=== PATIENT | female | born 1945 | race Caucasian/White ===

== ENCOUNTER 2017-09-15 11:18 | Day surgery (SDC) | payer MEDICARE, SELFPAY ==
[2017-08-31 16:19] VITALS: BMI 27.3
[2017-09-15] VITALS (7 sets, daily range): BP systolic 96–123; BP diastolic 62–70; PULSE 60–68; RESP 16–18; TEMP 36.1–36.6; O2SAT 96–100; BMI 27.8
[2017-09-15] MEDS: Bupivacaine Mpf 0.5% 30 ML VIAL (12:34)
[2017-09-15] MEDS: Cefazolin 2 GM in 0.9% Normal Saline 100 ML IV (13:16)
--- NOTE | 2017-09-15 13:59 | RAD_ITS ---
STUDY: X-RAY CHEST REASON FOR EXAM: Female, 71 years old. Post port placement, right side. TECHNIQUE: AP upright portable view. COMPARISON: 03/19/2017. FINDINGS: Right IJ approach Paja-P-Evmfaqqt tip is in the SVC. No pneumothorax. Mild pulmonary hyperinflation. Horizontal linear subsegmental atelectasis in the left midlung. No suspicious pulmonary nodules or infiltrates. There is no demonstrated pleural abnormality. Normal size heart. Normal mediastinum and jose d. Normal visualized pulmonary arteries. Normal visualized aortic arch and descending thoracic aorta. Normal visualized thoracic spine. Normal visualized ribs, clavicles, and shoulders. There is no demonstrated abnormality of the visualized soft tissue structures of the upper abdomen. RAD/CXR for Line Placement IMPRESSION: 1. Negative for pneumothorax following right IJ approach Hkes-D-Uikngoxo placement. 2. Horizontal linear subsegmental atelectasis overlying the left posterior eighth rib. 3. No other additional findings when compared to 03/19/2017. Electronically Signed: Ramiro House MD at 14:46 EST , Service support ,
--- NOTE | 2017-09-15 13:59 | OP.PCM_ITS ---
Report of Operation Date of Procedure: 09/15/17 Pre-Operative Diagnosis: z45.2, left breast cancer Post-Operative Diagnosis: same Surgery/Procedure Performed:: 1. Right IJ port placement. 2. Use fluoroscopy. 3. Use of ultrasound Type of Anesthesia:: MAC Anesthesiologist: Twin Marquez Special Medications: Ancef 2 g IV ?1 Estimated Blood Loss (mL): <10 cc Fluids Replaced: 700 cc Description of Procedure: After informed consent was given, the patient was brought to the operating room and placed in the supine position. Appropriate time out protocol was followed. He was then given IV conscious sedation for anesthesia. The patient 's right upper chest and neck were then prepped with a surgical skin preparation and sterile surgical drapes were placed. After proper landmarks were ascertained, the skin at the upper right chest area was then infiltrated with 1:1 mixture of 1% lidocaine with epinephrine and 0.5% maricaine. A needle trocar was then inserted into the right internal jugular vein with ultrasound guidance-multiple vessels were viewed with u/s and the right IJ was chosen-- and there was good aspiration of venous blood. A wire was then threaded into the needle trocar and this was visualized under fluoroscopy to ensure that the wire was in the superior vena cava. Once this was done, then the needle trocar was removed. A small skin shahana was made with an 11 blade knife at the wire entrance site. The dilator with the introducer sheath attached was then placed over the wire into the right internal jugular vein via the Seldinger technique and this was visualized under fluoroscopy. The dilator and sheath were in proper position as visualized by fluoroscopy. A subcutaneous pocket was then created caudad to the catheter insertion site. A transverse skin incision was made after the skin and subcutaneous tissues were infiltrated with local anesthetic. Blunt dissection was then used to create a space large enough for placement of the subcutaneous port. The catheter was then tunneled into the subcutaneous pocket. The wire and dilator were then removed. The catheter was then threaded into the introducer sheath and was positioned with its tip at the junction of the superior vena cava and the right atrium as visualized under fluoroscopy. The excess catheter was transected. The catheter was then attached to the subcutaneous port using manufacturers guidelines. The catheter was flushed with a heparin saline mixture prior to placement. Hemostasis was carefully controlled with electrocautery. The port was sutured to the subcutaneous fascia using 3-0 PDS suture at two sites. The port was then placed in the subcutaneous pocket and the sutures were ligated. The incision were reapproximated with interrupted subdermal 3-0 vicryl sutures. The skin was reapproximated with 3-0 nylon suture in a interrupted fashion. Steristrips were used for reinforcement of the skin closure at IJ insertion site and a sterile opsite dressings were applied. The patient tolerated the procedure well. Implants Used: [employer] PowerPort isp M.R.I. 6Fr Lot [id number] Grafts/Implants Used: [employer] PowerPort isp M.R.I. 6Fr Lot [id number] - Complications none
--- NOTE | 2017-09-15 14:03 | PCM.DC.POR ---
Discharge Diet: No Restrictions Discharge Activity: May not drive while taking narcotic pain medications. May shower in (days): 1 - keep port site dry for 5 days Lifting Restrictions: no lifting >15 lb with right arm x 1 week Call your doctor if your incision/area has: Continuous Slow Oozing, Sudden Increased Bleeding, Increased Pain/ Swelling, Increased Redness, Foul Smelling Discharge, Swelling at the incision site Call your doctor if you observe: Fever of 101 or Higher Remove Dressing in (days):: 2 Allergies/Adverse Reactions: Allergies demerol Allergy (Mild, Uncoded 09/11/17 08:25) Unknown Medications to take at Discharge colestipol 1 gram tablet 1 g PO DAILY 07/21/17 propranolol 10 mg tablet 10 mg PO BID 07/21/17 tramadol 50 mg tablet 50 mg PO PRN PRN 07/21/17 Ergocalciferol [Vitamin D] 50,000 unit PO WE 07/29/17 Albuterol IH (ProAir) [Proair Hfa (SP)Vent Pts] 2 puff INHALATION Q4H PRN PRN 08/06/17 Multivitamin [Multiple Vitamins] 1 ea PO DAILY 08/06/17 Oxycodone HCl/Acetaminophen [Percocet 5/325] 1 - 2 tab PO Q6H PRN PRN #30 tab 08/18/17 Lidocaine/Prilocaine [Lidocaine-Prilocaine Cream] 30 gm TP DAILY PRN PRN #1 cream..g. 09/02/17 Ondansetron HCl [Zofran] 4 mg PO Q8H PRN PRN #30 tab 09/02/17 Prochlorperazine Maleate 10 mg PO Q6H PRN PRN #30 tab 09/02/17 Oxycodone HCl/Acetaminophen [Percocet 5/325] 1 tablet PO Q6H PRN PRN #10 tablet 09/15/17 The following prescriptions were given: Oxycodone HCl/Acetaminophen [Percocet 5/325] 1 tablet PO Q6H PRN PRN #10 tablet PRN Reason: Pain Primary Care Physician: Samir Salcido [Primary Care Provider] - Please Follow Up With: Karuna Camarena MD - after 5PM/weekends call [phone] with any concerns When: call office for appt in 10 days for remove sutures Proposed Discharge Date: 09/15/17
--- NOTE | 2017-09-15 14:08 | DCINST_ITS ---
Discharge Diet: No Restrictions Discharge Activity: May not drive while taking narcotic pain medications. May shower in (days): 1 - keep port site dry for 5 days Lifting Restrictions: no lifting >15 lb with right arm x 1 week Call your doctor if your incision/area has: Continuous Slow Oozing, Sudden Increased Bleeding, Increased Pain/ Swelling, Increased Redness, Foul Smelling Discharge, Swelling at the incision site Call your doctor if you observe: Fever of 101 or Higher Remove Dressing in (days):: 2 Allergies/Adverse Reactions: Allergies demerol Allergy (Mild, Uncoded 09/11/17 08:25) Unknown Medications to take at Discharge colestipol 1 gram tablet 1 g PO DAILY 07/21/17 propranolol 10 mg tablet 10 mg PO BID 07/21/17 tramadol 50 mg tablet 50 mg PO PRN PRN 07/21/17 Ergocalciferol [Vitamin D] 50,000 unit PO WE 07/29/17 Albuterol IH (ProAir) [Proair Hfa (SP)Vent Pts] 2 puff INHALATION Q4H PRN PRN Multivitamin [Multiple Vitamins] 1 ea PO DAILY 08/06/17 Oxycodone HCl/Acetaminophen [Percocet 5/325] 1 - 2 tab PO Q6H PRN PRN #30 tab Lidocaine/Prilocaine [Lidocaine-Prilocaine Cream] 30 gm TP DAILY PRN PRN #1 cream..g. 09/02/17 Ondansetron HCl [Zofran] 4 mg PO Q8H PRN PRN #30 tab 09/02/17 Prochlorperazine Maleate 10 mg PO Q6H PRN PRN #30 tab 09/02/17 Oxycodone HCl/Acetaminophen [Percocet 5/325] 1 tablet PO Q6H PRN PRN #10 tablet 09/15/17 The following prescriptions were given: Oxycodone HCl/Acetaminophen [Percocet 5/325] 1 tablet PO Q6H PRN PRN #10 tablet PRN Reason: Pain Primary Care Physician: Samir Salcido [Primary Care Provider] - Please Follow Up With: Karuna Camarena MD - after 5PM/weekends call with any concerns When: call office for appt in 10 days for remove sutures Proposed Discharge Date: 09/15/17
== END 2017-09-15 15:04 | disposition home or self-care (01) ==
LOC: SDC 11:19 → AC 11:20
PROVIDERS: Family Provider Internal Medicine; PCP Internal Medicine; Visit Provider Surgery
PROC: (CPT 36561; principal; 2017-09-15 12:45)
DX: Z45.2 Encounter for adjustment and management of vascular access device (principal); C50.912 Malignant neoplasm of unspecified site of left female breast; J45.909 Unspecified asthma, uncomplicated; K58.9 Irritable bowel syndrome, unspecified; Z79.899 Other long term (current) drug therapy; Z78.0 Asymptomatic menopausal state; Z90.12 Acquired absence of left breast and nipple; Z98.51 Tubal ligation status
CPT/HCPCS: 36561; 76937; 71045; 77001; J7120; C1788

== ENCOUNTER 2017-09-25 14:54 | Observation (INO) | payer MEDICARE, SELFPAY ==
[2017-08-31 16:19] VITALS: BMI 27.3
[2017-09-23 13:32] VITALS: BP 119/65; BMI 28.9
[2017-09-25 14:54] VITALS: BP 146/67; PULSE 83; RESP 16; TEMP 35.9; O2SAT 100; BMI 27.4
--- NOTE | 2017-09-25 15:19 | RAD_ITS ---
STUDY: X-RAY CHEST REASON FOR EXAM: Female, 71 years old. Dyspnea and vomiting. TECHNIQUE: Single AP portable view of the chest. COMPARISON: Prior chest radiograph from March 19, 2017. FINDINGS: Port-A-Cath ends in the distal superior vena cava. Lung candelaria are well expanded without new consolidation, focal atelectasis or a substantial pleural effusion. Stable mild chronic changes. There is no demonstrated pleural abnormality. Normal size heart. Normal mediastinum and jose d. Normal visualized pulmonary arteries. There is atherosclerotic calcification of the aortic arch with tortuosity. There are diffuse degenerative changes of the visualized thoracic spine. Normal visualized ribs, clavicles, and shoulders. Group of surgical lori in the left axillary soft tissues. RAD/Chest 1 View (Portable) IMPRESSION: No acute cardiopulmonary findings or changes. Negative for new consolidation, focal atelectasis or a substantial pleural effusion. Port-A-Cath ends in the distal superior vena cava. Electronically Signed: Heidi Wakefield MD at 16:30 EST , Service support ,
--- NOTE | 2017-09-25 15:19 | EKG12_ITS ---
Test Reason : VOMITING Blood Pressure : / mmHG Vent. Rate : 079 BPM Atrial Rate : 079 BPM P-R Int : 130 ms QRS Dur : 074 ms QT Int : 378 ms P-R-T Axes : 042 050 018 degrees QTc Int : 433 ms Normal sinus rhythm Nonspecific ST segment abnormality Confirmed by CAREN PIERSON, WINSOME ([id number]), editor producer VAISHNAVI HARMON ([id number]) on 09/28/2017 1:08:41 PM Referred By: Andrew Ureña Confirmed By:WINSOME FABIAN MD
--- NOTE | 2017-09-25 15:21 | ED.VISSUMM ---
- ER Visit Summary Date of Service: 09/25/17 Chief Complaint: Nausea and vomiting History of Present Illness: The patient is a 71 F presenting with nausea and vomiting. Patient started chemo this week for breast cancer. She had chemo on Thursday and then Neulasta on Thursday. She states she began vomiting yesterday. She complains of muscle aches which she states she was told to expect with this type of chemo. She was diagnosed with breast cancer in July, had a lumpectomy and has now started chemotherapy. She denies fever. Denies chest pain, shortness of breath or other complaints. Physical Examination: Vitals are stable. Patient is afebrile. Alert no acute distress. HEENT exam is unremarkable. Neck is supple. Lungs are clear and equal bilaterally. Heart is regular rate and rhythm. Abdomen is soft nontender nondistended. Back: Paraspinal lumbar muscle tenderness, no midline tenderness Extremities are unremarkable. Skin is warm and dry. No focal neurologic deficit. Remainder of exam is unremarkable. Emergency Department Course and Treatment: She is given IV fluids, morphine, Zofran. Chest x-ray shows no acute process. EKG is sinus rate is 79. CBC shows a white count of 31.6, 80% segs, 10% bands. Chemistries normal except for BUN 19. Troponin is negative. Urine and blood cultures are sent. Discussed with Samina filiberto for Dr Varghese. She feels the jump in her white count from 7 to 31 is too much to be just from the Neulasta shot. Recommend observation. Discussed with the hospitalist, urinalysis is pending. Disposition: Observation Impression: Leukocytosis, history of breast cancer on chemotherapy This note was generated with Other Machine dictation software. It may contain incorrect words, spelling, and punctuation that were not noted in review of the chart prior to signing ED Disposition - Plan for ED Patient: Chief Complaint: Nausea/Vomiting Referrals: Samir Salcido [Primary Care Provider] -
[2017-09-25] MEDS: 0.9% Normal Saline 1,000 ML 1000 ML IV (15:50)
[2017-09-25] MEDS: Ondansetron 4 MG/2 ML Vial IV (15:50)
[2017-09-25 16:10] LABS: Differential Indicated MANUAL DIFF; Hematocrit 45.9 % (37-47); Hemoglobin 15.2 g/dl (12.0-15.0); Mean Corp Hgb Conc 33.1 g/gl (32-36); Mean Corpuscular Volume 93.5 fL (81-99); Mean Platelet Vol. 10.6 fl (6.2-12.0); POSITIVE COUNT YES; POSITIVE DIFFERENTIAL YES; POSITIVE MORPHOLOGY YES; Platelet Count 214 K/mm3 (150-450); RBC Distribution Width CV 14.2 % (11.6-14.6); RBC Distribution Width SD 47.3 fl (35.1-43.9); Red Blood Count 4.91 M/mm3 (4.2-5.4); White Blood Count 31.6 K/mm3 (4.4-11.0)
--- NOTE | 2017-09-25 16:12 | ED.RN ---
wbc 31.[address] humphrey aware
[2017-09-25 16:19] LABS: Anion Gap 8 (5-15); BUN 19 mg/dL (7-18); BUN/Creat Ratio 21.9 RATIO (10-20); Chloride 102 mmol/L (98-107); Creatinine, Serum 0.87 mg/dL (0.55-1.02); EST Glomerular Filtration Rate 68 mL/min (>60); Est Glom Filt Rate - Afr Amer 82 mL/min (>60); Estimated Creatinine Clearance 50.47 ml/min; Glucose 103 mg/dL (74-106); Potassium 3.7 mmol/L (3.5-5.1); Sodium Level 138 mmol/L (136-145)
[2017-09-25 16:48] LABS: Lymphocyte 9 % (19-41); Monocyte 1 % (0-10); Neutrophil-Band 10 % (0-5); Neutrophil-Segmented 80 % (47-70); Total Cells Counted 100 (MANUAL DIFF)
[2017-09-25 16:49] LABS: Platelet Estimate ADEQUATE (ADEQ); Red Cell Morphology NORM C+C NORMAL (NORM C&C)
[2017-09-25 17:02] VITALS: BP 133/68; PULSE 79; RESP 18; O2SAT 99
[2017-09-25 17:26] LABS: Mucous, Urine 0 SEEN /hpf (<or=2+); Red Blood Cells-Urine 0 SEEN /hpf (0-5)
[2017-09-25 17:36] LABS: Color, Urine Yellow (Yellow); Glucose, Dipstick Normal (Normal); Ketone-Dipstick 15 mg/dl (Negative); Leukocyte Esterase-Dipstick 500 /ul (Negative); Nitrite-Dipstick Negative (Negative); Occult Blood-Urine 10 /ul (Negative); Protein-Dipstick Negative (Negative); Specific Gravity, Urine 1.015 (1.002-1.030); Urine Bilirubin Dipstick Negative (Negative); Urine Clarity Sl. Cloudy (Clear); Urine Urobilinogen Normal (Normal)
[2017-09-25 17:47] VITALS: BMI 27.5
[2017-09-25 17:47] LABS: Lactic Acid 1.3 mmol/L (0.4-2.0)
[2017-09-25] MEDS: Acetaminophen 500 MG Tablet 1000 MG PO (17:49)
[2017-09-25 17:51] LABS: Squamous Epithelial Cells - UA 0-5 SEEN /hpf (5-10)
[2017-09-25 17:52] LABS: White Blood Cells 10-25 SEEN /hpf (0-5)
[2017-09-25 17:53] LABS: Bacteria RARE /hpf (None Seen); Transitional Epithelial - Ur 0-5 SEEN /hpf (0-5)
--- NOTE | 2017-09-25 17:54 | NURSING ---
MED SURG OBS DEHYDRATION, N/V, LEUKOCYTOSIS SHAYLA
--- NOTE | 2017-09-25 18:07 | PCM.HP.STD ---
Problem List (1) Gastroenteritis Status: Acute (2) UTI (urinary tract infection) Status: Acute (3) Cancer of left female breast Status: Chronic Qualifiers: (4) Mitral valve prolapse Status: Chronic (5) Hiatal hernia Status: Chronic (6) Regional lymph node metastasis present Status: Chronic (7) S/P partial mastectomy Status: Chronic Qualifiers: Comment: 08/18/17 History of Present Illness Date of Admission: 09/25/17 Chief Complaint: N/V/D The patient is a 71 year old F who is a patient of Dr. Starr who is undergoing chemotherapy for left breast cancer stage IIA with mets to the axilla s/p partial mastectomy whos last chemo was Thursday followed by neulasta thursday he began to feel ill last night. She became nauseous and vomited 3 times and also had some diarrhea with decreased PO tolerance. She felt increasingly worse and her and her decided to come to the ER. They were supposed to go to the cancer center for IV fluid administration however this was closed. She has not been running a fever however does feel some shaking chills. She also reports bone pain. She denies abdominal pain. She denies sick contacts. [] Past Medical History Past Medical History (Chronic Problems): Chronic Problems (Last Reviewed 09/22/17 @ 09:34 by Davina Gerber) Mitral valve prolapse (Chronic) Hiatal hernia (Chronic) Cancer of left female breast (Chronic) Regional lymph node metastasis present (Chronic) S/P partial mastectomy (Chronic) 08/18/17 Allergies demerol Allergy (Severe, Uncoded 09/22/17 09:09) Anaphylaxis Home Medications: Ambulatory Orders Medication Instructions Recorded colestipol 1 gram tablet 1 g PO DAILY 07/21/17 propranolol 10 mg tablet 10 mg PO BID PRN 07/21/17 tramadol 50 mg tablet 50 mg PO PRN PRN 07/21/17 Ergocalciferol [Vitamin D] 50,000 unit PO WE 07/29/17 Albuterol IH (ProAir) [Proair Hfa 2 puff INHALATION Q4H PRN PRN 08/06/17 (SP)Vent Pts] Multivitamin [Multiple Vitamins] 1 ea PO DAILY 08/06/17 Lidocaine/Prilocaine 30 gm TP DAILY PRN PRN #1 cream..g. 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 Denies: Fever, Weight Change HEENT: Denies: Head Aches, Sinus Congestion, Sinus Drainage Cardiovascular: Denies: Chest Pain, Palpitations Respiratory: Denies: Cough, Shortness of breath at rest, Shortness of breath upon exertion, Sputum production Gastrointestinal: Reports: Diarrhea, Nausea, Vomiting. Denies: Abdominal Pain Genitourinary: Denies: Dysuria, Urgency Musculoskeletal: Denies: Joint Pain, Joint Tenderness Skin: Denies: Rash, Wounds Neurological: Denies: Numbness, Tingling, Focal weakness Psychiatric: Denies: Anxiety, Depression, Homicidal Ideations, Suicidal Ideations Hematologic/ Lymphatic: Denies: Easy Bruising, Easy Bleeding VTE Information - Inpt Only VTE Present on Admission: No VTE Mechan Device Prophylaxis: SCD's VTE Pharm Prophylaxis ordered?: Yes Patient Problems: Active and Suspected Problems (Last Reviewed 09/22/17 @ 09:34 by Davina Gerber) Gastroenteritis (Acute) UTI (urinary tract infection) (Acute) - Physical Exam General: Alert, Oriented x3, Cooperative HEENT: Atraumatic, PERRLA, EOMI, Normocephalic Neck: Supple, No JVD, Negative Carotid Bruits Lungs: Clear to auscultation, Normal air movement Cardiovascular: Regular rate, No murmurs Abdomen: Bowel Sounds Present, Soft, Non Tender Extremities: No edema, Capillary Refill Less than 3 Seconds Skin: No rashes, No breakdown Musculoskeletal: No Tenderness to Palpation of Joints or Extremities Neurological: Cranial nerves II-XII grossly intact Psych/Mental Status: Normal Affect, Appropriate, Alert and oriented to time, place, person, mood and affect Vital Signs Temp Pulse Resp BP Pulse Ox 96.7 F L 79 18 133/68 H 99 09/25/17 14:54 09/25/17 17:02 09/25/17 17:02 09/25/17 17:02 09/25/17 17:02 Oxygen Delivery Method Room Air Weight: 72.575 kg Body Mass Index (BMI) 27.4 Laboratory Tests Past 24 Hrs 09/25/17 09/25/17 09/25/17 15:50 15:50 17:00 WBC 31.6 H* RBC 4.91 Hgb 15.2 H Hct 45.9 MCV 93.5 MCH 31.0 MCHC 33.1 RDW 14.2 RDW Differential 47.3 H Plt Count 214 MPV 10.6 Neut % (Auto) Not Reportable Absolute Neuts (auto) Not Reportable Total Counted 100 Neutrophils % (Manual) 80 H Band Neutrophils % 10 H Lymphocytes % (Manual) 9 L Monocytes % (Manual) 1 Diff Path Review May foll Platelet Estimate ADEQUATE RBC Morphology NORM C+C Sodium 138 Potassium 3.7 Chloride 102 Carbon Dioxide 28.0 Anion Gap 8 BUN 19 H Creatinine 0.87 Estim Creat Clear Calc 50.47 Est GFR (MDRD) Af Amer 82 Est GFR (MDRD) Non-Af 68 BUN/Creatinine Ratio 21.9 H Glucose 103 Lactic Acid 1.3 Calcium 9.0 Troponin I < 0.02 Urine Color Urine Clarity Urine pH Ur Specific [place] Urine Protein Urine Glucose (UA) Urine Ketones Urine Occult Blood Urine Nitrite Urine Bilirubin Urine Urobilinogen Ur Leukocyte Esterase Urine RBC Urine WBC Ur Squamous Epith Cells Ur Transition Epith Cell Urine Bacteria Urine Mucus 09/25/17 17:22 WBC RBC Hgb Hct MCV MCH MCHC RDW RDW Differential Plt Count MPV Neut % (Auto) Absolute Neuts (auto) Total Counted Neutrophils % (Manual) Band Neutrophils % Lymphocytes % (Manual) Monocytes % (Manual) Diff Path Review Platelet Estimate RBC Morphology Sodium Potassium Chloride Carbon Dioxide Anion Gap BUN Creatinine Estim Creat Clear Calc Est GFR (MDRD) Af Amer Est GFR (MDRD) Non-Af BUN/Creatinine Ratio Glucose Lactic Acid Calcium Troponin I Urine Color Yellow Urine Clarity Sl. Cloudy Urine pH 6.0 Ur Specific [place] 1.015 Urine Protein Negative Urine Glucose (UA) Normal Urine Ketones 15 H Urine Occult Blood 10 H Urine Nitrite Negative Urine Bilirubin Negative Urine Urobilinogen Normal Ur Leukocyte Esterase 500 H Urine RBC 0 SEEN Urine WBC 10-25 SEEN Ur Squamous Epith Cells 0-5 SEEN Ur Transition Epith Cell 0-5 SEEN Urine Bacteria RARE Urine Mucus 0 SEEN Assessment/Plan Active and Suspected Problems (Last Reviewed 09/22/17 @ 09:34 by Davina Gerber) Gastroenteritis (Acute) UTI (urinary tract infection) (Acute) 1. Acute gastroenteritis - chemo induced vs infectious. Leukocytosis 31.6 however she received neulasta Thursday. She has no fever but does have some chills. She appears dehydrated with increased BUN and ketones on her urinalysis. She will be given IV fluids and supportive care. LA is negative. CXR is negative. 2. Possible cystitis - + UA, will begin levaquin as she is immunocompromised. 3. Left breast cancer stage IIa mets to axilla - last chemo per Dr. Starr thursday. She is also s/p left partial mastectomy. 4. HTN - pt is on propranolol at home. BP mildly elevated. 5. Hx of MVP, hx of Hiatal hernia. DVT ppx: heparin This patient was seen by Cullen Mack PA-C under the supervision of Doctor Knutson.
[2017-09-25 18:32] VITALS: BMI 28.5
[2017-09-25 18:49] VITALS: BP 127/59; PULSE 86; RESP 18; TEMP 36.8; O2SAT 98
[2017-09-25] MEDS: 0.9% Normal Saline 1,000 ML 150 ML IV (18:56)
[2017-09-25] MEDS: levoFLOXacin 500 MG Tablet PO (19:23)
[2017-09-25] MEDS: Temazepam 15 MG Capsule PO (22:10)
[2017-09-26 00:30] VITALS: BP 101/50; PULSE 83; RESP 16; TEMP 36.4; O2SAT 95
[2017-09-26] MEDS: 0.9% Normal Saline 1,000 ML 150 ML IV ×2 (01:44→08:49)
[2017-09-26] MEDS: oxyCODONE 5 MG Tablet PO (03:20)
[2017-09-26 05:30] VITALS: BP 124/71; PULSE 80; RESP 16; TEMP 36.2; O2SAT 96
[2017-09-26] MEDS: levoFLOXacin 500 MG Tablet PO (05:34)
[2017-09-26 06:45] LABS: Hematocrit 40.3 % (37-47); Mean Corp Hgb Conc 32.3 g/gl (32-36); Mean Corpuscular Hgb 30.7 pg (27.0-32.0); Mean Corpuscular Volume 95.3 fL (81-99); Platelet Count 158 K/mm3 (150-450); RBC Distribution Width CV 14.2 % (11.6-14.6); RBC Distribution Width SD 49.3 fl (35.1-43.9); Red Blood Count 4.23 M/mm3 (4.2-5.4)
[2017-09-26 07:01] LABS: Anion Gap 8 (5-15); BUN 12 mg/dL (7-18); BUN/Creat Ratio 16.9 RATIO (10-20); Calcium,Total 8.2 mg/dL (8.5-10.1); Chloride 106 mmol/L (98-107); Creatinine, Serum 0.71 mg/dL (0.55-1.02); EST Glomerular Filtration Rate 86 mL/min (>60); Est Glom Filt Rate - Afr Amer 104 mL/min (>60); Estimated Creatinine Clearance 43.91 ml/min; Glucose 95 mg/dL (74-106); Potassium 3.7 mmol/L (3.5-5.1); Sodium Level 138 mmol/L (136-145)
[2017-09-26 07:14] LABS: Lymphocyte 10 % (19-41); Monocyte 1 % (0-10); Neutrophil-Band 4 % (0-5); Neutrophil-Segmented 85 % (47-70); Total Cells Counted 100 (MANUAL DIFF)
[2017-09-26 07:15] LABS: POSITIVE COUNT YES; POSITIVE DIFFERENTIAL NO; POSITIVE MORPHOLOGY YES
[2017-09-26 07:16] LABS: Absolute Neutrophil Count 18.7 X10^3/uL (2.0-7.7); Differential Indicated MANUAL DIFF
[2017-09-26] MEDS: Ondansetron 4 MG/2 ML Vial IV (07:32)
[2017-09-26 07:41] VITALS: BP 141/69; PULSE 84; RESP 18; TEMP 36.7; O2SAT 94
--- NOTE | 2017-09-26 11:14 | PCM.DC ---
- Discharge Diagnoses Current Active Problems: Current Active and Chronic Problems (Last Reviewed 09/22/17 @ 09:34 by Davina Gerber) Gastroenteritis (Acute) Mitral valve prolapse (Chronic) Hiatal hernia (Chronic) UTI (urinary tract infection) (Acute) You will use the following diet at home:: No restrictions Your food should be the consistency of: Regular Your liquids should be the consistency of: Regular/Thin Discharge Activity: Return to Normal Activity Allergies/Adverse Reactions: Allergies demerol Allergy (Severe, Uncoded 09/22/17 09:09) Anaphylaxis Medications to take at Discharge colestipol 1 gram tablet 1 g PO DAILY 07/21/17 propranolol 10 mg tablet 10 mg PO BID PRN 07/21/17 tramadol 50 mg tablet 50 mg PO PRN PRN 07/21/17 Ergocalciferol [Vitamin D] 50,000 unit PO WE 07/29/17 Albuterol IH (ProAir) [Proair Hfa] 2 puff INHALATION Q4H PRN PRN 08/06/17 Multivitamin [Multiple Vitamins] 1 ea PO DAILY 08/06/17 Lidocaine/Prilocaine [Lidocaine-Prilocaine Cream] 30 gm TP DAILY PRN PRN #1 cream..g. 09/02/17 Ondansetron HCl [Zofran] 4 mg PO Q8H PRN PRN #30 tab 09/02/17 Prochlorperazine Maleate 10 mg PO Q6H PRN PRN #30 tab 09/02/17 Temazepam 15 mg PO QHS PRN 09/25/17 Levofloxacin [Levaquin] 500 mg PO DAILY@0600 #5 tab 09/26/17 Oxycodone [Oxyir] 5 mg PO Q4H PRN PRN #20 tablet 09/26/17 The following prescriptions were given: Levofloxacin [Levaquin] 500 mg PO DAILY@0600 #5 tab Oxycodone [Oxyir] 5 mg PO Q4H PRN PRN #20 tablet PRN Reason: Mod-Severe Pain (-05/26) Primary Care Physician: Samir Salcido [Primary Care Provider] - Please follow up with your Primary Care Physician in: 2 weeks Please Follow Up With: Jesse Starr MD When: 1 week Proposed Discharge Date: 09/26/17
--- NOTE | 2017-09-26 11:15 | PCM.DC.SUM ---
Discharge Date and Diagnosis - Problem List Patient Problems: Active and Suspected Problems (Last Reviewed 09/22/17 @ 09:34 by Davina Gerber) Gastroenteritis (Acute) UTI (urinary tract infection) (Acute) Date of Admission: 09/25/17 Date of Discharge: 09/26/17 - Primary Discharge Diagnosis Active and Suspected Problems (Last Reviewed 09/22/17 @ 09:34 by Davina Gerber) Gastroenteritis (Acute) - chemo induced UTI (urinary tract infection) (Acute) left breast cancer with mets to axillary node HTN Hx MVP, Hiatal hernia - Secondary Discharge Diagnosis Chronic Problems (Last Reviewed 09/22/17 @ 09:34 by Davina Gerber) Mitral valve prolapse (Chronic) Hiatal hernia (Chronic) Cancer of left female breast (Chronic) Regional lymph node metastasis present (Chronic) S/P partial mastectomy (Chronic) 08/18/17 Hospital Course and Treatment Imaging Results: RAD/Chest 1 View (Portable) IMPRESSION: No acute cardiopulmonary findings or changes. Negative for new consolidation, focal atelectasis or a substantial pleural effusion. Port-A-Cath ends in the distal superior vena cava. Operations: None Procedures: None Summary of Care Provided: Physical exam on day of discharge: General: Resting comfortably NAD Psych: A/Ox3 normal affect HEENT: PEARRLA AT NC Neck: Supple NT CV: RRR no m/t/r/g/h Resp: CTA Abd: [id number] Soft NT no guarding or rigidity Ext: DP2+= no edema Skin: W/D normal turgor Lymph/Heme: No active bleeding or adenopathy Neuro: CN2-12 intact Hospital course: The patient is a 71 year old F with a hx of left breast cancer with mets to the left axilla who presented to the ER with nausea vomiting and diarrhea. She underwent chemo 3 days prior and neulasta 2 days prior. She had a significantly elevated white count at 36k and a UA suggesting a UTI. She was mildly dehydrated with a slightly elevated BUN and ketones on UA. No fever, negative chest xray. She was admitted and placed on supportive care, IV fluids, and levaquin to cover for UTI. She was feeling better by the next day so she was placed on 5 more days of levaquin and discharged home in stable condition with PRN medications and to follow up with her urologist in 1 week. This patient was seen by Cullen Mack PA-C under the supervision of Doctor Eamon. [] Discharge Diet: No Restrictions Discharge Activity: Return to Normal Activity Home Medications: Medications to take at Discharge colestipol 1 gram tablet 1 g PO DAILY 07/21/17 propranolol 10 mg tablet 10 mg PO BID PRN 07/21/17 tramadol 50 mg tablet 50 mg PO PRN PRN 07/21/17 Ergocalciferol [Vitamin D] 50,000 unit PO WE 07/29/17 Albuterol IH (ProAir) [Proair Hfa] 2 puff INHALATION Q4H PRN PRN 08/06/17 Multivitamin [Multiple Vitamins] 1 ea PO DAILY 08/06/17 Lidocaine/Prilocaine [Lidocaine-Prilocaine Cream] 30 gm TP DAILY PRN PRN #1 cream..g. 09/02/17 Ondansetron HCl [Zofran] 4 mg PO Q8H PRN PRN #30 tab 09/02/17 Prochlorperazine Maleate 10 mg PO Q6H PRN PRN #30 tab 09/02/17 Temazepam 15 mg PO QHS PRN 09/25/17 Levofloxacin [Levaquin] 500 mg PO DAILY@0600 #5 tab 09/26/17 Oxycodone [Oxyir] 5 mg PO Q4H PRN PRN #20 tablet 09/26/17 Following Prescrptions Were Given to Patient: Levofloxacin [Levaquin] 500 mg PO DAILY@0600 #5 tab Oxycodone [Oxyir] 5 mg PO Q4H PRN PRN #20 tablet PRN Reason: Mod-Severe Pain (-05/26) Primary Care Physician: Samir Salcido [Primary Care Provider] - Please follow up with your Primary Care Physician in: 2 weeks Please Follow Up With: Jesse Starr MD When: 1 week Disposition: Home Minutes spent on discharge:: 35 Patient Condition:: Stable Meaningful Use Info Meaningful Use Diagnoses (Choose all that apply): None applicable
[2017-09-29 09:54] LABS: Pathologist Review Reviewed
[2017-09-29 09:56] LABS: Pathologist Review Reviewed
== END 2017-09-26 12:20 | disposition home or self-care (01) ==
LOC: ED 16:23 → MS2 18:26
PROVIDERS: Admitting Provider Internal Medicine; Emergency Provider Emergency Medicine; Family Provider Internal Medicine; PCP Internal Medicine; Visit Provider Internal Medicine
DX: K52.1 Toxic gastroenteritis and colitis (principal); N39.0 Urinary tract infection, site not specified; I10 Essential (primary) hypertension; C50.912 Malignant neoplasm of unspecified site of left female breast; C77.3 Secondary and unspecified malignant neoplasm of axilla and upper limb lymph nodes; K44.9 Diaphragmatic hernia without obstruction or gangrene; E86.0 Dehydration; Z79.899 Other long term (current) drug therapy; I44.0 Atrioventricular block, first degree; T45.1X5A Adverse effect of antineoplastic and immunosuppressive drugs, initial encounter
CPT/HCPCS: 36415; 71045; 80048; 81001; 83605; 84484; 85025; 87040; 87086; 87088; 93005; 96361; 96372; 96374; 96375; 96376; 97802; 99218; 99283; J7030; G0378; J2405

== ENCOUNTER 2017-09-28 10:59 | Inpatient (IN) | payer MEDICARE, SELFPAY ==
[2017-08-31 16:19] VITALS: BMI 27.3
[2017-09-28] VITALS (10 sets, daily range): BP systolic 126–146; BP diastolic 60–77; PULSE 77–96; RESP 16–18; TEMP 36.6–37.4; O2SAT 96–100; BMI 27.4; BMI 27.7; BMI 27.5
--- NOTE | 2017-09-28 11:15 | NURSING ---
NO LW OR POA
--- NOTE | 2017-09-28 11:16 | ED.VISSUMM ---
- ER Visit Summary Date of Service: 09/28/17 Chief Complaint: Bright red blood per rectum History of Present Illness: The patient is a 71 F who has bright red blood per rectum. She states this started yesterday. It is associated with abdominal cramping. She thinks she is going to have a bowel movement when she does with all blood. She had nausea and vomiting yesterday but that is better today. Her last colonoscopy was 7 years ago. She currently has breast cancer with metastases to the left axilla. She is currently on chemotherapy and Neulasta. She does feel lightheaded and dizzy, weak as well. She does not take any blood thinning medications. No history of GI bleeds in the past Physical Examination: Vital signs reviewed. HEENT exam unremarkable. Heart is regular rate and rhythm without murmurs. Lungs are clear to auscultation. Abdomen is soft with diffuse tenderness to palpation. Extremities reveal no edema. Skin exam normal. Neurologic exam normal. Test Results: Hemoglobin 13.2, INR 1.1. Emergency Department Course and Treatment: Patient did have a large bowel movement with mostly blood here. Due to her GI bleeding as well as her medical history I feel she should be admitted. I spoke with the admitting hospitalist as well as Dr. Finn who will see the patient in consultation Treatment Plan: [] Disposition: Admit Impression: GI bleed This note was generated with [employer] dictation software. It may contain incorrect words, spelling, and punctuation that were not noted in review of the chart prior to signing ED Disposition - Plan for ED Patient: Chief Complaint: GI Bleed Referrals: Samir Salcido [Primary Care Provider] -
[2017-09-28 12:05] LABS: Hematocrit 40.7 % (37-47); Hemoglobin 13.2 g/dl (12.0-15.0); Mean Corp Hgb Conc 32.4 g/gl (32-36); Mean Corpuscular Hgb 30.1 pg (27.0-32.0); Mean Corpuscular Volume 92.7 fL (81-99); Mean Platelet Vol. 10.5 fl (6.2-12.0); Platelet Count 149 K/mm3 (150-450); RBC Distribution Width CV 13.7 % (11.6-14.6); RBC Distribution Width SD 46.8 fl (35.1-43.9); Red Blood Count 4.39 M/mm3 (4.2-5.4); White Blood Count 2.3 K/mm3 (4.4-11.0)
[2017-09-28 12:12] LABS: International Normalized Ratio 1.1; Prothrombin Time (Protime)PT. 13.3 SECONDS (11.7-14.9)
[2017-09-28 12:13] LABS: BUN 16 mg/dL (7-18); Creatinine, Serum 0.72 mg/dL (0.55-1.02); Differential Indicated MANUAL DIFF; Glucose 100 mg/dL (74-106); POSITIVE COUNT NO; POSITIVE DIFFERENTIAL YES; POSITIVE MORPHOLOGY YES
[2017-09-28 12:14] LABS: Anion Gap 10 (5-15); BUN/Creat Ratio 22.1 RATIO (10-20); Calcium,Total 8.9 mg/dL (8.5-10.1); Chloride 106 mmol/L (98-107); EST Glomerular Filtration Rate 84 mL/min (>60); Est Glom Filt Rate - Afr Amer 102 mL/min (>60); Estimated Creatinine Clearance 43.91 ml/min; Potassium 3.5 mmol/L (3.5-5.1); Sodium Level 140 mmol/L (136-145)
[2017-09-28 13:14] LABS: Eosinophil 3 % (0-5); Lymphocyte 44 % (19-41); Monocyte 1 % (0-10); Neutrophil-Band 1 % (0-5); Neutrophil-Segmented 51 % (47-70); Total Cells Counted 100 (MANUAL DIFF)
[2017-09-28 13:19] LABS: Lymphocyte # 1.02 X10^3/ul (4.0); Neutrophil # 1.22 X10^3/uL (2.7-7.7)
--- NOTE | 2017-09-28 13:56 | NM_ITS ---
STUDY: NUCLEAR MEDICINE GI BLEED SCAN. REASON FOR EXAM: Female, 71 years old. Rectal bleeding. TECHNIQUE: 25 mCi of technetium tagged red blood cells injected. Multiple images of the abdomen were obtained. COMPARISON: None. FINDINGS: There is no evidence of a active bleeding. NM/GI Bleed Scan IMPRESSION: No evidence of active GI bleeding. Electronically Signed: Esteban Alexis MD at 16:08 EST Tel [phone], Service support ,
--- NOTE | 2017-09-28 14:12 | NURSING ---
128 GI BLEED SHAYLA
--- NOTE | 2017-09-28 14:42 | HP.PCM_ITS ---
Problem List (1) Rectal bleed Status: Acute (2) Mitral valve prolapse Status: Chronic (3) Hiatal hernia Status: Chronic (4) Cancer of left female breast Status: Chronic Qualifiers: (5) Regional lymph node metastasis present Status: Chronic (6) S/P partial mastectomy Status: Chronic Qualifiers: Comment: 08/18/17 (7) Asthma Status: Chronic History of Present Illness Date of Admission: 09/28/17 Chief Complaint: BRBPR The patient is a 71 year old F with a history of left breast cancer status post partial mastectomy, who underwent chemotherapy about 1 week with Neulasta given 1 day after, with regional lymph node metastasis, who was recently discharged from the hospital after being treated for chemo-induced gastroenteritis and suspected UTI, who presents to the emergency room with bright red blood per rectum. This began yesterday, she has had multiple episodes of loose bowels with bright red blood and dark clots. She continues to have this in the emergency room. She denies dizziness or lightheadedness. She has a normal hemoglobin at this time. She also has had bilateral lower quadrant abdominal discomfort and chills at home. She denies any history of diverticulosis, her last colonoscopy was normal reportedly. She has no history of hemorrhoids either. No fevers noted. No nausea or vomiting. [] Past Medical History Past Medical History (Chronic Problems): Chronic Problems (Last Reviewed 09/28/17 @ 10:31 by Ladonna Castro) Mitral valve prolapse (Chronic) Hiatal hernia (Chronic) Cancer of left female breast (Chronic) Regional lymph node metastasis present (Chronic) S/P partial mastectomy (Chronic) 08/18/17 Asthma (Chronic) Allergies demerol Allergy (Severe, Uncoded 09/28/17 11:03) Anaphylaxis Home Medications: Ambulatory Orders Medication Instructions Recorded colestipol 1 gram tablet 1 g PO DAILY 07/21/17 propranolol 10 mg tablet 10 mg PO BID PRN 07/21/17 tramadol 50 mg tablet 50 mg PO PRN PRN 07/21/17 Ergocalciferol [Vitamin D] 50,000 unit PO WE 07/29/17 Albuterol IH (ProAir) [Proair Hfa] 2 puff INHALATION Q4H PRN PRN 08/06/17 Multivitamin [Multiple Vitamins] 1 ea PO DAILY 08/06/17 Lidocaine/Prilocaine 30 gm TP DAILY PRN PRN #1 cream..g. 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 Lives: Spouse/ Significant Other Smoking Status: Never smoker Tobacco Use: Non-smoker Alcohol: None Drugs: None - *Family History Maternal History Items: Heart Disease Paternal History Items: Cancer - leukemia, Heart Disease, Stroke Review of Systems Constitutional: Denies: Chills, Fever, Weight Change HEENT: Denies: Head Aches, Sinus Congestion, Sinus Drainage Cardiovascular: Denies: Chest Pain, Heaviness, Light Headedness, Palpitations, Syncope Respiratory: Denies: Cough, Shortness of Breath, Shortness of breath at rest, Sputum production Gastrointestinal: Reports: Abdominal Pain, Diarrhea, Hematochezia. Denies: Nausea, Vomiting Genitourinary: Denies: Dysuria Musculoskeletal: Denies: Joint Pain, Joint Tenderness Skin: Denies: Rash, Wounds Neurological: Denies: Numbness, Tingling, Focal weakness Psychiatric: Denies: Anxiety, Depression, Homicidal Ideations, Suicidal Ideations Hematologic/ Lymphatic: Denies: Easy Bruising, Easy Bleeding VTE Information - Inpt Only VTE Present on Admission: No VTE Mechan Device Prophylaxis: SCD's VTE Pharm Prophylaxis ordered?: No Reason prophylaxis not ordered:: Medical Contraindication Patient Problems: Active and Suspected Problems (Last Reviewed 09/28/17 @ 10:31 by Ladonna Castro) Rectal bleed (Acute) - Physical Exam General: Alert, Oriented x3, Cooperative HEENT: Atraumatic, PERRLA, EOMI, Normocephalic Neck: Supple, No JVD, Negative Carotid Bruits Lungs: Clear to auscultation, Normal air movement Cardiovascular: Regular rate, No murmurs Abdomen: Bowel Sounds Present, Soft, Hypoactive Bowel Sounds, Tender - BL lower quadrants Extremities: No edema, Capillary Refill Less than 3 Seconds Skin: No rashes, No breakdown Musculoskeletal: No Tenderness to Palpation of Joints or Extremities Neurological: Cranial nerves II-XII grossly intact Psych/Mental Status: Normal Affect, Appropriate, Alert and oriented to time, place, person, mood and affect Vital Signs Temp Pulse Resp BP Pulse Ox 98 F 77 18 131/77 H 100 09/28/17 11:01 09/28/17 14:02 09/28/17 14:02 09/28/17 14:02 09/28/17 14:02 Oxygen Delivery Method Room Air Weight: 72.575 kg Body Mass Index (BMI) 27.4 Laboratory Tests Past 24 Hrs 09/28/17 09/28/17 09/28/17 11:45 11:45 11:45 WBC 2.3 L RBC 4.39 Hgb 13.2 Hct 40.7 MCV 92.7 MCH 30.1 MCHC 32.4 RDW 13.7 RDW Differential 46.8 H Plt Count 149 L MPV 10.5 Neut % (Auto) Not Reportable Absolute Neuts (auto) Not Reportable Total Counted 100 Neutrophils % (Manual) 51 Band Neutrophils % 1 Lymphocytes % (Manual) 44 H Monocytes % (Manual) 1 Eosinophils % (Manual) 3 PT 13.3 INR 1.1 Sodium 140 Potassium 3.5 Chloride 106 Carbon Dioxide 24.0 Anion Gap 10 BUN 16 Creatinine 0.72 Estim Creat Clear Calc 43.91 Est GFR (MDRD) Af Amer 102 Est GFR (MDRD) Non-Af 84 BUN/Creatinine Ratio 22.1 H Glucose 100 Calcium 8.9 Assessment/Plan Active and Suspected Problems (Last Reviewed 09/28/17 @ 10:31 by Ladonna Castro) Rectal bleed (Acute) 1. Multiple episodes of BRBPR, with no anemia and stable vitals - pt continues to have bright red stools in the ER with abdominal pain in BL lower candelaria. Etiology unclear. She was recently discharged from the hospital after being treated for chemo induced gastroenteritis and a UTI with levaquin. She will be admitted to PCU and general surgery will be consulted. Type and screen. Serial H /H. Pt will go for a bleed scan this afternoon. IV fluids, and PRN medications. She will be placed on protonix. No nausea/vomiting at this time. Vitals are stable. 2. 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 Pt of Dr. Varghese. Chemo and neulasta about 1 week ago. Now Leukopenic after having very elevated leukocytes at last admission. No fever. 3. Mild thrombocytopenia - did receive heparin last admission. Continue to trend. Probably 2/2 chemo. 4. Recent acute cystitis - she has 3 more days of levaquin to complete for total of 7 day therapy. Urine culture with mixed GPCs 5. HTN - stable 6. Hx MVP 7. Hx Hiatal hernia DVT ppx: SCDs This patient was seen by Cullen Mack PA-C under the supervision of Doctor Knutson.
[2017-09-28] MEDS: Pantoprazole Sodium 40 MG Tablet PO (17:09)
[2017-09-28] MEDS: Acetaminophen 325 MG Tablet 650 MG PO ×2 (17:09→22:57)
[2017-09-28] MEDS: 0.9% NaCl VAD Flush 10 ML IV ×2 (17:10→20:22)
[2017-09-28] MEDS: 0.9% Normal Saline 1,000 ML 125 ML IV (17:10)
--- NOTE | 2017-09-28 17:37 | CT_ITS ---
STUDY: CT ABDOMEN AND PELVIS WITH CONTRAST REASON FOR EXAM: Female, 71 years old. Bloody diarrhea. RADIATION DOSAGE (If Supplied By Facility): CTDIvol = ( 12.54 ) mGy, DLP = ( 790.46 ) mGycm TECHNIQUE: Transaxial images were obtained from the dome of the diaphragm to the symphysis pubis with oral contrast. 100ML ml of Isovue 300 contrast was administered. Sagittal and coronal images were reconstructed. Individualized dose optimization techniques were used for this CT. COMPARISON: None. FINDINGS: There is a 4.5 cm fluid collection or mass in the left breast. Correlate clinically and correlate with mammogram. The visualized lung bases are unremarkable. The visualized portions of the heart are within normal limits. Normal liver. There are surgical clips in the gallbladder fossa consistent with a prior cholecystectomy. Normal spleen. Normal pancreas. Normal bilateral adrenal glands. Normal right kidney. Normal left kidney. Normal visualized stomach. Normal small intestine. There is marked thickening of the descending colon and rectosigmoid consistent with severe nonspecific colitis. There is diverticulosis without definite diverticulitis. The appendix is visualized and appears normal. Normal abdominal aorta. Normal inferior vena cava. Normal retroperitoneum. Normal urinary bladder. Normal visualized uterus. Normal abdominal wall. There are diffuse degenerative changes of the visualized lumbar spine. CT/Abdomen/Pelvis WITH Contrast IMPRESSION: Findings consistent with severe descending and rectosigmoid colitis. 4.5 cm fluid collection or mass of the left breast. Electronically Signed: Dimitris Rose MD at 21:39 EST , Service support ,
[2017-09-28 17:57] LABS: Hematocrit 40.7 % (37-47); Hemoglobin 13.1 g/dl (12.0-15.0)
[2017-09-28 18:07] LABS: International Normalized Ratio 1.1; Prothrombin Time (Protime)PT. 13.4 SECONDS (11.7-14.9)
[2017-09-28 20:44] LABS: Hematocrit 38.1 % (37-47); Hemoglobin 12.4 g/dl (12.0-15.0)
[2017-09-28] MEDS: Temazepam 15 MG Capsule PO (22:58)
[2017-09-28] MEDS: Piperacil/Tazobactam 3.375 GM/50 ML ML IV (23:00)
--- NOTE | 2017-09-28 23:22 | PCM.HOSP.N ---
Hospitalist Note Patient underwent a CAT scan of the abdomen and pelvis early this evening, it showed extensive colitis from the descending colon throughout the sigmoid area and rectum. I discussed the case with gastroenterology (Dr. Concepcion) he felt it was most likely caused by ischemic colitis. He recommended the patient undergo a colonoscopy tomorrow, I discussed this with Dr. Starr the patient's oncologist, he recommended that the colonoscopy not be performed at the patient's absolute neutrophil count was below 1000. Labs will be obtained early in the a.m. of 09/29/15 to recheck her white blood cell count, if the absolute neutrophil count is below thousand, she will not be able have a colonoscopy on that date. GI will be informed if the colonoscopy is not to be performed. I tried to reach Dr. Concepcion by phone but was unable to reach him
--- NOTE | 2017-09-28 23:26 | CCHN_ITS ---
Hospitalist Note Patient underwent a CAT scan of the abdomen and pelvis early this evening, it showed extensive colitis from the descending colon throughout the sigmoid area and rectum. I discussed the case with gastroenterology (Dr. Concepcion) he felt it was most likely caused by ischemic colitis. He recommended the patient undergo a colonoscopy tomorrow, I discussed this with Dr. Starr the patient's oncologist, he recommended that the colonoscopy not be performed at the patient' s absolute neutrophil count was below 1000. Labs will be obtained early in the a.m. of 09/29/15 to recheck her white blood cell count, if the absolute neutrophil count is below thousand, she will not be able have a colonoscopy on that date. GI will be informed if the colonoscopy is not to be performed. I tried to reach Dr. Concepcion by phone but was unable to reach him
[2017-09-29] VITALS (10 sets, daily range): BP systolic 112–123; BP diastolic 60–70; PULSE 73–87; RESP 14–18; TEMP 36.4–37; O2SAT 95–97
[2017-09-29] MEDS: 0.9% Normal Saline 1,000 ML 125 ML IV ×3 (01:15→16:41)
[2017-09-29] MEDS: Acetaminophen 325 MG Tablet 650 MG PO ×2 (04:42→10:41)
[2017-09-29] MEDS: 0.9% NaCl VAD Flush 10 ML IV ×2 (05:01→05:02)
[2017-09-29 05:13] LABS: Hematocrit 36.3 % (37-47); Hemoglobin 11.9 g/dl (12.0-15.0); Mean Corp Hgb Conc 32.8 g/gl (32-36); Mean Corpuscular Hgb 30.7 pg (27.0-32.0); Mean Corpuscular Volume 93.6 fL (81-99); Mean Platelet Vol. 10.4 fl (6.2-12.0); Platelet Count 146 K/mm3 (150-450); RBC Distribution Width CV 13.4 % (11.6-14.6); RBC Distribution Width SD 44.9 fl (35.1-43.9); Red Blood Count 3.88 M/mm3 (4.2-5.4); White Blood Count 1.8 K/mm3 (4.4-11.0)
[2017-09-29 05:59] LABS: Absolute Neutrophil Count 0.4 X10^3/uL (2.0-7.7); Basophil% 0.5 % (0-1); Differential Indicated SCAN CRITERIA MET; Lymphocyte # 1.35 X10^3/ul (4.0); Lymphocyte % 67.5 % (19-41); Neutrophil # 0.38 X10^3/uL (2.7-7.7); POSITIVE COUNT YES; POSITIVE DIFFERENTIAL YES; POSITIVE MORPHOLOGY YES
[2017-09-29 06:00] LABS: Absolute Lymphocyte Count 1.35 X10^3/ul (0.83-4.51); Basophil# 0.01 X10^3/uL; Monocyte# 0.08 X10^3/uL
[2017-09-29] MEDS: Piperacil/Tazobactam 3.375 GM/50 ML ML IV ×3 (06:20→21:21)
[2017-09-29 10:08] LABS: Pathologist Review Reviewed
--- NOTE | 2017-09-29 10:24 | CASEMGMT ---
Face to Face with patient for initial transition planning/care coordination assessment. CONCHA PAYTON introduced self and role at [facility], pt voices understanding and consents to assessment at this time. Pt is sitting up in bed in no distress at this time. Pt A/O x4 at this time and answers all questions appropriately at this time. Care providers, pharmacy, and demographics verified. See attached link. Pt voices no further concerns/needs at this time. Advised pt to ask for CM if any further questions/concerns/needs arise, voices understanding. [place]
[2017-09-29] MEDS: Pantoprazole Sodium 40 MG Tablet PO (10:37)
--- NOTE | 2017-09-29 12:33 | ONC.CON.INP2 ---
- Problem List (1) Colitis Status: Acute (2) Chemotherapy induced neutropenia Status: Acute (3) Rectal bleed Status: Acute (4) Cancer of left female breast Status: Chronic Qualifiers: (5) Regional lymph node metastasis present Status: Chronic (6) S/P partial mastectomy Status: Chronic Qualifiers: Comment: 08/18/17 Consult Referring Physician: Hospitalist service Consult Results: Breast Cancer. Chemotherapy induced neutropenia. Colitis Subjective Date of Service:: 09/29/17 Chief Complaint: Rectal Bleeding History of Present Illness: 71 YOF admitted 09/28 with acute CO bleed abdominal pain and colitis. 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 She used to go for annual mammograms but missed the past 4 years while being preoccupied taking care of her ill father. She does not have any first-degree relatives with breast cancer but has 3 cousins with breast cancer. On August 18, 2017 she underwent a partial left mastectomy with sentinel lymph node biopsy. 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 Tumor is ER positive (95% CO positive (95%) HER-2 not amplified (0 IHC) She made a non-complicated recovery from her surgery. Started adjuvant Adriamycin-Cytoxan 09/22/2017 followed by Neulasta (long acting growth Factor on 09/23) Was seen in ER 09/25 with neulasta bony pains, N/V not neutropenic and suspected UTI treated with PO antibiotics. Past Medical History: Chronic Problems (Last Updated 09/29/17 @ 08:41 by Jesse Starr MD) Mitral valve prolapse (Chronic) Hiatal hernia (Chronic) Cancer of left female breast (Chronic) Regional lymph node metastasis present (Chronic) S/P partial mastectomy (Chronic) 08/18/17 Asthma (Chronic) Past Medical/Surgical History: Past Medical History - Most Recent Inpatient Visit Past Medical History Start: 09/28/17 14:45 Text: Status: Complete Freq: ONCE Protocol: Document 09/28/17 14:57 SLG (Rec: 09/28/17 14:59 SLG [id number]) BMI Required to complete PMH What is Patient's BMI 27.5 Past Medical History Unable History Recalled No Query Text:Pt Unable/Family Not Present Neurologic Medical History Hx Stroke/TIA No Hx Dementia/Alzheimer's No Hx Parkinson's Disease No Hx Seizures No Hx Multiple Sclerosis No Hx Migraines 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 No Hx Heart Failure No Hx Pacemaker/AICD No Hx Irregular Heartbeat and/or Afib No Hx Anticoagulant Therapy No Query Text:(Coumadin, Aspirin, Plavix, Xarelto, etc.) Hx Pain in Legs when Walking/Leg Cramps No Comments mitral valve prolapse Respiratory Medical History Hx COPD No: asthma Hx Emphysema No Hx Smoking No Smoking Status Never smoker Hx Tobacco Use in last 12 months No Hx of Pipe Smoking No Hx Sleep Apnea No CPAP No Do you snore loudly (louder than talking No or can be heard through closed doors)? Do you often feel tired/ fatigued/ Yes sleepy during daytime? Has anyone observed you stop breathing No during sleep? STOP Results Positive GI Medical History Hx Ulcer No Hx Hepatitis No Hx Cirrhosis No Hx GI Bleed No Hx Unplanned Weight Loss No Genitourinary Medical History Indwelling Catheter in Place on Arrival/ No Admission Hx Renal Disease No Hx Dialysis No Musculoskeletal History Hx Arthritis Yes: OA Hx Rheumatoid Arthritis No Endocrine Medical History Hx Diabetes No Hx Thyroid Disease No Hematologic Medical History Hx of Blood Transfusion No Hx of Transfusion in last 3 Months No Ever experience any problems with No transfusion(s)? Hx of Preganancy in last 3 Months No Nurse Filling Out Transfusion & SGESSEL Questions: Date: 09/28/17 Time: 14:58 Psycho/Social Medical History Hx Depression Yes Hx Anxiety No Hx Behavior Disorder No Hx Alcohol Use No Hx Substance Use No Other Medical History Hx Blood Disorders No Hx Anemia No Hx Cancer Yes: BREAST cancer-s/p left lumpectomy Hx Drug Resistant Organism No Wound/Pressure Injury Present on Arrival No: to be assessed per primary /Admission rn Query Text:If yes, chart assessment in Shift/Clinical Findings Central Line/PICC/VAD Present on Arrival Yes /Admission Antibiotics within last 7 days? Yes Name of Antibiotic (Include dose/# days levaquin taken if known) Last day ATB taken 09/28/17 Comments Right upper chest Risk for Readmission Number of Risk Factors 3 At Risk for Readmission Patient is At Risk For Readmission Patient is eligible for Call Back Y Past Medical History (Last Updated 09/29/17 @ 08:41 by Jesse Starr MD) Colitis (Acute) Mitral valve prolapse (Chronic) Cancer of left female breast (Chronic) Regional lymph node metastasis present (Chronic) Normal colonoscopy (Acute) Back pain (Acute) Murmur, cardiac (Acute) Asthma (Chronic) Past Surgical History (Last Updated 09/29/17 @ 08:41 by Jesse Starr MD) S/P partial mastectomy (Chronic) Hx laparoscopic cholecystectomy (Acute) S/P lateral meniscectomy of right knee (Acute) S/P rotator cuff repair (Acute) Maternal Family History: Family History (Last Reviewed 09/28/17 @ 10:31 by Ladonna Castro) Father Heart problem Mother Heart problem Grandmother Ovarian cancer Family History: Heart Disease Paternal Family History: Family History (Last Reviewed 09/28/17 @ 10:31 by Ladonna Castro) Father Heart problem Mother Heart problem Grandmother Ovarian cancer Family History: Cancer - leukemia, Heart Disease, Stroke - Social History Lives: Spouse/ Significant Other Smoking Status: Never smoker Tobacco Use: Non-smoker Alcohol: None Drugs: None Allergies/Adverse Reactions: Allergy/AdvReac Type Severity Reaction Status Date / Time meperidine [From Demerol] Allergy Anaphylaxis Verified 09/28/17 14:46 Home Medications Medication Instructions Recorded colestipol 1 gram tablet 1 g PO DAILY 07/21/17 propranolol 10 mg tablet 10 mg PO BID PRN 07/21/17 tramadol 50 mg tablet 50 mg PO PRN PRN 07/21/17 Ergocalciferol [Vitamin D] 50,000 unit PO WE 07/29/17 Albuterol IH (ProAir) [Proair Hfa] 2 puff INHALATION Q4H PRN PRN 08/06/17 Multivitamin [Multiple Vitamins] 1 ea PO DAILY 08/06/17 Lidocaine/Prilocaine 30 gm TP DAILY PRN PRN #1 cream..g. 09/02/17 [Lidocaine-Prilocaine Cream] Ondansetron HCl [Zofran] 4 mg PO Q8H PRN PRN #30 tab 09/02/17 Prochlorperazine Maleate 10 mg PO Q6H PRN PRN #30 tab 09/02/17 Oxycodone [Oxyir] 5 mg PO Q4H PRN PRN #20 tab 09/26/17 Levofloxacin [Levaquin] 500 mg PO DAILY@0600 09/28/17 Temazepam [Restoril] 15 mg PO QHS PRN PRN 09/28/17 Review of Systems Constitutional:: Reports: Weakness, Fatigue. Denies: Fever, Sweats, Weight loss, Appetite change, Chills Cardiovascular:: Denies: Chest pain, Palpitations, Dyspnea on exertion, Orthopnea, PND, Shortness of breath Respiratory: Denies: Cough, Hemoptysis, Shortness of Breath, Wheezing Gastrointestinal:: Reports: Abdominal pain - cramping, Hematochezia, Reflux. Denies: Nausea, Vomiting, Diarrhea, Constipation Genitourinary: Denies: Dysuria, Hematuria, 15, Flank pain Musculoskeletal:: Reports: - - Bone pains resolved, lasted ~3 days post neulasta. Denies: Back pain, Myalgia, Arthralgia Skin: Denies: Rash, Skin Changes, Wounds Neurological:: Denies: Headache, Dizziness, Visual changes, Tinnitus, Hearing loss Psychiatric: Denies: Anxiety, Depression, Homicidal Ideations, Suicidal Ideations Vital Signs Height 5 ft 4 in Weight: 73.3 kg Weight in Pounds 161.6 lbs Pulse Ox 95 Temperature 98.6 F Pulse Rate 79 Respiratory Rate 14 Blood Pressure 112/63 Blood Pressure Position Sitting - Physical Exam General: Alert, Oriented x3, No apparent distress HEENT: Atraumatic, PERRLA, EOMI, Normocephalic Oropharynx:: Dry mucosa Neck:: Supple, Trachea midline, - - Porte OK. Negative for: JVD, bilateral Cardiac:: Regular rate, Regular rhythm, Normal S1, Normal S2. Negative for: Murmur Lungs: Clear to auscultation, Excusion symmetrical. Negative for: Rhonchi, Wheezes Abdomen:: Bowel sounds x 4, Soft, Non-distended, - - Tender along left colon. Negative for: Hepatosplenomegaly Extremities:: Negative for: Cyanosis, Edema Neurological: Neuro grossly intact Skin:: Negative for: Lesions, Rash, Petechiae, Ecchymosis Psychiatric:: Anxious Lymphatics:: Negative for: Cervical lymphadenopathy Laboratory Data: Microbiology 09/29/17 01:15 C. difficile DNA Amplification - Final Stool Laboratory Tests 09/29/17 09/28/17 09/28/17 Range/Units 05:00 20:25 17:15 WBC 1.8 L (4.4-11.0) K/mm3 RBC 3.88 L (4.2-5.4) M/mm3 Hgb 11.9 L 12.4 13.1 (12.0-15.0) g/dl Hct 36.3 L 38.1 40.7 (37-47) % MCV 93.6 (81-99) fL MCH 30.7 (27.0-32.0) pg MCHC 32.8 (32-36) g/gl RDW 13.4 (11.6-14.6) % RDW Differential 44.9 H (35.1-43.9) fl Plt Count 146 L (150-450) K/mm3 MPV 10.4 (6.2-12.0) fl Immature Gran % (Auto) 4.000 H (0.0-0.9) % Neut % (Auto) 19.0 L (47-70) % Lymph % (Auto) 67.5 H (19-41) % [place] % (Auto) 4.0 (0-10) % Eos % (Auto) 5.0 (0-5) % Baso % (Auto) 0.5 (0-1) % Absolute Neuts (auto) 0.4 L (2.0-7.7) X10^3/uL Absolute Lymphs (auto) 1.35 (0.83-4.51) X10^3/ul Total Counted CARDIOLOGY CLINICAL CONSULTANT Diff Path Review December foll PT (11.7-14.9) SECONDS INR 09/28/17 Range/Units 17:15 WBC (4.4-11.0) K/mm3 RBC (4.2-5.4) M/mm3 Hgb (12.0-15.0) g/dl Hct (37-47) % MCV (81-99) fL MCH (27.0-32.0) pg MCHC (32-36) g/gl RDW (11.6-14.6) % RDW Differential (35.1-43.9) fl Plt Count (150-450) K/mm3 MPV (6.2-12.0) fl Immature Gran % (Auto) (0.0-0.9) % Neut % (Auto) (47-70) % Lymph % (Auto) (19-41) % [place] % (Auto) (0-10) % Eos % (Auto) (0-5) % Baso % (Auto) (0-1) % Absolute Neuts (auto) (2.0-7.7) X10^3/uL Absolute Lymphs (auto) (0.83-4.51) X10^3/ul Total Counted Diff Path Review PT 13.4 (11.7-14.9) SECONDS INR 1.1 C. Diff negative Diagnostic Data: Diagnostic Data GI Bleed Scan Nuclear Medicine 09/28/17 13:56 IMPRESSION: No evidence of active GI bleeding. Electronically Signed: Esteban Alexis MD at 16:08 EST Tel [phone], Service support , Abdomen/Pelvis CT 09/28/17 17:37 IMPRESSION: Findings consistent with severe descending and rectosigmoid colitis. 4.5 cm fluid collection or mass of the left breast. Electronically Signed: Dimitris Rose MD at 21:39 EST , Service support , Assessment and Plan 71 YOF S/P partial left mastectomy with sentinel lymph node biopsy 08/18/2017 for stage IIA invasive mucinous carcinoma. Tumor is ER positive (95% CO positive (95%) HER-2 not amplified (0 IHC) She made a non-complicated recovery from her surgery. Started adjuvant Adriamycin-Cytoxan 09/22/2017 followed by Neulasta (long acting growth Factor on 09/23) Was seen in ER 09/25 with neulasta bony pains, N/V not neutropenic and suspected UTI treated with PO antibiotics. She was subsequently admitted 09/28/17 with acute CO bleed abdominal pain and acute left sided colitis. She's C. diff negative and acute colitis is very unlikely 2ry to Adriamycin-Cytoxan. GI (verbally) suspect ischemic colitis. She's neutropenic despite Neulasta on 09/23/2017 but expect B.M. recovery soon. From Oncology view advise: 1- Antibiotic cover till recover from colitis. She's a high risk for sepsis. 2- Await B.M. recovery. Neulasta lasts up to 10 days from administration. 3- Hold off invasive procedures,unless necessary till neutrophil recovery >1000 at least 2-3 days. Will F/U Seen with . impression and recommendations discussed. Medications: Prescriptions This Visit Medication Instructions Recorded Levofloxacin [Levaquin] 500 mg PO DAILY@0600 09/28/17 Temazepam [Restoril] 15 mg PO QHS PRN PRN 09/28/17 Primary Care Provider: Samir Salcido Referring Provider:
--- NOTE | 2017-09-29 12:44 | CON.PCM_ITS ---
- Problem List (1) Colitis Status: Acute (2) Chemotherapy induced neutropenia Status: Acute (3) Rectal bleed Status: Acute (4) Cancer of left female breast Status: Chronic Qualifiers: (5) Regional lymph node metastasis present Status: Chronic (6) S/P partial mastectomy Status: Chronic Qualifiers: Comment: 08/18/17 Consult Referring Physician: Hospitalist service Consult Results: Breast Cancer. Chemotherapy induced neutropenia. Colitis Subjective Date of Service:: 09/29/17 Chief Complaint: Rectal Bleeding History of Present Illness: 71 YOF admitted 09/28 with acute ID bleed abdominal pain and colitis. 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 She used to go for annual mammograms but missed the past 4 years while being preoccupied taking care of her ill father. She does not have any first-degree relatives with breast cancer but has 3 cousins with breast cancer. On August 18, 2017 she underwent a partial left mastectomy with sentinel lymph node biopsy. 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 Tumor is ER positive (95% ID positive (95%) HER-2 not amplified (0 IHC) She made a non-complicated recovery from her surgery. Started adjuvant Adriamycin-Cytoxan 09/22/2017 followed by Neulasta (long acting growth Factor on 09/23) Was seen in ER 09/25 with neulasta bony pains, N/V not neutropenic and suspected UTI treated with PO antibiotics. Past Medical History: Chronic Problems (Last Updated 09/29/17 @ 08:41 by Jesse Starr MD) Mitral valve prolapse (Chronic) Hiatal hernia (Chronic) Cancer of left female breast (Chronic) Regional lymph node metastasis present (Chronic) S/P partial mastectomy (Chronic) 08/18/17 Asthma (Chronic) Past Medical/Surgical History: Past Medical History - Most Recent Inpatient Visit Past Medical History Start: 09/28/17 14: 45 Text: Status: Complete Freq: ONCE Protocol: Document 09/28/17 14:57 SLG (Rec: 09/28/17 14:59 SLG [id number]) BMI Required to complete PMH What is Patient's BMI 27.5 Past Medical History Unable History Recalled No Query Text:Pt Unable/Family Not Present Neurologic Medical History Hx Stroke/TIA No Hx Dementia/Alzheimer's No Hx Parkinson's Disease No Hx Seizures No Hx Multiple Sclerosis No Hx Migraines 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 No Hx Heart Failure No Hx Pacemaker/AICD No Hx Irregular Heartbeat and/or Afib No Hx Anticoagulant Therapy No Query Text:(Coumadin, Aspirin, Plavix, Xarelto, etc.) Hx Pain in Legs when Walking/Leg Cramps No Comments mitral valve prolapse Respiratory Medical History Hx COPD No: asthma Hx Emphysema No Hx Smoking No Smoking Status Never smoker Hx Tobacco Use in last 12 months No Hx of Pipe Smoking No Hx Sleep Apnea No CPAP No Do you snore loudly (louder than talking No or can be heard through closed doors)? Do you often feel tired/ fatigued/ Yes sleepy during daytime? Has anyone observed you stop breathing No during sleep? STOP Results Positive GI Medical History Hx Ulcer No Hx Hepatitis No Hx Cirrhosis No Hx GI Bleed No Hx Unplanned Weight Loss No Genitourinary Medical History Indwelling Catheter in Place on Arrival/ No Admission Hx Renal Disease No Hx Dialysis No Musculoskeletal History Hx Arthritis Yes: OA Hx Rheumatoid Arthritis No Endocrine Medical History Hx Diabetes No Hx Thyroid Disease No Hematologic Medical History Hx of Blood Transfusion No Hx of Transfusion in last 3 Months No Ever experience any problems with No transfusion(s)? Hx of Preganancy in last 3 Months No Nurse Filling Out Transfusion & SGESSEL Questions: Date: 09/28/17 Time: 14:58 Psycho/Social Medical History Hx Depression Yes Hx Anxiety No Hx Behavior Disorder No Hx Alcohol Use No Hx Substance Use No Other Medical History Hx Blood Disorders No Hx Anemia No Hx Cancer Yes: BREAST cancer-s/p left lumpectomy Hx Drug Resistant Organism No Wound/Pressure Injury Present on Arrival No: to be assessed per primary /Admission rn Query Text:If yes, chart assessment in Shift/Clinical Findings Central Line/PICC/VAD Present on Arrival Yes /Admission Antibiotics within last 7 days? Yes Name of Antibiotic (Include dose/# days levaquin taken if known) Last day ATB taken 09/28/17 Comments Right upper chest Risk for Readmission Number of Risk Factors 3 At Risk for Readmission Patient is At Risk For Readmission Patient is eligible for Call Back Y Past Medical History (Last Updated 09/29/17 @ 08:41 by Jesse Starr MD) Colitis (Acute) Mitral valve prolapse (Chronic) Cancer of left female breast (Chronic) Regional lymph node metastasis present (Chronic) Normal colonoscopy (Acute) Back pain (Acute) Murmur, cardiac (Acute) Asthma (Chronic) Past Surgical History (Last Updated 09/29/17 @ 08:41 by Jesse Starr MD) S/P partial mastectomy (Chronic) Hx laparoscopic cholecystectomy (Acute) S/P lateral meniscectomy of right knee (Acute) S/P rotator cuff repair (Acute) Maternal Family History: Family History (Last Reviewed 09/28/17 @ 10:31 by Ladonna Castro) Father Heart problem Mother Heart problem Grandmother Ovarian cancer Family History: Heart Disease Paternal Family History: Family History (Last Reviewed 09/28/17 @ 10:31 by Ladonna Castro) Father Heart problem Mother Heart problem Grandmother Ovarian cancer Family History: Cancer - leukemia, Heart Disease, Stroke - Social History Lives: Spouse/ Significant Other Smoking Status: Never smoker Tobacco Use: Non-smoker Alcohol: None Drugs: None Allergies/Adverse Reactions: Allergy/AdvReac Type Severity Reaction Status Date / Time meperidine [From Demerol] Allergy Anaphylaxis Verified 09/28/17 14:46 Home Medications Medication Instructions Recorded colestipol 1 gram tablet 1 g PO DAILY 07/21/17 propranolol 10 mg tablet 10 mg PO BID PRN 07/21/17 tramadol 50 mg tablet 50 mg PO PRN PRN 07/21/17 Ergocalciferol [Vitamin D] 50,000 unit PO WE 07/29/17 Albuterol IH (ProAir) [Proair Hfa] 2 puff INHALATION Q4H PRN PRN 08/06/17 Multivitamin [Multiple Vitamins] 1 ea PO DAILY 08/06/17 Lidocaine/Prilocaine 30 gm TP DAILY PRN PRN #1 cream..g. 09/02/17 [Lidocaine-Prilocaine Cream] Ondansetron HCl [Zofran] 4 mg PO Q8H PRN PRN #30 tab 09/02/17 Prochlorperazine Maleate 10 mg PO Q6H PRN PRN #30 tab 09/02/17 Oxycodone [Oxyir] 5 mg PO Q4H PRN PRN #20 tab 09/26/17 Levofloxacin [Levaquin] 500 mg PO DAILY@0600 09/28/17 Temazepam [Restoril] 15 mg PO QHS PRN PRN 09/28/17 Review of Systems Constitutional:: Reports: Weakness, Fatigue. Denies: Fever, Sweats, Weight loss , Appetite change, Chills Cardiovascular:: Denies: Chest pain, Palpitations, Dyspnea on exertion, Orthopnea, PND, Shortness of breath Respiratory: Denies: Cough, Hemoptysis, Shortness of Breath, Wheezing Gastrointestinal:: Reports: Abdominal pain - cramping, Hematochezia, Reflux. Denies: Nausea, Vomiting, Diarrhea, Constipation Genitourinary: Denies: Dysuria, Hematuria, 15, Flank pain Musculoskeletal:: Reports: - - Bone pains resolved, lasted ~3 days post neulasta. Denies: Back pain, Myalgia, Arthralgia Skin: Denies: Rash, Skin Changes, Wounds Neurological:: Denies: Headache, Dizziness, Visual changes, Tinnitus, Hearing loss Psychiatric: Denies: Anxiety, Depression, Homicidal Ideations, Suicidal Ideations Vital Signs Height 5 ft 4 in Weight: 73.3 kg Weight in Pounds 161.6 lbs Pulse Ox 95 Temperature 98.6 F Pulse Rate 79 Respiratory Rate 14 Blood Pressure 112/63 Blood Pressure Position Sitting - Physical Exam General: Alert, Oriented x3, No apparent distress HEENT: Atraumatic, PERRLA, EOMI, Normocephalic Oropharynx:: Dry mucosa Neck:: Supple, Trachea midline, - - [place]. Negative for: JVD, bilateral Cardiac:: Regular rate, Regular rhythm, Normal S1, Normal S2. Negative for: Murmur Lungs: Clear to auscultation, Excusion symmetrical. Negative for: Rhonchi, Wheezes Abdomen:: Bowel sounds x 4, Soft, Non-distended, - - Tender along left colon. Negative for: Hepatosplenomegaly Extremities:: Negative for: Cyanosis, Edema Neurological: Neuro grossly intact Skin:: Negative for: Lesions, Rash, Petechiae, Ecchymosis Psychiatric:: Anxious Lymphatics:: Negative for: Cervical lymphadenopathy Laboratory Data: Microbiology 09/29/17 01:15 C. difficile DNA Amplification - Final Stool Laboratory Tests 3 09/29/17 09/28/17 09/28/17 Range/Units 05:00 20:25 17:15 WBC 1.8 L (4.4-11.0) K/mm3 RBC 3.88 L (4.2-5.4) M/mm3 Hgb 11.9 L 12.4 13.1 (12.0-15.0) g/dl Hct 36.3 L 38.1 40.7 (37-47) % MCV 93.6 (81-99) fL MCH 30.7 (27.0-32.0) pg MCHC 32.8 (32-36) g/gl RDW 13.4 (11.6-14.6) % RDW Differential 44.9 H (35.1-43.9) fl Plt Count 146 L (150-450) K/mm3 MPV 10.4 (6.2-12.0) fl Immature Gran % (Auto) 4.000 H (0.0-0.9) % Neut % (Auto) 19.0 L (47-70) % Lymph % (Auto) 67.5 H (19-41) % [place] % (Auto) 4.0 (0-10) % Eos % (Auto) 5.0 (0-5) % Baso % (Auto) 0.5 (0-1) % Absolute Neuts (auto) 0.4 L (2.0-7.7) X10^3/uL Absolute Lymphs (auto) 1.35 (0.83-4.51) X10^3/ul Total Counted HOOP CUTTER Diff Path Review December foll PT (11.7-14.9) SECONDS INR 3 09/28/17 Range/Units 17:15 WBC (4.4-11.0) K/mm3 RBC (4.2-5.4) M/mm3 Hgb (12.0-15.0) g/dl Hct (37-47) % MCV (81-99) fL MCH (27.0-32.0) pg MCHC (32-36) g/gl RDW (11.6-14.6) % RDW Differential (35.1-43.9) fl Plt Count (150-450) K/mm3 MPV (6.2-12.0) fl Immature Gran % (Auto) (0.0-0.9) % Neut % (Auto) (47-70) % Lymph % (Auto) (19-41) % [place] % (Auto) (0-10) % Eos % (Auto) (0-5) % Baso % (Auto) (0-1) % Absolute Neuts (auto) (2.0-7.7) X10^3/uL Absolute Lymphs (auto) (0.83-4.51) X10^3/ul Total Counted Diff Path Review PT 13.4 (11.7-14.9) SECONDS INR 1.1 C. Diff negative Diagnostic Data: Diagnostic Data GI Bleed Scan Nuclear Medicine 09/28/17 13:56 IMPRESSION: No evidence of active GI bleeding. Electronically Signed: Esteban Alexis MD at 16:08 EST Tel [phone], Service support , Abdomen/Pelvis CT 09/28/17 17:37 IMPRESSION: Findings consistent with severe descending and rectosigmoid colitis. 4.5 cm fluid collection or mass of the left breast. Electronically Signed: Dimitris Rose MD at 21:39 EST , Service support , Assessment and Plan 71 YOF S/P partial left mastectomy with sentinel lymph node biopsy 08/18/2017 for stage IIA invasive mucinous carcinoma. Tumor is ER positive (95% ID positive ( 95%) HER-2 not amplified (0 IHC) She made a non-complicated recovery from her surgery. Started adjuvant Adriamycin-Cytoxan 09/22/2017 followed by Neulasta (long acting growth Factor on ) Was seen in ER 09/25 with neulasta bony pains, N/V not neutropenic and suspected UTI treated with PO antibiotics. She was subsequently admitted 09/28/17 with acute ID bleed abdominal pain and acute left sided colitis. She's C. diff negative and acute colitis is very unlikely 2ry to Adriamycin- Cytoxan. GI (verbally) suspect ischemic colitis. She's neutropenic despite Neulasta on 09/23/2017 but expect B.M. recovery soon. From Oncology view advise: 1- Antibiotic cover till recover from colitis. She's a high risk for sepsis. 2- Await B.M. recovery. Neulasta lasts up to 10 days from administration. 3- Hold off invasive procedures,unless necessary till neutrophil recovery >1000 at least 2-3 days. Will F/U Seen with . impression and recommendations discussed. Medications: Prescriptions This Visit Medication Instructions Recorded Levofloxacin [Levaquin] 500 mg PO DAILY@0600 09/28/17 Temazepam [Restoril] 15 mg PO QHS PRN PRN 09/28/17 Primary Care Provider: Samir Salcido Referring Provider:
--- NOTE | 2017-09-29 12:50 | PCM.PROGNOTE ---
<Cullen Mack - Last Filed: 09/29/17 12:50> Patient Problems: Active and Suspected Problems (Last Updated 09/29/17 @ 08:41 by Jesse Starr MD) Colitis (Acute) Chemotherapy induced neutropenia (Acute) Rectal bleed (Acute) Subjective: LLQ abdominal discomfort continues. As of this AM she had not had another bowel movement since about 6 pm last night, which was bloody. She denies chills, SOB, cough, nausea or vomiting. - Physical Exam General: Alert, Oriented x3, Cooperative HEENT: Atraumatic, PERRLA, EOMI, Normocephalic Neck: Supple, No JVD, Negative Carotid Bruits Lungs: Clear to auscultation, Normal air movement Cardiovascular: Regular rate, No murmurs Abdomen: Bowel Sounds Present, Soft, Tender - She has tenderness to palpation in all 4 quadrants, most notably over the left lower quadrant. I do not appreciate any guarding today. Extremities: No edema, Capillary Refill Less than 3 Seconds Skin: No rashes, No breakdown Musculoskeletal: No Tenderness to Palpation of Joints or Extremities Neurological: Cranial nerves II-XII grossly intact Psych/Mental Status: Normal Affect, Appropriate, Alert and oriented to time, place, person, mood and affect Vital Signs Temp Pulse Resp BP Pulse Ox 98.6 F 79 14 112/63 95 09/29/17 10:28 09/29/17 11:02 09/29/17 10:28 09/29/17 10:28 09/29/17 10:28 Oxygen Delivery Method Room Air Weight: 73.3 kg Body Mass Index (BMI) 27.7 Intake and Output for Last 24 Hours 09/27/17 09/28/17 09/29/17 23:59 23:59 23:59 Intake Total 1017 / 1017 2272 / 2272 Output Total 600 / 600 400 / 400 Balance 417 / 417 1872 / 1872 Microbiology Past 72 Hours 09/29/17 01:15 C. difficile DNA Amplification - Final Stool Laboratory Tests Past 24 Hrs 09/28/17 09/28/17 09/28/17 17:15 17:15 20:25 WBC RBC Hgb 13.1 12.4 Hct 40.7 38.1 MCV MCH MCHC RDW RDW Differential Plt Count MPV Immature Gran % (Auto) Neut % (Auto) Lymph % (Auto) [place] % (Auto) Eos % (Auto) Baso % (Auto) Absolute Neuts (auto) Absolute Lymphs (auto) Total Counted Diff Path Review PT 13.4 INR 1.1 Blood Type Antibody Screen 09/29/17 09/29/17 05:00 09:55 WBC 1.8 L RBC 3.88 L Hgb 11.9 L Hct 36.3 L MCV 93.6 MCH 30.7 MCHC 32.8 RDW 13.4 RDW Differential 44.9 H Plt Count 146 L MPV 10.4 Immature Gran % (Auto) 4.000 H Neut % (Auto) 19.0 L Lymph % (Auto) 67.5 H [place] % (Auto) 4.0 Eos % (Auto) 5.0 Baso % (Auto) 0.5 Absolute Neuts (auto) 0.4 L Absolute Lymphs (auto) 1.35 Total Counted TEXTILE BROKER Diff Path Review May foll PT INR Blood Type Pending Antibody Screen Pending Assessment/Plan Active and Suspected Problems (Last Updated 09/29/17 @ 08:41 by Jesse Starr MD) Colitis (Acute) Chemotherapy induced neutropenia (Acute) Rectal bleed (Acute) 1. Colitis-possibly ischemic colitis. Dr. Concepcion has been consulted. Continue Zosyn. CT of the abdomen with oral and IV contrast demonstrates severe descending and rectosigmoid colitis, 4.5 cm fluid collection or mass of the left breast multiple episodes of BRBPR, with mild anemia and stable vitals -less bloody BM last night at 6 PM. Hemoglobin has gone from 13.2-11.9 so far. T/S done. -Per oncology wait on colonoscopy until absolute neutrophil count is >1000 -C diff was negative -Continue IV fluids. 2. 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 Pt of Dr. Varghese - consulted. Chemo on the with adriamycin and cytoxan, Neulasta on the . D/W Oncology, her blood counts should begin to recover on their own - continue to trend. Monitor for fever, if fever get blood cultures. 3. Pancytopenia - s/p chemo and neulasta. As above will trend as they should recover on their own. 4. Recent acute cystitis - was on levaquin. DCd now that she is on Zosyn for colitis. Her chemo may have caused cystitis per oncology. 5. HTN - stable 6. Hx MVP 7. Hx Hiatal hernia 8. Hx asthma - no respiratory complaints. DVT ppx: SCDs This patient was seen by Cullen Mack PA-C under the supervision of Doctor Lona. <Oren Zamorano - Last Filed: 09/29/17 14:36> - Physical Exam General: Alert, Cooperative HEENT: Atraumatic, Normocephalic Neck: Supple, No JVD, Negative Carotid Bruits, Negative Hepatojugular Reflux Lungs: Clear to auscultation, Normal air movement, No rhonchi, No wheeze Cardiovascular: Regular rate, Regular Rhythm, Normal S1, Normal S2, No murmurs Abdomen: Bowel Sounds Present, Soft, Non Tender, Non-Distended, Tender Extremities: No edema, No Calf Tenderness Skin: No rashes, No breakdown Musculoskeletal: No Tenderness to Palpation of Joints or Extremities Psych/Mental Status: Normal Affect, Appropriate Vital Signs Temp Pulse Resp BP Pulse Ox 37.0 C 79 14 112/63 95 09/29/17 10:28 09/29/17 11:02 09/29/17 10:28 09/29/17 10:28 09/29/17 10:28 Oxygen Delivery Method Room Air Weight: 73.3 kg Body Mass Index (BMI) 27.7 Intake and Output for Last 24 Hours 09/27/17 09/28/17 09/29/17 23:59 23:59 23:59 Intake Total 1017 / 1017 2272 / 2272 Output Total 600 / 600 400 / 400 Balance 417 / 417 1872 / 1872 Microbiology Past 72 Hours 09/29/17 01:15 C. difficile DNA Amplification - Final Stool Laboratory Tests Past 24 Hrs 09/28/17 09/28/17 09/28/17 17:15 17:15 20:25 WBC RBC Hgb 13.1 12.4 Hct 40.7 38.1 MCV MCH MCHC RDW RDW Differential Plt Count MPV Immature Gran % (Auto) Neut % (Auto) Lymph % (Auto) [place] % (Auto) Eos % (Auto) Baso % (Auto) Absolute Neuts (auto) Absolute Lymphs (auto) Total Counted Diff Path Review PT 13.4 INR 1.1 Blood Type Antibody Screen 09/29/17 09/29/17 05:00 09:55 WBC 1.8 L RBC 3.88 L Hgb 11.9 L Hct 36.3 L MCV 93.6 MCH 30.7 MCHC 32.8 RDW 13.4 RDW Differential 44.9 H Plt Count 146 L MPV 10.4 Immature Gran % (Auto) 4.000 H Neut % (Auto) 19.0 L Lymph % (Auto) 67.5 H [place] % (Auto) 4.0 Eos % (Auto) 5.0 Baso % (Auto) 0.5 Absolute Neuts (auto) 0.4 L Absolute Lymphs (auto) 1.35 Total Counted TEXTILE BROKER Diff Path Review May foll PT INR Blood Type A POSITIVE Antibody Screen NEGATIVE Assessment/Plan 1. Acute colitis Ischemic versus infectious Discussed with Dr. Starr, not directly chemo induced, though this could indirectly be related with the neutropenia and lead to potential infection Continue with [facility] Gastroenterology currently on consult. Any kind of endoscopy would need to be held until the patient's absolute neutrophil count is greater than 1000. 2. Neutropenia Down today. D/W Dr. Starr, patient did receive Granulex last week he anticipates the patient's white count going up the next 24-48 hours, though it may not be enough for the ANC to be greater than 1000. Code Visit Inpatient E&M: 73706 Subs Hosp L2
--- NOTE | 2017-09-29 12:59 | PN_ITS ---
<Cullen Mack - Last Filed: 09/29/17 12:50> Patient Problems: Active and Suspected Problems (Last Updated 09/29/17 @ 08:41 by Jesse Starr MD) Colitis (Acute) Chemotherapy induced neutropenia (Acute) Rectal bleed (Acute) Subjective: LLQ abdominal discomfort continues. As of this AM she had not had another bowel movement since about 6 pm last night, which was bloody. She denies chills, SOB, cough, nausea or vomiting. - Physical Exam General: Alert, Oriented x3, Cooperative HEENT: Atraumatic, PERRLA, EOMI, Normocephalic Neck: Supple, No JVD, Negative Carotid Bruits Lungs: Clear to auscultation, Normal air movement Cardiovascular: Regular rate, No murmurs Abdomen: Bowel Sounds Present, Soft, Tender - She has tenderness to palpation in all 4 quadrants, most notably over the left lower quadrant. I do not appreciate any guarding today. Extremities: No edema, Capillary Refill Less than 3 Seconds Skin: No rashes, No breakdown Musculoskeletal: No Tenderness to Palpation of Joints or Extremities Neurological: Cranial nerves II-XII grossly intact Psych/Mental Status: Normal Affect, Appropriate, Alert and oriented to time, place, person, mood and affect Vital Signs Temp Pulse Resp BP Pulse Ox 98.6 F 79 14 112/63 95 09/29/17 10:28 09/29/17 11:02 09/29/17 10:28 09/29/17 10:28 09/29/17 10:28 Oxygen Delivery Method Room Air Weight: 73.3 kg Body Mass Index (BMI) 27.7 Intake and Output for Last 24 Hours 09/27/17 09/28/17 09/29/17 23:59 23:59 23:59 Intake Total 1017 / 1017 2272 / 2272 Output Total 600 / 600 400 / 400 Balance 417 / 417 1872 / 1872 Microbiology Past 72 Hours 09/29/17 01:15 C. difficile DNA Amplification - Final Stool Laboratory Tests Past 24 Hrs 09/28/17 09/28/17 09/28/17 17:15 17:15 20:25 WBC RBC Hgb 13.1 12.4 Hct 40.7 38.1 MCV MCH MCHC RDW RDW Differential Plt Count MPV Immature Gran % (Auto) Neut % (Auto) Lymph % (Auto) [place] % (Auto) Eos % (Auto) Baso % (Auto) Absolute Neuts (auto) Absolute Lymphs (auto) Total Counted Diff Path Review PT 13.4 INR 1.1 Blood Type Antibody Screen 09/29/17 09/29/17 05:00 09:55 WBC 1.8 L RBC 3.88 L Hgb 11.9 L Hct 36.3 L MCV 93.6 MCH 30.7 MCHC 32.8 RDW 13.4 RDW Differential 44.9 H Plt Count 146 L MPV 10.4 Immature Gran % (Auto) 4.000 H Neut % (Auto) 19.0 L Lymph % (Auto) 67.5 H [place] % (Auto) 4.0 Eos % (Auto) 5.0 Baso % (Auto) 0.5 Absolute Neuts (auto) 0.4 L Absolute Lymphs (auto) 1.35 Total Counted PYTHON ARCHITECT Diff Path Review May foll PT INR Blood Type Pending Antibody Screen Pending Assessment/Plan Active and Suspected Problems (Last Updated 09/29/17 @ 08:41 by Jesse Starr MD) Colitis (Acute) Chemotherapy induced neutropenia (Acute) Rectal bleed (Acute) 1. Colitis-possibly ischemic colitis. Dr. Concepcion has been consulted. Continue Zosyn. CT of the abdomen with oral and IV contrast demonstrates severe descending and rectosigmoid colitis, 4.5 cm fluid collection or mass of the left breast multiple episodes of BRBPR, with mild anemia and stable vitals - less bloody BM last night at 6 PM. Hemoglobin has gone from 13.2-11.9 so far. T/S done. -Per oncology wait on colonoscopy until absolute neutrophil count is >1000 -C diff was negative -Continue IV fluids. 2. 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 Pt of Dr. Varghese - consulted. Chemo on the with adriamycin and cytoxan, Neulasta on the . D/ W Oncology, her blood counts should begin to recover on their own - continue to trend. Monitor for fever, if fever get blood cultures. 3. Pancytopenia - s/p chemo and neulasta. As above will trend as they should recover on their own. 4. Recent acute cystitis - was on levaquin. DCd now that she is on Zosyn for colitis. Her chemo may have caused cystitis per oncology. 5. HTN - stable 6. Hx MVP 7. Hx Hiatal hernia 8. Hx asthma - no respiratory complaints. DVT ppx: SCDs This patient was seen by Cullen Mack PA-C under the supervision of Doctor Lona. <Oren Zamorano - Last Filed: 09/29/17 14:36> - Physical Exam General: Alert, Cooperative HEENT: Atraumatic, Normocephalic Neck: Supple, No JVD, Negative Carotid Bruits, Negative Hepatojugular Reflux Lungs: Clear to auscultation, Normal air movement, No rhonchi, No wheeze Cardiovascular: Regular rate, Regular Rhythm, Normal S1, Normal S2, No murmurs Abdomen: Bowel Sounds Present, Soft, Non Tender, Non-Distended, Tender Extremities: No edema, No Calf Tenderness Skin: No rashes, No breakdown Musculoskeletal: No Tenderness to Palpation of Joints or Extremities Psych/Mental Status: Normal Affect, Appropriate Vital Signs Temp Pulse Resp BP Pulse Ox 37.0 C 79 14 112/63 95 09/29/17 10:28 09/29/17 11:02 09/29/17 10:28 09/29/17 10:28 09/29/17 10:28 Oxygen Delivery Method Room Air Weight: 73.3 kg Body Mass Index (BMI) 27.7 Intake and Output for Last 24 Hours 09/27/17 09/28/17 09/29/17 23:59 23:59 23:59 Intake Total 1017 / 1017 2272 / 2272 Output Total 600 / 600 400 / 400 Balance 417 / 417 1872 / 1872 Microbiology Past 72 Hours 09/29/17 01:15 C. difficile DNA Amplification - Final Stool Laboratory Tests Past 24 Hrs 09/28/17 09/28/17 09/28/17 17:15 17:15 20:25 WBC RBC Hgb 13.1 12.4 Hct 40.7 38.1 MCV MCH MCHC RDW RDW Differential Plt Count MPV Immature Gran % (Auto) Neut % (Auto) Lymph % (Auto) [place] % (Auto) Eos % (Auto) Baso % (Auto) Absolute Neuts (auto) Absolute Lymphs (auto) Total Counted Diff Path Review PT 13.4 INR 1.1 Blood Type Antibody Screen 09/29/17 09/29/17 05:00 09:55 WBC 1.8 L RBC 3.88 L Hgb 11.9 L Hct 36.3 L MCV 93.6 MCH 30.7 MCHC 32.8 RDW 13.4 RDW Differential 44.9 H Plt Count 146 L MPV 10.4 Immature Gran % (Auto) 4.000 H Neut % (Auto) 19.0 L Lymph % (Auto) 67.5 H [place] % (Auto) 4.0 Eos % (Auto) 5.0 Baso % (Auto) 0.5 Absolute Neuts (auto) 0.4 L Absolute Lymphs (auto) 1.35 Total Counted PYTHON ARCHITECT Diff Path Review May foll PT INR Blood Type A POSITIVE Antibody Screen NEGATIVE Assessment/Plan 1. Acute colitis * Ischemic versus infectious * Discussed with Dr. Starr, not directly chemo induced, though this could indirectly be related with the neutropenia and lead to potential infection * Continue with Zosyn * Gastroenterology currently on consult. Any kind of endoscopy would need to be held until the patient's absolute neutrophil count is greater than 1000. 2. Neutropenia * Down today. * D/W Dr. Starr, patient did receive Granulex last week he anticipates the patient's white count going up the next 24-48 hours, though it may not be enough for the ANC to be greater than 1000. Code Visit Inpatient E&M: 75113 Subs Hosp L2
--- NOTE | 2017-09-29 14:01 | CHAPLAIN ---
Type of Pastoral Visit _x__ Initial Visit ___ Follow-up Visit ___ On-call Visit ___ General Patient Visit ___ Spiritual Assessment ___ Family Conference ___ Bereavement ___ Rapid Response ___ Code Blue ___ Other (describe below) Pastoral Care Referral From _x__ Patient ___ Family ___ Nurse ___ Physician ___ Invoicing Machine Operator ___ Automatic Spooler Operator ___ Other (describe below) Sacrament/Intervention _x__ Active listening ___ Anointing ___ Restorationism ___ Bereavement ___ Communion _x__ Genoveva exploration ___ _x__ Life review _x__ Prayer ___ Reconciliation ___ Sacrament of Sick _x__ Supportive presence ___ Wedding ___ Other (describe below) Pastoral Comments patient gives long story of her life and recent developments in family and health; pt dealing with personal and spiritual questions about life and health; pt says that she has always been the caregiver and now she is having to receive care which is difficult for her;
[2017-09-29] MEDS: Ondansetron ODT 4 MG Tablet PO (14:40)
[2017-09-29 15:55] LABS: Pathologist Review Reviewed
--- NOTE | 2017-09-29 16:22 | CON.PCM_ITS ---
- Consult Date of Consult: 09/29/17 Reason for consultation: Patient with rectal bleeding and abnormal CAT scan The patient is a [71] year old [female] who I have been asked to consult. The patient reports a history of abdominal pain some bloody stool starting on Thursday. Has a history of breast cancer recently received chemotherapy became nauseated and felt she was dehydrated. She received some intravenous fluids was in the hospital for approximately 1 day and then discharged home on Thursday evening she began to have more pain and passed some bloody stool into the emergency room yesterday for further evaluation of bleeding and abdominal pain. She did recently underwent surgery in July for breast cancer she did receive chemotherapy on September 22 received an injection of Neulasta September 23. Patient did receive some antibiotics in the emergency room was treated for UTI. She had a CAT scan of the abdomen and pelvis which showed a segmental colitis involving the descending colon and proximal sigmoid area. Otherwise the patient reports she is in relatively good health any cardiac disease 2 hypertension some minor problems which he previously would seen by Dr. Anderson no other significant medical history that she is aware of. She had a gallbladder out in the past. Patient's review of systems noted with her she offers no other complaints today. Allergies: Allergies meperidine [From Demerol] Allergy (Verified 09/28/17 14:46) Anaphylaxis Medications: Active Medications Generic Name Dose Route Start Last Admin Trade Name Freq PRN Reason Stop Dose Admin Acetaminophen 650 mg 09/28/17 16:31 09/29/17 10:41 Tylenol PO 650 mg Q6H PRN PRN Administration Mild Pain (1-3)/Temp > 100.7 F Heparin Sodium (Beef Lung) 500 unit 09/28/17 17:04 Heparin 500 Unit/5 Ml (100/Ml) IV UD PRN HEPARIN FLUSH Sodium Chloride 1,000 mls @ 125 mls/hr 09/28/17 16:31 09/29/17 09:42 IV 125 mls/hr .Q8H KELSEY Administration Piperacillin Sod/Tazobactam Sod 3.375 gm in 50 mls @ 12.5 mls/hr 09/28/17 22: 00 09/29/17 14:35 Zosyn IV 12.5 mls/hr Q8 KELSEY Administration Morphine Sulfate 2 - 4 mg 09/28/17 22:38 Morphine IV Q3H PRN PRN SEVERE PAIN (6-10/10) Morphine Sulfate 2 - 4 mg 09/28/17 22:43 Morphine IV Q3H PRN PRN SEVERE PAIN (6-1010) Nutritional Formula (Lactose Free) 120 ml 09/29/17 18:00 Ensure Clear PO 4X/DAY KELSEY Ondansetron HCl 4 mg 09/28/17 16:31 09/29/17 14:40 Zofran Odt PO 4 mg Q8H PRN PRN Administration NAUSEA Oxycodone HCl 5 mg 09/28/17 16:31 Oxyir PO Q4H PRN PRN MOD-SEVERE PAIN (4-10) Pantoprazole Sodium 40 mg 09/28/17 16:31 09/29/17 10:37 Protonix PO 40 mg DAILY KELSEY Administration Propranolol HCl 10 mg 09/28/17 16:31 Inderal PO BID PRN dystonia Sodium Chloride 10 ml 09/28/17 17:04 09/29/17 05:02 IV 10 ml UD PRN Administration VAD FLUSH Temazepam 15 mg 09/28/17 16:31 09/28/17 22:58 Restoril PO 15 mg QHS PRN PRN Administration SLEEP PMH: Medical History (Last Updated 09/29/17 @ 08:41 by Jesse Starr MD) Colitis (Acute) Mitral valve prolapse (Chronic) Cancer of left female breast (Chronic) Regional lymph node metastasis present (Chronic) Normal colonoscopy (Acute) Back pain (Acute) Murmur, cardiac (Acute) Asthma (Chronic) PSH: Surgical History (Last Updated 09/29/17 @ 08:41 by Jesse Starr MD) S/P partial mastectomy (Chronic) Hx laparoscopic cholecystectomy (Acute) S/P lateral meniscectomy of right knee (Acute) S/P rotator cuff repair (Acute) Social: Social History Smoking Status Never smoker ROS: As noted in the HPI Vitals: Vital Signs Height 5 ft 4 in Weight: 73.3 kg Weight in Pounds 161.6 lbs BMI 27.3 Pulse Ox 95 Temperature 98.6 F Pulse Rate 79 Respiratory Rate 14 Blood Pressure 112/63 Blood Pressure Position Sitting HEENT: Anicteric sclera conjunctiva pale NECK: Neck is supple no JVD HEART: S1-S2 no murmur LUNGS: Clear bilaterally no rales ABDOMEN: Soft good bowel sounds like tenderness in the left lower quadrant no rebound or guarding no organomegaly EXTER: No peripheral edema or clubbing Neuro: Alert and oriented with no gross deficits Impression: 71-year-old female presenting with pain and rectal bleeding CAT scan showing thickening of the descending colon area was hypovolemic with nausea and vomiting all consistent with ischemic colitis with current treatment of aggressive IV hydration and broad-spectrum antibiotics in lieu of the patient being neutropenic. She may be followed up as an outpatient for colonoscopy.
[2017-09-29] MEDS: Temazepam 15 MG Capsule PO (21:21)
[2017-09-30] VITALS (10 sets, daily range): BP systolic 115–129; BP diastolic 62–72; PULSE 78–93; RESP 16–24; TEMP 36.4–37.6; O2SAT 94–97
[2017-09-30] MEDS: 0.9% Normal Saline 1,000 ML 125 ML IV ×2 (01:51→11:09)
[2017-09-30] MEDS: Piperacil/Tazobactam 3.375 GM/50 ML ML IV ×3 (05:09→21:00)
[2017-09-30] MEDS: 0.9% NaCl VAD Flush 10 ML IV ×2 (05:24→05:25)
[2017-09-30 05:54] LABS: Anion Gap 8 (5-15); BUN 5 mg/dL (7-18); BUN/Creat Ratio 6.6 RATIO (10-20); Chloride 108 mmol/L (98-107); Creatinine, Serum 0.76 mg/dL (0.55-1.02); EST Glomerular Filtration Rate 80 mL/min (>60); Est Glom Filt Rate - Afr Amer 97 mL/min (>60); Estimated Creatinine Clearance 43.91 ml/min; Glucose 92 mg/dL (74-106); Potassium 3.1 mmol/L (3.5-5.1); Sodium Level 142 mmol/L (136-145)
[2017-09-30 06:06] LABS: Absolute Lymphocyte Count 1.32 X10^3/ul (0.83-4.51); Absolute Neutrophil Count 1.1 X10^3/uL (2.0-7.7); Basophil# 0.02 X10^3/uL; Basophil% 0.7 % (0-1); Eosinophil# 0.07 X10^3/uL; Eosinophils% 2.6 % (0-5); Hemoglobin 11.2 g/dl (12.0-15.0); Lymphocyte # 1.32 X10^3/ul (4.0); Lymphocyte % 49.3 % (19-41); Mean Corpuscular Hgb 30.1 pg (27.0-32.0); Mean Corpuscular Volume 94.1 fL (81-99); Mean Platelet Vol. 10.3 fl (6.2-12.0); Monocyte# 0.14 X10^3/uL; Monocyte% 5.2 % (0-10); Neutrophil % 41.1 % (47-70); Platelet Count 154 K/mm3 (150-450); RBC Distribution Width CV 13.4 % (11.6-14.6); RBC Distribution Width SD 44.7 fl (35.1-43.9); Red Blood Count 3.72 M/mm3 (4.2-5.4); White Blood Count 2.7 K/mm3 (4.4-11.0)
[2017-09-30 06:07] LABS: Differential Indicated SCAN CRITERIA MET; POSITIVE COUNT NO; POSITIVE DIFFERENTIAL NO; POSITIVE MORPHOLOGY YES
[2017-09-30 09:21] LABS: Phosphorus 3.1 mg/dL (2.5-4.9)
[2017-09-30] MEDS: Pantoprazole Sodium 40 MG Tablet PO (09:57)
--- NOTE | 2017-09-30 12:20 | ONC.PN.INPT ---
- Problem List (1) Colitis Status: Acute (2) Chemotherapy induced neutropenia Status: Acute (3) Rectal bleed Status: Acute (4) Cancer of left female breast Status: Chronic Qualifiers: (5) Regional lymph node metastasis present Status: Chronic (6) S/P partial mastectomy Status: Chronic Qualifiers: Comment: 08/18/17 Subjective Date of Service:: 09/30/17 Rectal Bleeding 71 YOF admitted 09/28 with acute CA bleed abdominal pain and colitis. 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 She used to go for annual mammograms but missed the past 4 years while being preoccupied taking care of her ill father. She does not have any first-degree relatives with breast cancer but has 3 cousins with breast cancer. On August 18, 2017 she underwent a partial left mastectomy with sentinel lymph node biopsy. 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 Tumor is ER positive (95% CA positive (95%) HER-2 not amplified (0 IHC) She made a non-complicated recovery from her surgery. Started adjuvant Adriamycin-Cytoxan 09/22/2017 followed by Neulasta (long acting growth Factor on 09/23) Was seen in ER 09/25 with neulasta bony pains, N/V not neutropenic and suspected UTI treated with PO antibiotics. Patient's is beginning to feel better today No fever Abdominal pain is less No further rectal bleeding but has loose bowel movements as of this a.m. No chest pain or dyspnea No skin rash No bone aches or pains Past Medical History: Chronic Problems (Last Updated 09/29/17 @ 08:41 by Jesse Starr MD) Mitral valve prolapse (Chronic) Hiatal hernia (Chronic) Cancer of left female breast (Chronic) Regional lymph node metastasis present (Chronic) S/P partial mastectomy (Chronic) 08/18/17 Asthma (Chronic) Past Medical History - Most Recent Inpatient Visit Past Medical History Start: 09/28/17 14:45 Text: Status: Complete Freq: ONCE Protocol: Document 09/28/17 14:57 SLG (Rec: 09/28/17 14:59 [facility] [id number]) BMI Required to complete PMH What is Patient's BMI 27.5 Past Medical History Unable History Recalled No Query Text:Pt Unable/Family Not Present Neurologic Medical History Hx Stroke/TIA No Hx Dementia/Alzheimer's No Hx Parkinson's Disease No Hx Seizures No Hx Multiple Sclerosis No Hx Migraines 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 No Hx Heart Failure No Hx Pacemaker/AICD No Hx Irregular Heartbeat and/or Afib No Hx Anticoagulant Therapy No Query Text:(Coumadin, Aspirin, Plavix, Xarelto, etc.) Hx Pain in Legs when Walking/Leg Cramps No Comments mitral valve prolapse Respiratory Medical History Hx COPD No: asthma Hx Emphysema No Hx Smoking No Smoking Status Never smoker Hx Tobacco Use in last 12 months No Hx of Pipe Smoking No Hx Sleep Apnea No CPAP No Do you snore loudly (louder than talking No or can be heard through closed doors)? Do you often feel tired/ fatigued/ Yes sleepy during daytime? Has anyone observed you stop breathing No during sleep? STOP Results Positive GI Medical History Hx Ulcer No Hx Hepatitis No Hx Cirrhosis No Hx GI Bleed No Hx Unplanned Weight Loss No Genitourinary Medical History Indwelling Catheter in Place on Arrival/ No Admission Hx Renal Disease No Hx Dialysis No Musculoskeletal History Hx Arthritis Yes: OA Hx Rheumatoid Arthritis No Endocrine Medical History Hx Diabetes No Hx Thyroid Disease No Hematologic Medical History Hx of Blood Transfusion No Hx of Transfusion in last 3 Months No Ever experience any problems with No transfusion(s)? Hx of Preganancy in last 3 Months No Nurse Filling Out Transfusion & SGESSEL Questions: Date: 09/28/17 Time: 14:58 Psycho/Social Medical History Hx Depression Yes Hx Anxiety No Hx Behavior Disorder No Hx Alcohol Use No Hx Substance Use No Other Medical History Hx Blood Disorders No Hx Anemia No Hx Cancer Yes: BREAST cancer-s/p left lumpectomy Hx Drug Resistant Organism No Wound/Pressure Injury Present on Arrival No: to be assessed per primary /Admission rn Query Text:If yes, chart assessment in Shift/Clinical Findings Central Line/PICC/VAD Present on Arrival Yes /Admission Antibiotics within last 7 days? Yes Name of Antibiotic (Include dose/# days levaquin taken if known) Last day ATB taken 09/28/17 Comments Right upper chest Risk for Readmission Number of Risk Factors 3 At Risk for Readmission Patient is At Risk For Readmission Patient is eligible for Call Back Y Past Medical History (Last Updated 09/29/17 @ 08:41 by Jesse Starr MD) Colitis (Acute) Mitral valve prolapse (Chronic) Cancer of left female breast (Chronic) Regional lymph node metastasis present (Chronic) Normal colonoscopy (Acute) Back pain (Acute) Murmur, cardiac (Acute) Asthma (Chronic) Past Surgical History (Last Updated 09/29/17 @ 08:41 by Jesse Starr MD) S/P partial mastectomy (Chronic) Hx laparoscopic cholecystectomy (Acute) S/P lateral meniscectomy of right knee (Acute) S/P rotator cuff repair (Acute) Maternal Family History: Family History (Last Reviewed 09/28/17 @ 10:31 by Ladonna Castro) Father Heart problem Mother Heart problem Grandmother Ovarian cancer Family History: Heart Disease Paternal Family History: Family History (Last Reviewed 09/28/17 @ 10:31 by Ladonna Castro) Father Heart problem Mother Heart problem Grandmother Ovarian cancer Family History: Cancer - leukemia, Heart Disease, Stroke - Social History Lives: Spouse/ Significant Other Smoking Status: Never smoker Tobacco Use: Non-smoker Alcohol: None Drugs: None Vital Signs Height 5 ft 4 in Weight: 73.3 kg Weight in Pounds 161.6 lbs Pulse Ox 97 Temperature 97.6 F Pulse Rate 88 Respiratory Rate 16 Blood Pressure 115/62 Blood Pressure Position Semi-Fowlers - Physical Exam General: Alert, Oriented x3, No apparent distress HEENT: Atraumatic, PERRLA, EOMI, Normocephalic Oropharynx:: Dry mucosa Neck:: Supple, Trachea midline. Negative for: JVD, bilateral Cardiac:: Regular rate, Regular rhythm, Normal S1, Normal S2. Negative for: Murmur Lungs: Clear to auscultation, Excusion symmetrical. Negative for: Rhonchi, Wheezes Abdomen:: Bowel sounds x 4, Soft, Non-tender, Non-distended. Negative for: Hepatosplenomegaly Extremities:: Negative for: Cyanosis, Edema Neurological: Neuro grossly intact Skin:: Negative for: Rash Psychiatric:: Appropriate affect, Euthymic Lymphatics:: Negative for: Cervical lymphadenopathy Laboratory Data: Microbiology 09/29/17 01:15 C. difficile DNA Amplification - Final Stool Laboratory Tests 09/30/17 09/30/17 09/30/17 Range/Units 05:10 05:10 05:10 WBC (4.4-11.0) K/mm3 RBC (4.2-5.4) M/mm3 Hgb (12.0-15.0) g/dl Hct (37-47) % MCV (81-99) fL MCH (27.0-32.0) pg MCHC (32-36) g/gl RDW (11.6-14.6) % RDW Differential (35.1-43.9) fl Plt Count (150-450) K/mm3 MPV (6.2-12.0) fl Immature Gran % (Auto) (0.0-0.9) % Neut % (Auto) (47-70) % Lymph % (Auto) (19-41) % Borden % (Auto) (0-10) % Eos % (Auto) (0-5) % Baso % (Auto) (0-1) % Absolute Neuts (auto) (2.0-7.7) X10^3/uL Absolute Lymphs (auto) (0.83-4.51) X10^3/ul Total Counted Diff Path Review Sodium 142 (136-145) mmol/L Potassium 3.1 L (3.5-5.1) mmol/L Chloride 108 H (98-107) mmol/L Carbon Dioxide 26.0 (21.0-32.0) mmol/L Anion Gap 8 (5-15) BUN 5 L (7-18) mg/dL Creatinine 0.76 (0.55-1.02) mg/dL Estim Creat Clear Calc 43.91 ml/min Est GFR (MDRD) Af Amer 97 (>60) mL/min Est GFR (MDRD) Non-Af 80 (>60) mL/min BUN/Creatinine Ratio 6.6 L (10-20) RATIO Glucose 92 (74-106) mg/dL Calcium 8.0 L (8.5-10.1) mg/dL Phosphorus 3.1 (2.5-4.9) mg/dL Magnesium 2.0 (1.6-2.6) mg/dL Blood Type Antibody Screen 09/30/17 09/29/17 09/29/17 Range/Units 05:10 09:55 05:00 WBC 2.7 L (4.4-11.0) K/mm3 RBC 3.72 L (4.2-5.4) M/mm3 Hgb 11.2 L (12.0-15.0) g/dl Hct 35.0 L (37-47) % MCV 94.1 (81-99) fL MCH 30.1 (27.0-32.0) pg MCHC 32.0 (32-36) g/gl RDW 13.4 (11.6-14.6) % RDW Differential 44.7 H (35.1-43.9) fl Plt Count 154 (150-450) K/mm3 MPV 10.3 (6.2-12.0) fl Immature Gran % (Auto) 1.100 H (0.0-0.9) % Neut % (Auto) 41.1 L (47-70) % Lymph % (Auto) 49.3 H (19-41) % Borden % (Auto) 5.2 (0-10) % Eos % (Auto) 2.6 (0-5) % Baso % (Auto) 0.7 (0-1) % Absolute Neuts (auto) 1.1 L (2.0-7.7) X10^3/uL Absolute Lymphs (auto) 1.32 (0.83-4.51) X10^3/ul Total Counted Not Reportable Diff Path Review Reviewed Sodium (136-145) mmol/L Potassium (3.5-5.1) mmol/L Chloride (98-107) mmol/L Carbon Dioxide (21.0-32.0) mmol/L Anion Gap (5-15) BUN (7-18) mg/dL Creatinine (0.55-1.02) mg/dL Estim Creat Clear Calc ml/min Est GFR (MDRD) Af Amer (>60) mL/min Est GFR (MDRD) Non-Af (>60) mL/min BUN/Creatinine Ratio (10-20) RATIO Glucose (74-106) mg/dL Calcium (8.5-10.1) mg/dL Phosphorus (2.5-4.9) mg/dL Magnesium (1.6-2.6) mg/dL Blood Type A POSITIVE Antibody Screen NEGATIVE Diagnostic Data: Diagnostic Data GI Bleed Scan Nuclear Medicine 09/28/17 13:56 IMPRESSION: No evidence of active GI bleeding. Electronically Signed: Esteban Alexis MD at 16:08 EST Tel [phone], Service support , Abdomen/Pelvis CT 09/28/17 17:37 IMPRESSION: Findings consistent with severe descending and rectosigmoid colitis. 4.5 cm fluid collection or mass of the left breast. Electronically Signed: Dimitris Rose MD at 21:39 EST , Service support , Assessment and Plan 71 YOF S/P partial left mastectomy with sentinel lymph node biopsy 08/18/2017 for stage IIA invasive mucinous carcinoma. Tumor is ER positive (95% CA positive (95%) HER-2 not amplified (0 IHC) She made a non-complicated recovery from her surgery. Started adjuvant Adriamycin-Cytoxan 09/22/2017 followed by Neulasta (long acting growth Factor on 09/23) Was seen in ER 09/25 with neulasta bony pains, N/V not neutropenic and suspected UTI treated with PO antibiotics. She was subsequently admitted 09/28/17 with acute CA bleed abdominal pain and acute left sided colitis suspected ischemic in etiology and is improving on conservative management. Her neutropenia is resolving with an absolute neutrophil count over 1000 for the first day following jameel on September 29. Expect continued bone marrow recovery over the upcoming days From Oncology view advise: 1- Antibiotic cover till recover from colitis. Choice of agent to the discretion of the primary service 2- Await full B.M. recovery. Neulasta lasts up to 10 days from administration. 3- Hold off invasive procedures,unless necessary till neutrophil recovery >1000 at least 2-3 days. Will F/U Seen with . impression and recommendations discussed. Medications: Prescriptions This Visit Medication Instructions Recorded Levofloxacin [Levaquin] 500 mg PO DAILY@0600 09/28/17 Temazepam [Restoril] 15 mg PO QHS PRN PRN 09/28/17 Medications Added to Medication List This Visit Category Date Time Status 0.9% Saline Lock Med 09/30/17 09:12 Active 10 ml IV UD PRN Heparin Sodium,Porcine/Pf [Heparin 500 Unit/5 ml (100/ Med 09/30/17 09:12 Active ml)] 500 unit IV UD PRN
--- NOTE | 2017-09-30 12:26 | PN_ITS ---
- Problem List (1) Colitis Status: Acute (2) Chemotherapy induced neutropenia Status: Acute (3) Rectal bleed Status: Acute (4) Cancer of left female breast Status: Chronic Qualifiers: (5) Regional lymph node metastasis present Status: Chronic (6) S/P partial mastectomy Status: Chronic Qualifiers: Comment: 08/18/17 Subjective Date of Service:: 09/30/17 Rectal Bleeding 71 YOF admitted 09/28 with acute FL bleed abdominal pain and colitis. 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 She used to go for annual mammograms but missed the past 4 years while being preoccupied taking care of her ill father. She does not have any first-degree relatives with breast cancer but has 3 cousins with breast cancer. On August 18, 2017 she underwent a partial left mastectomy with sentinel lymph node biopsy. 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 Tumor is ER positive (95% FL positive (95%) HER-2 not amplified (0 IHC) She made a non-complicated recovery from her surgery. Started adjuvant Adriamycin-Cytoxan 09/22/2017 followed by Neulasta (long acting growth Factor on 09/23) Was seen in ER 09/25 with neulasta bony pains, N/V not neutropenic and suspected UTI treated with PO antibiotics. Patient's is beginning to feel better today No fever Abdominal pain is less No further rectal bleeding but has loose bowel movements as of this a.m. No chest pain or dyspnea No skin rash No bone aches or pains Past Medical History: Chronic Problems (Last Updated 09/29/17 @ 08:41 by Jesse Starr MD) Mitral valve prolapse (Chronic) Hiatal hernia (Chronic) Cancer of left female breast (Chronic) Regional lymph node metastasis present (Chronic) S/P partial mastectomy (Chronic) 08/18/17 Asthma (Chronic) Past Medical History - Most Recent Inpatient Visit Past Medical History Start: 09/28/17 14: 45 Text: Status: Complete Freq: ONCE Protocol: Document 09/28/17 14:57 SLG (Rec: 09/28/17 14:59 [facility] [place] [id number]) BMI Required to complete PMH What is Patient's BMI 27.5 Past Medical History Unable History Recalled No Query Text:Pt Unable/Family Not Present Neurologic Medical History Hx Stroke/TIA No Hx Dementia/Alzheimer's No Hx Parkinson's Disease No Hx Seizures No Hx Multiple Sclerosis No Hx Migraines 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 No Hx Heart Failure No Hx Pacemaker/AICD No Hx Irregular Heartbeat and/or Afib No Hx Anticoagulant Therapy No Query Text:(Coumadin, Aspirin, Plavix, Xarelto, etc.) Hx Pain in Legs when Walking/Leg Cramps No Comments mitral valve prolapse Respiratory Medical History Hx COPD No: asthma Hx Emphysema No Hx Smoking No Smoking Status Never smoker Hx Tobacco Use in last 12 months No Hx of Pipe Smoking No Hx Sleep Apnea No CPAP No Do you snore loudly (louder than talking No or can be heard through closed doors)? Do you often feel tired/ fatigued/ Yes sleepy during daytime? Has anyone observed you stop breathing No during sleep? STOP Results Positive GI Medical History Hx Ulcer No Hx Hepatitis No Hx Cirrhosis No Hx GI Bleed No Hx Unplanned Weight Loss No Genitourinary Medical History Indwelling Catheter in Place on Arrival/ No Admission Hx Renal Disease No Hx Dialysis No Musculoskeletal History Hx Arthritis Yes: OA Hx Rheumatoid Arthritis No Endocrine Medical History Hx Diabetes No Hx Thyroid Disease No Hematologic Medical History Hx of Blood Transfusion No Hx of Transfusion in last 3 Months No Ever experience any problems with No transfusion(s)? Hx of Preganancy in last 3 Months No Nurse Filling Out Transfusion & SGESSEL Questions: Date: 09/28/17 Time: 14:58 Psycho/Social Medical History Hx Depression Yes Hx Anxiety No Hx Behavior Disorder No Hx Alcohol Use No Hx Substance Use No Other Medical History Hx Blood Disorders No Hx Anemia No Hx Cancer Yes: BREAST cancer-s/p left lumpectomy Hx Drug Resistant Organism No Wound/Pressure Injury Present on Arrival No: to be assessed per primary /Admission rn Query Text:If yes, chart assessment in Shift/Clinical Findings Central Line/PICC/VAD Present on Arrival Yes /Admission Antibiotics within last 7 days? Yes Name of Antibiotic (Include dose/# days levaquin taken if known) Last day ATB taken 09/28/17 Comments Right upper chest Risk for Readmission Number of Risk Factors 3 At Risk for Readmission Patient is At Risk For Readmission Patient is eligible for Call Back Y Past Medical History (Last Updated 09/29/17 @ 08:41 by Jesse Starr MD) Colitis (Acute) Mitral valve prolapse (Chronic) Cancer of left female breast (Chronic) Regional lymph node metastasis present (Chronic) Normal colonoscopy (Acute) Back pain (Acute) Murmur, cardiac (Acute) Asthma (Chronic) Past Surgical History (Last Updated 09/29/17 @ 08:41 by Jesse Starr MD) S/P partial mastectomy (Chronic) Hx laparoscopic cholecystectomy (Acute) S/P lateral meniscectomy of right knee (Acute) S/P rotator cuff repair (Acute) Maternal Family History: Family History (Last Reviewed 09/28/17 @ 10:31 by Ladonna Castro) Father Heart problem Mother Heart problem Grandmother Ovarian cancer Family History: Heart Disease Paternal Family History: Family History (Last Reviewed 09/28/17 @ 10:31 by Ladonna Castro) Father Heart problem Mother Heart problem Grandmother Ovarian cancer Family History: Cancer - leukemia, Heart Disease, Stroke - Social History Lives: Spouse/ Significant Other Smoking Status: Never smoker Tobacco Use: Non-smoker Alcohol: None Drugs: None Vital Signs Height 5 ft 4 in Weight: 73.3 kg Weight in Pounds 161.6 lbs Pulse Ox 97 Temperature 97.6 F Pulse Rate 88 Respiratory Rate 16 Blood Pressure 115/62 Blood Pressure Position Semi-Fowlers - Physical Exam General: Alert, Oriented x3, No apparent distress HEENT: Atraumatic, PERRLA, EOMI, Normocephalic Oropharynx:: Dry mucosa Neck:: Supple, Trachea midline. Negative for: JVD, bilateral Cardiac:: Regular rate, Regular rhythm, Normal S1, Normal S2. Negative for: Murmur Lungs: Clear to auscultation, Excusion symmetrical. Negative for: Rhonchi, Wheezes Abdomen:: Bowel sounds x 4, Soft, Non-tender, Non-distended. Negative for: Hepatosplenomegaly Extremities:: Negative for: Cyanosis, Edema Neurological: Neuro grossly intact Skin:: Negative for: Rash Psychiatric:: Appropriate affect, Euthymic Lymphatics:: Negative for: Cervical lymphadenopathy Laboratory Data: Microbiology 09/29/17 01:15 C. difficile DNA Amplification - Final Stool Laboratory Tests 3 09/30/17 09/30/17 09/30/17 Range/Units 05:10 05:10 05:10 WBC (4.4-11.0) K/mm3 RBC (4.2-5.4) M/mm3 Hgb (12.0-15.0) g/dl Hct (37-47) % MCV (81-99) fL MCH (27.0-32.0) pg MCHC (32-36) g/gl RDW (11.6-14.6) % RDW Differential (35.1-43.9) fl Plt Count (150-450) K/mm3 MPV (6.2-12.0) fl Immature Gran % (Auto) (0.0-0.9) % Neut % (Auto) (47-70) % Lymph % (Auto) (19-41) % Nuckolls % (Auto) (0-10) % Eos % (Auto) (0-5) % Baso % (Auto) (0-1) % Absolute Neuts (auto) (2.0-7.7) X10^3/uL Absolute Lymphs (auto) (0.83-4.51) X10^3/ul Total Counted Diff Path Review Sodium 142 (136-145) mmol/L Potassium 3.1 L (3.5-5.1) mmol/L Chloride 108 H (98-107) mmol/L Carbon Dioxide 26.0 (21.0-32.0) mmol/L Anion Gap 8 (5-15) BUN 5 L (7-18) mg/dL Creatinine 0.76 (0.55-1.02) mg/dL Estim Creat Clear Calc 43.91 ml/min Est GFR (MDRD) Af Amer 97 (>60) mL/min Est GFR (MDRD) Non-Af 80 (>60) mL/min BUN/Creatinine Ratio 6.6 L (10-20) RATIO Glucose 92 (74-106) mg/dL Calcium 8.0 L (8.5-10.1) mg/dL Phosphorus 3.1 (2.5-4.9) mg/dL Magnesium 2.0 (1.6-2.6) mg/dL Blood Type Antibody Screen 3 09/30/17 09/29/17 09/29/17 Range/Units 05:10 09:55 05:00 WBC 2.7 L (4.4-11.0) K/mm3 RBC 3.72 L (4.2-5.4) M/mm3 Hgb 11.2 L (12.0-15.0) g/dl Hct 35.0 L (37-47) % MCV 94.1 (81-99) fL MCH 30.1 (27.0-32.0) pg MCHC 32.0 (32-36) g/gl RDW 13.4 (11.6-14.6) % RDW Differential 44.7 H (35.1-43.9) fl Plt Count 154 (150-450) K/mm3 MPV 10.3 (6.2-12.0) fl Immature Gran % (Auto) 1.100 H (0.0-0.9) % Neut % (Auto) 41.1 L (47-70) % Lymph % (Auto) 49.3 H (19-41) % Nuckolls % (Auto) 5.2 (0-10) % Eos % (Auto) 2.6 (0-5) % Baso % (Auto) 0.7 (0-1) % Absolute Neuts (auto) 1.1 L (2.0-7.7) X10^3/uL Absolute Lymphs (auto) 1.32 (0.83-4.51) X10^3/ul Total Counted Not Reportable Diff Path Review Reviewed Sodium (136-145) mmol/L Potassium (3.5-5.1) mmol/L Chloride (98-107) mmol/L Carbon Dioxide (21.0-32.0) mmol/L Anion Gap (5-15) BUN (7-18) mg/dL Creatinine (0.55-1.02) mg/dL Estim Creat Clear Calc ml/min Est GFR (MDRD) Af Amer (>60) mL/min Est GFR (MDRD) Non-Af (>60) mL/min BUN/Creatinine Ratio (10-20) RATIO Glucose (74-106) mg/dL Calcium (8.5-10.1) mg/dL Phosphorus (2.5-4.9) mg/dL Magnesium (1.6-2.6) mg/dL Blood Type A POSITIVE Antibody Screen NEGATIVE Diagnostic Data: Diagnostic Data GI Bleed Scan Nuclear Medicine 09/28/17 13:56 IMPRESSION: No evidence of active GI bleeding. Electronically Signed: Esteban Alexis MD at 16:08 EST Tel [phone], Service support , Abdomen/Pelvis CT 09/28/17 17:37 IMPRESSION: Findings consistent with severe descending and rectosigmoid colitis. 4.5 cm fluid collection or mass of the left breast. Electronically Signed: Dimitris Rose MD at 21:39 EST , Service support , Assessment and Plan 71 YOF S/P partial left mastectomy with sentinel lymph node biopsy 08/18/2017 for stage IIA invasive mucinous carcinoma. Tumor is ER positive (95% FL positive ( 95%) HER-2 not amplified (0 IHC) She made a non-complicated recovery from her surgery. Started adjuvant Adriamycin-Cytoxan 09/22/2017 followed by Neulasta (long acting growth Factor on ) Was seen in ER 09/25 with neulasta bony pains, N/V not neutropenic and suspected UTI treated with PO antibiotics. She was subsequently admitted 09/28/17 with acute FL bleed abdominal pain and acute left sided colitis suspected ischemic in etiology and is improving on conservative management. Her neutropenia is resolving with an absolute neutrophil count over 1000 for the first day following jameel on September 29. Expect continued bone marrow recovery over the upcoming days From Oncology view advise: 1- Antibiotic cover till recover from colitis. Choice of agent to the discretion of the primary service 2- Await full B.M. recovery. Neulasta lasts up to 10 days from administration. 3- Hold off invasive procedures,unless necessary till neutrophil recovery >1000 at least 2-3 days. Will F/U Seen with . impression and recommendations discussed. Medications: Prescriptions This Visit Medication Instructions Recorded Levofloxacin [Levaquin] 500 mg PO DAILY@0600 09/28/17 Temazepam [Restoril] 15 mg PO QHS PRN PRN 09/28/17 Medications Added to Medication List This Visit Category Date Time Status 0.9% Saline Lock Med 09/30/17 09:12 Active 10 ml IV UD PRN Heparin Sodium,Porcine/Pf [Heparin 500 Unit/5 ml (100/ Med 09/30/17 09:12 Active ml)] 500 unit IV UD PRN
--- NOTE | 2017-09-30 13:07 | PCM.PROGNOTE ---
<Cullen Mack - Last Filed: 09/30/17 14:50> Patient Problems: Active and Suspected Problems (Last Updated 09/29/17 @ 08:41 by Jesse Starr MD) Rectal bleed (Acute) Subjective: Pt is feeling much better today. No BM yesterday or as of this AM. No nausea or vomiting. Pain significantly improved. Still slight pain LLQ. No fevers or chills. - Physical Exam General: Alert, Oriented x3, Cooperative HEENT: Atraumatic, PERRLA, EOMI, Normocephalic Neck: Supple, No JVD, Negative Carotid Bruits Lungs: Clear to auscultation, Normal air movement Cardiovascular: Regular rate, No murmurs Abdomen: Bowel Sounds Present, Soft, Non Tender, Tender - mildly tender to deep palp LLQ. Extremities: No edema, Capillary Refill Less than 3 Seconds Skin: No rashes, No breakdown Musculoskeletal: No Tenderness to Palpation of Joints or Extremities Neurological: Cranial nerves II-XII grossly intact Psych/Mental Status: Normal Affect, Appropriate, Alert and oriented to time, place, person, mood and affect Vital Signs Temp Pulse Resp BP Pulse Ox 97.6 F L 88 16 115/62 97 09/30/17 09:30 09/30/17 11:27 09/30/17 09:30 09/30/17 09:30 09/30/17 09:30 Oxygen Delivery Method Room Air Weight: 73.3 kg Body Mass Index (BMI) 27.7 Intake and Output for Last 24 Hours 09/28/17 09/29/17 09/30/17 23:59 23:59 23:59 Intake Total 1017 / 1017 4357 / 4357 1447 / 1447 Output Total 600 / 600 400 / 400 300 / 300 Balance 417 / 417 3957 / 3957 1147 / 1147 Microbiology Past 72 Hours 09/29/17 01:15 C. difficile DNA Amplification - Final Stool Laboratory Tests Past 24 Hrs 09/29/17 09/30/17 09/30/17 05:00 05:10 05:10 WBC 2.7 L RBC 3.72 L Hgb 11.2 L Hct 35.0 L MCV 94.1 MCH 30.1 MCHC 32.0 RDW 13.4 RDW Differential 44.7 H Plt Count 154 MPV 10.3 Immature Gran % (Auto) 1.100 H Neut % (Auto) 41.1 L Lymph % (Auto) 49.3 H [place] % (Auto) 5.2 Eos % (Auto) 2.6 Baso % (Auto) 0.7 Absolute Neuts (auto) 1.1 L Absolute Lymphs (auto) 1.32 Total Counted Not Reportable Diff Path Review Reviewed Sodium 142 Potassium 3.1 L Chloride 108 H Carbon Dioxide 26.0 Anion Gap 8 BUN 5 L Creatinine 0.76 Estim Creat Clear Calc 43.91 Est GFR (MDRD) Af Amer 97 Est GFR (MDRD) Non-Af 80 BUN/Creatinine Ratio 6.6 L Glucose 92 Calcium 8.0 L Phosphorus Magnesium 09/30/17 09/30/17 05:10 05:10 WBC RBC Hgb Hct MCV MCH MCHC RDW RDW Differential Plt Count MPV Immature Gran % (Auto) Neut % (Auto) Lymph % (Auto) [place] % (Auto) Eos % (Auto) Baso % (Auto) Absolute Neuts (auto) Absolute Lymphs (auto) Total Counted Diff Path Review Sodium Potassium Chloride Carbon Dioxide Anion Gap BUN Creatinine Estim Creat Clear Calc Est GFR (MDRD) Af Amer Est GFR (MDRD) Non-Af BUN/Creatinine Ratio Glucose Calcium Phosphorus 3.1 Magnesium 2.0 Assessment/Plan Active and Suspected Problems (Last Updated 09/29/17 @ 08:41 by Jesse Starr MD) Rectal bleed (Acute) 1. Colitis-possibly ischemic colitis. Significant improvement overnight in pain. Dr. Concepcion following. Continue Zosyn. CT of the abdomen with oral and IV contrast demonstrates severe descending and rectosigmoid colitis, 4.5 cm fluid collection or mass of the left breast. multiple episodes of BRBPR at presentation, with mild anemia and stable vitals. -No further blood stools -Blood counts stabilizing -Per oncology wait on colonoscopy until absolute neutrophil count is >1000 - pt will pursue this as an outpatient. -C diff was negative -Decrease rate of IV fluids. -Advance diet. 2. 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 Pt of Dr. Varghese - consulted. Chemo on the with adriamycin and cytoxan, Neulasta on the 7th. D/W Oncology, her blood counts should begin to recover on their own - continue to trend. Monitor for fever, if fever get blood cultures. 3. Pancytopenia - s/p chemo and neulasta. Blood counts are beginning to recover. 4. Recent acute cystitis - was on levaquin. DCd now that she is on Zosyn for colitis. Her chemo may have caused cystitis per oncology. 5. HTN - stable 6. Hx MVP 7. Hx Hiatal hernia 8. Hx asthma - no respiratory complaints. 9. Hypokalemia - replaced. Mag/Phos normal. DVT ppx: SCDs This patient was seen by Cullen Mack PA-C under the supervision of Doctor Lona. <Oren Zamorano - Last Filed: 09/30/17 15:33> - Physical Exam General: Alert HEENT: Atraumatic, Normocephalic Neck: No Nodes, Thyroid Normal Size and Texture Lungs: Clear to auscultation, Normal air movement, No rhonchi, No wheeze Cardiovascular: Regular rate, Regular Rhythm, Normal S1, Normal S2, No murmurs Abdomen: Bowel Sounds Present, Soft, Tender Extremities: No edema, No Calf Tenderness Psych/Mental Status: Normal Affect, Appropriate Vital Signs Temp Pulse Resp BP Pulse Ox 36.4 C L 91 16 129/66 H 97 09/30/17 14:00 09/30/17 14:00 09/30/17 14:00 09/30/17 14:00 09/30/17 14:00 Oxygen Delivery Method Room Air Weight: 73.3 kg Body Mass Index (BMI) 27.7 Intake and Output for Last 24 Hours 09/28/17 09/29/17 09/30/17 23:59 23:59 23:59 Intake Total 1017 / 1017 4357 / 4357 1447 / 1447 Output Total 600 / 600 400 / 400 300 / 300 Balance 417 / 417 3957 / 3957 1147 / 1147 Microbiology Past 72 Hours 09/29/17 01:15 C. difficile DNA Amplification - Final Stool Laboratory Tests Past 24 Hrs 09/29/17 09/30/17 09/30/17 05:00 05:10 05:10 WBC 2.7 L RBC 3.72 L Hgb 11.2 L Hct 35.0 L MCV 94.1 MCH 30.1 MCHC 32.0 RDW 13.4 RDW Differential 44.7 H Plt Count 154 MPV 10.3 Immature Gran % (Auto) 1.100 H Neut % (Auto) 41.1 L Lymph % (Auto) 49.3 H [place] % (Auto) 5.2 Eos % (Auto) 2.6 Baso % (Auto) 0.7 Absolute Neuts (auto) 1.1 L Absolute Lymphs (auto) 1.32 Total Counted Not Reportable Diff Path Review Reviewed Sodium 142 Potassium 3.1 L Chloride 108 H Carbon Dioxide 26.0 Anion Gap 8 BUN 5 L Creatinine 0.76 Estim Creat Clear Calc 43.91 Est GFR (MDRD) Af Amer 97 Est GFR (MDRD) Non-Af 80 BUN/Creatinine Ratio 6.6 L Glucose 92 Calcium 8.0 L Phosphorus Magnesium 09/30/17 09/30/17 05:10 05:10 WBC RBC Hgb Hct MCV MCH MCHC RDW RDW Differential Plt Count MPV Immature Gran % (Auto) Neut % (Auto) Lymph % (Auto) [place] % (Auto) Eos % (Auto) Baso % (Auto) Absolute Neuts (auto) Absolute Lymphs (auto) Total Counted Diff Path Review Sodium Potassium Chloride Carbon Dioxide Anion Gap BUN Creatinine Estim Creat Clear Calc Est GFR (MDRD) Af Amer Est GFR (MDRD) Non-Af BUN/Creatinine Ratio Glucose Calcium Phosphorus 3.1 Magnesium 2.0 Assessment/Plan Patient seen and examined independently. Agree with the above notes by the physician cafeteria assistant 1. Acute colitis Ischemic versus infectious Discussed with Dr. Starr, not directly chemo induced, though this could indirectly be related with the neutropenia and lead to potential infection Continue with [facility] Gastroenterology currently on consult. Any kind of endoscopy would need to be held until the patient's absolute neutrophil count is greater than [address] Concepcion on the , no imminent plans for endoscopy at this time. Could be possibly entertained in the later time once patient is more stable and as an outpatient. 2. Neutropenia Down today. D/W Dr. Starr, patient did receive Granulex last week he anticipates the patient's white count going up the next 24-48 hours, though it may not be enough for the ANC to be greater than 1000. Code Visit Inpatient E&M: 67450 Subs Hosp L2
--- NOTE | 2017-09-30 13:12 | PN_ITS ---
Addendum entered and electronically signed by LILY De Guzman 09/30/17 14:52: Code Visit Problem #10 - moderate protein calorie malnutrition - continue ensure supplements. Original Note: <Cullen Mack - Last Filed: 09/30/17 14:50> Patient Problems: Active and Suspected Problems (Last Updated 09/29/17 @ 08:41 by Jesse Starr MD) Rectal bleed (Acute) Subjective: Pt is feeling much better today. No BM yesterday or as of this AM. No nausea or vomiting. Pain significantly improved. Still slight pain LLQ. No fevers or chills. - Physical Exam General: Alert, Oriented x3, Cooperative HEENT: Atraumatic, PERRLA, EOMI, Normocephalic Neck: Supple, No JVD, Negative Carotid Bruits Lungs: Clear to auscultation, Normal air movement Cardiovascular: Regular rate, No murmurs Abdomen: Bowel Sounds Present, Soft, Non Tender, Tender - mildly tender to deep palp LLQ. Extremities: No edema, Capillary Refill Less than 3 Seconds Skin: No rashes, No breakdown Musculoskeletal: No Tenderness to Palpation of Joints or Extremities Neurological: Cranial nerves II-XII grossly intact Psych/Mental Status: Normal Affect, Appropriate, Alert and oriented to time, place, person, mood and affect Vital Signs Temp Pulse Resp BP Pulse Ox 97.6 F L 88 16 115/62 97 09/30/17 09:30 09/30/17 11:27 09/30/17 09:30 09/30/17 09:30 09/30/17 09:30 Oxygen Delivery Method Room Air Weight: 73.3 kg Body Mass Index (BMI) 27.7 Intake and Output for Last 24 Hours 09/28/17 09/29/17 09/30/17 23:59 23:59 23:59 Intake Total 1017 / 1017 4357 / 4357 1447 / 1447 Output Total 600 / 600 400 / 400 300 / 300 Balance 417 / 417 3957 / 3957 1147 / 1147 Microbiology Past 72 Hours 09/29/17 01:15 C. difficile DNA Amplification - Final Stool Laboratory Tests Past 24 Hrs 09/29/17 09/30/17 09/30/17 05:00 05:10 05:10 WBC 2.7 L RBC 3.72 L Hgb 11.2 L Hct 35.0 L MCV 94.1 MCH 30.1 MCHC 32.0 RDW 13.4 RDW Differential 44.7 H Plt Count 154 MPV 10.3 Immature Gran % (Auto) 1.100 H Neut % (Auto) 41.1 L Lymph % (Auto) 49.3 H [place] % (Auto) 5.2 Eos % (Auto) 2.6 Baso % (Auto) 0.7 Absolute Neuts (auto) 1.1 L Absolute Lymphs (auto) 1.32 Total Counted Not Reportable Diff Path Review Reviewed Sodium 142 Potassium 3.1 L Chloride 108 H Carbon Dioxide 26.0 Anion Gap 8 BUN 5 L Creatinine 0.76 Estim Creat Clear Calc 43.91 Est GFR (MDRD) Af Amer 97 Est GFR (MDRD) Non-Af 80 BUN/Creatinine Ratio 6.6 L Glucose 92 Calcium 8.0 L Phosphorus Magnesium 09/30/17 09/30/17 05:10 05:10 WBC RBC Hgb Hct MCV MCH MCHC RDW RDW Differential Plt Count MPV Immature Gran % (Auto) Neut % (Auto) Lymph % (Auto) [place] % (Auto) Eos % (Auto) Baso % (Auto) Absolute Neuts (auto) Absolute Lymphs (auto) Total Counted Diff Path Review Sodium Potassium Chloride Carbon Dioxide Anion Gap BUN Creatinine Estim Creat Clear Calc Est GFR (MDRD) Af Amer Est GFR (MDRD) Non-Af BUN/Creatinine Ratio Glucose Calcium Phosphorus 3.1 Magnesium 2.0 Assessment/Plan Active and Suspected Problems (Last Updated 09/29/17 @ 08:41 by Jesse Starr MD) Rectal bleed (Acute) 1. Colitis-possibly ischemic colitis. Significant improvement overnight in pain. Dr. Concepcion following. Continue Zosyn. CT of the abdomen with oral and IV contrast demonstrates severe descending and rectosigmoid colitis, 4.5 cm fluid collection or mass of the left breast. multiple episodes of BRBPR at presentation, with mild anemia and stable vitals. -No further blood stools -Blood counts stabilizing -Per oncology wait on colonoscopy until absolute neutrophil count is >1000 - pt will pursue this as an outpatient. -C diff was negative -Decrease rate of IV fluids. -Advance diet. 2. 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 Pt of Dr. Varghese - consulted. Chemo on the 6th with adriamycin and cytoxan, Neulasta on the 7th. D/ W Oncology, her blood counts should begin to recover on their own - continue to trend. Monitor for fever, if fever get blood cultures. 3. Pancytopenia - s/p chemo and neulasta. Blood counts are beginning to recover. 4. Recent acute cystitis - was on levaquin. DCd now that she is on Zosyn for colitis. Her chemo may have caused cystitis per oncology. 5. HTN - stable 6. Hx MVP 7. Hx Hiatal hernia 8. Hx asthma - no respiratory complaints. 9. Hypokalemia - replaced. Mag/Phos normal. DVT ppx: SCDs This patient was seen by Cullen Mack PA-C under the supervision of Doctor Lona. <Oren Zamorano - Last Filed: 09/30/17 15:33> - Physical Exam General: Alert HEENT: Atraumatic, Normocephalic Neck: No Nodes, Thyroid Normal Size and Texture Lungs: Clear to auscultation, Normal air movement, No rhonchi, No wheeze Cardiovascular: Regular rate, Regular Rhythm, Normal S1, Normal S2, No murmurs Abdomen: Bowel Sounds Present, Soft, Tender Extremities: No edema, No Calf Tenderness Psych/Mental Status: Normal Affect, Appropriate Vital Signs Temp Pulse Resp BP Pulse Ox 36.4 C L 91 16 129/66 H 97 09/30/17 14:00 09/30/17 14:00 09/30/17 14:00 09/30/17 14:00 09/30/17 14:00 Oxygen Delivery Method Room Air Weight: 73.3 kg Body Mass Index (BMI) 27.7 Intake and Output for Last 24 Hours 09/28/17 09/29/17 09/30/17 23:59 23:59 23:59 Intake Total 1017 / 1017 4357 / 4357 1447 / 1447 Output Total 600 / 600 400 / 400 300 / 300 Balance 417 / 417 3957 / 3957 1147 / 1147 Microbiology Past 72 Hours 09/29/17 01:15 C. difficile DNA Amplification - Final Stool Laboratory Tests Past 24 Hrs 09/29/17 09/30/17 09/30/17 05:00 05:10 05:10 WBC 2.7 L RBC 3.72 L Hgb 11.2 L Hct 35.0 L MCV 94.1 MCH 30.1 MCHC 32.0 RDW 13.4 RDW Differential 44.7 H Plt Count 154 MPV 10.3 Immature Gran % (Auto) 1.100 H Neut % (Auto) 41.1 L Lymph % (Auto) 49.3 H [place] % (Auto) 5.2 Eos % (Auto) 2.6 Baso % (Auto) 0.7 Absolute Neuts (auto) 1.1 L Absolute Lymphs (auto) 1.32 Total Counted Not Reportable Diff Path Review Reviewed Sodium 142 Potassium 3.1 L Chloride 108 H Carbon Dioxide 26.0 Anion Gap 8 BUN 5 L Creatinine 0.76 Estim Creat Clear Calc 43.91 Est GFR (MDRD) Af Amer 97 Est GFR (MDRD) Non-Af 80 BUN/Creatinine Ratio 6.6 L Glucose 92 Calcium 8.0 L Phosphorus Magnesium 09/30/17 09/30/17 05:10 05:10 WBC RBC Hgb Hct MCV MCH MCHC RDW RDW Differential Plt Count MPV Immature Gran % (Auto) Neut % (Auto) Lymph % (Auto) [place] % (Auto) Eos % (Auto) Baso % (Auto) Absolute Neuts (auto) Absolute Lymphs (auto) Total Counted Diff Path Review Sodium Potassium Chloride Carbon Dioxide Anion Gap BUN Creatinine Estim Creat Clear Calc Est GFR (MDRD) Af Amer Est GFR (MDRD) Non-Af BUN/Creatinine Ratio Glucose Calcium Phosphorus 3.1 Magnesium 2.0 Assessment/Plan Patient seen and examined independently. Agree with the above notes by the physician technology assistant 1. Acute colitis * Ischemic versus infectious * Discussed with Dr. Starr, not directly chemo induced, though this could indirectly be related with the neutropenia and lead to potential infection * Continue with Zosyn * Gastroenterology currently on consult. Any kind of endoscopy would need to be held until the patient's absolute neutrophil count is greater than 1000. * Discussed with Dr. Concepcion on the , no imminent plans for endoscopy at this time. Could be possibly entertained in the later time once patient is more stable and as an outpatient. 2. Neutropenia * Down today. * D/W Dr. Starr, patient did receive Granulex last week he anticipates the patient's white count going up the next 24-48 hours, though it may not be enough for the ANC to be greater than 1000. Code Visit Inpatient E&M: 77168 Subs Hosp L2
[2017-09-30] MEDS: Loperamide 2 MG Capsule PO (13:16)
[2017-09-30] MEDS: 0.9% Normal Saline 1,000 ML 75 ML IV ×2 (13:17→23:04)
[2017-09-30] MEDS: Acetaminophen 325 MG Tablet 650 MG PO (13:47)
[2017-09-30] MEDS: Temazepam 15 MG Capsule PO (22:40)
[2017-10-01] MEDS: Acetaminophen 325 MG Tablet 650 MG PO (02:13)
[2017-10-01 02:42] VITALS: BP 116/65; PULSE 86; RESP 24; TEMP 37.7; O2SAT 94
[2017-10-01 03:15] VITALS: PULSE 84
[2017-10-01] MEDS: Piperacil/Tazobactam 3.375 GM/50 ML ML IV (06:06)
[2017-10-01] MEDS: 0.9% NaCl VAD Flush 10 ML IV ×3 (06:12→14:42)
[2017-10-01 06:13] LABS: Anion Gap 5 (5-15); BUN 5 mg/dL (7-18); BUN/Creat Ratio 6.1 RATIO (10-20); Calcium,Total 8.2 mg/dL (8.5-10.1); Chloride 108 mmol/L (98-107); Creatinine, Serum 0.82 mg/dL (0.55-1.02); EST Glomerular Filtration Rate 73 mL/min (>60); Est Glom Filt Rate - Afr Amer 88 mL/min (>60); Estimated Creatinine Clearance 53.55 ml/min; Glucose 92 mg/dL (74-106); Potassium 3.3 mmol/L (3.5-5.1); Sodium Level 142 mmol/L (136-145)
[2017-10-01 06:14] LABS: Hematocrit 34.7 % (37-47); Hemoglobin 11.3 g/dl (12.0-15.0); Mean Corp Hgb Conc 32.6 g/gl (32-36); Mean Corpuscular Hgb 30.6 pg (27.0-32.0); Platelet Count 159 K/mm3 (150-450); RBC Distribution Width CV 13.5 % (11.6-14.6); RBC Distribution Width SD 44.7 fl (35.1-43.9); Red Blood Count 3.69 M/mm3 (4.2-5.4); White Blood Count 7.9 K/mm3 (4.4-11.0)
[2017-10-01 06:15] LABS: Differential Indicated MANUAL DIFF; POSITIVE COUNT YES; POSITIVE DIFFERENTIAL NO; POSITIVE MORPHOLOGY YES
[2017-10-01 07:16] LABS: Eosinophil 3 % (0-5); Lymphocyte 34 % (19-41); Monocyte 3 % (0-10); Myelocyte 2 (0-0); Neutrophil-Band 6 % (0-5); Neutrophil-Segmented 52 % (47-70); Total Cells Counted 100 (MANUAL DIFF)
[2017-10-01 07:17] LABS: Platelet Estimate ADEQUATE (ADEQ); Red Cell Morphology NORM C+C NORMAL (NORM C&C)
[2017-10-01 07:19] LABS: Absolute Lymphocyte Count 2.69 X10^3/ul (0.83-4.51); Absolute Neutrophil Count 4.6 X10^3/uL (2.0-7.7)
[2017-10-01 07:25] VITALS: PULSE 73
[2017-10-01 08:22] VITALS: BP 124/70; PULSE 83; RESP 16; TEMP 36.8; O2SAT 92
[2017-10-01] MEDS: Pantoprazole Sodium 40 MG Tablet PO (09:48)
[2017-10-01 10:29] LABS: Pathologist Review Reviewed
--- NOTE | 2017-10-01 12:38 | PCM.PN.HOSP ---
Patient Problems: Active and Suspected Problems (Last Updated 09/29/17 @ 08:41 by Jesse Starr MD) Rectal bleed (Acute) Subjective: Feeling better. Tolerating diet. Patient with some stool frequency but no overt diarrhea. Vitals/I&O's: Vital Signs Temp Pulse Resp BP Pulse Ox 36.8 C 83 16 124/70 H 92 10/01/17 08:22 10/01/17 08:22 10/01/17 08:22 10/01/17 08:22 10/01/17 08:22 Oxygen Delivery Method Room Air Weight: 73.3 kg Body Mass Index (BMI) 27.7 Intake and Output for Last 24 Hours 09/29/17 09/30/17 10/01/17 23:59 23:59 23:59 Intake Total 4357 / 4357 3945 / 3945 664.3 / 664.3 Output Total 400 / 400 800 / 800 Balance 3957 / 3957 3145 / 3145 664.3 / 664.3 General: Alert, Cooperative, No apparent distress HEENT: Atraumatic, Normocephalic Neck: No Nodes, Thyroid Normal Size and Texture Lungs: Clear to auscultation, Normal air movement, No rhonchi, No wheeze Cardiovascular: Regular rate, Regular Rhythm, Normal S1, Normal S2, No murmurs Abdomen: Bowel Sounds Present, Soft, Non Tender, Non-Distended, No Hepato-splenomegaly Extremities: No edema, No Calf Tenderness Microbiology Past 72 Hours 09/29/17 01:15 Stool C. difficile DNA Amplification - Final Laboratory Results 10/01/17 05:20: WBC 7.9, RBC 3.69 L, Hgb 11.3 L, Hct 34.7 L, MCV 94.0, MCH 30.6, MCHC 32.6, RDW 13.5, RDW Differential 44.7 H, Plt Count 159, MPV 10.0, Neut % (Auto) Not Reportable, Absolute Neuts (auto) 4.6, Absolute Lymphs (auto) 2.69, Total Counted 100, Neutrophils % (Manual) 52, Band Neutrophils % 6 H, Lymphocytes % (Manual) 34, Monocytes % (Manual) 3, Eosinophils % (Manual) 3, Myelocytes % 2 H, Diff Path Review Reviewed, Platelet Estimate ADEQUATE, RBC Morphology NORM C+C 10/01/17 05:20: Sodium 142, Potassium 3.3 L, Chloride 108 H, Carbon Dioxide 29.0, Anion Gap 5, BUN 5 L, Creatinine 0.82, Estim Creat Clear Calc 53.55, Est GFR (MDRD) Af Amer 88, Est GFR (MDRD) Non-Af 73, BUN/Creatinine Ratio 6.1 L, Glucose 92, Calcium 8.2 L Current Medications Acetaminophen (Tylenol) 650 mg PO Q6H PRN PRN PRN Reason: Mild Pain (1-3)/Temp > 100.7 F Last Admin: 10/01/17 02:13 Dose: 650 mg Heparin Sodium (Beef Lung) (Heparin 500 Unit/5 Ml (100/Ml)) 500 unit IV UD PRN PRN Reason: HEPARIN FLUSH Heparin Sodium (Beef Lung) (Heparin 500 Unit/5 Ml (100/Ml)) 500 unit IV UD PRN PRN Reason: HEPARIN FLUSH Piperacillin Sod/Tazobactam Sod (Zosyn) 3.375 gm in 50 mls @ 12.5 mls/hr IV Q8 [facility]ELSEY Last Admin: 10/01/17 06:06 Dose: 12.5 mls/hr Sodium Chloride () 1,000 mls @ 75 mls/hr IV .[id number] [facility] Last Admin: 09/30/17 23:04 Dose: 75 mls/hr Loperamide HCl (Imodium) 2 mg PO Q4H PRN PRN PRN Reason: Diarrhea Last Admin: 09/30/17 13:16 Dose: 2 mg Morphine Sulfate (Morphine) 2 - 4 mg IV Q3H PRN PRN PRN Reason: SEVERE PAIN (6-10/10) Morphine Sulfate (Morphine) 2 - 4 mg IV Q3H PRN PRN PRN Reason: SEVERE PAIN (6-10/10) Nutritional Formula (Lactose Free) (Ensure Clear) 120 ml PO 4X/DAY [facility] Last Admin: 10/01/17 09:48 Dose: Not Given Ondansetron HCl (Zofran Odt) 4 mg PO Q8H PRN PRN PRN Reason: NAUSEA Last Admin: 09/29/17 14:40 Dose: 4 mg Oxycodone HCl (Oxyir) 5 mg PO Q4H PRN PRN PRN Reason: MOD-SEVERE PAIN (4-10/10) Pantoprazole Sodium (Protonix) 40 mg PO DAILY [facility] Last Admin: 10/01/17 09:48 Dose: 40 mg Propranolol HCl (Inderal) 10 mg PO BID PRN PRN Reason: dystonia Sodium Chloride () 10 ml IV UD PRN PRN Reason: VAD FLUSH Last Admin: 10/01/17 06:13 Dose: 10 ml Sodium Chloride () 10 ml IV UD PRN PRN Reason: VAD FLUSH Temazepam (Restoril) 15 mg PO QHS PRN PRN PRN Reason: SLEEP Last Admin: 09/30/17 22:40 Dose: 15 mg Assessment/Plan Active and Suspected Problems (Last Updated 09/29/17 @ 08:41 by Jesse Starr MD) Rectal bleed (Acute) 1. Acute colitis Ischemic versus infectious Discussed with Dr. Starr, not directly chemo induced, though this could indirectly be related with the neutropenia and lead to potential infection Continue with [facility] Gastroenterology currently on consult. Any kind of endoscopy would need to be held until the patient's absolute neutrophil count is greater than [address] Concepcion on the , no imminent plans for endoscopy at this time. Could be possibly entertained in the later time once patient is more stable and as an outpatient. discharge with cipro and flagsindy 2. Neutropenia Improved D/W Dr. Starr, patient did receive Granulex last week he anticipates the patient's white count going up the next 24-48 hours, though it may not be enough for the ANC to be greater than 1000.
--- NOTE | 2017-10-01 12:42 | PN_ITS ---
Patient Problems: Active and Suspected Problems (Last Updated 09/29/17 @ 08:41 by Jesse Starr MD) Rectal bleed (Acute) Subjective: Feeling better. Tolerating diet. Patient with some stool frequency but no overt diarrhea. Vitals/I&O's: Vital Signs Temp Pulse Resp BP Pulse Ox 36.8 C 83 16 124/70 H 92 10/01/17 08:22 10/01/17 08:22 10/01/17 08:22 10/01/17 08:22 10/01/17 08:22 Oxygen Delivery Method Room Air Weight: 73.3 kg Body Mass Index (BMI) 27.7 Intake and Output for Last 24 Hours 09/29/17 09/30/17 10/01/17 23:59 23:59 23:59 Intake Total 4357 / 4357 3945 / 3945 664.3 / 664.3 Output Total 400 / 400 800 / 800 Balance 3957 / 3957 3145 / 3145 664.3 / 664.3 General: Alert, Cooperative, No apparent distress HEENT: Atraumatic, Normocephalic Neck: No Nodes, Thyroid Normal Size and Texture Lungs: Clear to auscultation, Normal air movement, No rhonchi, No wheeze Cardiovascular: Regular rate, Regular Rhythm, Normal S1, Normal S2, No murmurs Abdomen: Bowel Sounds Present, Soft, Non Tender, Non-Distended, No Hepato- splenomegaly Extremities: No edema, No Calf Tenderness Microbiology Past 72 Hours 09/29/17 01:15 Stool C. difficile DNA Amplification - Final Laboratory Results 10/01/17 05:20: WBC 7.9, RBC 3.69 L, Hgb 11.3 L, Hct 34.7 L, MCV 94.0, MCH 30.6 , MCHC 32.6, RDW 13.5, RDW Differential 44.7 H, Plt Count 159, MPV 10.0, Neut % (Auto) Not Reportable, Absolute Neuts (auto) 4.6, Absolute Lymphs (auto) 2.69, Total Counted 100, Neutrophils % (Manual) 52, Band Neutrophils % 6 H, Lymphocytes % (Manual) 34, Monocytes % (Manual) 3, Eosinophils % (Manual) 3, Myelocytes % 2 H, Diff Path Review Reviewed, Platelet Estimate ADEQUATE, RBC Morphology NORM C+C 10/01/17 05:20: Sodium 142, Potassium 3.3 L, Chloride 108 H, Carbon Dioxide 29.0 , Anion Gap 5, BUN 5 L, Creatinine 0.82, Estim Creat Clear Calc 53.55, Est GFR ( MDRD) Af Amer 88, Est GFR (MDRD) Non-Af 73, BUN/Creatinine Ratio 6.1 L, Glucose 92, Calcium 8.2 L Current Medications Acetaminophen (Tylenol) 650 mg PO Q6H PRN PRN PRN Reason: Mild Pain (1-3)/Temp > 100.7 F Last Admin: 10/01/17 02:13 Dose: 650 mg Heparin Sodium (Beef Lung) (Heparin 500 Unit/5 Ml (100/Ml)) 500 unit IV UD PRN PRN Reason: HEPARIN FLUSH Heparin Sodium (Beef Lung) (Heparin 500 Unit/5 Ml (100/Ml)) 500 unit IV UD PRN PRN Reason: HEPARIN FLUSH Piperacillin Sod/Tazobactam Sod (Zosyn) 3.375 gm in 50 mls @ 12.5 mls/hr IV Q8 [place] Last Admin: 10/01/17 06:06 Dose: 12.5 mls/hr Sodium Chloride () 1,000 mls @ 75 mls/hr IV .[id number] [facility] Last Admin: 09/30/17 23:04 Dose: 75 mls/hr Loperamide HCl (Imodium) 2 mg PO Q4H PRN PRN PRN Reason: Diarrhea Last Admin: 09/30/17 13:16 Dose: 2 mg Morphine Sulfate (Morphine) 2 - 4 mg IV Q3H PRN PRN PRN Reason: SEVERE PAIN (6-10/10) Morphine Sulfate (Morphine) 2 - 4 mg IV Q3H PRN PRN PRN Reason: SEVERE PAIN (6-10/10) Nutritional Formula (Lactose Free) (Ensure Clear) 120 ml PO 4X/DAY [facility] Last Admin: 10/01/17 09:48 Dose: Not Given Ondansetron HCl (Zofran Odt) 4 mg PO Q8H PRN PRN PRN Reason: NAUSEA Last Admin: 09/29/17 14:40 Dose: 4 mg Oxycodone HCl (Oxyir) 5 mg PO Q4H PRN PRN PRN Reason: MOD-SEVERE PAIN (4-10/10) Pantoprazole Sodium (Protonix) 40 mg PO DAILY [place] Last Admin: 10/01/17 09:48 Dose: 40 mg Propranolol HCl (Inderal) 10 mg PO BID PRN PRN Reason: dystonia Sodium Chloride () 10 ml IV UD PRN PRN Reason: VAD FLUSH Last Admin: 10/01/17 06:13 Dose: 10 ml Sodium Chloride () 10 ml IV UD PRN PRN Reason: VAD FLUSH Temazepam (Restoril) 15 mg PO QHS PRN PRN PRN Reason: SLEEP Last Admin: 09/30/17 22:40 Dose: 15 mg Assessment/Plan Active and Suspected Problems (Last Updated 09/29/17 @ 08:41 by Jesse Starr MD) Rectal bleed (Acute) 1. Acute colitis * Ischemic versus infectious * Discussed with Dr. Starr, not directly chemo induced, though this could indirectly be related with the neutropenia and lead to potential infection * Continue with Zosyn * Gastroenterology currently on consult. Any kind of endoscopy would need to be held until the patient's absolute neutrophil count is greater than 1000. * Discussed with Dr. Concepcion on the , no imminent plans for endoscopy at this time. Could be possibly entertained in the later time once patient is more stable and as an outpatient. * discharge with cipro and flagyl 2. Neutropenia * Improved * D/W Dr. Starr, patient did receive Granulex last week he anticipates the patient's white count going up the next 24-48 hours, though it may not be enough for the ANC to be greater than 1000.
--- NOTE | 2017-10-01 12:50 | PCM.DC ---
- Discharge Diagnoses Current Active Problems: Current Active and Chronic Problems (Last Updated 09/29/17 @ 08:41 by Jesse Starr MD) Rectal bleed (Acute) You will use the following diet at home:: No restrictions - bland, advance as tolerated Your food should be the consistency of: Regular Your liquids should be the consistency of: Regular/Thin Discharge Activity: Return to Normal Activity Call your doctor if you observe: Fever of 101 or Higher, Shortness of breath Allergies/Adverse Reactions: Allergies meperidine [From Demerol] Allergy (Verified 09/28/17 14:46) Anaphylaxis Medications to take at Discharge colestipol 1 gram tablet 1 g PO DAILY 07/21/17 propranolol 10 mg tablet 10 mg PO BID PRN 07/21/17 Ergocalciferol [Vitamin D] 50,000 unit PO WE 07/29/17 Albuterol IH (ProAir) [Proair Hfa] 2 puff INHALATION Q4H PRN PRN 08/06/17 Multivitamin [Multiple Vitamins] 1 ea PO DAILY 08/06/17 Lidocaine/Prilocaine [Lidocaine-Prilocaine Cream] 30 gm TP DAILY PRN PRN #1 cream..g. 09/02/17 Ondansetron HCl [Zofran] 4 mg PO Q8H PRN PRN #30 tab 09/02/17 Prochlorperazine Maleate 10 mg PO Q6H PRN PRN #30 tab 09/02/17 Oxycodone [Oxyir] 5 mg PO Q4H PRN PRN #20 tab 09/26/17 Temazepam [Restoril] 15 mg PO QHS PRN PRN 09/28/17 Acetaminophen [Tylenol Tablet] 500 mg PO Q4H PRN tablet 10/01/17 Ciprofloxacin [Cipro] 500 mg PO BID #14 tab 10/01/17 Loperamide [Imodium] 2 mg PO Q4H PRN PRN capsule 10/01/17 Metronidazole [Flagyl] 500 mg PO Q8H #21 tab 10/01/17 The following prescriptions were given: Metronidazole [Flagyl] 500 mg PO Q8H #21 tab Ciprofloxacin [Cipro] 500 mg PO BID #14 tab Primary Care Physician: Samir Salcido [Primary Care Provider] - Within 2 Weeks Please Follow Up With: Nixon Concepcion MD When: 1-2 months Please Follow Up With: Jesse Starr MD When: 2 weeks Proposed Discharge Date: 10/01/17
--- NOTE | 2017-10-01 12:53 | PCM.DC.SUM ---
Discharge Date and Diagnosis - Problem List Patient Problems: Active and Suspected Problems (Last Updated 09/29/17 @ 08:41 by Jesse Starr MD) Colitis (Acute) Chemotherapy induced neutropenia (Acute) Rectal bleed (Acute) Date of Admission: 09/28/17 Date of Discharge: 10/01/17 - Primary Discharge Diagnosis Active and Suspected Problems (Last Updated 09/29/17 @ 08:41 by Jesse Starr MD) Rectal bleed (Acute) - Secondary Discharge Diagnosis Chronic Problems (Last Updated 09/29/17 @ 08:41 by Jsese Starr MD) Mitral valve prolapse (Chronic) Hiatal hernia (Chronic) Cancer of left female breast (Chronic) Regional lymph node metastasis present (Chronic) S/P partial mastectomy (Chronic) 08/18/17 Asthma (Chronic) Hospital Course and Treatment Imaging Results: Clinical Impression(s) from Imaging Studies GI Bleed Scan Nuclear Medicine 09/28/17 13:56 IMPRESSION: No evidence of active GI bleeding. Electronically Signed: Esteban Alexis MD at 16:08 EST Tel [phone], Service support , Abdomen/Pelvis CT 09/28/17 17:37 IMPRESSION: Findings consistent with severe descending and rectosigmoid colitis. 4.5 cm fluid collection or mass of the left breast. Electronically Signed: Dimitris Rose MD at 21:39 EST , Service support , Carlene Starr Operations: None Procedures: None Summary of Care Provided: The patient is a 71 year old F is with bright red blood per rectum. Patient had a CAT scan that showed severe descending and rectosigmoid colitis. Patient was also noted to be neutropenic as well. Patient was started on Zosyn for the colitis. Patient was seen in consultation by Dr. Concepcion, of gastroenterology, who felt that her colitis was probably ischemic the patient was treated with antibiotics nonetheless. I do not feel is any urgent need for colonoscopy and that she may follow-up as outpatient once symptoms have improved for further evaluation. Patient did have her pi?a and her white count got as low as 1.8 with an absolute neutrophil count of 0.4. Patient did receive Neulasta on the seventh. Subsequently, patient's white count has gone up and it is 7.9 on the day of discharge. Patient's bleeding did resolve and his father may relate with the colitis. Once again patient will follow up with gastroenterology as outpatient. The patient's neutropenia patient will have a follow-up BMP in about a week's time with results to Dr. Starr. Workup as well with oncology for her stage IIa breast cancer. [] Discharge Diet: No Restrictions Discharge Activity: Return to Normal Activity Call your doctor if you observe: Fever of 101 or Higher, Shortness of breath Home Medications: Medications to take at Discharge colestipol 1 gram tablet 1 g PO DAILY 07/21/17 propranolol 10 mg tablet 10 mg PO BID PRN 07/21/17 Ergocalciferol [Vitamin D] 50,000 unit PO WE 07/29/17 Albuterol IH (ProAir) [Proair Hfa] 2 puff INHALATION Q4H PRN PRN 08/06/17 Multivitamin [Multiple Vitamins] 1 ea PO DAILY 08/06/17 Lidocaine/Prilocaine [Lidocaine-Prilocaine Cream] 30 gm TP DAILY PRN PRN #1 cream..g. 09/02/17 Ondansetron HCl [Zofran] 4 mg PO Q8H PRN PRN #30 tab 09/02/17 Prochlorperazine Maleate 10 mg PO Q6H PRN PRN #30 tab 09/02/17 Oxycodone [Oxyir] 5 mg PO Q4H PRN PRN #20 tab 09/26/17 Temazepam [Restoril] 15 mg PO QHS PRN PRN 09/28/17 Acetaminophen [Tylenol Tablet] 500 mg PO Q4H PRN tablet 10/01/17 Ciprofloxacin [Cipro] 500 mg PO BID #14 tab 10/01/17 Loperamide [Imodium] 2 mg PO Q4H PRN PRN capsule 10/01/17 Metronidazole [Flagyl] 500 mg PO Q8H #21 tab 10/01/17 Following Prescrptions Were Given to Patient: Metronidazole [Flagyl] 500 mg PO Q8H #21 tab Ciprofloxacin [Cipro] 500 mg PO BID #14 tab Primary Care Physician: Samir Salcido [Primary Care Provider] - Within 2 Weeks Please Follow Up With: Nixon Concepcion MD When: 1-2 months Please Follow Up With: Jesse Starr MD When: 2 weeks Disposition: Home Minutes spent on discharge:: 35 Patient Condition:: Fair Meaningful Use Info Meaningful Use Diagnoses (Choose all that apply): None applicable Code Visit Inpatient E&M: 52051 Disch Hosp
[2017-10-01 12:55] VITALS: PULSE 78
--- NOTE | 2017-10-01 12:58 | DS.PCM_ITS ---
Discharge Date and Diagnosis - Problem List Patient Problems: Active and Suspected Problems (Last Updated 09/29/17 @ 08:41 by Jesse Starr MD) Colitis (Acute) Chemotherapy induced neutropenia (Acute) Rectal bleed (Acute) Date of Admission: 09/28/17 Date of Discharge: 10/01/17 - Primary Discharge Diagnosis Active and Suspected Problems (Last Updated 09/29/17 @ 08:41 by Jesse Starr MD) Rectal bleed (Acute) - Secondary Discharge Diagnosis Chronic Problems (Last Updated 09/29/17 @ 08:41 by Jesse Starr MD) Mitral valve prolapse (Chronic) Hiatal hernia (Chronic) Cancer of left female breast (Chronic) Regional lymph node metastasis present (Chronic) S/P partial mastectomy (Chronic) 08/18/17 Asthma (Chronic) Hospital Course and Treatment Imaging Results: Clinical Impression(s) from Imaging Studies GI Bleed Scan Nuclear Medicine 09/28/17 13:56 IMPRESSION: No evidence of active GI bleeding. Electronically Signed: Esteban Alexis MD at 16:08 EST Tel [phone], Service support , Abdomen/Pelvis CT 09/28/17 17:37 IMPRESSION: Findings consistent with severe descending and rectosigmoid colitis. 4.5 cm fluid collection or mass of the left breast. Electronically Signed: Dimitris Rose MD at 21:39 EST , Service support , Carlene Starr Operations: None Procedures: None Summary of Care Provided: The patient is a 71 year old F is with bright red blood per rectum. Patient had a CAT scan that showed severe descending and rectosigmoid colitis. Patient was also noted to be neutropenic as well. Patient was started on Zosyn for the colitis. Patient was seen in consultation by Dr. Concepcion, of gastroenterology, who felt that her colitis was probably ischemic the patient was treated with antibiotics nonetheless. I do not feel is any urgent need for colonoscopy and that she may follow-up as outpatient once symptoms have improved for further evaluation. Patient did have her pi?a and her white count got as low as 1.8 with an absolute neutrophil count of 0.4. Patient did receive Neulasta on the seventh. Subsequently, patient's white count has gone up and it is 7.9 on the day of discharge. Patient's bleeding did resolve and his father may relate with the colitis. Once again patient will follow up with gastroenterology as outpatient. The patient's neutropenia patient will have a follow-up BMP in about a week's time with results to Dr. Starr. Workup as well with oncology for her stage IIa breast cancer. [] Discharge Diet: No Restrictions Discharge Activity: Return to Normal Activity Call your doctor if you observe: Fever of 101 or Higher, Shortness of breath Home Medications: Medications to take at Discharge colestipol 1 gram tablet 1 g PO DAILY 07/21/17 propranolol 10 mg tablet 10 mg PO BID PRN 07/21/17 Ergocalciferol [Vitamin D] 50,000 unit PO WE 07/29/17 Albuterol IH (ProAir) [Proair Hfa] 2 puff INHALATION Q4H PRN PRN 08/06/17 Multivitamin [Multiple Vitamins] 1 ea PO DAILY 08/06/17 Lidocaine/Prilocaine [Lidocaine-Prilocaine Cream] 30 gm TP DAILY PRN PRN #1 cream..g. 09/02/17 Ondansetron HCl [Zofran] 4 mg PO Q8H PRN PRN #30 tab 09/02/17 Prochlorperazine Maleate 10 mg PO Q6H PRN PRN #30 tab 09/02/17 Oxycodone [Oxyir] 5 mg PO Q4H PRN PRN #20 tab 09/26/17 Temazepam [Restoril] 15 mg PO QHS PRN PRN 09/28/17 Acetaminophen [Tylenol Tablet] 500 mg PO Q4H PRN tablet 10/01/17 Ciprofloxacin [Cipro] 500 mg PO BID #14 tab 10/01/17 Loperamide [Imodium] 2 mg PO Q4H PRN PRN capsule 10/01/17 Metronidazole [Flagyl] 500 mg PO Q8H #21 tab 10/01/17 Following Prescrptions Were Given to Patient: Metronidazole [Flagyl] 500 mg PO Q8H #21 tab Ciprofloxacin [Cipro] 500 mg PO BID #14 tab Primary Care Physician: Samir Salcido [Primary Care Provider] - Within 2 Weeks Please Follow Up With: Nixon Concepcion MD When: 1-2 months Please Follow Up With: Jesse Starr MD When: 2 weeks Disposition: Home Minutes spent on discharge:: 35 Patient Condition:: Fair Meaningful Use Info Meaningful Use Diagnoses (Choose all that apply): None applicable Code Visit Inpatient E&M: 17641 Disch Hosp
--- NOTE | 2017-10-01 14:26 | ONC.PN.INPT ---
- Problem List (1) Colitis Status: Acute (2) Cancer of left female breast Status: Chronic Qualifiers: Breast location: central portion of breast Estrogen receptor status: positive Qualified Code(s): C50.112 - Malignant neoplasm of central portion of left female breast; Z17.0 - Estrogen receptor positive status [ER+] (3) Chemotherapy induced neutropenia Status: Acute Subjective Date of Service:: 10/01/17 Rectal Bleeding 71 YOF admitted 09/28 with acute NM bleed abdominal pain and colitis. 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 She used to go for annual mammograms but missed the past 4 years while being preoccupied taking care of her ill father. She does not have any first-degree relatives with breast cancer but has 3 cousins with breast cancer. On August 18, 2017 she underwent a partial left mastectomy with sentinel lymph node biopsy. 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 Tumor is ER positive (95% NM positive (95%) HER-2 not amplified (0 IHC) She made a non-complicated recovery from her surgery. Started adjuvant Adriamycin-Cytoxan 09/22/2017 followed by Neulasta (long acting growth Factor on 09/23) Was seen in ER 09/25 with neulasta bony pains, N/V not neutropenic and suspected UTI treated with PO antibiotics. Patient reports improvement as she is no longer experiencing rectal bleed, LBM 09/30/17 and LLQ pain has diminished. Appetite fair, she believes PO fluid intake likely adequate. She is interested in going home. Past Medical History: Chronic Problems (Last Updated 10/01/17 @ 12:53 by Oren Zamorano DO) Mitral valve prolapse (Chronic) Hiatal hernia (Chronic) Cancer of left female breast (Chronic) Regional lymph node metastasis present (Chronic) S/P partial mastectomy (Chronic) 08/18/17 Asthma (Chronic) Past Medical History - Most Recent Inpatient Visit Past Medical History Start: 09/28/17 14:45 Text: Status: Complete Freq: ONCE Protocol: Document 09/28/17 14:57 GLEN (Rec: 09/28/17 14:59 [facility] [id number]) BMI Required to complete PMH What is Patient's BMI 27.5 Past Medical History Unable History Recalled No Query Text:Pt Unable/Family Not Present Neurologic Medical History Hx Stroke/TIA No Hx Dementia/Alzheimer's No Hx Parkinson's Disease No Hx Seizures No Hx Multiple Sclerosis No Hx Migraines 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 No Hx Heart Failure No Hx Pacemaker/AICD No Hx Irregular Heartbeat and/or Afib No Hx Anticoagulant Therapy No Query Text:(Coumadin, Aspirin, Plavix, Xarelto, etc.) Hx Pain in Legs when Walking/Leg Cramps No Comments mitral valve prolapse Respiratory Medical History Hx COPD No: asthma Hx Emphysema No Hx Smoking No Smoking Status Never smoker Hx Tobacco Use in last 12 months No Hx of Pipe Smoking No Hx Sleep Apnea No CPAP No Do you snore loudly (louder than talking No or can be heard through closed doors)? Do you often feel tired/ fatigued/ Yes sleepy during daytime? Has anyone observed you stop breathing No during sleep? STOP Results Positive GI Medical History Hx Ulcer No Hx Hepatitis No Hx Cirrhosis No Hx GI Bleed No Hx Unplanned Weight Loss No Genitourinary Medical History Indwelling Catheter in Place on Arrival/ No Admission Hx Renal Disease No Hx Dialysis No Musculoskeletal History Hx Arthritis Yes: OA Hx Rheumatoid Arthritis No Endocrine Medical History Hx Diabetes No Hx Thyroid Disease No Hematologic Medical History Hx of Blood Transfusion No Hx of Transfusion in last 3 Months No Ever experience any problems with No transfusion(s)? Hx of Preganancy in last 3 Months No Nurse Filling Out Transfusion & SGESSEL Questions: Date: 09/28/17 Time: 14:58 Psycho/Social Medical History Hx Depression Yes Hx Anxiety No Hx Behavior Disorder No Hx Alcohol Use No Hx Substance Use No Other Medical History Hx Blood Disorders No Hx Anemia No Hx Cancer Yes: BREAST cancer-s/p left lumpectomy Hx Drug Resistant Organism No Wound/Pressure Injury Present on Arrival No: to be assessed per primary /Admission rn Query Text:If yes, chart assessment in Shift/Clinical Findings Central Line/PICC/VAD Present on Arrival Yes /Admission Antibiotics within last 7 days? Yes Name of Antibiotic (Include dose/# days levaquin taken if known) Last day ATB taken 09/28/17 Comments Right upper chest Risk for Readmission Number of Risk Factors 3 At Risk for Readmission Patient is At Risk For Readmission Patient is eligible for Call Back Y Past Medical History (Last Updated 10/01/17 @ 12:53 by Oren Zamorano DO) Colitis (Acute) Mitral valve prolapse (Chronic) Cancer of left female breast (Chronic) Regional lymph node metastasis present (Chronic) Normal colonoscopy (Acute) Back pain (Acute) Murmur, cardiac (Acute) Asthma (Chronic) Past Surgical History (Last Updated 09/29/17 @ 08:41 by Jesse Starr MD) S/P partial mastectomy (Chronic) Hx laparoscopic cholecystectomy (Acute) S/P lateral meniscectomy of right knee (Acute) S/P rotator cuff repair (Acute) Maternal Family History: Family History (Last Reviewed 09/28/17 @ 10:31 by Ladonna Castro) Father Heart problem Mother Heart problem Grandmother Ovarian cancer Family History: Heart Disease Paternal Family History: Family History (Last Reviewed 09/28/17 @ 10:31 by Ladonna Castro) Father Heart problem Mother Heart problem Grandmother Ovarian cancer Family History: Cancer - leukemia, Heart Disease, Stroke - Social History Lives: Spouse/ Significant Other Smoking Status: Never smoker Tobacco Use: Non-smoker Alcohol: None Drugs: None Review of Systems Constitutional:: Reports: Weakness, Fatigue. Denies: Fever, Sweats, Weight loss, Appetite change, Chills Cardiovascular:: Denies: Chest pain, Palpitations, Dyspnea on exertion, Orthopnea, PND, Shortness of breath Respiratory: Denies: Cough, Hemoptysis, Shortness of Breath, Wheezing Gastrointestinal:: Reports: Abdominal pain - see HPI. Denies: Nausea, Vomiting, Diarrhea, Constipation, Hematochezia Genitourinary: Denies: Dysuria, Hematuria, 15, Flank pain Musculoskeletal:: Denies: Back pain, Myalgia, Arthralgia Skin: Denies: Rash, Skin Changes, Wounds Neurological:: Denies: Headache, Dizziness, Visual changes, Tinnitus, Hearing loss Psychiatric: Denies: Anxiety, Depression, Homicidal Ideations, Suicidal Ideations Vital Signs Height 5 ft 4 in Weight: 161 lb 9.581 oz Weight in Pounds 161.6 lbs Pulse Ox 92 Temperature 98.2 F Pulse Rate 78 Respiratory Rate 16 Blood Pressure 124/70 Blood Pressure Position Semi-Fowlers Laboratory Data: Microbiology 09/29/17 01:15 C. difficile DNA Amplification - Final Stool Laboratory Tests 10/01/17 10/01/17 Range/Units 05:20 05:20 WBC 7.9 (4.4-11.0) K/mm3 RBC 3.69 L (4.2-5.4) M/mm3 Hgb 11.3 L (12.0-15.0) g/dl Hct 34.7 L (37-47) % MCV 94.0 (81-99) fL MCH 30.6 (27.0-32.0) pg MCHC 32.6 (32-36) g/gl RDW 13.5 (11.6-14.6) % RDW Differential 44.7 H (35.1-43.9) fl Plt Count 159 (150-450) K/mm3 MPV 10.0 (6.2-12.0) fl Neut % (Auto) Not Reportable Absolute Neuts (auto) 4.6 (2.0-7.7) X10^3/uL Absolute Lymphs (auto) 2.69 (0.83-4.51) X10^3/ul Total Counted 100 (MANUAL DIFF) Neutrophils % (Manual) 52 (47-70) % Band Neutrophils % 6 H (0-5) % Lymphocytes % (Manual) 34 (19-41) % Monocytes % (Manual) 3 (0-10) % Eosinophils % (Manual) 3 (0-5) % Myelocytes % 2 H (0-0) Diff Path Review Reviewed Platelet Estimate ADEQUATE (ADEQ) RBC Morphology NORM C+C (NORM C&C) NORMAL Sodium 142 (136-145) mmol/L Potassium 3.3 L (3.5-5.1) mmol/L Chloride 108 H (98-107) mmol/L Carbon Dioxide 29.0 (21.0-32.0) mmol/L Anion Gap 5 (5-15) BUN 5 L (7-18) mg/dL Creatinine 0.82 (0.55-1.02) mg/dL Estim Creat Clear Calc 53.55 ml/min Est GFR (MDRD) Af Amer 88 (>60) mL/min Est GFR (MDRD) Non-Af 73 (>60) mL/min BUN/Creatinine Ratio 6.1 L (10-20) RATIO Glucose 92 (74-106) mg/dL Calcium 8.2 L (8.5-10.1) mg/dL Diagnostic Data: Diagnostic Data GI Bleed Scan Nuclear Medicine 09/28/17 13:56 IMPRESSION: No evidence of active GI bleeding. Electronically Signed: Esteban Alexis MD at 16:08 EST Tel [phone], Service support , Abdomen/Pelvis CT 09/28/17 17:37 IMPRESSION: Findings consistent with severe descending and rectosigmoid colitis. 4.5 cm fluid collection or mass of the left breast. Electronically Signed: Dimitris Rose MD at 21:39 EST , Service support , Assessment and Plan 71 YOF S/P partial left mastectomy with sentinel lymph node biopsy 08/18/2017 for stage IIA invasive mucinous carcinoma. Tumor is ER positive (95% NM positive (95%) HER-2 not amplified (0 IHC) She made a non-complicated recovery from her surgery. Started adjuvant Adriamycin-Cytoxan 09/22/2017 followed by Neulasta (long acting growth Factor on 09/23) Was seen in ER 09/25 with neulasta bony pains, N/V not neutropenic and suspected UTI treated with PO antibiotics. She was subsequently admitted 09/28/17 with acute NM bleed abdominal pain and acute left sided colitis suspected ischemic in etiology and is improving on conservative management. Her neutropenia has resolved as evidenced by an ANC 4.4 today. From Oncology view advise: 1- Antibiotic cover till recover from colitis. Choice of agent to the discretion of the primary service 2- B.M. recovering as expected. 3- Patient will be followed in clinic 10/13/2017 considered for cycle 2 Adriamycin/Cytoxan. Reviewed recommendations for management of bone pain associated with Neulasta inclusive of Tylenol alternating with ibuprofen ?2-3 days with the next administration. Patient and spouse were in agreement with aforementioned plan. Chantal Haas, MSN, EDUCATIONAL ASSISTANT TEACHER-C, AOCNP Medications: Prescriptions This Visit Medication Instructions Recorded Temazepam [Restoril] 15 mg PO QHS PRN PRN 09/28/17 Acetaminophen [Tylenol Tablet] 500 mg PO Q4H PRN tablet 10/01/17 Ciprofloxacin [Cipro] 500 mg PO BID #14 tab 10/01/17 Loperamide [Imodium] 2 mg PO Q4H PRN PRN capsule 10/01/17 Metronidazole [Flagyl] 500 mg PO Q8H #21 tab 10/01/17
[2017-10-01 14:48] VITALS: BP 137/71; PULSE 89; RESP 14; TEMP 37.3; O2SAT 96
== END 2017-10-01 15:33 | disposition home or self-care (01) | DRG 394 ==
LOC: ED 11:24 → PCU 14:43
PROVIDERS: Physician Assistant; Admitting Provider Internal Medicine; Emergency Provider Emergency Medicine; Family Provider Internal Medicine; PCP Internal Medicine
DX: K55.9 Vascular disorder of intestine, unspecified (principal); C77.3 Secondary and unspecified malignant neoplasm of axilla and upper limb lymph nodes; E44.0 Moderate protein-calorie malnutrition; D70.1 Agranulocytosis secondary to cancer chemotherapy; C50.912 Malignant neoplasm of unspecified site of left female breast; K52.1 Toxic gastroenteritis and colitis; I34.1 Nonrheumatic mitral (valve) prolapse; N30.00 Acute cystitis without hematuria; E86.0 Dehydration; T45.1X5A Adverse effect of antineoplastic and immunosuppressive drugs, initial encounter; Y92.9 Unspecified place or not applicable; E87.6 Hypokalemia; Z17.0 Estrogen receptor positive status [ER+]; I10 Essential (primary) hypertension; J45.909 Unspecified asthma, uncomplicated; Z68.27 Body mass index [BMI] 27.0-27.9, adult; Z79.899 Other long term (current) drug therapy; Z90.49 Acquired absence of other specified parts of digestive tract
CPT/HCPCS: 74177; 78278; 80048; 83735; 84100; 85014; 85018; 85025; 85610; 86850; 86900; 87493; 99281; J7030; Q9967; A4216

== ENCOUNTER → 2017-10-19 08:47 | Outpatient (CLI) | payer MEDICARE, SELFPAY ==
[2017-08-31 16:19] VITALS: BMI 27.3
--- NOTE | 2017-10-19 08:50 | ECHOD_ITS ---
Reason For Study: [employer]ER[employer] Procedure This was a 2D Doppler, Color Flow transthoracic echocardiogram. Exam performed in department. Left Ventricle Normal LV size. Left ventricular systolic function is normal. The estimated ejection fraction is 65 %. No evidence for diastolic dysfunction. No regional wall motion abnormalities noted. Right Ventricle Normal RV size. Normal systolic function. Atria Normal left atrium. Normal right atrium. Mitral Valve Normal mitral valve. Tricuspid Valve Normal tricuspid valve. Mild tricuspid valve insufficiency. Pulmonary artery systolic pressure is 28 mmHg. Aortic Valve Trisinus/trileaflet aortic valve. Pulmonic Valve Normal pulmonic valve. Great Vessels Normal aortic root. The pulmonary artery is normal size. Normal inferior vena cava. Pericardium/Pleural No pericardial effusion. MMode/2D Measurements & Calculations LVIDd: 2.5 cm IVSd: 0.80 cm LA dimension: 2.9 cm LVIDs: 1.6 cm LVPWd: 0.63 cm RVDd: 3.0 cm FS: 36.0 % LAV(MOD-bp): 22.2 ml EDV(MOD-sp4): 77.6 ml EDV(MOD-sp2): 68.4 ml LAV(MOD-bp) Indexed: 12.5 ml/m2 ESV(MOD-sp4): 27.4 ml EF(MOD-sp2): 55.4 % LAV(MOD-sp2): 27.0 ml EF(MOD-sp4): 64.7 % LAV(MOD-sp4): 17.1 ml SV(MOD-sp4): 50.2 ml SV(MOD-sp2): 37.9 ml LA A4 area: 9.9 cm2 RA A4 area: 7.8 cm2 Doppler Measurements & Calculations MV E max rad: 65.2 cm/sec Ao V2 max: 151.0 cm/sec LV V1 max: 138.0 cm/sec MV A max rad: 123.4 cm/sec Ao max P.1 mmHg LV V1 max P.6 mmHg MV E/A: 0.53 PA V2 max: 75.1 cm/sec PI end-d rad: 90.9 cm/sec TR max rad: 239.7 cm/sec TR max P.1 mmHg Interpretation Summary Normal LV size. Left ventricular systolic function is normal. The estimated ejection fraction is 65 %. Mild tricuspid valve insufficiency. Pulmonary artery systolic pressure is 28 mmHg. No evidence for diastolic dysfunction. Ordering Physician: Jesse Starr Referring Physician: Jesse Starr Performed By: Ursula Blackwood, RDCS, RVT
== END ==
PROVIDERS: Family Provider Internal Medicine; PCP Internal Medicine; Visit Provider Internal Medicine Hematology & Oncology
DX: Z79.899 Other long term (current) drug therapy (principal)
CPT/HCPCS: 93306

== ENCOUNTER 2018-01-05 12:52 | Observation (INO) | payer MEDICARE, OTHER, SELFPAY ==
[2017-08-31 16:19] VITALS: BMI 27.3
[2018-01-05] VITALS (9 sets, daily range): BP systolic 125–132; BP diastolic 77–83; PULSE 73–97; RESP 14–20; TEMP 36.2–36.4; O2SAT 96–98; BMI 25.7; BMI 27.9
--- NOTE | 2018-01-05 14:15 | RAD_ITS ---
STUDY: X-RAY CHEST REASON FOR EXAM: Female, 72 years old. Left arm discomfort and tingling following chemotherapy. History of left breast cancer. TECHNIQUE: Single AP portable view of the chest. COMPARISON: Comparison is made with prior study dated September 15, 2017. FINDINGS: EKG electrodes are seen. A right-sided portacatheter is in situ with the tip in the proximal portion of the superior vena cava. Surgical clips are seen in the left axillary region. Stable mild increased markings at the lung bases suggestive of scarring. No acute infiltration is seen. There is no demonstrated pleural abnormality. Normal size heart. Normal mediastinum and jose d. Normal visualized pulmonary arteries. There is atherosclerotic tortuosity of the aortic arch and descending thoracic aorta. There are degenerative changes of the visualized thoracic spine. Normal visualized ribs, clavicles, and shoulders. There is no demonstrated abnormality of the visualized soft tissue structures of the upper abdomen. RAD/Chest 1 View (Portable) IMPRESSION: Stable examination. No acute abnormality is seen. Electronically Signed: Esteban Alexis MD at 14:56 EDT Tel [phone], Service support ,
--- NOTE | 2018-01-05 14:15 | EKG12_ITS ---
Test Reason : OTHER PAIN Blood Pressure : / mmHG Vent. Rate : 081 BPM Atrial Rate : 081 BPM P-R Int : 138 ms QRS Dur : 076 ms QT Int : 410 ms P-R-T Axes : 065 062 035 degrees QTc Int : 476 ms Normal sinus rhythm Normal ECG Confirmed by CAREN PIERSON, WINSOME ([id number]), acquisition editor VAISHNAVI HARMON ([id number]) on 01/08/2018 10:31:50 AM Referred By: Karuna Camarena Confirmed By:WINSOME FABIAN MD
--- NOTE | 2018-01-05 14:15 | CT_ITS ---
STUDY: CT BRAIN WITHOUT CONTRAST REASON FOR EXAM: Female, 72 years old. Left hand weakness following chemotherapy. History of left breast cancer. Hypertension. RADIATION DOSAGE (If Supplied By Facility): CTDIvol = ( 44.99 ) mGy, DLP = ( 779.24 ) mGycm TECHNIQUE: Transaxial CT imaging of the brain was performed without administration of intravenous contrast material. Individualized dose optimization techniques were used for this CT. COMPARISON: None. FINDINGS: There is 9.6 mm x 7.9 mm partially calcified nodule in the scalp overlying the posterior right occipital bone. Normal calvarium. There is mild cerebral atrophy with widening of the extra-axial spaces and ventricular dilatation. Normal white matter tracts of the cerebral hemispheres. There are small punctate calcifications of the basal ganglia which are seen in the aging brain as a normal variant. Normal brainstem. Normal cerebellum. There is no intracranial hemorrhage. There are no findings of an acute ischemic infarction. Mild mucosal thickening along the posterior aspect of the left ethmoid sinus. CT/Brain/Head without Contrast IMPRESSION: Chronic involutional changes of the brain. Electronically Signed: Esteban Alexis MD at 15:06 EDT Tel [phone], Service support ,
[2018-01-05 14:33] LABS: Absolute Lymphocyte Count 0.62 X10^3/ul (0.83-4.51); Absolute Neutrophil Count 4.3 X10^3/uL (2.0-7.7); Basophil# 0.02 X10^3/uL; Basophil% 0.4 % (0-1); Eosinophil# 0.01 X10^3/uL; Eosinophils% 0.2 % (0-5); Hematocrit 36.2 % (37-47); Hemoglobin 11.7 g/dl (12.0-15.0); Lymphocyte # 0.62 X10^3/ul (4.0); Lymphocyte % 12.3 % (19-41); Mean Corp Hgb Conc 32.3 g/gl (32-36); Mean Corpuscular Hgb 32.4 pg (27.0-32.0); Mean Corpuscular Volume 100.3 fL (81-99); Mean Platelet Vol. 9.6 fl (6.2-12.0); Monocyte# 0.09 X10^3/uL; Monocyte% 1.8 % (0-10); Neutrophil # 4.26 X10^3/uL (2.7-7.7); Neutrophil % 84.7 % (47-70); Platelet Count 255 K/mm3 (150-450); RBC Distribution Width CV 14.2 % (11.6-14.6); RBC Distribution Width SD 50.6 fl (35.1-43.9); Red Blood Count 3.61 M/mm3 (4.2-5.4)
[2018-01-05 14:35] LABS: POSITIVE COUNT NO; POSITIVE DIFFERENTIAL NO; POSITIVE MORPHOLOGY NO
[2018-01-05 14:46] LABS: Anion Gap 7 (5-15); BUN 16 mg/dL (7-18); BUN/Creat Ratio 20.5 RATIO (10-20); Calcium,Total 8.5 mg/dL (8.5-10.1); Chloride 108 mmol/L (98-107); Creatinine, Serum 0.78 mg/dL (0.55-1.02); EST Glomerular Filtration Rate 77 mL/min (>60); Est Glom Filt Rate - Afr Amer 93 mL/min (>60); Estimated Creatinine Clearance 43.27 ml/min; Glucose 123 mg/dL (74-106); Potassium 3.8 mmol/L (3.5-5.1); Sodium Level 139 mmol/L (136-145)
--- NOTE | 2018-01-05 16:38 | ED.VISSUMM ---
- ER Visit Summary Date of Service: 01/05/18 Chief Complaint: Left arm aching and at times numbness. History of Present Illness: The patient is a 72 F history of breast CA currently undergoing chemotherapy. And chemotherapy this morning. There she described to the staff that she was having aching in her left arm intermittently since last night. Also at times numbness. They wanted her to be evaluated and sent her to the ER. She has no known cardiac history. Reportedly 10-12 years ago the patient had abnormal stress test him underwent a heart catheter which was reportedly negative at that time. She has had no cardiac workup since then. Has no known history of cardiac disease. He is also had no prior history of seizure or TIA. Physical Examination: Older female no acute distress vital signs stable afebrile. Pulse ox 97% on room air no hypoxia. H EENT exam unremarkable other than loss of her hair from her chemotherapy. Lungs clear to auscultation. Heart regular rate and rhythm no murmur. Chest wall nontender. Abdomen soft nontender. Normal bowel sounds no peritoneal signs. She is moving all 4 extremities. She has 5 out of 5 life tester outboard motors strength on the right she is right-hand dominant 4 out of 5 on the left. There is a subtle difference between the right and the left. Strong radial pulse on both sides. Normal appearance. Normal sensation. Normal range of motion. Lower extremities are unremarkable without edema or calf tenderness. Neurologically she is awake and alert her only neurological finding whatsoever is mild decreased strength in the left hand compared to the right she can lift it above the bed she has life tester outboard motors strength is a 4-5 versus the right 5 out of 5. No other focal neurological findings or loss of sensation. Test Results: T of the brain shows no acute abnormality. Chest x-ray shows normal cardiac silhouette and mediastinum. EKG shows a sinus rhythm a rate of 81 with no acute abnormality. No signs of [place] or ischemia. White count of 5. H&H of 11.7 and 36. That her is her baseline chronic anemia. Her electrolytes are unremarkable with a normal gap and creatinine. Her troponin is slightly abnormal at 0.128. Emergency Department Course and Treatment: Patient presented per request of the chemotherapy center for atypical left arm discomfort. She has an abnormal troponin which may or may not be cardiac related. Again this is very atypical story. I will speak to the hospitalist about admission and further workup. Treatment Plan: I spoke to the hospitalist Dr. Silvana Brown. The patient be admitted for further workup for an atypical left arm pain and abnormal troponin Disposition: Admission Impression: Atypical left arm pain with an abnormal troponin History of breast CA undergoing chemotherapy This note was generated with [employer] dictation software. It may contain incorrect words, spelling, and punctuation that were not noted in review of the chart prior to signing ED Disposition - Plan for ED Patient: Chief Complaint: Other, Pain/Inj Referrals: Samir Salcido [Primary Care Provider] -
--- NOTE | 2018-01-05 16:51 | HP.PCM_ITS ---
Problem List (1) Left-sided weakness Status: Acute (2) Cardiac enzymes elevated Status: Acute (3) Paresthesias Status: Acute (4) Depression Status: Chronic Qualifiers: Depression Type: unspecified Qualified Code(s): F32.9 - Major depressive disorder, single episode, unspecified (5) Regional lymph node metastasis present Status: Chronic (6) Cancer of left female breast Status: Chronic Qualifiers: Breast location: central portion of breast Estrogen receptor status: positive Qualified Code(s): C50.112 - Malignant neoplasm of central portion of left female breast; Z17.0 - Estrogen receptor positive status [ER+] (7) Hyperlipidemia Status: Acute Qualifiers: Hyperlipidemia type: unspecified Qualified Code(s): E78.5 - Hyperlipidemia , unspecified (8) Mitral valve prolapse Status: Chronic (9) Murmur, cardiac Status: Chronic (10) Tremor Status: Chronic History of Present Illness Date of Admission: 01/05/18 Chief Complaint: LUE paresthesias. The patient is a 72 y/o F w/ PMHx: Left Breast CA w/ Regional Metastatic Disease following w/ Dr. Starr w/ ongoing chemotherapy/radiation s/p partial mastectomy and LNDx, Asthma, Depression, GERD w/ Hiatal Hernia, HLD, Chronic anemia (baseline Hgb 11) who presents to the [facility] ED on 01/05/18 with history of onset left upper extremity pain, paresthesias w/ L hand numbness in the morning upon awakening which continued into her chemotherapy administration with prior episodes following chemotherapy, usually immediately after start and limited to hand and forearm; however, she noted this was more severe in nature and the sensation increased to her upper arm in addition to weakness of the LUE associated as well as weakness to the LLE. She notes history of abnormal stress testing ~ 10 years prior with follow-up normal cardiac catheterization. She does note since start of her chemotherapy she has been off her asa 81 mg daily therapy. In the ED work-up included T 97.5, heart rate 73, BP 125/77, respiratory rate 16, 97% on room air, CBC w/ WBC 5, Hgb 11.7, Plts 255 without marked shift, BMP w/ CHl 108, glucose 123, trop 0.128, EKG w/ SR, CXR w/ no acute findings, CT head w/ chronic changes. Past Medical History Past Medical History (Chronic Problems): Chronic Problems (Last Reviewed 12/15/17 @ 09:29 by Davina Gerber) Depression (Chronic) HTN (hypertension) (Chronic) Tremor (Chronic) Regional lymph node metastasis present (Chronic) Cancer of left female breast (Chronic) Mitral valve prolapse (Chronic) Murmur, cardiac (Chronic) Allergies meperidine [From Demerol] Allergy (Severe, Verified 12/15/17 09:29) Anaphylaxis Home Medications: Ambulatory Orders Medication Instructions Recorded colestipol 1 gram tablet 1 g PO DAILY 07/21/17 propranolol 10 mg tablet 10 mg PO BID PRN 07/21/17 Ergocalciferol [Vitamin D] 50,000 unit PO WE 07/29/17 Albuterol IH (ProAir) [Proair Hfa] 2 puff INHALATION Q4H PRN PRN 08/06/17 Multivitamin [Multiple Vitamins] 1 ea PO DAILY 08/06/17 Lidocaine/Prilocaine 30 gm TP DAILY PRN PRN #1 cream..g. 09/02/17 [Lidocaine-Prilocaine Cream] Prochlorperazine Maleate 10 mg PO Q6H PRN PRN #30 tab 09/02/17 Oxycodone [Oxyir] 5 mg PO Q4H PRN PRN #20 tab 09/26/17 Temazepam [Restoril] 15 mg PO QHS PRN PRN 09/28/17 Loperamide [Imodium] 2 mg PO Q4H PRN PRN cap 10/01/17 Ondansetron HCl [Zofran] 4 mg PO Q8H PRN PRN 10 Days #30 tab 11/02/17 Nystatin Powder [Mycostatin Powder] 1 applic TOPICAL BID #1 bottle 12/01/17 Acetaminophen [Tylenol Extra 500 mg PO Q4H PRN PRN 01/05/18 Strength] Surgical History: - - Partial left mastectomy with lymph node dissection, tonsillectomy, port placement, cholecystectomy, right knee arthroscopic surgery , left rotator cuff repair. 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 Denies: Chills, Fever, Weight Change HEENT: Denies: Head Aches, Sinus Congestion, Sinus Drainage Cardiovascular: Denies: Chest Pain, Palpitations Respiratory: Denies: Cough, Shortness of breath at rest, Sputum production Gastrointestinal: Reports: Nausea. Denies: Abdominal Pain, Vomiting Genitourinary: Denies: Dysuria Musculoskeletal: Reports: Back Pain. Denies: Joint Pain, Joint Tenderness Skin: Denies: Rash, Wounds Neurological: Reports: Focal weakness, Numbness, Tingling Psychiatric: Reports: Depression. Denies: Anxiety, Homicidal Ideations, Suicidal Ideations Hematologic/ Lymphatic: Reports: Anemia, Easy Bleeding. Denies: Easy Bruising VTE Information - Inpt Only VTE Present on Admission: No VTE Mechan Device Prophylaxis: SCD's VTE Pharm Prophylaxis ordered?: Yes Patient Problems: Active and Suspected Problems (Last Reviewed 12/15/17 @ 09:29 by Davina Gerber) Chemotherapy management, encounter for (Acute) Cardiac enzymes elevated (Acute) Right sided weakness (Acute) Paresthesias (Acute) Left-sided weakness (Acute) Subjective: Seated upright in the emergency room bed, no acute distress, notes unchanged paresthesias and weakness to the left side. Objective: Physical Examination: General: awake, alert, oriented x 3 and cooperative, seated upright in the ED bed in no apparent distress. Skin: normal color, turgor, no icterus, cyanosis. HEENT: AT/NC, EOMI, PERRLA, mildly dry MM, no carotid bruits or JVD noted. Lungs: CTA bilaterally, moderate effort, mild decrease BL bases, no rales, ronchi or wheezing. Heart: Regular rate and rhythm; no gallop, rub audible, SM. Abdomen: soft, NTTP, ND, normal BS, no HSM. Extremities: no cyanosis, clubbing, or edema. Neurological: patient awake, alert, oriented x 3; cognitive function intact; pupils equally reactive to light and accomodation; cranial nerves II-XII grossly normal, moving all 4 extremities, 4/5 left-sided weakness in upper and lower extremity, sensation decreased left upper extremity from hand to proximal bicep, impaired finger to nose and heel to mustafa left sided, negative Babinski bilaterally. Psychiatric: affect appears normal, no acute evidence of depressive or anxiety feelings. - Physical Exam Vital Signs Temp Pulse Resp BP Pulse Ox 97.5 F L 78 14 125/83 H 98 01/05/18 12:54 01/05/18 15:46 01/05/18 15:46 01/05/18 15:46 01/05/18 15:46 Oxygen Delivery Method Room Air Weight: 150 lb Body Mass Index (BMI) 25.7 Laboratory Tests Past 24 Hrs 01/05/18 01/05/18 14:23 14:23 WBC 5.0 RBC 3.61 L Hgb 11.7 L Hct 36.2 L MCV 100.3 H MCH 32.4 H MCHC 32.3 RDW 14.2 RDW Differential 50.6 H Plt Count 255 MPV 9.6 Immature Gran % (Auto) 0.600 Neut % (Auto) 84.7 H Lymph % (Auto) 12.3 L Lanier % (Auto) 1.8 Eos % (Auto) 0.2 Baso % (Auto) 0.4 Absolute Neuts (auto) 4.3 Absolute Lymphs (auto) 0.62 L Total Counted Not Reportable Sodium 139 Potassium 3.8 Chloride 108 H Carbon Dioxide 24.0 Anion Gap 7 BUN 16 Creatinine 0.78 Estim Creat Clear Calc 43.27 Est GFR (MDRD) Af Amer 93 Est GFR (MDRD) Non-Af 77 BUN/Creatinine Ratio 20.5 H Glucose 123 H Calcium 8.5 Troponin I 0.128 H Assessment/Plan Active and Suspected Problems (Last Reviewed 12/15/17 @ 09:29 by Davina Gerber) Chemotherapy management, encounter for (Acute) Cardiac enzymes elevated (Acute) Right sided weakness (Acute) Paresthesias (Acute) Left-sided weakness (Acute) The patient is a 72 y/o F w/ PMHx: Left Breast CA w/ Regional Metastatic Disease following w/ Dr. Starr w/ ongoing chemotherapy/radiation s/p partial mastectomy and LNDx, Asthma, GERD w/ Hiatal Hernia, HLD, Chronic anemia who presents to the [facility] ED on 01/05/18 with history of onset left upper extremity pain, paresthesias w/ L hand numbness in the morning upon awakening which continued into her chemotherapy administration with prior episodes following chemotherapy, usually immediately after start and limited to hand and forearm; however, she noted this was more severe in nature and the sensation increased to her upper arm in addition to weakness of the LUE associated as well as weakness to the LLE. (1) Right Sided Weakness/Hemiplegia, RUE Paresthesias concerning for CVA/TIA and Possible Atypical Chest Pain w/ Indeterminate Cardiac Enzyme (see #2): Will admit to PCU will obtain MRI Brain with and without given underlying history, MRA Head and Neck, ECHO, PT/OT/Speech/Nutrition evaluation per protocol. Will allow permissive HTN, maintain on asa, prior hx statin usage but no effect on levels, add back given current presentation w/ AM FLP, fall precautions. Mag, TSH pending. (2) ?Atypical Chest Pain w/ indeterminate cardiac enzymes: EKG in ED sinus rhythm with no acute evidence of ischemia, CXR w/ no acute findings, initial trop 0.128. Will place on a monitored bed to with serial cardiac enzymes and EKGs. Mag pending. FLP in AM. Will obtain ECHO as noted above. Cardiology consulted, pending. ASA, NG, morphine. (3) Left Breast CA w/ Regional Metastatic Disease: Patient following w/ Dr. Starr w/ ongoing chemotherapy/radiation s/p partial mastectomy and LNDx, obtain Mag and Phos levels, supplementation as needed. (4) Chronic Asthma: PRN albuterol, HOB, IS parameters. (5) Hyperlipidemia: Add back statin regimen and colestipol which had been held while on chemotherapy. AM FLP. (6) Hyperglycemia: Mild, admission glucose 123, HgbA1c pending. (7) Chronic Macrocytic Anemia: Admission Hgb 11.7, MCV 100.3, currently stable compared to baseline, vitamin B12, folic acid, iron panel pending as may be contributing to her neurological symptoms as far as paresthesias especially with ongoing chemotherapy. (8) DVT Prophylaxis: SCDs, lovenox. Code Visit Inpatient E&M: 90836 Init Hosp L3
--- NOTE | 2018-01-05 16:52 | ED.DCSUM_ITS ---
- ER Visit Summary Date of Service: 01/05/18 Chief Complaint: Left arm aching and at times numbness. History of Present Illness: The patient is a 72 F history of breast CA currently undergoing chemotherapy. And chemotherapy this morning. There she described to the staff that she was having aching in her left arm intermittently since last night. Also at times numbness. They wanted her to be evaluated and sent her to the ER. She has no known cardiac history. Reportedly 10-12 years ago the patient had abnormal stress test him underwent a heart catheter which was reportedly negative at that time. She has had no cardiac workup since then. Has no known history of cardiac disease. He is also had no prior history of seizure or TIA. Physical Examination: Older female no acute distress vital signs stable afebrile. Pulse ox 97% on room air no hypoxia. H EENT exam unremarkable other than loss of her hair from her chemotherapy. Lungs clear to auscultation. Heart regular rate and rhythm no murmur. Chest wall nontender. Abdomen soft nontender. Normal bowel sounds no peritoneal signs. She is moving all 4 extremities. She has 5 out of 5 wet cotton feeder strength on the right she is right-hand dominant 4 out of 5 on the left. There is a subtle difference between the right and the left. Strong radial pulse on both sides. Normal appearance. Normal sensation. Normal range of motion. Lower extremities are unremarkable without edema or calf tenderness. Neurologically she is awake and alert her only neurological finding whatsoever is mild decreased strength in the left hand compared to the right she can lift it above the bed she has wet cotton feeder strength is a 4-5 versus the right 5 out of 5. No other focal neurological findings or loss of sensation. Test Results: T of the brain shows no acute abnormality. Chest x-ray shows normal cardiac silhouette and mediastinum. EKG shows a sinus rhythm a rate of 81 with no acute abnormality. No signs of [place] or ischemia. White count of 5. H &H of 11.7 and 36. That her is her baseline chronic anemia. Her electrolytes are unremarkable with a normal gap and creatinine. Her troponin is slightly abnormal at 0.128. Emergency Department Course and Treatment: Patient presented per request of the chemotherapy center for atypical left arm discomfort. She has an abnormal troponin which may or may not be cardiac related. Again this is very atypical story. I will speak to the hospitalist about admission and further workup. Treatment Plan: I spoke to the hospitalist Dr. Silvana Brown. The patient be admitted for further workup for an atypical left arm pain and abnormal troponin Disposition: Admission Impression: Atypical left arm pain with an abnormal troponin History of breast CA undergoing chemotherapy This note was generated with [employer] dictation software. It may contain incorrect words, spelling, and punctuation that were not noted in review of the chart prior to signing ED Disposition - Plan for ED Patient: Chief Complaint: Other, Pain/Inj Referrals: Samir Salcido [Primary Care Provider] -
--- NOTE | 2018-01-05 17:58 | MRI_ITS ---
STUDY: MRA OF THE HEAD WITHOUT CONTRAST REASON FOR EXAM: Female, 72 years old. Left arm numbness and tingling TECHNIQUE: 3-D [id number] (TOF) imaging was performed with MIPs. The study was performed unenhanced. COMPARISON: None. FINDINGS: Normal bilateral petrous carotid arteries. Normal right cavernous carotid artery with a normal supraclinoid bifurcation. Normal left cavernous carotid artery with a normal supraclinoid bifurcation. Mildly narrowed right A1 segments of the anterior cerebral artery. Normal left A1 segments of the anterior cerebral artery. Normal intact anterior communicating artery (ACOM). Normal bilateral A2 segments of the anterior cerebral arteries. Normal right M1 and M2 segments of the middle cerebral arteries, with a normal M1 bifurcation. Normal left M1 and M2 segments of the middle cerebral arteries, with a normal M1 bifurcation. Normal right posterior communicating artery (PCOM). Left posterior communicating artery not visualized consistent with normal variant. Normal bilateral vertebral arteries. Normal basilar artery with a normal basilar bifurcation. The visualized bilateral superior cerebellar (SCA) arteries are normal. Normal bilateral P1, P2 and visualized P3 segments of the posterior cerebral arteries. There is no demonstrated aneurysm of the [place]. There is no major vessel occlusion or hemodynamically significant stenosis. There is no demonstrated abnormality of the visualized brain. MRI/MRA Head ONLY without Contrast IMPRESSION: No evidence for hemodynamically significant stenosis or occlusive thrombus within the vessels comprising the [place]. Electronically Signed: Kirk Peacock MD at 20:35 EDT , Service support ,
--- NOTE | 2018-01-05 17:58 | ECHOD_ITS ---
Reason For Study: TIA/STROKE Procedure This was a 2D Doppler, Color Flow transthoracic echocardiogram. Exam performed portable in patient room. Left Ventricle Normal size and thickness. The estimated ejection fraction is 65 %. Stage 1 diastolic dysfunction. No regional wall motion abnormalities noted. Right Ventricle Normal size and thickness. Normal systolic function. Atria Normal left atrium. Normal right atrium. Normal atrial septum. Bubble contrast study negative for right to left interatrial shunt. Mitral Valve The mitral valve is structurally normal. No prolapse or stenosis seen. Trivial mitral valve insufficiency. Tricuspid Valve Normal tricuspid valve. Trivial tricuspid valve insufficiency. Right ventricular systolic pressure estimated to be 34 mmHg. Aortic Valve Trisinus/trileaflet aortic valve. Aortic sclerosis, no stenosis. Pulmonic Valve Normal pulmonic valve. Great Vessels Normal aortic root. Normal arch. Normal inferior vena cava. Inferior vena cava collapse with sniff. Pericardium/Pleural No pericardial effusion. Medication Performed a rapid injection of agitated mix of 9 cc saline and 1cc air to assess for atrial septal defect. MMode/2D Measurements & Calculations RVDd: 2.2 cm Ao root diam: 2.7 cm LAV(MOD-bp): 36.3 ml LAV(MOD-bp) Indexed: 21.7 ml/m2 LAV(MOD-sp2): 36.5 ml LAV(MOD-sp4): 36.4 ml LVAd ap4: 22.4 cm2 SV(MOD-sp4): 37.0 ml SV(sp4-el): 38.2 ml EDV(MOD-sp4): 60.0 ml EDV(sp4-el): 62.4 ml LVAs ap4: 12.6 cm2 ESV(MOD-sp4): 23.1 ml ESV(sp4-el): 24.2 ml EF(MOD-sp4): 61.6 % EF(sp4-el): 61.2 % LA A4 area: 14.9 cm2 RA A4 area: 8.9 cm2 Time Measurements MV dec time: 0.25 sec Doppler Measurements & Calculations MV E max laci: 86.9 cm/sec Med Peak E' Laci: 8.9 cm/sec Ao V2 max: 143.4 cm/sec MV A max laci: 118.2 cm/sec E/E' med: 9.7 Ao max P.2 mmHg MV E/A: 0.74 LV V1 max: 134.2 cm/sec PA V2 max: 84.5 cm/sec TR max laci: 269.2 cm/sec LV V1 max P.2 mmHg TR max P.0 mmHg Interpretation Summary The estimated ejection fraction is 65 %. Stage 1 diastolic dysfunction. Bubble contrast study negative for right to left interatrial shunt. Right ventricular systolic pressure estimated to be 34 mmHg. Compared to echo report dated 10/19/2017, no appreciable changes noted. Ordering Physician: Silvana Brown Referring Physician: Jesse Starr Performed By: Vivienne Colmenares RDCS
--- NOTE | 2018-01-05 17:58 | MRI_ITS ---
STUDY: MRI BRAIN WITHOUT CONTRAST REASON FOR EXAM: Female, 72 years old. Left arm numbness and tingling for 4 days. Patient has history of breast cancer. TECHNIQUE: Standardized multiplanar fat and water weighted pulse sequences were obtained. COMPARISON: CT of the head dated January 05, 2018. FINDINGS: There is mild cerebral atrophy with widening of the extra-axial spaces and ventricular dilatation. There are a limited number of small white matter hyperintensities, distributed throughout the deep white matter tracts of the cerebral hemispheres, consistent with mild chronic white matter ischemic changes. There is no evidence for recent intracranial ischemia or other cause of cytotoxic edema on diffusion weighted imaging (DWI). Normal T2* images of the brain without demonstrated susceptibility artifact. There is no demonstrated hemosiderin stain. Normal bilateral basal ganglia. Normal thalami. There is no extra-axial fluid accumulation. Normal flow voids within the major intracranial circulation suggesting patency by spin echo criteria. Normal sella turcica, pituitary gland, infundibular stalk, optic chiasm and hypothalamus. Normal tectal plate and pineal gland. Normal midbrain, jennifer and medulla. There are mild involutional changes of the cerebellum. Normal basal cisterns. Normal bilateral temporal bones. Normal bilateral internal auditory canals. No demonstrated orbital abnormality, within the constraints of a routine brain study. Normal visualized paranasal sinuses. Normal calvarium and skull base. Normal visualized soft tissue structures. Normal visualized upper cervical spine. MRI/Brain without Contrast IMPRESSION: 1. Involutional changes of the brain, as described above. 2. No MR evidence for acute infarct. Electronically Signed: Mary Gillespie MD at 0:45 EDT , Service support ,
--- NOTE | 2018-01-05 17:58 | MRI_ITS ---
STUDY: MRA NECK WITHOUT CONTRAST REASON FOR EXAM: Female, 72 years old. Left arm numbness TECHNIQUE: Source images were obtained, MIPs were performed. The study was performed unenhanced. COMPARISON: None. FINDINGS: RIGHT CAROTID ARTERIES: Normal right common carotid artery (CCA). Normal right common carotid bulb. Normal origin of the right internal carotid (ICA) artery without a hemodynamically significant stenosis. Normal visualized cervical portion of the right internal carotid artery. Normal origin of the right external carotid artery (ECA). LEFT CAROTID ARTERIES: Normal left common carotid artery (CCA). Normal left common carotid bulb. Normal origin of the left internal carotid (ICA) artery without a hemodynamically significant stenosis. Normal visualized cervical portion of the left internal carotid artery. Normal origin of the left external carotid artery (ECA). VERTEBRAL ARTERIES: Normal antegrade flow within the bilateral vertebral artery without a hemodynamically significant stenosis. MRI/MRA Neck without Contrast IMPRESSION: Normal bilateral cervical carotid and vertebral arteries. Electronically Signed: Kirk Peacock MD at 20:23 EDT , Service support ,
--- NOTE | 2018-01-05 18:02 | EKG12_ITS ---
Test Reason : CP Blood Pressure : / mmHG Vent. Rate : 081 BPM Atrial Rate : 081 BPM P-R Int : 144 ms QRS Dur : 066 ms QT Int : 406 ms P-R-T Axes : 040 057 050 degrees QTc Int : 471 ms Normal sinus rhythm Normal ECG Confirmed by CAREN PIERSON, WINSOME ([id number]), image editor VAISHNAVI HARMON ([id number]) on 01/13/2018 3:30:43 PM Referred By: Karuna Camarena Confirmed By:WINSOME FABIAN MD
[2018-01-05] MEDS: 0.9% Normal Saline 1,000 ML 100 ML IV (18:40)
--- NOTE | 2018-01-05 18:48 | PCM.CONS.C ---
Reason for Consult Date of Consultation: 01/05/18 Reason for Consultation: Abnormal cardiac enzymes History of Present Illness: KAMILLA BROOKE, is a 72 F who presented to the emergency room this afternoon after she was not feeling well following receiving chemotherapy within the last 24 hours. She had complained of some numbness and tingling sensation which occurs before and after her chemotherapeutic regimen as well as minimal discomfort in her left arm. She denied any chest pain. In the emergency room she was evaluated with an electrocardiogram as well as cardiac troponin enzymes which were abnormal and the decision was made to admit the patient and to consult cardiology. She had recently been seen in the office for outpatient cardiovascular consultation by Dr. Bayron Hernandez based upon concerns of a history of an underlying cardiac murmur.with underlying breast carcinoma with metastatic disease undergoing chemotherapy and upcoming radiation therapy for outpatient cardiovascular monitoring. The patient did undergo evaluation in the past in 2007 at [facility] for concerns of the possibility of CAD. It appears in November 2005 she had a stress nuclear imaging study performed which suggested changes of bowel artifact and no fixed defects to suggest infarct and no reversible defects to suggest ischemia. However in 2007 based on ongoing concerns she had a diagnostic cardiac catheterization performed at [facility]. At that time per the report her coronary arteries were normal, her LV systolic function was normal, and it was felt her chest discomfort was noncardiac. She was found to have overall preserved left ventricular size, estimated ejection fraction of 65% no wall motion, and systolic function. She was noted to have mild tricuspid valve regurgitation and an estimated RV systolic pressure 28 mmHg.She denies any ongoing chest discomfort at this time. There has been no obvious evidence of overt CHF or pulmonary edema. There has been no near syncope or syncope. She has noted a rare palpitation.She states she is undergoing chemotherapy. She is pending upcoming radiation therapy. She states she has been very concerned about the effects on her cardiovascular status. At this time she is not having any cardiac issues. Past Medical History Allergies/Adverse Reactions: Allergies meperidine [From Demerol] Allergy (Severe, Verified 12/15/17 09:29) Anaphylaxis Home Medications: Ambulatory Orders Medication Instructions Recorded colestipol 1 gram tablet 1 g PO DAILY 07/21/17 propranolol 10 mg tablet 10 mg PO BID PRN 07/21/17 Ergocalciferol [Vitamin D] 50,000 unit PO WE 07/29/17 Albuterol IH (ProAir) [Proair Hfa] 2 puff INHALATION Q4H PRN PRN 08/06/17 Multivitamin [Multiple Vitamins] 1 ea PO DAILY 08/06/17 Lidocaine/Prilocaine 30 gm TP DAILY PRN PRN #1 cream..g. 09/02/17 [Lidocaine-Prilocaine Cream] Prochlorperazine Maleate 10 mg PO Q6H PRN PRN #30 tab 09/02/17 Oxycodone [Oxyir] 5 mg PO Q4H PRN PRN #20 tab 09/26/17 Temazepam [Restoril] 15 mg PO QHS PRN PRN 09/28/17 Loperamide [Imodium] 2 mg PO Q4H PRN PRN cap 10/01/17 Ondansetron HCl [Zofran] 4 mg PO Q8H PRN PRN 10 Days #30 tab 11/02/17 Acetaminophen [Tylenol Extra 500 mg PO Q4H PRN PRN 01/05/18 Strength] Nystatin Powder [Mycostatin Powder] 1 applic TOPICAL BID 01/05/18 Past Medical History (Chronic Problems): Chronic Problems (Last Reviewed 12/15/17 @ 09:29 by Davina Gerber) Depression (Chronic) HTN (hypertension) (Chronic) Tremor (Chronic) Regional lymph node metastasis present (Chronic) Cancer of left female breast (Chronic) Mitral valve prolapse (Chronic) Murmur, cardiac (Chronic) Surgical History: - - Partial left mastectomy with lymph node dissection, tonsillectomy, port placement, cholecystectomy, right knee arthroscopic surgery, left rotator cuff repair. 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 history - *Family History Maternal Family History: Family History (Last Reviewed 12/15/17 @ 09:29 by Davina Gerber) Father Heart problem Mother Heart problem Grandmother Ovarian cancer History Items: Heart Disease Paternal Family History: Family History (Last Reviewed 12/15/17 @ 09:29 by Davina Gerber) Father Heart problem Mother Heart problem Grandmother Ovarian cancer History Items: Cancer - Leukemia, Heart Disease, Stroke Lives: Spouse/ Significant Other Smoking Status: Never smoker Tobacco Use: Non-smoker Alcohol: None Drugs: None Review of Systems - Review of Systems General: Reports: Fatigue, Malaise, Weakness. Denies: Fever, Night Sweats Cardiovascular: Denies: Chest Discomfort, Shortness of Breath, Orthopnea, PND, Peripheral Edema, Palpitations, Lightheadedness, Dizziness, Near Syncope, Syncope Respiratory: Denies: Cough, Sputum Production, Hemoptysis Gastrointestinal: Denies: Hematemesis, Hematochezia, Melena Genitourinary: Denies: Dysuria, Hematuria Skin: Denies: Rash Neurological: Reports: Numbness Subjectve: Pleasant lady no apparent distress looks unwell Objective: Vital Signs Temp Pulse Resp BP Pulse Ox 97.2 F L 97 18 125/77 H 96 01/05/18 18:11 01/05/18 18:21 01/05/18 18:11 01/05/18 18:11 01/05/18 18:11 Oxygen Delivery Method Room Air Weight: 163 lb Body Mass Index (BMI) 27.9 General: Awake, Alert, Oriented x 3 HEENT: PERRL, EOMI, Sclera Non Icteric Neck: Supple, Good ROM, No Lymph Node Enlargement Lungs: Clear to auscultation Cardiovascular: Regular Rhythm, Normal S1, Normal S2, No Murmurs, No Rubs, No Gallops Vascular: No Carotid Bruits, Normal Femoral Pulses, Normal Radial Pulses, Normal Dorsalis Pedal Pulse, Normal Posterior Tibial Pulses Abdomen: Bowel Sounds Present, Soft, Non Tender, No HSM, No Organomegaly Extremities: No Cyanosis, No Clubbing, No edema Neurological: No Focal Motor or Sensory Deficit Rhythm: EKG: Normal sinus rhythm with a rate of 81 bpm and no acute changes ECHO: Estimated ejection fraction of 65% from October 2017: Stage I diastolic dysfunction Assessment/Plan 1. Abnormal cardiac enzymes. Ms. brooke recently received chemotherapy and has apparently received chemotherapy involving Adriamycin and Taxol recently. She does have a mildly abnormal cardiac enzyme results with no EKG changes and no definitive cardiac symptoms suggestive of ischemia or coronary artery disease. At this time my recommendation would be to continue to observe her and to obtain a series of enzymes to see whether the packing would be more suggestive of myocardial necrosis of the type II variety or otherwise. Depending on the findings further recommendations will be made. Her most recent echocardiogram demonstrated overall preserved left ventricular systolic function. It may not be an appropriate to reevaluate her left ventricular function to see whether she has had an adverse reaction to her recent chemotherapy. I did explain the above to her and her they understand and agree to proceed. She will be seen in a.m. and reevaluated.
[2018-01-05 18:57] LABS: Phosphorus 2.4 mg/dL (2.5-4.9)
[2018-01-05 19:02] LABS: Hemoglobin A1c 4.6 % (4.2-6.3)
[2018-01-05 19:04] LABS: Magnesium 2.1 mg/dL (1.6-2.6); Thyroid Stim Hormone (TSH) 0.24 uIU/mL (0.358-3.74)
--- NOTE | 2018-01-05 20:06 | NURSING ---
Pt has been in MRI since this RN has arrived to the floor. Pt has yet to be seen by this RN, however; i did receive report from the dayshift RN.
[2018-01-05] MEDS: Atorvastatin Calcium 80 MG Tablet PO (21:33)
[2018-01-06] VITALS (10 sets, daily range): BP systolic 101–137; BP diastolic 64–73; PULSE 67–85; RESP 16–20; TEMP 36.4–36.7; O2SAT 97–99; BMI 27.9
[2018-01-06] MEDS: Temazepam 15 MG Capsule PO (00:46)
--- NOTE | 2018-01-06 01:31 | NURSING ---
THIS RN HAD LENGTHY DISCUSSION W/PT RE; POC FOR HER TREATMENT FOR THE REMAINDER OF THIS ADMISSION. AT THIS TIME PT IS NOT COMFORTABLE BEING PREPARED FOR CARDIAC CATH, SHE BELIEVES THE DOCTORS WILL CONCLUDE IT IS NOT A NECESSARY TEST AT THIS TIME. CADD OPERATOR AND STATE INSPECTOR NOTIFIED OF PT'S WISHES TO NOT BE PREPPED FOR CATH AT THIS TIME.
--- NOTE | 2018-01-06 05:55 | EKG12_ITS ---
Test Reason : AM EKG Blood Pressure : / mmHG Vent. Rate : 083 BPM Atrial Rate : 083 BPM P-R Int : 140 ms QRS Dur : 078 ms QT Int : 394 ms P-R-T Axes : 053 054 020 degrees QTc Int : 462 ms Normal sinus rhythm Normal ECG Confirmed by CAREN PIERSON, WINSOME ([id number]), web editor VAISHNAVI HARMON ([id number]) on 01/13/2018 3:30:23 PM Referred By: Karuna Camarena Confirmed By:WINSOME FABIAN MD
[2018-01-06] MEDS: 0.9% NaCl Peripheral Flush Adult/Peds IV (06:02)
[2018-01-06] MEDS: 0.9% Normal Saline 1,000 ML 100 ML IV (06:03)
[2018-01-06 06:15] LABS: Hematocrit 35.1 % (37-47); Hemoglobin 11.9 g/dl (12.0-15.0); Mean Corp Hgb Conc 33.9 g/gl (32-36); Mean Corpuscular Hgb 33.6 pg (27.0-32.0); Mean Corpuscular Volume 99.2 fL (81-99); Mean Platelet Vol. 9.8 fl (6.2-12.0); Platelet Count 273 K/mm3 (150-450); RBC Distribution Width CV 13.9 % (11.6-14.6); RBC Distribution Width SD 48.4 fl (35.1-43.9); Red Blood Count 3.54 M/mm3 (4.2-5.4); Scan Indicated on CBC? Y/N NO; White Blood Count 7.7 K/mm3 (4.4-11.0)
[2018-01-06 06:39] LABS: Anion Gap 7 (5-15); BUN 13 mg/dL (7-18); BUN/Creat Ratio 16.9 RATIO (10-20); Calcium,Total 8.6 mg/dL (8.5-10.1); Chloride 110 mmol/L (98-107); Cholesterol 317 mg/dL (200); Creatinine, Serum 0.77 mg/dL (0.55-1.02); EST Glomerular Filtration Rate 78 mL/min (>60); Est Glom Filt Rate - Afr Amer 95 mL/min (>60); Estimated Creatinine Clearance 43.27 ml/min; Glucose 115 mg/dL (74-106); High Density Lipoprotein 66 mg/dL; Potassium 4.1 mmol/L (3.5-5.1); Sodium Level 141 mmol/L (136-145); Triglycerides 204 mg/dL; Very Low Density Lipoprotein 41 mg/dL (5-40)
[2018-01-06] MEDS: Aspirin 81 MG TAB.CHEW PO (10:09)
[2018-01-06] MEDS: Enoxaparin 40 MG/0.4 ML Syringe SC (10:09)
--- NOTE | 2018-01-06 10:24 | SLEEP ---
Seen patient in inpt unit, education give on sleep apnea and the importance of treating possible sleep disorders. Patient verbalized understanding however is currently going through chemotherapy and states she is not willing to go through any more testing at this time. Patient states her mother has a dx of YASH. Brochure was given to the patient and explained to contact us if she ever wanted to be tested for possible sleep disorders.
[2018-01-06] MEDS: HYDROcodone Bitartrate/Apap 5/325 Tablet PO (14:47)
--- NOTE | 2018-01-06 17:37 | PN.CARD_ITS ---
Subjectve: The patient is awake and alert. She has no ongoing issues of chest discomfort or difficulty breathing at this time. Objective: Vital Signs Temp Pulse Resp BP Pulse Ox 97.5 F L 85 16 137/69 H 99 01/06/18 13:25 01/06/18 15:53 01/06/18 13:25 01/06/18 13:25 01/06/18 13:25 Oxygen Delivery Method Room Air Weight: 163 lb 0.016 oz Body Mass Index (BMI) 27.9 Intake and Output for Last 24 Hours 01/04/18 01/05/18 01/06/18 23:59 23:59 23:59 Intake Total 2046 Balance 2046 General: Awake, Alert, Oriented x 3, Cooperative, No Acute Distress Neck: No JVD Lungs: Clear to auscultation Cardiovascular: Regular Rhythm, Normal S1, Normal S2 Abdomen: Bowel Sounds Present, Soft, Non Tender Extremities: No edema 01/05/18 18:30: Magnesium 2.1, Troponin I 0.116 H 01/05/18 18:30: Hemoglobin A1c 4.6 01/05/18 18:30: Phosphorus 2.4 L 01/05/18 21:25: Troponin I 0.109 H 01/06/18 05:58: WBC 7.7, RBC 3.54 L, Hgb 11.9 L, Hct 35.1 L, MCV 99.2 H, MCH 33.6 H, MCHC 33.9, RDW 13.9, RDW Differential 48.4 H, Plt Count 273, MPV 9.8 01/06/18 05:58: Sodium 141, Potassium 4.1, Chloride 110 H, Carbon Dioxide 24.0, Anion Gap 7, BUN 13, Creatinine 0.77, Est GFR (MDRD) Af Amer 95, Est GFR (MDRD) Non-Af 78, BUN/Creatinine Ratio 16.9, Glucose 115 H, Calcium 8.6, Triglycerides 204 H, Cholesterol 317 H, LDL Cholesterol 210 H, VLDL Cholesterol 41 H, HDL Cholesterol 66 Rhythm: Sinus rhythm EKG: Sinus rhythm; no acute ECG changes compared to her previous ECG from 2017 at 1430 hrs. or from 01/05/2018 at 1806 hrs. ECHO: Left ventricular wall motion systolic function reported as normal with a reported LVEF of 65% Medical Necessity - Tobacco Use Smoking Status: Never smoker Tobacco Use: Non-smoker Assessment/Plan 1. Atypical chest discomfort The present time she is undergoing cardiovascular evaluation. Her troponin I levels have remained indeterminant and without significant change. Her ECG has demonstrated no acute changes. Her ventricular wall motion and systolic function on transthoracic echocardiogram remained preserved. At the present time there is a consensus that her troponin I levels are most likely related to her recent chemotherapy with cardiotoxic agents such as Adriamycin as opposed to a type I acute coronary syndrome, etc. The above was discussed with the patient and her spouse. At the present time the consensus was to continue conservative medical management and follow-up. The patient wants to proceed with chemotherapy and future radiation therapy for her history of breast carcinoma without delay. The patient has ongoing concerning symptoms or other objective findings that would raise concern of another cardiovascular process other than the effects of her chemotherapy and she would need further evaluation care as deemed appropriate. Comment: The above was discussed and reviewed with Dr. Knutson. This note was generated with [employer] dictation software. It may contain incorrect words, spelling, and punctuation that were not noted in checking the note before signing.
--- NOTE | 2018-01-06 17:52 | PCM.DC ---
- Discharge Diagnoses Current Active Problems: Current Active and Chronic Problems (Last Reviewed 12/15/17 @ 09:29 by Davina Gerber) Chemotherapy management, encounter for (Acute) Depression (Chronic) HTN (hypertension) (Chronic) Cardiac enzymes elevated (Acute) Right sided weakness (Acute) Paresthesias (Acute) Left-sided weakness (Acute) Tremor (Chronic) You will use the following diet at home:: No restrictions Your food should be the consistency of: Regular Your liquids should be the consistency of: Regular/Thin Discharge Activity: Return to Normal Activity Weight Bearing Status: Full weight bearing Allergies/Adverse Reactions: Allergies meperidine [From Demerol] Allergy (Severe, Verified 12/15/17 09:29) Anaphylaxis Medications to take at Discharge colestipol 1 gram tablet 1 g PO DAILY 07/21/17 propranolol 10 mg tablet 10 mg PO BID PRN 07/21/17 Ergocalciferol [Vitamin D] 50,000 unit PO WE 07/29/17 Albuterol IH (ProAir) [Proair Hfa] 2 puff INHALATION Q4H PRN PRN 08/06/17 Multivitamin [Multiple Vitamins] 1 ea PO DAILY 08/06/17 Lidocaine/Prilocaine [Lidocaine-Prilocaine Cream] 30 gm TP DAILY PRN PRN #1 cream..g. 09/02/17 Prochlorperazine Maleate 10 mg PO Q6H PRN PRN #30 tab 09/02/17 Oxycodone [Oxyir] 5 mg PO Q4H PRN PRN #20 tab 09/26/17 Temazepam [Restoril] 15 mg PO QHS PRN PRN 09/28/17 Loperamide [Imodium] 2 mg PO Q4H PRN PRN cap 10/01/17 Ondansetron HCl [Zofran] 4 mg PO Q8H PRN PRN 10 Days #30 tab 11/02/17 Acetaminophen [Tylenol] 500 mg PO Q4H PRN PRN 01/05/18 Nystatin Powder [Mycostatin Powder] 1 applic TOPICAL BID 01/05/18 Primary Care Physician: Samir Salcido [Primary Care Provider] - Please follow up with your Primary Care Physician in: as scheduled
--- NOTE | 2018-01-06 18:04 | DS.PCM_ITS ---
Discharge Date and Diagnosis - Problem List Patient Problems: Active and Suspected Problems (Last Reviewed 12/15/17 @ 09:29 by Davina Gerber) Chemotherapy management, encounter for (Acute) Cardiac enzymes elevated (Acute) Right sided weakness (Acute) Paresthesias (Acute) Left-sided weakness (Acute) Date of Admission: 01/05/18 Date of Discharge: 01/06/18 - Primary Discharge Diagnosis Active and Suspected Problems (Last Reviewed 12/15/17 @ 09:29 by Davina Gerber) #1 Paresthesias (Acute)- etiology unclear #2 elevated troponin-secondary to chemotherapy #3 metastatic breast cancer - Secondary Discharge Diagnosis Chronic Problems (Last Reviewed 12/15/17 @ 09:29 by Davina Gerber) Depression (Chronic) HTN (hypertension) (Chronic) Tremor (Chronic) Regional lymph node metastasis present (Chronic) Cancer of left female breast (Chronic) Mitral valve prolapse (Chronic) Murmur, cardiac (Chronic) Hospital Course and Treatment Operations: None Procedures: 2-D Echocardiogram Summary of Care Provided: The patient is a 72 year old F was seen in the emergency room at [facility] after complaining of discomfort in her left arm intermittently since the previous night. She also complained of numbness in her fingers. Patient had been undergoing chemotherapy the morning she was seen in the emergency room. Examination in the emergency room included a CAT scan of the brain which showed no acute abnormality, chest x-ray was unremarkable, EKG showed a sinus rhythm at 81 with no acute abnormality. Troponin was slightly elevated at 0.128. Patient was placed in observation status on PCU, cardiac enzymes were cycled and remained slightly elevated, MRA of the neck, MRA of the head, and brain MRI were all unremarkable. Echocardiogram was performed which showed a preserved ejection fraction. Patient was seen in consultation by cardiology who did not feel that the patient's troponin elevation was indicative of cardiac problems. Patient can have elevated troponins after chemotherapy. On 01/06/18, patient was seen and examined and felt to be in stable condition for discharge home. Discharge Activity: Return to Normal Activity Weight Bearing Status: Full weight bearing Home Medications: Medications to take at Discharge colestipol 1 gram tablet 1 g PO DAILY 07/21/17 propranolol 10 mg tablet 10 mg PO BID PRN 07/21/17 Ergocalciferol [Vitamin D] 50,000 unit PO WE 07/29/17 Albuterol IH (ProAir) [Proair Hfa] 2 puff INHALATION Q4H PRN PRN 08/06/17 Multivitamin [Multiple Vitamins] 1 ea PO DAILY 08/06/17 Lidocaine/Prilocaine [Lidocaine-Prilocaine Cream] 30 gm TP DAILY PRN PRN #1 cream..g. 09/02/17 Prochlorperazine Maleate 10 mg PO Q6H PRN PRN #30 tab 09/02/17 Oxycodone [Oxyir] 5 mg PO Q4H PRN PRN #20 tab 09/26/17 Temazepam [Restoril] 15 mg PO QHS PRN PRN 09/28/17 Loperamide [Imodium] 2 mg PO Q4H PRN PRN cap 10/01/17 Ondansetron HCl [Zofran] 4 mg PO Q8H PRN PRN 10 Days #30 tab 11/02/17 Acetaminophen [Tylenol] 500 mg PO Q4H PRN PRN 01/05/18 Nystatin Powder [Mycostatin Powder] 1 applic TOPICAL BID 01/05/18 Primary Care Physician: Samir Salcido [Primary Care Provider] - Please follow up with your Primary Care Physician in: as scheduled Disposition: Home Minutes spent on discharge:: 25 Patient Condition:: Stable Medical Necessity - Tobacco Use Smoking Status: Never smoker Tobacco Use: Non-smoker Meaningful Use Info Meaningful Use Diagnoses (Choose all that apply): None applicable Code Visit OBSV E&M: 29148 Observation care discharge
[2018-01-06] MEDS: 0.9% NaCl VAD Flush 10 ML IV (18:45)
--- NOTE | 2018-01-06 18:46 | NURSING ---
right chest port de-accessed at this time per policy. pt tolerated well. dsd placed over site. no bleeding, bruising, or swelling noted to site.
== END 2018-01-06 17:53 | disposition home or self-care (01) ==
LOC: ED 14:40 → PCU 17:27
PROVIDERS: Admitting Provider Family Medicine; Emergency Provider Emergency Medicine; Family Provider Internal Medicine; PCP Internal Medicine; Visit Provider Internal Medicine
DX: R20.0 Anesthesia of skin (principal); I10 Essential (primary) hypertension; F32.9 Major depressive disorder, single episode, unspecified; C50.912 Malignant neoplasm of unspecified site of left female breast; C77.9 Secondary and unspecified malignant neoplasm of lymph node, unspecified; R53.1 Weakness; R25.1 Tremor, unspecified; E78.5 Hyperlipidemia, unspecified; J45.909 Unspecified asthma, uncomplicated; K21.9 Gastro-esophageal reflux disease without esophagitis; K44.9 Diaphragmatic hernia without obstruction or gangrene; D53.9 Nutritional anemia, unspecified; R73.9 Hyperglycemia, unspecified; Z79.899 Other long term (current) drug therapy
CPT/HCPCS: 36591; 70450; 70544; 70547; 70551; 71045; 80048; 80061; 83036; 83735; 84100; 84443; 84484; 85025; 85027; 92526; 93005; 93306; 96361; 96372; 96374; 99218; 99284; J7030; A4216; G0378

== ENCOUNTER → 2018-06-07 08:53 | Outpatient (CLI) | payer MEDICARE, OTHER, SELFPAY ==
[2017-08-31 16:19] VITALS: BMI 27.3
== END ==
PROVIDERS: Family Provider Internal Medicine; PCP Internal Medicine; Referring Provider Physician Assistant Medical; Visit Provider Physician Assistant Medical
DX: R01.1 Cardiac murmur, unspecified (principal); C50.912 Malignant neoplasm of unspecified site of left female breast; I34.1 Nonrheumatic mitral (valve) prolapse
CPT/HCPCS: 93308; C8924

== ENCOUNTER → 2018-06-09 09:48 | Outpatient (CLI) | payer MEDICARE, SELFPAY ==
[2017-08-31 16:19] VITALS: BMI 27.3
--- NOTE | 2018-06-09 09:55 | BD_ITS ---
STUDY: DUAL ENERGY X-RAY ABSORPTIOMETRY / DXA REASON FOR EXAM: Female, 72 years old. The patient is postmenopausal. Loss of height. TECHNIQUE: Bone Mineral Density (BMD) measurements of lumbar spine and bilateral hips were obtained. COMPARISON: Comparison is made with prior study dated February 27, 2005. FINDINGS: Lumbar Spine (L1-L4): g/cm2 (0.987) / T-score (-1.6) / Z-score (0.1) Findings are suggestive of osteopenia with a moderate fracture risk. Left Femur Total: g/cm2 (0.799) / T-score (-1.7) / Z-score (0.0) Left Femoral Neck: g/cm2 (0.724) / T-score (-2.3) / Z-score (-0.4) Right Femur Total: g/cm2 (0.824) / T-score (-1.5) / Z-score (0.2) Right Femoral Neck: g/cm2 (0.770) / T-score (-1.9) / Z-score (-0.1) The T-Scores on the most recent prior examination were: Lumbar Spine (L1-L4): There has been improvement of bone density since the previous examination. Left Femur Total: which represents a worsening of 1.5%. Right Femur Total: which represents a worsening of 5.1%. BD/Dexa Bone Density Study IMPRESSION: The patient is considered osteopenic as outlined below according to World Reinaldo Organization (WHO) criteria with a moderate fracture risk. There has been worsening of bone density since the previous examination. Reference Information: The T-score is the number of standard deviations above or below the standard which is normal for young adults at their peak bone mineral density. The World Health Organization (WHO) interprets the T-scores as follows: Above -1 Normal bone density Between -1 and -2.5 Osteopenia Equal to / or below -2.5 Osteoporosis As a practical clinical guideline, osteopenia may be graded as follows: Mild -1 through -1.5 Moderate -1.6 through -2.0 Severe -2.1 through -2.4 The Z-score is the number of standard deviations above or below age-matched controls. A Z-score of less than -1.5 would be considered abnormal. References: 1. NIH Osteoporosis and Related Bone Diseases http://www.osteo.org 2. International Society for Clinical Densitometry http://www.iscd.org 3. National Osteoporosis Foundation http://www.nof.org Electronically Signed: Esteban Alexis MD at 9:17 EDT Tel [phone], Service support ,
== END ==
PROVIDERS: Family Provider Internal Medicine; PCP Internal Medicine; Visit Provider Internal Medicine Hematology & Oncology
DX: M81.0 Age-related osteoporosis without current pathological fracture (principal); Z78.0 Asymptomatic menopausal state; C50.912 Malignant neoplasm of unspecified site of left female breast; C77.9 Secondary and unspecified malignant neoplasm of lymph node, unspecified
CPT/HCPCS: 77080

== ENCOUNTER → 2018-07-22 10:47 | Outpatient (CLI) | payer MEDICARE, SELFPAY ==
[2017-08-31 16:19] VITALS: BMI 27.3
[2018-06-28 15:01] VITALS: BMI 27.8
--- NOTE | 2018-07-22 10:49 | BI_ITS ---
MAMMOGRAPHY - BILATERAL SCREENING REASON FOR EXAM: Female, 72 years old. Routine annual screening examination. PERTINENT HISTORY: Personal history of breast cancer. TECHNIQUE: Digital bilateral breast yissel (3D mammographic acquisition) in the CC and MLO projections. 2-D mediolateral oblique (MLO) and craniocaudad (CC) views of both breasts were obtained. CAD: Full Field Digital Mammography with Computer Added Detection was performed. COMPARISON: Comparison is made with prior study dated July 14, 2017 and August 18, 2017. FINDINGS: Breast Composition: There are scattered areas of fibroglandular density. There are no dominant masses or suspicious calcifications. The patient is status post lumpectomy with resection of the previously seen nodule in the deep mid lateral portion of the left breast. Surgical clips are also seen in the left axillary region. No other significant abnormalities are identified. BI/SCREENING MAMM (CAD), BILAT IMPRESSION: Status post left lumpectomy and left axillary felipe dissection. Yearly follow-up mammogram recommended. (A) ASSESSMENT CATEGORY: BIRADS Category 2: Benign. A letter regarding these results will be sent to the patient by the facility within 30 days. Approximately 10% of breast cancers are not detected by mammography. A normal mammogram should not delay biopsy of a clinically suspicious abnormality. [id number] Electronically Signed: Esteban Alexis MD at 13:35 EST Tel [phone], Service support ,
== END ==
PROVIDERS: Family Provider Internal Medicine; PCP Internal Medicine; Visit Provider Student in an Organized Health Care Education/Training Program
DX: Z12.31 Encounter for screening mammogram for malignant neoplasm of breast (principal)
CPT/HCPCS: 77063; 77067

== ENCOUNTER 2019-01-21 07:26 | Emergency (ER) | payer MEDICARE, SELFPAY ==
[2017-08-31 16:19] VITALS: BMI 27.3
[2018-12-27 15:00] VITALS: BMI 27.9
[2019-01-21] VITALS (7 sets, daily range): BP systolic 120–127; BP diastolic 73–75; PULSE 84–99; RESP 15–20; TEMP 36.6–36.9; O2SAT 93–97; BMI 27.9
--- NOTE | 2019-01-21 07:52 | ED.DCSUM_ITS ---
History of Present Illness Chief Complaint: Cough Informant: Patient Onset: Days - Onset of illness January 16 Context: Sudden Onset Timing: Continuous Quality: Shortness of breath, cough, T-max 102.4 wheezing Location: Respiratory Current Severity: Mild Maximum Severity: Moderate Worsened by: Dyspnea on exertion Relieved by: Nothing Associated Symptoms: Weakness and fatigue Narrative: Patient is an elderly woman with multiple medical problems who presents because she reports no improvement since placed on antibiotics. She was prescribed antibiotic by her primary care physician. She believes she has bronchitis. She reports T-max of 102.4. Last elevated document temperature Thursday. She complains of fatigue and malaise. She does have cough. She does report shortness of breath at rest with this met exertion. She reports history of asthma. She denies headache. She denies visual, ocular auditory symptoms. She denies GI or symptoms. She denies skin lesions. She is status post mastectomy and last chemo/radiation treatment May 2018. She denies leg pain, swelling or discoloration. Prior similar symptoms: No Recent Illness/Hospitalization: No - Past Medical History (1) Hyperlipidemia Status: Acute (2) Non-rheumatic tricuspid valve insufficiency Status: Acute (3) Depression Status: Chronic (4) Essential hypertension Status: Chronic (5) Osteopenia Status: Chronic (6) History of asthma Status: Acute Past Medical History - Allergies and Home Meds Allergies/Adverse Reactions: Allergies meperidine [From Demerol] Allergy (Severe, Verified 01/21/19 07:29) Anaphylaxis Primary Care Physician: Samir Salcido [Primary Care Provider] - Prior records reviewed: Yes Surgical History: - Lives: Spouse/ Significant Other Smoking Status: Never smoker Drugs: None - Family History Maternal Family History: Family History (Last Reviewed 12/27/18 @ 14:59 by Ayana Horvath) Father Heart problem Mother Heart problem Grandmother Ovarian cancer Family History: Reports: Heart Disease Paternal Family History: Family History (Last Reviewed 12/27/18 @ 14:59 by Ayana Horvath) Father Heart problem Mother Heart problem Grandmother Ovarian cancer Family History: Reports: Cancer - Leukemia, Heart Disease, Stroke Review of Systems General: Reports: Chills, Fever, Malaise. Denies: Subjective, Sweats, Weight loss Eyes: Denies: Visual changes - bilaterally, Blurred Vision - bilaterally ENT: Denies: Bilateral ear pain, Rhinorrhea, Sore throat Cardiovascular: Denies: Chest pain, Palpitations, Heart racing Respiratory: Reports: Dyspnea, Cough, Dyspnea on exertion. Denies: Sputum, Orthopnea, Paroxysmal nocturnal dyspnea Gastrointestinal: Denies: Abdominal pain, Nausea, Vomiting, Diarrhea, Melena, Hematochezia Genitourinary: Denies: Dysuria, Hematuria, Frequency Musculoskeletal: Denies: Myalgias, Arthralgias, Neck pain, Back pain, Extremity Pain Skin: Denies: Rash, Wounds Neurological: Reports: Weakness. Denies: Headache, Parasthesia, Numbness Hematologic: Denies: Easy bruising, Easy bleeding Allergy: Denies: Uticaria, Swelling of the mouth, Swelling of the tongue Physical Exam Vital Signs/Narrative: Vital Signs Temp Pulse Resp BP Pulse Ox 01/21/19 07:26 98 F 99 20 H 120/75 93 Inital Vital Signs reviewed: Yes General: Well nourished, Well developed, No Acute Distress, - - Recent does not appear well. Head: Normocephalic, Atraumatic Eyes: Perrl, EOMI. Negative for: Pale conjunctiva, Scleral icterus, - ENT: No rhinorrhea, TM's clear Neck: Supple, Nontender, No lymphadenopathy, No JVD Cardiovascular: Regular rate, Regular rhythm, No murmurs, Normal S1, Normal S2. Negative for: Tachycardia Respiratory: Chest nontender, Wheezing - With increased expiratory phase, Diminished, Decreased Air Movement. Negative for: No distress, Retractions, Chest tenderness Abdomen: Soft, Nontender, Nondistended, Normal bowel sounds, No masses Back: Nontender, Normal Inspection Extremities: Nontender, No edema, - - There is no asymmetry, swelling, discoloration, leg vein distention, palpable cords or tenderness along the distribution of the deep venous system. Skin: Normal color, No rash, No Trauma. Negative for: Cyanosis, Diaphoresis, Jaundice Neurological: Alert, Oriented x3, Cranial nerves II-XII grossly intact, Normal Strength, Normal Sensation Psychological: Normal affect, Normal Mood Diagnostic/Tx/Re-eval Chest X-Ray - ED: 2 View, Read by ED Physician, Normal, Heart, Lungs, Mediastinum, Bony Structures, No Acute Disease, - - X-ray is unchanged since the 201701/21/19 08:15 Chest PA and Lateral [RAD] Stat Laboratory Results 01/21/19 01/21/19 07:50 07:50 WBC 7.6 RBC 4.91 Hgb 14.9 Hct 44.9 MCV 91.4 MCH 30.3 MCHC 33.2 RDW 13.8 RDW Differential 45.2 H Plt Count 256 MPV 9.7 Immature Gran % (Auto) 0.100 Neut % (Auto) 58.1 Lymph % (Auto) 28.2 [place] % (Auto) 8.3 Eos % (Auto) 5.0 Baso % (Auto) 0.3 Absolute Neuts (auto) 4.4 Absolute Lymphs (auto) 2.15 Total Counted Not Reportable Sodium 139 Potassium 3.7 Chloride 108 H Carbon Dioxide 26.0 Anion Gap 5 BUN 17 Creatinine 0.83 Estim Creat Clear Calc 51.35 Est GFR (MDRD) Af Amer 86 Est GFR (MDRD) Non-Af 71 BUN/Creatinine Ratio 20.4 H Glucose 95 Calcium 8.8 - Medical Decision Making History is suggestive of bronchitis. However with multiple days of elevated temperature, abnormal auscultatory findings will obtain chest x-ray to evaluate for pneumonia. Will treat with albuterol q. 20 minutes x 3 since she has history of asthma. BMP and CBC were obtained in the event chest x-ray reveals infiltrate to risk stratify her regarding appropriateness of outpatient versus inpatient treatment. Will reassess after aerosol treatments and review of tests ordered. Patient's chest x-ray was unremarkable. Blood work is unremarkable. Patient is now smiling. She was reassessed after 2 aerosols and she is wheeze free. She is presently receiving her third and last aerosol. Patient was informed of results. She was informed to use her inhaler every 2-4 hours for the next 2 to 3 days and every 4-6 hours as needed. She was instructed to use the spacer with her inhaler. ED Disposition - Plan for ED Patient: Disposition: Home or Assisted Living Diagnosis: Acute asthmatic bronchitis Instructions: ED Bronchitis Asthmatic Referrals: Samir Salcido [Primary Care Provider] - As Needed Additional Instructions: Recommend using your inhaler with spacer every 2-4 hours while awake for the next 2 to 3 days and every 4-6 hours thereafter as needed for wheezing.
[2019-01-21] MEDS: Albuterol 2.5 MG/3 ML VIAL.NEB. INHALATION ×3 (07:58→08:55)
[2019-01-21 08:05] LABS: Absolute Lymphocyte Count 2.15 X10^3/ul (0.83-4.51); Absolute Neutrophil Count 4.4 X10^3/uL (2.0-7.7); Basophil# 0.02 X10^3/uL; Basophil% 0.3 % (0-1); Eosinophil# 0.38 X10^3/uL; Hematocrit 44.9 % (37-47); Hemoglobin 14.9 g/dl (12.0-15.0); Lymphocyte # 2.15 X10^3/ul (4.0); Lymphocyte % 28.2 % (19-41); Mean Corp Hgb Conc 33.2 g/gl (32-36); Mean Corpuscular Hgb 30.3 pg (27.0-32.0); Mean Corpuscular Volume 91.4 fL (81-99); Mean Platelet Vol. 9.7 fl (6.2-12.0); Monocyte# 0.63 X10^3/uL; Monocyte% 8.3 % (0-10); Neutrophil # 4.43 X10^3/uL (2.7-7.7); Neutrophil % 58.1 % (47-70); Platelet Count 256 K/mm3 (150-450); RBC Distribution Width CV 13.8 % (11.6-14.6); RBC Distribution Width SD 45.2 fl (35.1-43.9); Red Blood Count 4.91 M/mm3 (4.2-5.4); White Blood Count 7.6 K/mm3 (4.4-11.0)
[2019-01-21 08:07] LABS: POSITIVE COUNT NO; POSITIVE DIFFERENTIAL NO; POSITIVE MORPHOLOGY NO
[2019-01-21 08:13] LABS: Anion Gap 5 (5-15); BUN 17 mg/dL (7-18); BUN/Creat Ratio 20.4 RATIO (10-20); Calcium,Total 8.8 mg/dL (8.5-10.1); Chloride 108 mmol/L (98-107); Creatinine, Serum 0.83 mg/dL (0.55-1.02); EST Glomerular Filtration Rate 71 mL/min (>60); Est Glom Filt Rate - Afr Amer 86 mL/min (>60); Estimated Creatinine Clearance 51.35 ml/min; Glucose 95 mg/dL (74-106); Potassium 3.7 mmol/L (3.5-5.1); Sodium Level 139 mmol/L (136-145)
--- NOTE | 2019-01-21 08:15 | RAD_ITS ---
STUDY: X-RAY CHEST REASON FOR EXAM: Female, 73 years old. 4 day history of shortness of breath. TECHNIQUE: PA and lateral views of the chest. COMPARISON: Comparison is made with prior examination dated January 05, 2018. FINDINGS: EKG electrodes are seen. The previously seen right-sided jordan catheter has been removed. Surgical clips are once again seen in the left axillary region. Stable mild increased markings at the lung bases suggestive of bibasilar scarring. There is no demonstrated pleural abnormality. Normal size heart. Normal mediastinum and jose d. Normal visualized pulmonary arteries. There is atherosclerotic calcification of the aortic arch with tortuosity. There are degenerative changes of the visualized thoracic spine. Normal visualized ribs, clavicles, and shoulders. There is no demonstrated abnormality of the visualized soft tissue structures of the upper abdomen. RAD/Chest PA and Lateral IMPRESSION: Stable mild increased markings at the lung bases suggestive of scarring. No acute abnormality is seen. Electronically Signed: Esteban Alexis, at 8:39 EDT , Service support ,
--- NOTE | 2019-01-21 09:17 | ED.RN ---
PT GIVEN WRITTEN AND VERBAL DISCHARGE INSTRUCTIONS AND HOME GOING PRESCRIPTIONS. PT VERBALIZES UNDERSTANDING AND DENIES ANY FURTHER QUESTIONS. IV D/C AND COVERED WITH 2X2 GAUZE AND PAPER TAPE. PT DRESSES SELF AND AMBULATES OUT OF DEPT WITH .
== END 2019-01-21 09:19 | disposition home or self-care (01) ==
PROVIDERS: Emergency Provider Emergency Medicine; Family Provider Internal Medicine; PCP Internal Medicine
DX: J45.909 Unspecified asthma, uncomplicated (principal); I36.1 Nonrheumatic tricuspid (valve) insufficiency; I10 Essential (primary) hypertension; E78.5 Hyperlipidemia, unspecified; F32.9 Major depressive disorder, single episode, unspecified; M85.80 Other specified disorders of bone density and structure, unspecified site; Z79.82 Long term (current) use of aspirin; Z79.899 Other long term (current) drug therapy; Z88.5 Allergy status to narcotic agent; Z92.21 Personal history of antineoplastic chemotherapy; Z92.3 Personal history of irradiation; Z90.10 Acquired absence of unspecified breast and nipple
CPT/HCPCS: 71046; 80048; 85025; 94640; 99284; A4216

== ENCOUNTER → 2019-07-25 11:19 | Outpatient (CLI) | payer MEDICARE, SELFPAY ==
[2017-08-31 16:19] VITALS: BMI 27.3
[2019-02-09 15:56] VITALS: BMI 27.9
[2019-07-04 15:36] VITALS: BMI 29.5
--- NOTE | 2019-07-25 11:21 | BI_ITS ---
MAMMOGRAPHY - BILATERAL SCREENING REASON FOR EXAM: Female, 73 years old. Routine annual screening examination. PERTINENT HISTORY: Personal history of breast cancer. Prior left lumpectomy with chemotherapy and radiation therapy. Grandmother with breast cancer. TECHNIQUE: Digital bilateral breast bridgette (3D mammographic acquisition) in the CC and MLO projections. 2-D mediolateral oblique (MLO) and craniocaudad (CC) views of both breasts were obtained. CAD: Full Field Digital Mammography with Computer Added Detection was performed. COMPARISON: Comparison is made with prior study dated July 22, 2018 and August 18, 2017. FINDINGS: Breast Composition: There are scattered areas of fibroglandular density. There are no dominant masses or suspicious calcifications. Architectural distortion is seen in the deep mid lateral aspect of the left breast incomplete with prior left lumpectomy. Surgical clips are seen in the left axillary region. No other significant abnormalities are identified. There has been no significant change since the prior study. BI/SCREEN MAMM (CAD) W/BRIDGETTE BILAT IMPRESSION: Stable bilateral screening mammogram. Yearly follow-up mammogram recommended. (A) ASSESSMENT CATEGORY: BIRADS Category 2: Benign. A letter regarding these results will be sent to the patient by the facility within 30 days. Approximately 10% of breast cancers are not detected by mammography. A normal mammogram should not delay biopsy of a clinically suspicious abnormality. [id number] Electronically Signed: Esteban Alexis, at 12:39 EST , Service support ,
== END ==
PROVIDERS: Family Provider Internal Medicine; PCP Internal Medicine; Referring Provider Student in an Organized Health Care Education/Training Program; Visit Provider Student in an Organized Health Care Education/Training Program
DX: Z12.31 Encounter for screening mammogram for malignant neoplasm of breast (principal); Z85.3 Personal history of malignant neoplasm of breast; Z80.3 Family history of malignant neoplasm of breast; Z92.21 Personal history of antineoplastic chemotherapy; Z92.3 Personal history of irradiation
CPT/HCPCS: 77063; 77067

== ENCOUNTER → 2020-07-26 10:05 | Outpatient (CLI) | payer MEDICARE, SELFPAY ==
[2017-08-31 16:19] VITALS: BMI 27.3
[2020-01-10 15:46] VITALS: BMI 28.6
[2020-03-14 11:34] VITALS: BMI 28.5
--- NOTE | 2020-07-26 10:06 | BI_ITS ---
MAMMOGRAPHY - BILATERAL SCREENING REASON FOR EXAM: Female, 74 years old. Routine annual screening examination. PERTINENT HISTORY: Personal history of breast cancer. Prior left lumpectomy and radiation and chemotherapy. Grandmother with breast cancer. TECHNIQUE: Digital bilateral breast bridgette (3D mammographic acquisition) in the CC and MLO projections. 2-D mediolateral oblique (MLO) and craniocaudad (CC) views of both breasts were obtained. CAD: Full Field Digital Mammography with Computer Added Detection was performed. COMPARISON: Comparison is made with prior study dated 07/25/2019 and 07/22/2018. FINDINGS: Breast Composition: There are scattered areas of fibroglandular density. There are no dominant masses or suspicious calcifications. The patient is status post lumpectomy in the deep central lateral aspect of the left breast in keeping with postoperative scarring. Surgical clips are once again seen in the left axillary region. No other significant abnormalities are identified. There has been no significant change since the prior study. BI/SCREEN MAMM (CAD) W/BRIDGETTE BILAT IMPRESSION: Stable bilateral screening mammogram. Yearly follow-up mammogram recommended. (A) ASSESSMENT CATEGORY: BIRADS Category 2: Benign. A letter regarding these results will be sent to the patient by the facility within 30 days. Approximately 10% of breast cancers are not detected by mammography. A normal mammogram should not delay biopsy of a clinically suspicious abnormality. [id number] Electronically Signed: Esteban Alexis, at 10:45 EST , Service support ,
== END ==
PROVIDERS: PCP Internal Medicine; Referring Provider Student in an Organized Health Care Education/Training Program; Visit Provider Student in an Organized Health Care Education/Training Program
DX: Z12.31 Encounter for screening mammogram for malignant neoplasm of breast (principal); Z85.3 Personal history of malignant neoplasm of breast; Z80.3 Family history of malignant neoplasm of breast
CPT/HCPCS: 77063; 77067

== ENCOUNTER 2021-02-23 13:20 | Emergency (ER) | payer MEDICARE, SELFPAY ==
[2020-07-27 10:35] VITALS: BMI 28.5
[2021-01-29 11:31] VITALS: BMI 27.5
[2021-02-23] VITALS (7 sets, daily range): BP systolic 135–147; BP diastolic 47–101; PULSE 76–83; RESP 15–20; TEMP 36.9; O2SAT 96–100; BMI 28.3
--- NOTE | 2021-02-23 13:45 | EKG12_ITS ---
Test Reason : SYNCOPE/FALL Blood Pressure : / mmHG Vent. Rate : 078 BPM Atrial Rate : 078 BPM P-R Int : 146 ms QRS Dur : 072 ms QT Int : 366 ms P-R-T Axes : 067 056 029 degrees QTc Int : 417 ms Normal sinus rhythm Low voltage QRS Borderline ECG Confirmed by CAREN PIERSON, WINSOME ([id number]), associate editor ADRIANA DORSEY ([id number]) on 02/27/2021 9:12:11 AM Referred By: ROSI Confirmed By:WINSOME FABIAN MD
--- NOTE | 2021-02-23 13:45 | CT_ITS ---
EXAM: CT CERVICAL SPINE WITHOUT INTRAVENOUS CONTRAST : 1945 CLINICAL INDICATION: fall TECHNIQUE: Helically acquired images were obtained of the cervical spine without intravenous contrast. 2D reformatted images were reviewed. This CT exam was performed using one or more of the following dose reduction techniques: automated exposure control, adjustment of the mA and/or kV according to patient size, and/or use of iterative reconstruction technique. This report was created using [employer] report generation technology. COMPARISON: None. FINDINGS: VERTEBRAE: See below. DISCS/SPINAL CANAL/NEURAL FORAMINA: There is disc space narrowing at C4-5, C5-6 and C6 that she 7. There is left bony neural foraminal narrowing at C3-4. There is right bony neural foraminal narrowing at C4-5. There is bilateral bony neural foraminal narrowing at C5 - 6. SOFT TISSUES: Unremarkable. No prevertebral soft tissue swelling. LYMPH NODES: Unremarkable. No cervical adenopathy. LUNG APICES: Unremarkable as visualized. Clear. CT/Spine Cervical without Contras IMPRESSION: 1. No acute osseous abnormalities of the cervical spine. 2. Multilevel degenerative change with disc space narrowing and bony neural foraminal narrowing. Individualized dose optimization techniques were used for this CT. at 1455 Reported and signed by: Tae Bradshaw MD Electronically Signed: Tae Bradshaw MD at 14:54 EDT Tel , Service support ,
--- NOTE | 2021-02-23 13:45 | CT_ITS ---
STUDY: CT BRAIN WITHOUT CONTRAST REASON FOR EXAM: Female, 75 years old. trauma RADIATION DOSAGE (If Supplied By Facility): CTDIvol = ( 44.99 ) mGy, DLP = ( 779.24 ) mGycm TECHNIQUE: Transaxial CT imaging of the brain was performed without administration of intravenous contrast material. Individualized dose optimization techniques were used for this CT. COMPARISON: None. FINDINGS: There is linear hyperdensity along the left superior frontal sulcus (axial image #31 series 2). There is cerebral atrophy with widening of the extra-axial spaces and ventricular dilatation. There are areas of decreased attenuation within the white matter tracts of the supratentorial brain, consistent with microvascular disease changes. There are no findings of an acute ischemic infarction. CT/Brain/Head without Contrast IMPRESSION: Subarachnoid hemorrhage. N.B. : The above Results were Read Back by Marisela Rajan MD to WAN Chang, and understanding confirmed on 02/23/2021 15:51:01 (ET). Electronically Signed: Marisela Rajan MD at 15:52 EDT Tel , Service support ,
--- NOTE | 2021-02-23 13:48 | ED.VIS.FALL ---
HPI HPI - Fall History of Present Illness Chief Complaint: Fall Detail of Chief Complaint: Head injury after suspected fall today Informant: patient and spouse/S.O. Narrative Narrative: Patient presents to the ER via EMS after a suspected fall. Patient was out walking the dog when she remembers the dog pulling and remembers being in the neighbor's driveway. She does not recall the fall or exactly what happened afterwards. Its not believe she lost consciousness. She sustained a laceration to her forehead and complains of head pain. She denies chest or abdomen pain currently. She denies neck pain out of the ordinary. She denies back pain out of the ordinary. Patient has a history of hypertension, vertigo, high cholesterol, neuropathy, and depression. 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 Squamous cell skin cancer UTI (urinary tract infection) Home Medications colestipol 1 gram tablet 1 g PO DAILY PRN 07/21/17 [History Last Taken 09/26/17] ergocalciferol (vitamin D2) 50,000 unit PO WE 07/29/17 [History Last Taken 09/23/17] albuterol sulfate 2 puff INHALATION Q4H PRN PRN 08/06/17 [History Last Taken 08/18/17 09:00] multivitamin 1 ea PO DAILY 08/06/17 [History Last Taken 09/27/17] loperamide 2 mg PO Q4H PRN PRN cap 10/01/17 [Rx Last Taken Unknown] acetaminophen 500 mg PO Q4H PRN PRN 01/05/18 [History Last Taken 01/05/18 08:00] aspirin 81 mg PO DAILY 01/26/18 [History Last Taken Unknown] ondansetron HCl 4 mg PO Q8H PRN PRN 10 Days #30 tab 02/04/18 [Rx Last Taken Unknown] propranolol 10 mg tablet 10 mg PO BID 10/22/18 [History Last Taken Unknown] tramadol 50 mg PO Q6H PRN PRN 01/21/19 [History Last Taken Unknown] denosumab 60 mg/mL subcutaneous syringe 60 mg SC [id number] 07/04/19 [History Last Taken Unknown] anastrozole 1 mg tablet 1 mg PO DAILY 90 Days #90 tab 01/29/21 [Rx Last Taken Unknown] Allergy/AdvReac Type Severity Reaction Status Date / Time meperidine [From Demerol] Allergy Severe Anaphylaxis Verified 02/23/21 13:22 Family History Father Heart problem Mother Heart problem Grandmother Ovarian cancer Surgical History History of laparoscopic cholecystectomy History of lumpectomy History of repair of right rotator cuff Status post lateral meniscectomy of right knee Status post partial mastectomy Social History Smoking Status: Never smoker alcohol intake: current alcohol intake frequency: holidays/special occasions only substance use type: does not use ROS ROS ED Constitutional Constitutional ED: Reports systems reviewed and no addt'l complaints, except as documented; Denies body ache(s), change in weight or chills Eyes Eyes: Denies acute decrease in peripheral vision, change in vision, double vision or loss of vision ENT ENT ED: Reports none and other Details: Forehead laceration ; Denies ear pain, lip swelling, loss taste/smell, neck pain, otalgia or sore throat Cardiovascular Cardiovascular: Reports none; Denies abdominal pain, chest pain with activity, leg edema, lightheadedness, palpitations, rapid heart rate or syncope Respiratory/Chest Respiratory/Chest: Reports none; Denies change in mental status, dry cough, dyspnea, hemoptysis, shortness of breath at rest or shortness of breath with exertion Gastrointestinal Gastrointestinal: Reports none; Denies abdominal pain, change in stool character, diarrhea, hematemesis, hematochezia, melena, rectal bleeding or vomiting Genitourinary Genitourinary ED: Reports none; Denies abdominal discomfort, anuria, dysuria, genital pain or polyuria Musculoskeletal Musculoskeletal: Reports none; Denies arthralgias, back pain, difficulty walking, extremity pain, muscle weakness or myalgias Integumentary Reports none; Denies abscess or rash Neurologic Neurologic: Reports none and headache(s); Denies abnormal gait, confusion, focal weakness, frequent falls, loss of vision, numbness, paresthesias, radicular pain, vertigo or weakness Psychiatric Psychiatric: Reports systems reviewed and no addt'l complaints, except as documented and none; Denies behavioral changes, confusion, difficulty concentrating, hallucinations, suicidal ideation, tactile hallucinations or visual hallucinations Endocrine Endocrinology: Denies none, cold intolerance, excessive sweating, fatigue or heat intolerance Hematologic/Lymphatic Hematologic/Lymphatic: Reports none; Denies anemia, easy bleeding or easy bruising Allergic/Immunologic Allergic/Immunologic ED: Denies as per HPI, none, lip swelling, mouth swelling, throat swelling, tongue swelling or hives EXAM Physical Exam Const Vital Signs: 02/23/21 13:22 02/23/21 13:26 02/23/21 14:49 Temperature 98.5 F Temperature Source Oral Pulse Rate 82 83 81 Respiratory Rate 18 18 15 Respiratory Effort Non-Labored Short of Breath Respiratory Depth Normal Respiratory Pattern Normal Blood Pressure 141/101 H 145/83 H Blood Pressure Mean 114 103 Pulse Ox 96 96 100 Oxygen Delivery Method Room Air Room Air Room Air 02/23/21 15:23 Temperature Temperature Source Pulse Rate 76 Respiratory Rate 16 Respiratory Effort Respiratory Depth Respiratory Pattern Blood Pressure 147/80 H Blood Pressure Mean 102 Pulse Ox 99 Oxygen Delivery Method Room Air Positive well nourished and well developed General Appearance ED: well developed and NAD HEENT Reports TM's clear and moist mucous membranes HEENT Narrative: Patient has a 3.5 cm laceration irregularly shaped above the right eyebrow with no bony tenderness noted. normocephalic and atraumatic; Negative for trauma or tenderness Tympanic Membrane ED: Yes TM's clear Eyes PERRL and EOMs intact bilaterally General Eye ED: Negative for pale conjunctiva or scleral icterus Neck full ROM, no lymphadenopathy, supple and no JVD Neck Narrative: Mild diffuse C-spine tenderness on palpation. General: tenderness Chest Wall inspection of chest normal and palpation of chest normal Chest: Negative for tenderness Resp normal respiratory effort and clear to auscultation bilaterally Effort and Inspection: Negative for respiratory distress or pain with movement Auscultation: Negative for rhonchi, wheezes or diminished lung sounds Cardio regular rate, regular rhythm, S1 normal heart sound, S2 normal heart sound and no murmurs Peripheral Pulses: pulses 2+ throughout GI normal to inspection, nondistended, normoactive bowel sounds, soft to palpation, non-tender, non-distended and no masses Back/Spine no CVA tenderness and no thoracic nor lumbar tenderness Extremity normal to inspection General Extremety ED: Negative for edema General Extremity: Negative for edema Neuro oriented x3, CN's II-XII intact bilaterally, no sensory deficits noted and gait normal Sensorium / Orientation: awake, alert, oriented to person, oriented to place and oriented to time Motor Exam: strength 5/5 throughout and strength abnormal Psych mental status grossly normal Skin no rashes or lesions noted and no wounds MDM MDM MDM Narrative Medical decision making narrative: Patient noted to have a intracranial hemorrhage on CT suspicious for subarachnoid hemorrhage to the left side of the brain. Patient and would like patient to go to [facility]. I discussed case with the ED physician at [facility] Dr. Kellogg who accepted transfer of patient. Lab Data Attestation: I reviewed the patient's lab results. Labs: Laboratory Results - last 24 hr 02/23/21 02/23/21 14:33 14:33 WBC 10.7 RBC 4.88 Hgb 15.1 H Hct 46.6 MCV 95.5 MCH 30.9 MCHC 32.4 RDW Std Deviation 46.1 H RDW Coeff of Joseph 13.0 Plt Count 241 MPV 10.6 Immature Gran % (Auto) 0.400 Neut % (Auto) 76.0 H Lymph % (Auto) 16.8 L [place] % (Auto) 5.5 Eos % (Auto) 0.8 Baso % (Auto) 0.5 Absolute Neuts (auto) 8.1 H Absolute Lymphs (auto) 1.80 Nucleated RBC % 0 Sodium 140 Potassium 4.2 Chloride 107 Carbon Dioxide 30.0 Anion Gap 3 L BUN 17 Creatinine 1.04 H Estim Creat Clear Calc 39.74 Est GFR (MDRD) Af Amer 66 Est GFR (MDRD) Non-Af 55 L BUN/Creatinine Ratio 16.3 Glucose 100 Calcium 9.1 Troponin I High Sens 36.4 Radiography Diagnostic Testing: Radiology Impression Brain CT 02/23/21 13:45 IMPRESSION: Subarachnoid hemorrhage. N.B. : The above Results were Read Back by Marisela Rajan MD to WAN Chang, and understanding confirmed on 02/23/2021 15:51:01 (ET). Electronically Signed: Marisela Rajan MD at 15:52 EDT Tel , Service support , ADDENDUM: 02/23/21 1559 IMPRESSION: Subarachnoid hemorrhage. N.B. : The above Results were Read Back by Marisela Rajan MD to WAN Chang, and understanding confirmed on 02/23/2021 15:51:01 (ET). Electronically Signed: Marisela Rajan MD at 15:52 EDT Tel , Service support , Cervical Spine CT 02/23/21 13:45 IMPRESSION: 1. No acute osseous abnormalities of the cervical spine. 2. Multilevel degenerative change with disc space narrowing and bony neural foraminal narrowing. Individualized dose optimization techniques were used for this CT. at 1455 Reported and signed by: Tae Bradshaw MD Electronically Signed: Tae Bradshaw MD at 14:54 EDT Tel , Service support , EKG Initial EKG: Attestation: I personally reviewed and interpreted this EKG as follows: Comments: Sinus rhythm with a ventricular rate of 78 bpm with no acute ST segment changes. Procedures Lacerations 3.5 cm laceration of right forehead: Length: 1.38 in Depth: Sub Q Shape: Linear Prep: Sterile Conditions and Shure-Clens Laceration repair: Irrigated, Lidocaine, Local and Skin sutures Irrigated (ml): 100 Number of Sutures/[place]: 7 Suture Information: Vicryl and 6-0 Critical Care Time Critical care time (excluding procedures): 30-74 minutes, Including time spent:, Discussing w/Patient &/or Family/Furniture Crater, Discussing w/Consultants, Arranging Admission or Transfer and - (35 minutes) Discharge Plan Triage Chief Complaint: Fall ED Provider: Lakisha Meza Dx/Rx/DC Orders Clinical Impression: Intracranial hemorrhage, Forehead laceration Prescriptions: No Action colestipol 1 gram tablet 1 g PO DAILY PRN (Reason: Pain) RF: 0 propranolol 10 mg tablet 10 mg PO BID RF: 0 Prolia 60 mg/mL syringe 60 mg SC [id number] RF: 0 anastrozole 1 mg tablet 1 mg PO DAILY 90 Days Qty: 90 RF: 3 ergocalciferol (vitamin D2) 50,000 UNIT capsule 50,000 unit PO WE RF: 0 aspirin 81 MG tablet 81 mg PO DAILY RF: 0 ondansetron HCl 4 MG tablet 4 mg PO Q8H PRN PRN (Reason: Nausea) 10 Days Qty: 30 RF: 2 multivitamin 1 EACH tablet 1 ea PO DAILY RF: 0 albuterol sulfate 1 PUFF inhaler 2 puff INHALATION Q4H PRN PRN (Reason: Sob &/Or Wheezing) RF: 0 loperamide 2 MG capsule 2 mg PO Q4H PRN PRN (Reason: Diarrhea) RF: 0 acetaminophen 500 MG tablet 500 mg PO Q4H PRN PRN (Reason: Pain) RF: 0 tramadol 50 MG tablet 50 mg PO Q6H PRN PRN (Reason: Pain) RF: 0 Primary Care Provider: Samir Salcido Referrals: Samir Salcido MD [Primary Care Provider] - Disposition Disposition: Transfer to Another Type [facility]CF
[2021-02-23] MEDS: Lidocaine 1% (20 ml mdv) 20 ML Vial 8 ML INFILT (14:40)
[2021-02-23 14:49] LABS: Absolute Neutrophil Count 8.1 X10^3/uL (2.0-7.7); Basophil# 0.05 X10^3/uL; Basophil% 0.5 % (0-1); Eosinophil# 0.09 X10^3/uL; Eosinophils% 0.8 % (0-5); Hematocrit 46.6 % (37-47); Hemoglobin 15.1 g/dL (12.0-15.0); Lymphocyte % 16.8 % (19-41); Mean Corp Hgb Conc 32.4 g/dL (32-36); Mean Corpuscular Hgb 30.9 pg (27.0-32.0); Mean Corpuscular Volume 95.5 fL (81-99); Mean Platelet Vol. 10.6 fl (6.2-12.0); Monocyte# 0.59 X10^3/uL; Monocyte% 5.5 % (0-10); NRBC Flagged by Analyzer 0 % (0-5); Neutrophil # 8.12 X10^3/uL (2.7-7.7); Platelet Count 241 K/mm3 (150-450); RBC Distribution Width SD 46.1 fl (35.1-43.9); Red Blood Count 4.88 M/mm3 (4.2-5.4); White Blood Count 10.7 K/mm3 (4.4-11.0)
[2021-02-23 15:13] LABS: Anion Gap 3 (5-15); BUN 17 mg/dL (7-18); BUN/Creat Ratio 16.3 RATIO (10-20); Calcium,Total 9.1 mg/dL (8.5-10.1); Chloride 107 mmol/L (98-107); Creatinine, Serum 1.04 mg/dL (0.55-1.02); EST Glomerular Filtration Rate 55 mL/min (>60); Est Glom Filt Rate - Afr Amer 66 mL/min (>60); Estimated Creatinine Clearance 39.74 ml/min; Glucose 100 mg/dL (74-106); Potassium 4.2 mmol/L (3.5-5.1); Sodium Level 140 mmol/L (136-145); Troponin-I HS 36.4 pg/mL (3.0-53.7)
--- NOTE | 2021-02-23 16:12 | ED.RN ---
ETA 90 min from physicians. per dr howe [facility] said they would set up transport. [facility] called back and will be calling with critical care transport. dr howe stated that we could fly the pt is unable to find someone sooner
--- NOTE | 2021-02-23 17:08 | ED.RN ---
physicians called and are unable to come get the pt. pt was outsourced to [facility]
== END 2021-02-23 17:19 | disposition short-term general hospital (02) ==
PROVIDERS: Emergency Provider Emergency Medicine; PCP Internal Medicine
DX: S06.6X0A Traumatic subarachnoid hemorrhage without loss of consciousness, initial encounter (principal); S01.81XA Laceration without foreign body of other part of head, initial encounter; W19.XXXA Unspecified fall, initial encounter; Y93.K1 Activity, walking an animal; Y92.9 Unspecified place or not applicable; Y99.9 Unspecified external cause status; I10 Essential (primary) hypertension; E78.5 Hyperlipidemia, unspecified; G62.9 Polyneuropathy, unspecified; J45.909 Unspecified asthma, uncomplicated; F32.9 Major depressive disorder, single episode, unspecified; K21.9 Gastro-esophageal reflux disease without esophagitis; Z79.82 Long term (current) use of aspirin; Z79.899 Other long term (current) drug therapy; Z85.3 Personal history of malignant neoplasm of breast
CPT/HCPCS: 12013; 70450; 72125; 80048; 84484; 85025; 93005; 99285; A4216

== ENCOUNTER → 2021-07-29 10:17 | Outpatient (CLI) | payer MEDICARE, SELFPAY ==
[2020-07-27 10:35] VITALS: BMI 28.5
[2021-02-23 13:22] VITALS: BMI 28.3
--- NOTE | 2021-07-29 10:19 | BI_ITS ---
MAMMOGRAPHY - BILATERAL SCREENING REASON FOR EXAM: Female, 75 years old. Routine annual screening examination. PERTINENT HISTORY: Personal history of breast cancer. Prior left lumpectomy with radiation and chemotherapy. Grandmother with breast cancer. TECHNIQUE: Digital bilateral breast bridgette (3D mammographic acquisition) in the CC and MLO projections. 2-D mediolateral oblique (MLO) and craniocaudad (CC) views of both breasts were obtained. CAD: Full Field Digital Mammography with Computer Added Detection was performed. COMPARISON: Comparison is made with prior study dated 07/26/2020 and 07/25/2019. FINDINGS: Breast Composition: There are scattered areas of fibroglandular density. There are no dominant masses or suspicious calcifications. The patient is status post lumpectomy in the deep slightly upper lateral aspect of the left breast with resultant postoperative deformity and scarring. Surgical clips are also seen in the left axillary region. No other significant abnormalities are identified. There has been no significant change since the prior study. BI/SCRN MAMM (CAD)W/BRIDGETTE BILAT IMPRESSION: Stable bilateral screening mammogram. Yearly follow-up mammogram recommended. (A) ASSESSMENT CATEGORY: BIRADS Category 2: Benign. A letter regarding these results will be sent to the patient by the facility within 30 days. Approximately 10% of breast cancers are not detected by mammography. A normal mammogram should not delay biopsy of a clinically suspicious abnormality. [id number] Electronically Signed: Esteban Alexis MD at 11:09 EST , Service support ,
== END ==
PROVIDERS: PCP Internal Medicine; Referring Provider Internal Medicine Medical Oncology; Visit Provider Internal Medicine Medical Oncology
DX: Z12.31 Encounter for screening mammogram for malignant neoplasm of breast (principal); Z85.3 Personal history of malignant neoplasm of breast; Z80.3 Family history of malignant neoplasm of breast
CPT/HCPCS: 77063; 77067

== ENCOUNTER → 2021-08-05 08:01 | Outpatient (CLI) | payer MEDICARE, SELFPAY ==
[2020-07-27 10:35] VITALS: BMI 28.5
--- NOTE | 2021-08-05 08:05 | NM_ITS ---
CLINICAL: 75-year-old female with history of carcinoma of the breast with current complaint of back discomfort. WHOLE BODY 99m Tc MDP RADIONUCLIDE BONE SCINTIGRAPHY COMPARISON: None available FINDINGS: Following the intravenous administration of 23.5 mCi of 99m Tc MDP, whole body bone images reveal: 1. Increased radiopharmaceutical concentration is defined in the right anterior second, bilateral seventh ribs at the costochondral junction. 2. Facilitated tracer distribution is visualized in the mid cervical spine posteriorly on the left, lower cervical spine posteriorly on the right, eighth thoracic vertebra posteriorly on the right, sternoclavicular compartment of the left shoulder, the right hip, fifth lumbar vertebra posteriorly on the left, bilateral knees, the right ankle, the left midfoot. 3. The remaining skeletal structures are scintigraphically unremarkable with normal-appearing renal images and urinary bladder activity identified. An increase in radiotracer is visualized in the interorbital aspect of the skull and left maxilla most consistent with periostitis. NM/Bone Scan Whole Body IMPRESSION: 1. The increase in radiopharmaceutical concentration identified in the bilateral ribs is most consistent with trauma-fracture. 2. 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 Plain film radiography correlation may be of benefit in the region of the lower lumbar spine. 3. There is no definitive typical scintigraphic evidence of diffuse axial skeletal metastatic disease on the current examination. Electronically Signed: Ray Desir DO at 21:33 EST Tel , Service support ,
== END ==
PROVIDERS: PCP Internal Medicine; Referring Provider Nurse Practitioner Family; Visit Provider Nurse Practitioner Family
DX: M54.6 Pain in thoracic spine (principal); M54.50 Low back pain, unspecified
CPT/HCPCS: 78306; A9503

== ENCOUNTER 2022-02-26 09:30 | Outpatient (RCR) | payer MEDICARE, SELFPAY ==
[2020-07-27 10:35] VITALS: BMI 28.5
--- NOTE | 2022-02-12 11:16 | HP.SP.EV_ITS ---
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 She reported complaints of difficulty with word retrieval to Dr. Ramirez, who referred her for speech therapy consult. The patient has additional PMH including HTN, essential tremor, GERD, hiatal hernia, skin cancer, subarachnoid bleed (02/23/2021), ICH, TBI with loss of consciousness, and hx of UTI. Patient further discussed hx of TBI and ICH 02/23/2022. Suffered a fall walking her step daughter's dog. She presented to [facility] ED initially, but was life flighted. She was unconscious for ~8 hours. She was told the bleeding from her injury settled on the L side of her brain. Word finding difficulty began just ~5-6 months ago. She has no other cognitive concerns. Pt is a retired elementary summer school teacher. She was also a [employer] in the past. She continues to read, but lately she has not been able to read much because her mother is ill, and she also has a twin sister with dementia. She feels she can manage finances and medications well at this time. Smoking Status: Never smoker Hx Smoking: No Hx Tobacco Use: No - Pain Is pain an issue with your current prescribed condition?: No Patient Allergies - Allergies Allergies meperidine [From Demerol] Allergy (Severe, Verified 01/29/22 11:52) Anaphylaxis CLQT - CLQT CLQT Administered: Yes CLQT: Cognitive Linguistic Quick Test (CLQT) is a criterion - referenced assessment designed for adults between the ages of 18 and 89 with known or suspected neurological dysfuntions. The CLQT is to assess strength and weaknesses in five cognitive domains. Severity ratings are within normal limits, mild, moderate, severe deficits. The subtests are as follows: Date: 02/12/22 - Attention Attention: WNL - Memory Memory: WNL - Executive Functions Executive Functions: WNL - Language Language: WNL - Visuospatial Skills Visuospatial Skills: WNL - Composite Severity Rating Composite Severity Rating: WNL - Clock Drawing Severity Rating Clock Drawing Severity Rating: WNL - CLQT Comments Subtest Scores and Interpretation Personal Facts - 03/24. Symbol Cancellation - 07/28. Confrontation Naming - 05/26. Clock Design - 07/29. Story Retelling - 03/26. Symbol Trails - 03/26. Generative Naming - 11/23. Design Memory - 12/20. Mazes - 11/22. Design Generation - 03/29. Cognitive Domain Scores: Attention ? 182, WNL (WNL = 215-160). Memory ? 158, WNL (WNL =185-141). Executive Functions ? 24, WNL (WNL = 40-19). Language ?30, WNL, borderline Mild (WNL = 37-28). Visuospatial Skills ? 80, WNL (WNL = 105-62). Clock Severity Rating ? 12, WNL (WNL = 11-13). During the evaluation, the patient experienced 8 moments of anomia in conversation with the SEAT PACK INSPECTOR. She presented with language skills WNL, but her score was borderline mild and her word finding difficulty was apparent in simple conversation throughout the evaluation. She presents with mild expressive aphasia characterized by anomia in conversation, which impacts fluency and her ability to express herself in both social and medical settings. Plan - Plan Plan: The patient presents with mild expressive aphasia likely secondary to ICH experienced February 2021. Skilled speech therapy warranted to train the patient in strategies to promote improved word retrieval and conversational fluency. Without skilled ST services, the patient is at risk for decreased ability to communicate wants and needs in medical and social settings. - Recommendations Treatment Warranted: Yes - Progress Prognosis: Good - Frequency Frequency: 1x/Week Duration: 4-8 weeks - Goal #1-5 Goal #1: The patient will verbalize awareness of compensatory strategies to improve word retrieval with minimal verbal cues to promote improved fluency in conversation. Goal #2: The patient will complete abstract generative naming tasks X10-15 items with minimal verbal cues to promote improved word retrieval skills. Goal #3: The patient will independently demonstrate use of compensatory strategies to improve word retrieval when experiencing moments of anomia with min verbal cues 5X in a 60 min session. Education - Patient has Indicated that the Following Identified Educational Needs: None The Patient has indicated that they have no educational or learning abilities that may effect their care.: Yes - Patient Instruction Patient Education: Diagnosis, Treatment Plan, Goals
--- NOTE | 2022-05-29 12:24 | HP.SP.DC_ITS ---
ST Discharge Summary - Discharged: Discharge: 02/12/2022 ST evaluated the patient due to word finding difficulty. POC initiated to address mild expressive aphasia likely secondary to ICH experienced February 2021. She attended 2 follow-up speech therapy sessions to train in strategies to promote improved word retrieval, such as semantic feature analysis and circumlocution. Per phone call on 04/18/2022, the patient feels she is doing well with strategies and exercises and that she does not require additional skilled ST. Will discharge the patient from ST and recommend re- consult if concerns for worsening aphasia.
== END 2022-02-26 19:00 | disposition home or self-care (01) ==
LOC: SP 09:30
PROVIDERS: PCP Internal Medicine; Referring Provider Internal Medicine Medical Oncology; Visit Provider Internal Medicine Medical Oncology
DX: R47.01 Aphasia (principal)
CPT/HCPCS: 92507

== ENCOUNTER → 2022-04-07 | Outpatient (CLI) | payer MEDICARE, SELFPAY ==
[2020-07-27 10:35] VITALS: BMI 28.5
[2022-04-07 09:40] LABS: AST(SGOT) 21 U/L (15-37); Alanine Aminotransfer ALT/SGPT 37 U/L (13-56); Albumin, Serum 3.4 g/dL (3.2-5.0); Alkaline Phosphatase 55 U/L (45-117); Bilirubin, Direct 0.13 mg/dL (0.00-0.30); Cholesterol 284 mg/dL (200); Globulin 3.5 g/dL (2.2-4.2); High Density Lipoprotein 73 mg/dL; Protein, Total 6.9 g/dL (6.4-8.2); Triglycerides 128 mg/dL; Very Low Density Lipoprotein 26 mg/dL (5-40)
== END | disposition home or self-care (01) ==
LOC: LAB 08:48
PROVIDERS: PCP Internal Medicine; Referring Provider Internal Medicine Cardiovascular Disease; Visit Provider Internal Medicine Cardiovascular Disease
DX: E78.00 Pure hypercholesterolemia, unspecified (principal)
CPT/HCPCS: 36415; 80061; 80076

== ENCOUNTER → 2022-07-30 | Outpatient (CLI) | payer MEDICARE, SELFPAY ==
[2020-07-27 10:35] VITALS: BMI 28.5
--- NOTE | 2022-07-30 11:59 | BI_ITS ---
MAMMOGRAPHY - BILATERAL SCREENING REASON FOR EXAM: Female, 76 years old. Routine annual screening examination. PERTINENT HISTORY: Personal history of breast cancer. Prior left lumpectomy and chemotherapy and radiation therapy. Grandmother with breast cancer. TECHNIQUE: Digital bilateral breast bridgette (3D mammographic acquisition) in the CC and MLO projections. Left breast. Mediolateral oblique (MLO) and craniocaudad (CC) views of both breasts were obtained. CAD: Full Field Digital Mammography with Computer Added Detection was performed. COMPARISON: Comparison is made with prior study dated 07/29/2021 and 07/26/2020. FINDINGS: Breast Composition: There are scattered areas of fibroglandular density. There are no dominant masses or suspicious calcifications. The patient is status post lumpectomy with postoperative scarring in the upper outer quadrant of the left breast. Surgical clips are seen in the left axilla. No other significant abnormalities are identified. There has been no significant change since the prior study. BI/SCRN MAMM (CAD)W/BRIDGETTE BILAT IMPRESSION: Stable bilateral screening mammogram. Yearly follow-up mammogram recommended. (A) ASSESSMENT CATEGORY: BIRADS Category 2: Benign. A letter regarding these results will be sent to the patient by the facility within 30 days. Approximately 10% of breast cancers are not detected by mammography. A normal mammogram should not delay biopsy of a clinically suspicious abnormality. [id number] Electronically Signed: Esteban Alexis MD at 13:16 EST ,
== END | disposition home or self-care (01) ==
LOC: OPBI 11:57
PROVIDERS: PCP Internal Medicine; Visit Provider Internal Medicine Medical Oncology
DX: Z12.31 Encounter for screening mammogram for malignant neoplasm of breast (principal); Z92.21 Personal history of antineoplastic chemotherapy; Z80.3 Family history of malignant neoplasm of breast; Z85.3 Personal history of malignant neoplasm of breast; M85.80 Other specified disorders of bone density and structure, unspecified site; E78.5 Hyperlipidemia, unspecified
CPT/HCPCS: 36415; 77063; 77067; 80053; 82306; 83615; 83735; 84100; 85025; 96372; J0897

== ENCOUNTER → 2023-07-22 | Outpatient (CLI) | payer MEDICARE, SELFPAY ==
[2020-07-27 10:35] VITALS: BMI 28.5
--- NOTE | 2023-07-22 12:49 | ECHODONC_ITS ---
Reason For Study: MURMUR Procedure This was a 2D Doppler, Color Flow transthoracic echocardiogram. Myocardial strain analysis was performed in this exam to aid in the assessment of cardiac function. The study was technically difficult. Exam performed in department. Left Ventricle Normal size and thickness. The left ventricular ejection fraction is 65 %. Unable to assess diastolic function based on available data. Right Ventricle Normal right ventricle. Atria The left and right atria are normal. Mitral Valve Trivial mitral valve insufficiency. Tricuspid Valve Mild tricuspid valve insufficiency. Normal pulmonary artery pressure. Aortic Valve Trisinus/trileaflet aortic valve. Pulmonic Valve The pulmonic valve is not well visualized. Mild (1+) pulmonic valve insufficiency. Great Vessels Normal sized aortic root. Pericardium/Pleural No pericardial effusion. MMode/2D Measurements & Calculations LVIDd: 4.1 cm IVSd: 0.83 cm Ao root diam: 3.2 cm LVIDs: 3.1 cm LVPWd: 0.77 cm RVDd: 2.4 cm FS: 24.9 % LAV(MOD-bp): 34.3 ml LA A4 area: 13.0 cm2 LA dimension(2D): 3.8 cm LAV(MOD-bp) Indexed: 19.1 ml/m2 LAV(MOD-sp2): 32.2 ml LAV(MOD-sp4): 32.7 ml RA A4 area: 11.4 cm2 Time Measurements MV dec time: 0.22 sec Doppler Measurements & Calculations MV E max rad: 60.8 cm/sec MV dec slope: 278.6 cm/sec2 Ao V2 max: 108.0 cm/sec MV A max rad: 92.8 cm/sec Ao max P.7 mmHg MV E/A: 0.66 Ao V2 mean: 72.6 cm/sec Ao mean P.4 mmHg Ao V2 VTI: 23.7 cm AV (velocity ratio): 1.0 LV V1 max: 113.9 cm/sec PA V2 max: 86.2 cm/sec PI dec slope: 153.6 cm/sec2 LV V1 max P.2 mmHg PA V2 mean: 58.4 cm/sec LV V1 mean P.1 mmHg LV V1 mean: 84.4 cm/sec LV V1 VTI: 24.6 cm TR max rad: 218.6 cm/sec TR max P.1 mmHg ECHO/ONC Echo Complete Interpretation Summary The left ventricular ejection fraction is 65 %. Mild tricuspid valve insufficiency. Mild (1+) pulmonic valve insufficiency. The study was technically difficult. Ordering Physician: Darshan Santiago Referring Physician: Samir Salcido Performed By: Milly Friedman, NAKIA, RVT
== END | disposition home or self-care (01) ==
LOC: CVS 12:48
PROVIDERS: PCP Internal Medicine; Referring Provider Nurse Practitioner Family; Visit Provider Nurse Practitioner Family
DX: R01.1 Cardiac murmur, unspecified (principal)
CPT/HCPCS: 93306; 93356

== ENCOUNTER → 2023-08-04 | Outpatient (CLI) | payer MEDICARE, SELFPAY ==
[2020-07-27 10:35] VITALS: BMI 28.5
--- NOTE | 2023-08-04 09:06 | BI_ITS ---
MAMMOGRAPHY - BILATERAL SCREENING REASON FOR EXAM: Female, 77 years old. Routine annual screening examination. PERTINENT HISTORY: Personal history of breast cancer. Prior left lumpectomy with chemotherapy and radiation. Grandmother with breast cancer. TECHNIQUE: Digital bilateral breast bridgette (3D mammographic acquisition) in the CC and MLO projections. 2-D mediolateral oblique (MLO) and craniocaudad (CC) views of both breasts were obtained. CAD: Full Field Digital Mammography with Computer Added Detection was performed. COMPARISON: Comparison is made with prior study dated July 30, 2022 and July 29, 2021. FINDINGS: Breast Composition: There are scattered areas of fibroglandular density. There are no dominant masses or suspicious calcifications. The patient is status post lumpectomy in the deep central lateral aspect of the left breast with resultant architectural distortion and scarring. No other significant abnormalities are identified. There has been no significant change since the prior study. BI/SCRN MAMM (CAD)W/BRIDGETTE BILAT IMPRESSION: Stable bilateral screening mammogram. Yearly follow-up mammogram recommended. (A) ASSESSMENT CATEGORY: BIRADS Category 2: Benign. A letter regarding these results will be sent to the patient by the facility within 30 days. Approximately 10% of breast cancers are not detected by mammography. A normal mammogram should not delay biopsy of a clinically suspicious abnormality. [id number] Electronically Signed: Esteban Alexis MD at 11:11 EST ,
--- NOTE | 2023-08-04 09:17 | BD_ITS ---
STUDY: DUAL ENERGY X-RAY ABSORPTIOMETRY / DXA REASON FOR EXAM: Female, 77 years old. Screening TECHNIQUE: Bone Mineral Density (BMD) measurements of lumbar spine and bilateral hips were obtained. COMPARISON: Comparison is made with prior study dated June 09, 2018. FINDINGS: Lumbar Spine (L1-L4): g/cm2 (0.911) / T-score (-1.2) / Z-score (1.4) Findings are suggestive of osteopenia with a low fracture risk. Left Femur Total: g/cm2 (0.821) / T-score (-1.0) / Z-score (1.0) Left Femoral Neck: g/cm2 (0.697) / T-score (-1.4) / Z-score (0.9) Right Femur Total: g/cm2 (0.870) / T-score (-0.6) / Z-score (1.4) Right Femoral Neck: g/cm2 (0.769) / T-score (-0.7) / Z-score (1.5) The T-Scores on the most recent prior examination were: Lumbar Spine (L1-L4): There has been improvement of bone density since the previous examination. Left Femur Total: which represents an improvement of 11%. Right Femur Total: which represents an improvement of 13.9%. BD/Dexa Bone Density Study IMPRESSION: The patient is considered osteopenic as outlined below according to World Re[employer] Organization (WHO) criteria with a low fracture risk. There has been improvement of bone density since the previous examination. Reference Information: The T-score is the number of standard deviations above or below the standard which is normal for young adults at their peak bone mineral density. The World Health Organization (WHO) interprets the T-scores as follows: Above -1 Normal bone density Between -1 and -2.5 Osteopenia Equal to / or below -2.5 Osteoporosis As a practical clinical guideline, osteopenia may be graded as follows: Mild -1 through -1.5 Moderate -1.6 through -2.0 Severe -2.1 through -2.4 The Z-score is the number of standard deviations above or below age-matched controls. A Z-score of less than -1.5 would be considered abnormal. References: 1. NIH Osteoporosis and Related Bone Diseases www osteo.org 2. International Society for Clinical Densitometry www iscd.org 3. National Osteoporosis Foundation www nof.org Electronically Signed: Esteban Alexis MD at 15:12 EST ,
== END | disposition home or self-care (01) ==
LOC: OPBD 09:04
PROVIDERS: PCP Internal Medicine; Referring Provider Nurse Practitioner Family; Visit Provider Nurse Practitioner Family
DX: Z12.31 Encounter for screening mammogram for malignant neoplasm of breast (principal); Z13.820 Encounter for screening for osteoporosis; M85.851 Other specified disorders of bone density and structure, right thigh; M85.852 Other specified disorders of bone density and structure, left thigh; Z85.3 Personal history of malignant neoplasm of breast
CPT/HCPCS: 77063; 77067; 77080

== ENCOUNTER → 2023-08-18 | Outpatient (CLI) | payer MEDICARE, SELFPAY ==
[2020-07-27 10:35] VITALS: BMI 28.5
--- NOTE | 2023-08-18 09:40 | NM_ITS ---
CLINICAL: 77-year-old female with history of primary breast carcinoma with current complaint of low back discomfort and presenting hypercalcemia. WHOLE BODY 99m Tc MDP RADIONUCLIDE BONE SCINTIGRAPHY COMPARISON: Previous whole body bone scintigraphy study dated 08/05/2021 FINDINGS: Following the intravenous administration of 26.3 mCi of 99m Tc MDP, whole body bone images reveal: 1. Enhanced radiotracer distribution is defined in the cervical and thoracic spine, the sacrum posteriorly on the left and right, the right ankle, the knee articulations bilaterally, right-left wrists, the bilateral shoulder articulations, the right hip involving the posterior acetabulum inferiorly. 2. Subtle increased uptake is noted in the region of the seventh rib at the costochondral junction. 3. The remaining skeletal structures are scintigraphically unremarkable with normal-appearing renal images and urinary bladder activity identified. NM/Bone Scan Whole Body IMPRESSION: 1. The increase in tracer uptake noted in the cervical and thoracic spine, sacrum, the right ankle, right hip, both knee articulations, the wrist and shoulders bilaterally is commensurate with degenerative arthrosis. 2. Overall compared to the previous whole body bone scintigraphy study dated 08/05/2021, there is minimal interval change. There is no definitive scintigraphic evidence of diffuse skeletal metastatic disease on the present examination. Electronically Signed: Ray Desir DO at 8:50 EST ,
== END | disposition home or self-care (01) ==
LOC: NM 09:39
PROVIDERS: PCP Internal Medicine; Referring Provider Internal Medicine Medical Oncology; Visit Provider Internal Medicine Medical Oncology
DX: C50.912 Malignant neoplasm of unspecified site of left female breast (principal); E83.52 Hypercalcemia; M85.80 Other specified disorders of bone density and structure, unspecified site
CPT/HCPCS: 78306; A9503

== ENCOUNTER 2023-09-09 15:28 | Emergency (ER) | payer MEDICARE, SELFPAY ==
[2020-07-27 10:35] VITALS: BMI 28.5
[2023-09-09 15:29] VITALS: BP 130/83; PULSE 91; RESP 16; TEMP 36.6; O2SAT 97
[2023-09-09 17:35] VITALS: BMI 27.2
--- NOTE | 2023-09-09 18:36 | CT_ITS ---
STUDY: CT BRAIN WITHOUT CONTRAST REASON FOR EXAM: Female, 77 years old. trauma RADIATION DOSAGE (If Supplied By Facility): CTDIvol = ( 44.99 ) mGy, DLP = ( 812.98 ) mGycm TECHNIQUE: Transaxial CT imaging of the brain was performed without administration of intravenous contrast material. Individualized dose optimization techniques were used for this CT. COMPARISON: CT brain February 23, 2021 FINDINGS: Normal soft tissue structures. Normal calvarium. Normal size ventricles and extra-axial spaces for the patient''s age. Normal white matter tracts of the cerebral hemispheres. Normal basal ganglia and thalami. Normal brainstem. Normal cerebellum. There is no intracranial hemorrhage. There are no findings of an acute ischemic infarction. Normal visualized paranasal sinuses. CT/Brain/Head without Contrast IMPRESSION: Normal unenhanced CT scan of the brain. Electronically Signed: Say Stovall MD at 19:34 EST ,
[2023-09-09 18:53] LABS: Absolute Lymphocyte Count 2.46 X10^3/uL (0.83-4.51); Absolute Neutrophil Count 3.8 X10^3/uL (2.0-7.7); Basophil# 0.04 X10^3/uL; Basophil% 0.6 % (0-1); Eosinophil# 0.06 X10^3/uL; Eosinophils% 0.9 % (0-5); Hematocrit 45.9 % (37-47); Hemoglobin 15.1 g/dL (12.0-15.0); Lymphocyte # 2.46 X10^3/ul (0.83-4.51); Lymphocyte % 35.8 % (19-41); Mean Corp Hgb Conc 32.9 g/dL (32-36); Mean Corpuscular Hgb 29.9 pg (27.0-32.0); Mean Corpuscular Volume 90.9 fL (81-99); Mean Platelet Vol. 9.4 fl (6.2-12.0); Monocyte# 0.52 X10^3/uL; Monocyte% 7.6 % (0-10); NRBC Flagged by Analyzer 0 % (0-5); Neutrophil # 3.77 X10^3/uL (2.7-7.7); Neutrophil % 54.8 % (47-70); Platelet Count 347 K/mm3 (150-450); RBC Distribution Width CV 13.4 % (11.6-14.6); RBC Distribution Width SD 45.1 fl (35.1-43.9); Red Blood Count 5.05 M/mm3 (4.2-5.4); White Blood Count 6.9 K/mm3 (4.4-11.0)
--- OUTSIDE RECORDS SUMMARY | 2023-09-09 18:59 | XMS RPT_ITS | CCD ---
Author Name Unknown Address [address] [place] [address] Organization [facility] Care Team Providers Care Traffic Expert Name Role Phone NINA HINDS Admitting Unavailable NINA HINDS Attending Unavailable NINA HINDS Primary Care Unavailable DANYA MAN Consulting Unavailable Pcp, No Primary Care Provider Unavailabl e Nina Hinds Primary Care Provider Nina Hinds Unavailable [phone] Pcp, No Unavailable Unavailable Pcp, Do Not Notify Primary Care Provider Unavail able Loren Julian CGC Unavailable LOREN JULIAN Attending Unavailable DOC, MISC Referring Unavailable DOC, MISC Referring Unavailable LOREN JULIAN Attending Unavailable OLVIN HERNÁNDEZ Referring Unavailable OLVIN HERNÁNDEZ Attending Unavailable Allergies Allergy Classification Reported Allergen(s) Allergy Type Date of Onset Reaction(s) Facility (1 source) Meperidine Drug Allergy [facility] Repository Problems Problem Classification Problem Date Documented Date Episodic/Chronic Asthma (1 source) Unspecified asthma, uncomplicated; Translations: [UNSPECIFIED ASTHMA UNCOMPLICATED] Onset: 05-23-2019 Chronic Cancer of breast (3 sources) Personal history of malignant neoplasm of breast; Translations: [History of malignant neoplasm of breast] Onset: 05-23-2019 Episodic Diverticulosis and diverticulitis (1 source) Diverticulosis of large intestine without perforation or abscess without bleeding; Translations: [DVRTCLOS LG INT NO PERF/ABSC W/O BL] Onset: 05-23-2019 Chronic Hemorrhoids (1 source) First degree hemorrhoids; Translations: [FIRST DEGREE HEMORRHOIDS] Onset: 05-23-2019 Episodic Other aftercare (1 source) sanitation engineer (current) use of aspirin; 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] Onset: 05-23-2019 Episodic Other aftercare (1 source) Other fpc (current) drug therapy; Translations: [OTH GROUNDS WORKER CURRENT DRUG THERAPY] Onset: 05-23-2019 Episodic Other screening for suspected conditions (not mental disorders or infectious disease) (2 sources) Encounter for screening for malignant neoplasm of colon; Translations: [ENC SCREEN MALIG NEOPLASM COLON] Onset: 05-23-2019 Episodic Residual codes; unclassified (1 source) Personal history of antineoplastic chemotherapy; Translations: [PERSONAL HX ANTINEOPLASTIC CHEMO] Onset: 05-23-2019 Episodic Residual codes; unclassified (1 source) Personal history of irradiation; Translations: [PERSONAL HISTORY OF IRRADIATION] Onset: 05-23-2019 Episodic Residual codes; unclassified (2 sources) Family history of breast cancer; Translations: [Family history of malignant neoplasm of breast] Onset: 04-09-2022 Episodic Residual codes; unclassified (2 sources) Family history of prostate cancer; Translations: [Family history of malignant neoplasm of prostate] Onset: 04-09-2022 Episodic Residual codes; unclassified (2 sources) Family history of malignant neoplasm of pancreas; Translations: [Family history of malignant neoplasm of digestive organs] Onset: 04-09-2022 Episodic Residual codes; unclassified (2 sources) Family history of malignant neoplasm of ovary; Translations: [Family history of malignant neoplasm of ovary] Onset: 04-09-2022 Episodic Results Test Name Value Interpretation Reference Range Facil ity Encounters Encounter Date Encounter Type Care Provider Facility Start: 05-06-2022 End: 05-06-2022 ambulatory LOREN JULIAN [facility] Start: 04-09-2022 End: 04-10-2022 ambulatory OLVIN HERNÁNDEZ [facility] Start: 04-09-2022 End: 04-09-2022 ambulatory LEONEL CHAVEZ [facility] Start: 04-09-2022 End: 04-09-2022 Subsequent hospital visit by physician Olvin Hernández MD Work Phone: [facility] Procedures Date Procedure Procedure Detail Performing Clinician Start: 02-23-2021 Antibody screen Plan of Treatment Date Care Activity Detail Author Start: 05-06-2022 End: 05-06-2022 Professional / ancillary services management 05/06/2022 Telehealth Ancillary Genetics Loren Julian, [place] [address] Genetics - [place] Start: 04-17-2022 FLU (#1) FLU (#1) [facility] Start: 10-28-2021 COVID-19 (4 - Booste r for Moderna series) COVID-19 (4 - Booster for Moderna series) [facility] Start: 04-17-2020 Influenza vaccination INFLUENZA (#1) [facility] Start: 2009 ADVANCE DIRECTIVE DISCUSSION ADVANCE DIRECTIVE DISCUSSION [facility] Start: 2009 BONE DENSITY BONE DENSITY [facility] Start: 2009 PNEUMOVAX AGE 65 AND OVER WITH 5YR LOOKBACK (#1) PNEUMOVAX AGE 65 AND OVER WITH 5YR LOOKBACK (#1) [facility] Start: 1994 SHINGRIX VACCINE (1 of 2) QUARLES GRIX VACCINE (1 of 2) [facility] Start: 1994 Tuberculosis screening COLOREC VICKY CANCER SCREENING,SEE MODIFIER [facility] Start: 1989 DIABETES SCREEN DIABETES SCREEN [facility] Start: 1989 LIPID SCREEN LIPID SCREEN [facility] Start: 1963 Urine microalbumin profile DTAP,TDAP,TD (1 - Tdap) [facility] Start: 1962 HEPATITIS C SCREENING HEPATITIS C SC EDENILSON [facility] Start: 1960 MenB (1 of 2 - MenB 2-Dose Series) MenB (1 of 2 - MenB 2-Dose Series) [facility] Start: 1951 Tetanus Diphtheria a nd Pertussis Vaccines (1 - Tdap) Tetanus Diphtheria and Pertussis Vaccines (1 - Tdap) [facility] Start: 1945 MMR (1 of 1 - Standa rd series) MMR (1 of 1 - Standard series) [facility] Start: 1945 Varicella (1 of 2 - 2-dose childhood series) Varicella (1 of 2 - 2-dose childhood series) [facility] End: 04-09-2022 Genetic Sendout: Multi-Cancer test with RNA testing [facility] Work Phone: Payers Date Payer Category Payer Medicare A[employer]NA MEDICARE A ETNA MEDICARE [id number] 2018-Present [address] [place] [address] [id number] 1960 Medicare [id number] 1945 Unknown [id number] 1945 Unknown [id number] 1945 Unknown [id number] 1945 Unknown [id number] Medicare [id number] Social History Date Type Detail Facility Tobacco smoking status NHIS Unknown if ever smoked [facility] Start: 1945 Sex Assigned At Not on file C [facility] Tobacco smoking status [facility] Tobacco smoking consumption unknown [facility] Start: 03-30-2022 End: 04-09-2022 Exposure to SARS-CoV-2 (event) Not sure [facility] Progress note 03-13-2021 Note Date & Type Note Facility 03-13-2021 Note HNO ID: [id number] Author: Karena Hensley I, MD Service: ? Author Type: Physician Type: Progress Notes Filed: 03/13/2021 8:49 AM Note Text: NEUROSURGERY FOLLOW UP OFFICE NOTE Karena Hensley MD Date of visit: March 13, 2021 Patient Name: Ms.Carol Danial Pascual Date of : 1945 Current Age: [age] year old Sex: female MRN/E# [id number] Last Office Visit: Visit date not found Chief Complaint: Patient presents with: Established Patient SUBJECTIVE: Kamilla Pascual is a 75 year old female with a past medical history of breast CA s/p chemo/radiation/lumpectomy. She denies smoking. She presented to [facility] ED 02/23/2021 as a trauma transfer for a small subdural hemorrhage following a ground level fall. She reported walking her daughter's dog and falling onto the pavement landing on her face. She had a moderate amount of right sided periorbital edema. She complained of a headache. She were to follow up in 4 weeks time with no further imaging for management of her mild traumatic brain injury and minimal subarachnoid hemorrhage. She presents to the office today as a hospital follow up. She states that she has been doing well but has been experiencing dizziness/vertigo/balance issues since her discharge. She has headaches that she feels have improved over the past week. She complains of changes in taste. She has no weakness on exam. States that she has chronic neuropathy, numbness/tingling from chemo/radiation. She is requesting a PT consult for balance. She is here for evaluation and plan of care. Symptoms: mild headaches, dizziness, balance issues PREVIOUS CONSERVATIVE TREATMENTS: N/A PREVIOUS SURGERY: No neurosurgery PAIN EVALUATION 03/13/2021 0830 Pain Level: 3 Pain Location: Head Description: Aching;Dull;Numbness Duration Amount of Time: 3 Duration Units: Weeks Frequency: Continuous Intervention/Comfort measure: Medication PAST MEDICAL HISTORY Diagnosis Date - Breast cancer (HCC) - Cancer (HCC) PAST SURGICAL HISTORY Procedure Laterality Date - BREAST LUMPECTOMY HX Left - CHOLECYSTECTOMY HX - TONSILLECTOMY HX No family history on file. ALLERGIES Allergen Reactions - Demerol [Meperidine] Anaphylaxis Current Outpatient Medications Medication Sig Dispense Refill - acetaminophen (TYLENOL) 500 mg tablet Take 1 tablet by mouth once daily. - albuterol HFA (PROVENTIL HFA, VENTOLIN HFA) 90 mcg/actuation inhaler Inhale 1 Puff as instructed as needed. - anastrozole (ARIMIDEX) 1 mg tablet Take 1 mg by mouth once daily. - aspirin, enteric coated (ASPIRIN, ENTERIC COATED) 81 mg EC tablet Take 81 mg by mouth once daily. - carbidopa-levodopa (SINEMET 10-100) 10-100 mg per tablet Take 1 tablet by mouth once daily. - colestipol (COLESTID) 1 gram tablet Take 1 tablet by mouth once daily. - denosumab (PROLIA) 60 mg/mL 60 mg. - ergocalciferol 50,000 unit capsule (VITAMIN D2, DRISDOL) Take 1 capsule by mouth one time a week. - loperamide (IMODIUM) 2 mg cap(s) Take 2 mg by mouth as needed. - traMADol (ULTRAM) 50 mg tablet Take 50 mg by mouth three times daily as needed. - ondansetron (ZOFRAN) 4 mg tablet Take by mouth every 8 hours as needed for nausea/vomiting. - propranolol (INDERAL) 10 mg tablet Take 10 mg by mouth twice daily. No current facility-administered medications for this visit. REVIEW OF SYSTEMS Review of Systems Constitutional: Negative for chills, fatigue and fever. HENT: Positive for tinnitus. Negative for congestion, ear discharge and trouble swallowing. Right ear Eyes: Negative for discharge, itching and visual disturbance. Respiratory: Negative for cough, shortness of breath and wheezing. Cardiovascular: Negative for chest pain, palpitations and leg swelling. Gastrointestinal: Negative for constipation, diarrhea, nausea and vomiting. Endocrine: Negative for cold intolerance and heat intolerance. Genitourinary: Negative for difficulty urinating, frequency and urgency. Musculoskeletal: Negative for back pain, gait problem and neck pain. Skin: Negative for rash and wound. Allergic/Immunologic: Negative for environmental allergies and food allergies. Neurological: Positive for dizziness, tremors, numbness and headaches. Negative for weakness. Tremors at baseline in left arm Hematological: Does not bruise/bleed easily. Psychiatric/Behavioral: Negative for agitation. The patient is not nervous/anxious. OBJECTIVE: BP 113/88 Pulse 61 Temp 97.2 Ht 5' 4 (1.63m) Wt 160 lb (72.6kg) SpO2 98% BMI 27.45 kg/(m2). Physical Exam HENT: Head: Normocephalic. Right Ear: Hearing normal. Left Ear: Hearing normal. Eyes: Extraocular Movements: Extraocular movements intact. Pupils: Pupils are equal, round, and reactive to light. Pulmonary: Effort: Pulmonary effort is normal. Musculoskeletal: General: Normal range of motion. Cervical back: Normal range of motion. Skin: General: Skin is warm. Neuro (more content not included)... [facility] Clinical Note 02-25-2021 Note Date & Type Note Facility 02-25-2021 Note HNO ID: [id number] Author: Jeanine Monae RN Service: Care Management Author Type: Registered Nurse Type: Care Mgt Progress Note Filed: 02/25/2021 2:17 PM Note Text: CARE MANAGEMENT PROGRESS NOTE SERVICE DATE: 02/25/2021 SERVICE TIME: 2:15 PM LOS: 1 day This patient has been screened for Care Management Transitional Planning Services. At this time, it does not appear this patient will require transition planning services. Should this change, and the patient requires transition planning services during this admission, please call [phone]. Jeanine Monae RN February 25, 2021 2:15 PM SIGNATURE: Jeanine Monae RN PATIENT NAME: Kamilla Barrow Sample DATE: February 25, 2021 TIME: 2:15 PM PAGER/CONTACT #: [phone] [facility] Clinical Note 02-25-2021 Note Date & Type Note Facility 02-25-2021 Note HNO ID: [id number] Author: SAMARA Hernandez Service: Care Management Author Type: Operations Coordinator Type: Care Mgt Progress Note Filed: 02/25/2021 2:01 PM Note Text: CARE MANAGEMENT PROGRESS NOTE SERVICE DATE: 02/25/2021 SERVICE TIME: 2:01 PM LOS: 1 day Chart reviewed. Pt had no tox screen completed, Trauma assessment not appropriate at this time. SIGNATURE: SAMARA Hernandez PATIENT NAME: Kamilla Barrow Sample DATE: February 25, 2021 TIME: 2:01 PM PAGER/CONTACT #: [phone] [facility] Progress note 02-25-2021 Note Date & Type Note Facility 02-25-2021 Note HNO ID: [id number] Author: Andreia Lal APRN.CNP Service: General Surgery Author Type: Nurse Practitioner Type: Progress Notes Filed: 02/25/2021 12:01 PM Note Text: Trauma Surgery Progress Note SERVICE DATE: 02/25/2021 Trauma Service Pager: For questions or concerns Mon-Fri 6a-5p please page [phone]. After 5pm and on Weekends and Holidays, please page [phone] if in ICU or [phone] if on RNF. SUBJECTIVE: NAEON. Patient states feeling well overall today. Denies headache or dizziness. Tolerating diet. Feels ready to go home. OBJECTIVE: Vitals: Temp (24hrs), Av.6 ?C (97.9 ?F), Min:36.3 ?C (97.3 ?F), Max:36.8 ?C (98.2 ?F) BP 130/73 Pulse 65 Temp 36.6 ?C (97.9 ?F) (Oral) Resp 18 Ht 162.6 cm (5' 4 ) Wt 73.1 kg (161 lb 2.5 oz) SpO2 95% BMI 27.66 kg/m? O2 Therapy: Room Air IANDO: Date 02/24/21699 - 02/25/21 0659 02/25/21699 - 02/26/21 0659 Shift 5090-4481 6162-0420 6282-8565 24 Hour Total 3834-9411 7289-3551 3480-7172 24 Hour Total INTAKE PO 320 320 240 240 PO 320 320 240 240 IV 754 754 Volume (mL) (NaCl 0.9% iv infusion) 754 754 Shift Total 1074 1074 240 240 OUTPUT Urine Urine Not Saved. 3 x 3 x 1 x 1 x Shift Total Weight (kg) 70.1 70.3 73.1 73.1 73.1 73.1 73.1 73.1 MEDICATIONS Current Facility-Administered Medications Medication Dose Route Frequency - sodium chloride 0.9 % (flush) 3-5 mL (BD POSIFLUSH) 3-5 mL INTRAVENOUS q 12 H - ondansetron 4 mg tab(s) (ZOFRAN) 4 mg ORAL q 6 H PRN Or - ondansetron (PF) 4 mg injection (ZOFRAN) 4 mg INTRAVENOUS q 6 H PRN - senna-docusate 8.6-50 mg 1 tablet (SENNA-S) 1 tablet ORAL BID - acetaminophen 1,000 mg tab(s) (TYLENOL) 1,000 mg ORAL QID - oxyCODONE IR 5-10 mg tab(s) (ROXICODONE) 5-10 mg ORAL q 6 H PRN Labs: Recent Labs 02/25/21 0449 02/24/21 0507 02/23/21201202/23/21 1845 02/23/21 1845 NA 140 141 143 < > -- K 3.9 4.0 3.9 < > -- CHLOR 107* 105 107* < > -- CO2 23 26 24 < > -- BUN 17 15 13 < > -- CREAT 0.87 0.90 0.82 < > -- GLUC 107* 109* 107* < > -- ANION 10 10 12 < > -- CA 8.9 9.0 9.5 < > -- ALB -- -- 4.4 -- -- AST -- -- 28 -- -- ALT -- -- 30 -- -- ALKPHOS -- -- 82 -- -- TBILI -- -- 0.4 -- -- WBC 7.02 11.95* -- < > 12.34* HB 13.7 14.0 -- < > 15.3 HCT 43.4 44.2 -- < > 46.8* PLT 200 225 -- < > 265 INR -- -- -- -- 1.0 < > = values in this interval not displayed. PHYSICAL EXAM: Genl: Appears age appropriate. No acute distress. Resting comfortably. Head/Face: Normocephalic. Bilateral periorbital brusing. Sutured laceration to right forehead. Eyes: EOMI. Sclera not icteric, not injected Neck: No mid-line masses. C-spine non-tender. Back: T AND L Spine non-tender, no step-offs or deformities noted. No flank tenderness. Resp: Lung sounds are clear bilat. No wheezes. No rales. Breathing is non-labored on RA%. CVS: RRR as above; 2+ pulses at RA, DP, PT bilat. GI: Abdomen is soft, non-tender, not distended. Bowel sounds normoactive. No peritonitis. MSK: Extremities without clubbing, cyanosis, edema. Normal ROM x 4. Skin: Warm and dry. Not jaundiced. Neuro: AANDOx3. Strength and sensation normal. JAMA. GCS15. Psych: Normal mood. Normal affect. Appropriate insight into current situation. ASSESSMENT AND PLAN: Active Hospital Problems Diagnosis Date Noted - Scalp laceration 02/25/2021 - Subarachnoid hemorrhage (HCC) 02/24/2021 - Fall 02/24/2021 - TBI (traumatic brain injury) (HCC) 02/24/2021 75 year old female s/p mechanical GLF on ASA Imaging performed: 1. CT HNFace, CXR/PXR (02/23) 2. CT brain (02/24) 3. CT brain (02/25) Traumatic Injuries: 1. Left anterior/mid frontal SAH without mass effect or shift 2. Acute comminuted nasal bone fracture with mildly displaced nasal septal fracture 3. Questionable minimal nondisplaced fracture of the R oribal floor Operations/Procedures: 1. None Care Plan: 1. SAH 1. Non-op per NSGY 2. No Keppra 3. DDAVP given 02/[address] scan 02/25 stable 2. Facial fractures 1. No intervention 3. Forehead laceration 1. Repaired @ [facility] 2. Sutures to be removed 5-7 days from placement (follow up with PCP) 4. Current diet order: DIET REGULAR 5. Pain regimen: Scheduled tylenol; prn oxy 6. Bowel regimen: Senna-s 7. Labs: As above 8. Discharge home today PPX: 1. DVT: SCDs, mobilize 2. Ulcer: n/a 3. Vit D level if > 65 yo: 24.6 - po supplement initiated Consulted Services: 1. Neurosurgery Dispo Plannin. PT/OT recs home. Case management following. Incidentals: 1. None Follow Up Needs: 1. PCP for suture removal 2. DEDRAGY - Dr. Hensley in 4 wks Staff Trauma Surgeon: Dr. Broderick SIGNATURE: Andreia Lal APRN.CNP PATIENT NAME: Kamilla Barrow Sample DATE: February 25, 2021 TIME: 9:37 AM Pager: see below Trauma Service Pager: For questions or concerns Thu-Thu 6a-5p please page [phone]. After 5pm and on Weekends and Holidays, please page [phone] if in ICU or [phone] if on (more content not included)... [facility] Progress note 02-24-2021 Note Date & Type Note Facility 02-24-2021 Note HNO ID: [id number] Author: Sandra Broderick MD Service: General Surgery Author Type: Physician Type: Progress Notes Filed: 02/24/2021 11:00 AM Note Text: Trauma Surgery Progress Note SERVICE DATE: 02/24/2021 Trauma Service Pager: For questions or concerns Thu-Thu 6a-5p please page [phone]. After 5pm and on Weekends and Holidays, please page [phone] if in ICU or [phone] if on RNF. SUBJECTIVE: NAEO. Patient is alert and oriented x3. Patient is able to tolerate liquid diet without n/v. She does complain of a headache which went away after taking her oxycodone. She denies have any vision changes, slurring, SOB, CP, or abdominal pain. OBJECTIVE: Vitals: Temp (24hrs), Av.7 ?C (98.1 ?F), Min:36.6 ?C (97.9 ?F), Max:36.9 ?C (98.4 ?F) BP 98/53 Pulse 68 Temp 36.6 ?C (97.9 ?F) (Oral) Resp 20 Ht 162.6 cm (5' 4 ) Wt 70.1 kg (154 lb 8.7 oz) SpO2 94% BMI 26.53 kg/m? O2 Therapy: Room Air IANDO: Date 02/23/21699 - 02/24/2165802/24/21699 - 02/25/21 0659 Shift 7617-4384 7004-8625 3259-2453 24 Hour Total 5856-1664 0179-0853 9018-3723 24 Hour Total INTAKE IV 150 150 Volume (mL) (levETIRAcetam iv piggyback 1,000 mg in NaCl (iso-osmotic) 100 mL (KEPPRA)) 100 100 Volume (mL) (desmopressin 32 mcg in NaCl 0.9% 50 mL (DDAVP)) 50 50 Shift Total 150 150 OUTPUT Urine 600 600 Void (ml) 600 600 Shift Total 600 600 Weight (kg) 70.8 70.1 70.1 70.1 70.1 70.1 70.1 MEDICATIONS Current Facility-Administered Medications Medication Dose Route Frequency - sodium chloride 0.9 % (flush) 3-5 mL (BD POSIFLUSH) 3-5 mL INTRAVENOUS q 12 H - NaCl 0.9% iv infusion 100 mL/hr INTRAVENOUS CONTINUOUS - ondansetron 4 mg tab(s) (ZOFRAN) 4 mg ORAL q 6 H PRN Or - ondansetron (PF) 4 mg injection (ZOFRAN) 4 mg INTRAVENOUS q 6 H PRN - senna-docusate 8.6-50 mg 1 tablet (SENNA-S) 1 tablet ORAL BID - acetaminophen 1,000 mg tab(s) (TYLENOL) 1,000 mg ORAL QID - oxyCODONE IR 5-10 mg tab(s) (ROXICODONE) 5-10 mg ORAL q 6 H PRN - morphine 2 mg injection 2 mg INTRAVENOUS q 3 H PRN Labs: Recent Labs 02/24/21 0507 02/23/21201202/23/21 1845 NA 141 143 -- K 4.0 3.9 -- CHLOR 105 107* -- CO2 26 24 -- BUN 15 13 -- CREAT 0.90 0.82 -- GLUC 109* 107* -- ANION 10 12 -- CA 9.0 9.5 -- ALB -- 4.4 -- AST -- 28 -- ALT -- 30 -- ALKPHOS -- 82 -- TBILI -- 0.4 -- WBC 11.95* -- 12.34* HB 14.0 -- 15.3 HCT 44.2 -- 46.8* PLT 225 -- 265 INR -- -- 1.0 PHYSICAL EXAM: Genl: Appears age appropriate. No acute distress. Resting comfortably. Head/Face: Normocephalic. Contusion of the right forehead, with a wound dressing over the left orbit. Ecchymosis of the left orbit. Eyes: EOMI. Sclera not icteric, not injected Neck: No mid-line masses. C-spine non-tender. Resp: Breathing is non-labored on RA @94%. CVS: RRR as above GI: Abdomen is soft, non-tender, not distended. Bowel sounds normoactive. No peritonitis. MSK: Extremities without clubbing, cyanosis, edema. Normal ROM x 4. Skin: Warm and dry. Not jaundiced. Neuro: AANDOx3. Strength and sensation normal. JAMA. GCS15. Psych: Normal mood. Normal affect. Appropriate insight into current situation. ASSESSMENT AND PLAN: Active Hospital Problems Diagnosis Date Noted - Subarachnoid hemorrhage (HCC) 02/24/2021 - Fall 02/24/2021 - TBI (traumatic brain injury) ([facility]) 02/24/2021 75 year old female s/p mechanical GLF with subarachnoid hemorrhage on 02/23. ? Imaging performed: 1. CXR, PXR 02/[address] H/F/N 02/[address] H 02/24 ? Traumatic Injuries: 1. Acute L anterioer/mid frontal SAH without mass effect or shift 2. Acute comminuted nasal bone fx with mildly displaced nasal septal fracture 3. Questionable minimal nondisplaced fx of the R oribal floor ? Operations/Procedures: 1. N/a ? Care Plan: 1. Monitor on RN floor 2. Neurosurgery consult 1. Repeat CT of Head 710 1. More Prominent Left Frontal SAH 2. q4h neuro checks 3. S/p DDAVP in the ED 4. keppra 1000 one dose, completed 02/23 5. Maintain systolics < 160 6. Hold DVT ppx 3. Okay for clears/mIV 4. Pain and nausea prn 5. Senna-s 6. Daily labs 7. Strict Is/Os 8. Pulmonary hygiene as needed 9. Continue to monitor vitals 10. Progressive mobility, PT/OT ? PPX: 1. DVT: Holding DVT ppx 2. Ulcer: N/a 3. Vit D level if > 65 yo: Pending ? Consulted Services: 1. Trauma 2. NSX ? Dispo Plannin. PT/OT recs pending. Case management following. ? Incidentals: 1. Moderate generalized volume loss 2. Multilevel age-related degenerative changed throughout the spine Staff Trauma Surgeon, Dr. Broderick SIGNATURE: Virgie Flores MD PATIENT NAME: Kamilla Barrow Sample DATE: February 24, 2021 TIME: 8:51 AM Pager: see below Trauma Service Pager: For questions or concerns Mon-Thu 6a-5p please page [phone]. After 5pm and on Weekends and Holidays, please page [phone] if in ICU or [phone] if on RNF. Attending Note I (more content not included)... [facility] Evaluation note Note Date & Type Note Facility documented in this encounter [facility] Summary Purpose Family History No Family History Records FoundNo Family History Records FoundNo Family History Records Found Advance Directives No Advanced Directives Records FoundNo Advanced Directives Records FoundNo Advanced Directives Records Found Reason for Referral Specialty Diagnoses / Procedures Referred By Kaley t Referred To Contact Lab Diagnoses History of breast cancer Family history of breast cancer Family history of prostate cancer Family history of pancreatic cancer Family history of ovarian cancer Procedures Genetic Sendout: Multi-Cancer test with RNA testing Olvin [place]án[place] [address] Referral ID Status Reason Start Date Expiration Date V isits Requested Visits Authorized [id number] Open Specialty Services Required 04/09/2022 04/09/2023 1 1 Additional Source Comments INFORMATION SOURCE (unrecogn ized section and content) DATE CREATED AUTHOR AUTHOR'S ORGANIZ ATION 03/17/2021 [facility] DATE CREATED AUTHOR AUTHOR'S ORGANIZ ATION 05/18/2022 [facility] Source Comments (unrecognize d section and content) In the event this informatio n is protected by the Federal Confidentiality of Alcohol and Drug Abuse Patient Records regulations: The Federal rules restrict any use of the information to criminally investigate or prosecute any alcohol or drug abuse patient.[facility] Reason for Visit (unrecogniz ed section and content) Referral ID Status Reason Start Date Expiration Date V isits Requested Visits Authorized [id number] [facility] Required 04/09/2022 04/09/2023 1 1 Care Teams (unrecognized sec tion and content) FOR RECORDS PERTAINING TO PATIENTS WHO ARE OR HAVE BEEN ENROLLED IN A CHEMICAL DEPENDENCY/SUBSTANCEABUSE PROGRAM, SOME INFORMATION MAY BE OMITTED. This clinical summary was aggregated from multiple sources. Caution should be exercised in using it in the provision of clinical care. This summary normalizes information from multiple sources, and as a consequence, information in this document may materially change the coding, format and clinical context of patient data. In addition, data may be omitted in some cases. CLINICAL DECISIONS SHOULD BE BASED ON THE PRIMARY CLINICAL RECORDS. [employer] [facility]. provides no warranty or guarantee of the accuracy or completeness of information in this document.
--- NOTE | 2023-09-09 19:00 | RAD_ITS ---
STUDY: X-RAY CHEST REASON FOR EXAM: Female, 77 years old. pain TECHNIQUE: Frontal and lateral views of the chest. COMPARISON: January 21, 2019 FINDINGS: Surgical clips left axilla. The lungs are clear and expanded. There is no demonstrated pleural abnormality. Normal size heart. Normal mediastinum and jose d. Normal visualized pulmonary arteries. Normal visualized aortic arch and descending thoracic aorta. Normal visualized thoracic spine. Normal visualized ribs, clavicles, and shoulders. There is no demonstrated abnormality of the visualized soft tissue structures of the upper abdomen. RAD/Chest PA and Lateral IMPRESSION: No acute disease Electronically Signed: Say Stovall MD at 19:52 EST ,
[2023-09-09 19:02] LABS: Prothrombin Time (Protime)PT. 13.4 SECONDS (11.7-14.9)
[2023-09-09 19:03] LABS: Partial Thromboplast Time 28.4 Seconds (24.1-36.2)
[2023-09-09 19:11] LABS: AST(SGOT) 24 U/L (15-37); Alanine Aminotransfer ALT/SGPT 34 U/L (13-56); Albumin, Serum 3.5 g/dL (3.2-5.0); Alkaline Phosphatase 85 U/L (45-117); Anion Gap 3 (5-15); BUN 10 mg/dL (7-18); BUN/Creat Ratio 13.1 RATIO (10-20); Bilirubin, Direct 0.17 mg/dL (0.00-0.30); Calcium,Total 9.4 mg/dL (8.5-10.1); Chloride 108 mmol/L (98-107); Creatinine, Serum 0.76 mg/dL (0.55-1.02); EST Glomerular Filtration Rate 78 mL/min (>60); Est Glom Filt Rate - Afr Amer 94 mL/min (>60); Estimated Creatinine Clearance 56.38 ml/min; Globulin 4.1 g/dL (2.2-4.2); Glucose 109 mg/dL (74-106); Potassium 3.4 mmol/L (3.5-5.1); Protein, Total 7.6 g/dL (6.4-8.2); Sodium Level 137 mmol/L (136-145)
[2023-09-09] MEDS: 0.9% Normal Saline (500mL Bag) 500 ML 1000 ML IV (19:18)
[2023-09-09] MEDS: 0.9% Normal Saline (1000mL) 1,000 ML 150 ML IV (19:18)
[2023-09-09 20:30] VITALS: BP 123/69; PULSE 58; RESP 18; O2SAT 99
--- NOTE | 2023-09-09 21:26 | EX.ED.DYSGE1 ---
HPI History of Present Illness Chief Complaint: Weakness Informant: patient Onset/Context/Timing Onset: Weeks Narrative Narrative: Patient presents with 1 week history of weakness, falls, nausea, vomiting, body aches. She got a dose of Reclast 8 days ago. She states since that time she has had body aches, nausea, and vomiting. She has had a couple falls as well. She does report hitting her head but no loss of consciousness. She is not on anticoagulants. She went for her oncology appointment today and they sent her to the emergency room. Patient has not noted any fever. 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 Essential hypertension Essential tremor Family history of breast cancer GERD (gastroesophageal reflux disease) Hiatal hernia History of asthma Hyperlipidemia 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, tetanus-diphtheria Laceration of left foot Late effect of radiation Murmur, cardiac Non-rheumatic tricuspid valve insufficiency Nonrheumatic mitral (valve) prolapse Osteoporosis Personal history of skin cancer Rectal bleed 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 Screening for breast cancer Screening for osteoporosis Soft tissue radionecrosis Squamous cell skin cancer Subarachnoid bleed (02/23/21) Tearfulness Traumatic brain injury with loss of consciousness UTI (urinary tract infection) Home Medications ergocalciferol (vitamin D2) 1,250 mcg (50,000 unit) capsule 50,000 unit PO WE supplement 07/29/17 [History Last Taken 09/23/17] albuterol sulfate 90 mcg/actuation aerosol inhaler 2 puff inhalation Q4H PRN PRN Sob &/Or Wheezing 08/06/17 [History Last Taken 08/18/17 09:00] multivitamin 1 ea PO DAILY supplement 08/06/17 [History Last Taken 09/27/17] loperamide 2 mg capsule 2 mg PO Q4H PRN PRN Diarrhea 10/01/17 [Rx Last Taken Unknown] acetaminophen 500 mg tablet 500 mg PO Q4H PRN PRN Pain 01/05/18 [History Last Taken 01/05/18 08:00] ondansetron HCl 4 mg tablet 4 mg PO Q8H PRN PRN Nausea 10 days #30 tabs 02/04/18 [Rx Last Taken Unknown] tramadol 50 mg tablet 50 mg PO Q6H PRN PRN Pain 01/21/19 [History Last Taken Unknown] denosumab 60 mg/mL subcutaneous syringe (Prolia) 60 mg subcut [id number] 07/04/19 [History Last Taken Unknown] propranolol 10 mg tablet 10 mg PO TID dystonia 07/31/21 [History Last Taken Unknown] carbidopa 25 mg-levodopa 100 mg tablet (Sinemet) 1 tab PO TID 01/15/23 [History Last Taken Unknown] ondansetron 4 mg disintegrating tablet 4 mg PO Q8H PRN PRN Nausea #10 tabs 09/09/23 [Rx Last Taken Unknown] Allergy/AdvReac Type Severity Reaction Status Date / Time meperidine [From Demerol] Allergy Severe Anaphylaxis Verified 09/09/23 15:29 Family History Father Heart problem Mother Heart problem Grandmother Ovarian cancer Other Anxiety Arthritis Asthma Breast cancer Depression High cholesterol Hormone disorder Osteoporosis Surgical History History of laparoscopic cholecystectomy History of lumpectomy History of repair of right rotator cuff Status post lateral meniscectomy of right knee Status post partial mastectomy Social History Smoking Status: Never smoker alcohol intake: current alcohol intake frequency: holidays/special occasions only substance use type: does not use additional social history: Does Not Take Aspirin Does Not Take Ibuprofen ROS ROS ED Constitutional Constitutional ED: Denies chills or fever(s) Eyes Eyes: Denies discharge from eye(s) ENT ENT ED: Denies discharge from eye(s), rhinorrhea or sore throat Cardiovascular Cardiovascular: Reports other Details: Right rib pain ; Denies palpitations Respiratory/Chest Respiratory/Chest: Denies cough or dyspnea Gastrointestinal Gastrointestinal: Reports nausea and vomiting; Denies abdominal pain or diarrhea Genitourinary Genitourinary ED: Denies dysuria Musculoskeletal Musculoskeletal: Reports myalgias; Denies back pain or extremity pain Integumentary Denies Abrasions or rash Neurologic Neurologic: Reports weakness; Denies headache(s) Psychiatric Psychiatric: Denies anxiety or depression Allergic/Immunologic Allergic/Immunologic ED: Denies lip swelling or urticaria EXAM Physical Exam Const Vital Signs: 09/09/23 15:29 09/09/23 20:30 09/09/23 21:36 Temperature 98 F Temperature Source Temporal Pulse Rate 91 58 L 85 Respiratory Rate 16 18 20 H Blood Pressure 130/83 H 123/69 H 126/76 H Blood Pressure Mean 98 87 92 Pulse Ox 97 99 95 Oxygen Delivery Method Room Air Room Air Positive well nourished and well developed General Appearance ED: well developed HEENT Reports moist mucous membranes Eyes EOMs intact bilaterally Chest Wall inspection of chest normal and palpation of chest normal Resp normal respiratory effort and clear to auscultation bilaterally Cardio regular rate and regular rhythm GI non-tender Auscultation: hypoactive bowel sounds Palpation: soft Extremity Extremity Narrative: Full range of motion of all extremities without pain. Neuro oriented x3 and no sensory deficits noted Neuro Narrative: No focal neurologic deficit. Psych mental status grossly normal MDM MDM MDM Narrative Medical decision making narrative: Patient placed on rn cardiac rehab. EKG obtained to evaluate for cardiac arrhythmia/ischemia. IV line established. Patient given IV fluids for hydration. Labwork obtained to evaluate for leukocytosis, anemia, and electrolyte derangement. Chest x-ray obtained to evaluate for acute lung pathology, cardiac size, or mediastinal abnormality. CT scan of the head obtained to evaluate for trauma including fracture, bleed, edema. History & Record Review Discussion w/independent historian: Patient and Family Additional record(s) reviewed:: Prior outpatient record, Prior ED visit and Prior labs Lab Data Attestation: I reviewed the patient's lab results. Labs: Laboratory Results - last 24 hr 09/09/23 18:49 WBC 6.9 RBC 5.05 Hgb 15.1 H Hct 45.9 MCV 90.9 MCH 29.9 MCHC 32.9 RDW Std Deviation 45.1 H RDW Coeff of Joseph 13.4 Plt Count 347 MPV 9.4 Immature Gran % (Auto) 0.300 Neut % (Auto) 54.8 Lymph % (Auto) 35.8 [place] % (Auto) 7.6 Eos % (Auto) 0.9 Baso % (Auto) 0.6 Absolute Neuts (auto) 3.8 Absolute Lymphs (auto) 2.46 Nucleated RBC % 0 PT 13.4 INR 1.0 APTT 28.4 Sodium 137 Potassium 3.4 L Chloride 108 H Carbon Dioxide 26.0 Anion Gap 3 L BUN 10 Creatinine 0.76 Estim Creat Clear Calc 56.38 Est GFR (MDRD) Af Amer 94 Est GFR (MDRD) Non-Af 78 BUN/Creatinine Ratio 13.1 Glucose 109 H Calcium 9.4 Total Bilirubin 0.60 Direct Bilirubin 0.17 AST 24 ALT 34 Alkaline Phosphatase 85 Total Protein 7.6 Albumin 3.5 Globulin 4.1 Radiography Chest X-Ray - ED: 2 View, Read by ED Physician, Chronic Changes, No Infiltrates and - (No obvious displaced rib fracture.) Diagnostic Testing: Clinical Impression(s) from Imaging Studies Brain CT 09/09/23 18:36 IMPRESSION: Normal unenhanced CT scan of the brain. Electronically Signed: Say Stovall MD at 19:34 EST Reading Location ID and State: [facility] / [place] Tel , Service support , Chest X-Ray 09/09/23 19:00 IMPRESSION: No acute disease Electronically Signed: aSy Stovall MD at 19:52 EST Reading Location ID and State: [facility] / [place] Tel , Service support , EKG Initial EKG: Attestation: I personally reviewed and interpreted this EKG as follows: Interpretation: Sinus Rhythm (Sinus at 72 with no acute ischemia.) Treatment and Re-Evaluation :: CBC was normal white count 6.9 with a hemoglobin of 15.1. Differential unremarkable. Chemistry studies significantly for slightly low potassium at 3.4. LFTs unremarkable. Two-view chest x-ray per my interpretation reveals no acute abnormalities with no obvious displaced rib fracture. Radiology interpretation is reviewed and agrees. CT scan of the head reveals no acute findings. EKG is sinus rhythm with no ischemia. On repeat evaluation patient does feel improved after hydration. She is reassured with our workup here. I will write her prescription for Zofran to have at home as needed. She is to follow-up with oncology as scheduled. Return instructions given. Discharge Plan Triage Chief Complaint: Weakness ED Provider: Sepulveda,Loren Dx/Rx/DC Orders Clinical Impression: Myalgia, Vomiting, Falls Instructions: ED Myalgias, ED Vomiting (Adult), ED Weakness (Uncertain Cause) Prescriptions: New ondansetron 4 mg tablet,disintegrating 4 mg PO Q8H PRN PRN (Reason: Nausea) Qty: 10 0RF No Action propranolol 10 mg tablet 10 mg PO TID Prolia 60 mg/mL syringe 60 mg SC [id number] carbidopa-levodopa [Sinemet] 25-100 mg tablet 1 tab PO TID ergocalciferol (vitamin D2) 50,000 UNIT capsule 50,000 unit PO WE ondansetron HCl 4 MG tablet 4 mg PO Q8H PRN PRN (Reason: Nausea) 10 Days Qty: 30 2RF multivitamin 1 EACH tablet 1 ea PO DAILY albuterol sulfate 1 PUFF inhaler 2 puff INHALATION Q4H PRN PRN (Reason: Sob &/Or Wheezing) loperamide 2 MG capsule 2 mg PO Q4H PRN PRN (Reason: Diarrhea) 0RF acetaminophen 500 MG tablet 500 mg PO Q4H PRN PRN (Reason: Pain) tramadol 50 MG tablet 50 mg PO Q6H PRN PRN (Reason: Pain) Primary Care Provider: Samir Salcido Referrals: Samir Salcido MD [Primary Care Provider] - 1 Week Disposition Disposition: Home, Self Care Discharge Date/Time: 09/09/23 21:36
[2023-09-09 21:36] VITALS: BP 126/76; PULSE 85; RESP 20; O2SAT 95
== END 2023-09-09 21:36 | disposition home or self-care (01) ==
PROVIDERS: Emergency Provider Emergency Medicine; PCP Internal Medicine; Visit Provider Emergency Medicine
DX: M79.10 Myalgia, unspecified site (principal); R11.2 Nausea with vomiting, unspecified; R29.6 Repeated falls; I10 Essential (primary) hypertension; R53.1 Weakness; E78.5 Hyperlipidemia, unspecified; Z79.899 Other long term (current) drug therapy
CPT/HCPCS: 70450; 71046; 80048; 80076; 85025; 85610; 85730; 93005; 96360; 96361; 99283; J7030; J7040; A4216

== ENCOUNTER → 2024-08-05 | Outpatient (CLI) | payer MEDICARE, SELFPAY ==
[2020-07-27 10:35] VITALS: BMI 28.5
--- NOTE | 2024-08-05 09:16 | BI_ITS ---
MAMMOGRAPHY - BILATERAL SCREENING REASON FOR EXAM: Female, 78 years old. Routine annual screening examination. PERTINENT HISTORY: Personal history of breast cancer. Prior right left lumpectomy with radiation and chemotherapy. Grandmother with breast cancer. TECHNIQUE: Digital bilateral breast bridgette (3D mammographic acquisition) in the CC and MLO projections. 2-D mediolateral oblique (MLO) and craniocaudad (CC) views of both breasts were obtained. CAD: Full Field Digital Mammography with Computer Added Detection was performed. COMPARISON: Comparison is made with prior study dated August 04, 2023 and July 30, 2022. FINDINGS: Breast Composition: There are scattered areas of fibroglandular density. There are no dominant masses or suspicious calcifications. Once again, the patient is status post lumpectomy in the deep central lateral aspect of the left breast with resultant postoperative architectural distortion and skin thickening. No other significant abnormalities are identified. There has been no significant change since the prior study. BI/SCRN MAMM (CAD)W/BRIDGETTE BILAT IMPRESSION: Stable bilateral screening mammogram. Yearly follow-up mammogram recommended. (A) ASSESSMENT CATEGORY: BIRADS Category 2: Benign. A letter regarding these results will be sent to the patient by the facility within 30 days. Approximately 10% of breast cancers are not detected by mammography. A normal mammogram should not delay biopsy of a clinically suspicious abnormality. [id number] Electronically Signed: Esteban Alexis MD at 11:24 EST ,
== END | disposition home or self-care (01) ==
LOC: OPBI 09:13
PROVIDERS: PCP Internal Medicine; Referring Provider Internal Medicine Medical Oncology; Visit Provider Internal Medicine Medical Oncology
DX: Z12.31 Encounter for screening mammogram for malignant neoplasm of breast (principal); Z85.3 Personal history of malignant neoplasm of breast; Z92.21 Personal history of antineoplastic chemotherapy; Z92.3 Personal history of irradiation; Z80.3 Family history of malignant neoplasm of breast
CPT/HCPCS: 77063; 77067

== ENCOUNTER → 2025-08-07 | Outpatient (CLI) | payer MEDICARE, SELFPAY ==
[2020-07-27 10:35] VITALS: BMI 28.5
--- NOTE | 2025-08-07 11:00 | BI_ITS ---
EXAM: SCRN MAMM (CAD)W/BRIDGETTE BILAT DATE: 08/07/2025 CLINICAL HISTORY: F, Age 79 y/o , SCREENING TECHNIQUE: Procedure Code: [id number] Modality: MG Procedure: SCRN MAMM (CAD)W/BRIDGETTE BILAT COMPARISON: Prior exam(s) dated 08/05/2024, 08/04/2023, and 07/30/2022. FINDINGS: TISSUE DENSITY: There are scattered areas of fibroglandular density. Bilateral Breast Mammographic Findings: No suspicious masses, suspicious cluster of microcalcifications, architectural distortion or secondary sign of malignancy is identified in either breast. Benign round microcalcifications are seen in both breasts. BI/SCRN MAMM (CAD)W/BRIDGETTE BILAT IMPRESSION: Benign screening mammogram. OVERALL FINAL ASSESSMENT BI-RADS 2: BENIGN RECOMMENDATION: Routine annual follow-up in 1 Year Additional Recommendation none A letter with findings and recommendations will be mailed to the patient. Reading Location: [id number]
== END | disposition home or self-care (01) ==
LOC: OPBI 10:52
PROVIDERS: PCP Internal Medicine; Referring Provider Internal Medicine Medical Oncology; Visit Provider Internal Medicine Medical Oncology
DX: Z12.31 Encounter for screening mammogram for malignant neoplasm of breast (principal)
CPT/HCPCS: 77063; 77067

== ENCOUNTER → 2025-08-11 | Outpatient (CLI) | payer MEDICARE, SELFPAY ==
[2020-07-27 10:35] VITALS: BMI 28.5
--- OUTSIDE RECORDS SUMMARY | 2025-08-11 12:27 | XMS RPT_ITS | CCD ---
Author Organization [facility] CliniSypr Care Team Providers Care Organic Lab Worker Name Role Phone SAMIR HINDS Admitting Unavailable SAMIR HINDS Attending Unavailable SAMIR HINDS Primary Care Unavailable DANYA MAN Consulting Unavailable Pcp, No Primary Care Provider Unavailabl e Samir Hinds Primary Care Provider Samir Hinds Unavailable [phone] Pcp, No Unavailable Unavailable Pcp, Do Not Notify Primary Care Provider Unavail able Loren Julian CGC Unavailable Dr. Samir Hinds Primary Care Provider Dr. Samir Hinds Referring Provider [phone] Dr. Joseph Ramirez Attending Provider [phone] Bayron Hernandez Attending Provider [phone] LOREN JULIAN Attending Unavailable DOC, MISC Referring Unavailable DOC, MISC Referring Unavailable LOREN JULIAN Attending Unavailable AJAY FARZANEH Referring Unavailable FARZANEH HERNÁNDEZ Attending Unavailable Dr. Samir Hinds Primary Care Provider Dr. Samir Hinds Referring Provider Dr. Joseph Ramirez Attending Provider Dr. Samir Hinds Primary Care Provider Dr. Samir Hinds Referring Provider Dr. Sam Paredes Attending Provider Roof COSMETICS PRESSER, COSMETICS PRESSER-Astrid Monahan Attending Provider Dr. Tiny Bhardwaj Attending Provider Dr. Samir Hinds Primary Care Provider Dr. Samir Hinds Referring Provider [phone] Dr. Joseph Ramirez Attending Provider LORETTA TRIMBLE Attending Unavailable LORETTA TRIMBLE Attending Unavailable LORETTA TRIMBLE Attending Unavailable Samir Hinds MD Primary Care Provider Samir Hinds Referring Unavailable Samir Hinds Primary Care Unavailable Kemal Crowell Attending Unavailable Samir Hinds Primary Care Unavailable Joseph Ramirez Referring Unavailable Joseph Ramirez Attending Unavailable Samir Hinds Primary Care Unavailable Karuna Camarena Referring Unavailable Joseph Ramirez Attending Unavailable Samir Hinds Referring Unavailable Samir Hinds Primary Care Unavailable Joseph Ramirez Attending Unavailable No, Physician Primary Care Provider Unavailjazz quevedo NO, PHYSICIAN Primary Care Unavailable FAWN HYMAN Attending Unavailable Allergies Allergy Classification Reported Allergen(s) Allergy Type Date of Onset Reaction(s) Facility (1 source) Meperidine Drug Allergy [facility] Repository (4 sources) Meperidine Drug Allergy 02-26-2022 Anaphylaxis [facility] (1 source) Mannitol Drug Allergy 11-24-2024 [facility] Repository (1 source) Meperidine Drug Allergy 11-24-2024 [facility] Repository (1 source) zoledronic acid Drug Allergy 11-24-2024 [facility] Repository (1 source) water for injection,steril e Drug allergy (disorder) 11-24-2024 [facility] Repository Medications Current Medications Medication Drug Class(es) Dates Sig (Normalized) Sig (Original) acetaminophen 500 mg oral tablet (4 sources) Start: 01-05-2018 take 500 mg by mouth every four hours as needed Acetaminophen Active 500 MG PO EVERY 4 HOURS NEEDED January 04, 2018 11:00pm Albuterol (4 sources) beta2-Adrenergic Agonist Start: 08-06-2017 take 1 puff(s) by inhalation every four hours as needed Albuterol Sulfate Active 2 PUFF INHALATION EVERY 4 HOURS NEEDED August 06, 2017 12:00am Start: 08-06-2017 take 1 puff(s) by in halation every four hours as needed Albuterol Sulfate Active 2 PUFF INHALATION EVERY 4 HOURS NEEDED August 06, 2017 1:00am carbidopa 25 mg / levodopa 100 mg oral tablet (14 sources) Aromatic Amino Acid Decarboxylation Inhibitor, Aromatic Amino Acid Start: 01-15-2023 take 2 tablets by mouth three times daily carbidopa-levodopa (SINEMET) 25-100 mg per tablet Take 2 (two) tablets by mouth 3 (three) times a day . 07/27/2023 Active 1 ml denosumab 60 mg/ml prefilled syringe (4 sources) RANK Ligand Inhibitor Start: 07-04-2019 Denosumab (Prolia) 60 mg/mL syringe Active 60 MG SC every 6 months July 04, 2019 12:00am ergocalciferol 1.25 mg oral capsule (4 sources) Provitamin D2 Compound Start: 07-29-2017 Ergocalciferol (Vitamin D2) Active 71606 UNIT PO WE July 29, 2017 12:00am ketoconazole 20 mg/ml topical cream (1 source) Azole Antifungal Start: 12-30-2024 ketoconazole (NIZORAL) 2 % cream apply to the affected area twice a day 12/30/2024 Active loperamide hydrochloride 2 mg oral capsule (4 sources) Opioid Agonist Start: 10-01-2017 take 2 mg by mouth every four hours as needed Loperamide Active 2 MG PO EVERY 4 HOURS NEEDED October 01, 2017 12:00am Multivitamin preparation (4 sources) Start: 08-06-2017 Multivitamin Active 1 EACH PO DAILY August 06, 2017 12:00am Start: 08-06-2017 Multivitamin A ctive 1 EACH PO DAILY August 06, 2017 1:00am nystatin 100 unt/mg topical powder (5 sources) Polyene Antifungal Start: 03-01-2025 Klayesta po wder Apply topically 2 (two) times a day as needed . 03/01/2025 Active Start: 12-01-2017 End: 01-05-2018 Nystatin Discontinued 1 APPL IC TOPICAL TWICE A DAY November 30, 2017 11:00pm January 05, 2018 4:51pm ondansetron 4 mg disintegrating oral tablet (13 sources) Serotonin-3 Receptor Antagonist Start: 09-09-2023 take 4 mg by mouth every eight hours as needed Ondansetron Active 4 MG PO EVERY 8 HOURS NEEDED September 09, 2023 12:00am Start: 09-02-2017 End: 02-04-2018 take 4 mg by mouth every eight hours as needed Ondansetron Hcl Discontinued 4 MG PO EVERY 8 HOURS NEEDED 30 November 02, 2017 8:31am February 04, 2018 8:13am propranolol hydrochloride 10 mg oral tablet (20 sources) beta-Adrenergic Tuyet Start: 07-27-2023 End: 10-10-2024 propranoloL (INDERAL) 10 MG tablet Take 3 tablets 3 times daily 10/10/2024 Active Start: 07-31-2021 take 10 mg by mouth three times daily Propranolol Active 10 MG PO THREE TIMES A DAY July 31, 2021 1:23pm Start: 07-21-2017 End: 07-31-2021 take 10 mg by mouth twice daily Propranolol Discontinued 10 MG PO TWICE A DAY October 22, 2018 9:07am July 31, 2021 1:24pm traMADol hydrochloride 50 mg oral tablet (8 sources) Opioid Agonist Start: 01-21-2019 take 50 mg by mouth every six hours as needed Tramadol Active 50 MG PO EVERY 6 HOURS NEEDED January 20, 2019 11:00pm Start: 07-21-2017 End: 10-01-2017 Tramadol (Ultram) 50 mg tabl et Discontinued 50 MG PO NEEDED July 21, 2017 12:00am October 01, 2017 12:47pm Completed/Discontinued Medications Medication Drug Class(es) Dates Sig (Normalized) Sig (Original) amoxicillin 500 mg oral tablet (4 sources) Penicillin-class Antibacterial Start: 01-21-2019 End: 02-09-2019 take 500 mg by mouth three times daily Amoxicillin Discontinued 500 MG PO THREE TIMES A DAY January 20, 2019 11:00pm February 09, 2019 2:41pm anastrozole 1 mg oral tablet (20 sources) Aromatase Inhibitor Start: 01-30-2020 End: 09-09-2023 take 1 mg by mouth once daily Anastrozole Discontinued 1 MG PO DAILY 90 90 January 30, 2020 9:55am January 29, 2021 11:18am Start: 04-28-2018 End: 12-17-2019 take 1 mg by mouth once daily Anastrozole Discontinued 1 MG PO DAILY 90 90 December 22, 2018 7:38am December 16, 2019 11:02pm aspirin 81 mg delayed release oral tablet (6 sources) Platelet Aggregation Inhibitor, Nonsteroidal Anti-inflammatory Drug Start: 01-26-2018 End: 09-09-2023 take 81 mg by mouth once daily Aspirin Discontinued 81 MG PO DAILY January 15, 2023 1:25pm September 09, 2023 5:37pm benzonatate 100 mg oral capsule (4 sources) Non-narcotic Antitussive Start: 01-21-2019 End: 07-04-2019 take 100 mg by mouth every six hours as needed Benzonatate Discontinued 100 MG PO EVERY 6 HOURS NEEDED January 20, 2019 11:00pm July 04, 2019 1:22pm onabotulinumtoxina 200 unt injection (6 sources) Acetylcholine Release Inhibitor Start: 03-08-2025 End: 03-08-2025 onabotulinumtoxinA (Botox) injection 200 Units Start: 03-08-2025 End: 03-08-2025 inject 200 [IU] by intramuscular injection once 200 Units, Intramuscular, Once, On Thu03/08/25 at 1430, For 1 dose, Charging context for this clinic-administered medication: Medically Necessary/Insurance Start: 11-09-2024 End: 11-09-2024 onabotulinumtoxinA (Botox) i njection 200 Units Start: 11-09-2024 End: 11-09-2024 inject 200 [IU] by intramuscular injection once 200 Units, Intramuscular, Once, On Thu11/09/24 at 1500, For 1 dose, Charging context for this clinic-administered medication: Medically Necessary/Insurance Start: 05-25-2024 End: 05-25-2024 onabotulinumtoxinA (Botox) i njection 200 Units Start: 05-25-2024 End: 05-25-2024 inject 200 [IU] by intramuscular injection once 200 Units, Intramuscular, Once, On Thu05/25/24 at 1415, For 1 dose, Charging context for this clinic-administered medication: Medically Necessary/Insurance colestipol hydrochloride 1000 mg oral tablet (8 sources) Bile Acid Sequestrant Start: 07-21-2017 End: 06-25-2023 take 1 g by mouth once daily Colestipol Discontinued 1 GM PO DAILY March 04, 2021 9:01am June 25, 2023 1:18pm ezetimibe 10 mg oral tablet (8 sources) Dietary Cholesterol Absorption Inhibitor Start: 04-08-2022 End: 09-09-2023 take 1 tablet by mouth once daily Ezetimibe (Zetia) 10 mg tablet Discontinued 10 MG PO DAILY April 08, 2022 10:41am September 09, 2023 5:38pm imiquimod 50 mg/ml topical cream (4 sources) Start: 03-31-2023 End: 05-12-2023 Imiquimod Discontinued 4 mm TOPICAL 5 times per week 30 March 30, 2023 11:00pm May 11, 2023 11:04pm apply once daily Thursday through Thursday before bedtime. Wipe off excess in the morning. Weekends off. Do this for 6 weeks. Start: 01-27-2023 End: 03-10-2023 Imiquimod Discontinued 4 mm TOPICAL 5 times per week 30 January 26, 2023 11:00pm March 09, 2023 11:03pm apply once daily Thursday through Thursday before bedtime, weekends off, for 6 weeks levoFLOXacin 500 mg oral tablet (8 sources) Quinolone Antimicrobial Start: 09-26-2017 End: 10-01-2017 take 500 mg by mouth once daily Levofloxacin Discontinued 500 MG PO DAILY@0600 September 28, 2017 2:59pm October 01, 2017 12:44pm temazepam 15 mg oral capsule (4 sources) Benzodiazepine Start: 09-28-2017 End: 07-04-2019 take 15 mg by mouth at bedtime as needed Temazepam Discontinued 15 MG PO AT BEDTIME NEEDED September 28, 2017 12:00am July 04, 2019 1:23pm Problems Problem Classification Problem Date Documented Da te Episodic/Chronic Abdominal pain (4 sources) Abdominal pain; Translations: [Unspecified abdominal pain] 07-31-2021 Episodic Acute cerebrovascular disease (8 sources) Hemorrhage into subarachnoid space of neuraxis; Translations: [Nontraumatic subarachnoid hemorrhage, unspecified] Onset: 02-23-2021 03-04-2021 Chronic Administrative/social admission (4 sources) Education and/or schooling finding; Translations: [Problems related to education and literacy, unspecified] 01-21-2019 Episodic Allergic reactions (5 sources) Disorder of soft tissue; Translations: [Other specified disorders of the skin and subcutaneous tissue related to radiation] 01-29-2023 Episodic Anxiety disorders (3 sources) Fear of getting cancer; Translations: [Other specified phobia] 01-29-2023 Chronic Asthma (5 sources) Unspecified asthma, uncomplicated; Translations: [Asthmatic bronchitis] Onset: 05-23-2019 01-22-2019 Chronic Cancer of breast (15 sources) Malignant neoplasm of female breast; Translations: [Malignant neoplasm of unspecified site of left female breast] Onset: 11-24-2024 Chronic Cancer of breast (10 sources) Personal history of malignant neoplasm of breast; Translations: [History of malignant neoplasm of breast] Onset: 05-23-2019 Episodic Cardiac dysrhythmias (4 sources) Palpitations; Translations: [Palpitations] 06-25-2023 Episodic Conditions associated with dizziness or vertigo (5 sources) Vertigo; Translations: [Dizziness and giddiness] Onset: 03-13-2025 11-09-2024 Episodic Disorders of lipid metabolism (7 sources) Hyperlipidemia; Translations: [Hyperlipidemia, unspecified] Chronic Diverticulosis and diverticulitis (1 source) Diverticulosis of large intestine without perforation or abscess without bleeding; Translations: [DVRTCLOS LG INT NO PERF/ABSC W/O BL] Onset: 05-23-2019 Chronic E Codes: Fall (1 source) Fall; Translations: [Unspecified fall, initial encounter] 09-09-2023 Episodic Essential hypertension (11 sources) Essential hypertension; Translations: [Essential (primary) hypertension] Chronic Heart valve disorders (12 sources) Mitral valve prolapse; Translations: [Nonrheumatic mitral (valve) prolapse] Chronic Heart valve disorders (4 sources) Heart murmur; Translations: [Cardiac murmur, unspecified] 01-21-2019 Episodic Hemorrhoids (1 source) First degree hemorrhoids; Translations: [FIRST DEGREE HEMORRHOIDS] Onset: 05-23-2019 Episodic Malaise and fatigue (8 sources) Left hemiparesis; Translations: [Weakness] 05-09-2019 Episodic Miscellaneous mental health disorders (4 sources) Crying; Translations: [Other symptoms and signs involving emotional state] 07-31-2021 Episodic Mood disorders (7 sources) Depressive disorder; Translations: [Depression] Chronic Nausea and vomiting (1 source) Vomiting; Translations: [Vomiting, unspecified] 09-09-2023 Episodic Nonmalignant breast conditions (6 sources) Size of breasts unequal; Translations: [Disproportion of reconstructed breast] 01-29-2023 Episodic Open wounds of head; neck; and trunk (4 sources) Laceration of forehead; Translations: [Laceration without foreign body of other part of head, initial encounter] 02-23-2021 Episodic Osteoarthritis (2 sources) Arthritis; Translations: [Unspecified osteoarthritis, unspecified site] 01-27-2023 Chronic Osteoporosis (4 sources) Osteoporosis; Translations: [Age-related osteoporosis without current pathological fracture] 07-31-2021 Chronic Other aftercare (1 source) FDC (current) use of aspirin; Translations: [DIESEL TECHNICIAN MECHANIC CURRENT USE OF ASPIRIN] Onset: 05-23-2019 Episodic Other aftercare (1 source) Other half-way (current) drug therapy; Translations: [OTH DIESEL TECHNICIAN MECHANIC CURRENT DRUG THERAPY] Onset: 05-23-2019 Episodic Other bone disease and musculoskeletal deformities (4 sources) Osteopenia; Translations: [Other specified disorders of bone density and structure, unspecified site] 01-10-2020 Episodic Other bone disease and musculoskeletal deformities (8 sources) Other specified disorders of bone density and structure, unspecified site; Translations: [Disorder of bone and cartilage, unspecified] Onset: 12-03-2024 Episodic Other bone disease and musculoskeletal deformities (1 source) Other specified disorders of bone density and structure, right thigh; Translations: [Other specified disorders of bone density and structure, right thigh] Onset: 12-03-2024 Episodic Other bone disease and musculoskeletal deformities (1 source) Other specified disorders of bone density and structure, left thigh; Translations: [Other specified disorders of bone density and structure, left thigh] Onset: 12-03-2024 Episodic Other connective tissue disease (4 sources) Cramp in lower limb; Translations: [Cramp and spasm] 01-21-2019 Episodic Other connective tissue disease (3 sources) Cramp and spasm; Translations: [Cramp of limb] Episodic Other connective tissue disease (1 source) Muscle pain; Translations: [Myalgia, unspecified site] 09-09-2023 Episodic Other connective tissue disease (1 source) Recurrent falls ; Translations: [Repeated falls] 09-09-2023 Episodic Other connective tissue disease (1 source) Repeated falls; Translations: [History of fall] 09-09-2023 Episodic Other hereditary and degenerative nervous system conditions (10 sources) Isolated cervical dystonia; Translations: [Spasmodic torticollis] Onset: 02-11-2023 05-25-2024 Chronic Other injuries and conditions due to external causes (2 sources) Late effect of radiation; Translations: [Radiation sickness, unspecified, sequela] 01-29-2023 Episodic Other injuries and conditions due to external causes (1 source) Radiation sickness, unspecified, sequela; Translations: [Late effect of radiation] 03-31-2023 Episodic Other liver diseases (4 sources) Raised cardiac enzyme or marker; Translations: [Abnormal levels of other serum enzymes] 05-09-2019 Episodic Other lower respiratory disease (4 sources) H/O: asthma; Translations: [Personal history of other diseases of the respiratory system] 05-09-2019 Episodic Other nervous system disorders (4 sources) Expressive dysphasia; Translations: [Aphasia] 01-29-2022 Chronic Other nervous system disorders (1 source) Aphasia; Translations: [Aphasia] Chronic Other nervous system disorders (4 sources) Paresthesia; Translations: [Paresthesia of skin] 05-09-2019 Episodic Other nervous system disorders (16 sources) Tremor; Translations: [Tremor, unspecified] Onset: 02-11-2023 01-21-2019 Episodic Other non-epithelial cancer of skin (3 sources) History of malignant neoplasm of skin; Translations: [Personal history of other malignant neoplasm of skin] 01-29-2023 Episodic Other nutritional; endocrine; and metabolic disorders (1 source) Hypercalcemia; Translations: [Hypercalcemia] 09-01-2023 Chronic Other nutritional; endocrine; and metabolic disorders (3 sources) Hypercalcemia; Translations: [Hypercalcemia] Onset: 12-03-2024 08-06-2023 Chronic Other screening for suspected conditions (not mental disorders or infectious disease) (7 sources) Encounter for screening for malignant neoplasm of colon; Translations: [Patient encounter status] Onset: 05-23-2019 01-15-2023 Episodic Other skin disorders (2 sources) Actinic keratosis; Translations: [Actinic keratosis] 05-22-2023 Episodic Other skin disorders (1 source) Actinic keratosis; Translations: [Actinic keratosis] 03-31-2023 Episodic Residual codes; unclassified (1 source) Personal history of antineoplastic chemotherapy; Translations: [PERSONAL HX ANTINEOPLASTIC CHEMO] Onset: 05-23-2019 Episodic Residual codes; unclassified (1 source) Personal history of irradiation; Translations: [PERSONAL HISTORY OF IRRADIATION] Onset: 05-23-2019 Episodic Residual codes; unclassified (4 sources) Family history of breast cancer; Translations: [...] malignant neoplasm of ovary] Onset: 04-09-2022 Episodic Residual codes; unclassified (1 source) Family history of malignant neoplasm of breast; Translations: [Family history of malignant neoplasm of breast] 03-31-2023 Episodic Residual codes; unclassified (2 sources) Estrogen receptor positive status [ER+]; Translations: [Estrogen receptor positive status [ER+]] Onset: 11-24-2024 Episodic Secondary malignancies (4 sources) Regional lymph node metastasis present ; Translations: [Secondary and unspecified malignant neoplasm of lymph node, unspecified] 01-21-2019 Chronic Secondary malignancies (3 sources) Secondary and unspecified malignant neoplasm of lymph node, unspecified; Translations: [Secondary and unspecified malignant neoplasm of lymph nodes, site unspecified] Chronic Spondylosis; intervertebral disc disorders; other back problems (4 sources) Backache; Translations: [Dorsalgia, unspecified] 07-31-2021 Episodic Sprains and strains (1 source) Cervical vertigo 03-13-2025 Episodic Results Test Name Value Interpretation Reference Range Facility CBC W/Diff, Automatedon 11-15 Absolute Lymph 2.74 X10 3/uL Normal 0.83-4.51 [facility] Comment on above: Performed By: #### L 504.2610, L501.5200, L100.0100, L500.4050, L501.2300 #### [facility] [address] [place], [address] Absolute Neut 5.7 X10 3/uL Normal 2.0-7.7 [facility] Comment on above: Performed By: #### L [id number], [id number], L100.0100, L500.4050, L501.2300 #### [facility] [address] [place], [address] Basophils/100 WBC (Bld) 0.5 % Normal 0-1 [facility] Comment on above: Performed By: #### L [id number], [id number], L100.0100, L500.4050, L501.2300 #### [facility] [address] [place], [address] Eosinophils/100 WBC (Bld) 1.1 % Normal 0-5 [facility] Comment on above: Performed By: #### L [id number], [id number], L100.0100, L500.4050, [id number] #### [facility] [address] [place], [address] Erythrocyte distribution width (RBC) [Ratio] 13.5 % Normal 11.6-14.6 [facility] Comment on above: Performed By: #### L [id number], [id number], L100.0100, L500.4050, L501.2300 #### [facility] [address] [place], [address] Hematocrit (Bld) [Volume fraction] 46.3 % Normal 37-47 [facility] Comment on above: Performed By: #### L [id number], [id number], L100.0100, L500.4050, L501.2300 #### [facility] [address] [place], [address] Hemoglobin (Bld) [Mass/Vol] 15.5 g/dL High 12.0-15.0 [facility] Comment on above: Performed By: #### L [id number], [id number], L100.0100, L500.4050, L501.2300 #### [facility] [address] [place], [address] IG% 0.300 Normal 0.0-0.9 [facility] Comment on above: Result Comment: IG% - Immature Granulocytes (promyelocytes, myelocytes and metamyelocytes) > 1% indicates that a LEFT SHIFT is Present. Performed By: #### L [id number], L501.5200, L100.0100, L500.4050, L501.2300 #### [facility] [address] [place], [address] Lymphocytes/100 WBC (Bld) 29.0 % Normal 19-41 [facility] Comment on above: Performed By: #### L [id number], [id number], L100.0100, L500.4050, L501.2300 #### [facility] [address] [place], [address] MCH (RBC) [Entitic mass] 31.1 pg Normal 27.0-32.0 [facility] Comment on above: Performed By: #### L [id number], [id number], L100.0100, L500.4050, L501.2300 #### [facility] [address] [place], [address] MCHC (RBC) [Mass/Vol] 33.5 g/dL Normal 32-36 [facility] Comment on above: Performed By: #### L [id number], [id number], L100.0100, L500.4050, L501.2300 #### [facility] [address] [place], [address] MCV (RBC) [Entitic vol] 93.0 fL Normal 81-99 [facility] Comment on above: Performed By: #### L [id number], [id number], L100.0100, L500.4050, L501.2300 #### [facility] [address] [place], [address] Monocytes/100 WBC (Bld) 8.9 % Normal 0-10 [facility] Comment on above: Performed By: #### L [id number], [id number], L100.0100, L500.4050, L501.2300 #### [facility] [address] [place], [address] Neutrophils/100 WBC (Bld) 60.2 % Normal 47-70 [facility] Comment on above: Performed By: #### L [id number], L501.5200, L100.0100, L500.4050, L501.2300 #### [facility] [address] [place], [address] Nucleated RBC (Bld) [#/Vol] 0 10*3/uL Normal 0-5 [facility] Comment on above: Performed By: #### L [id number], [id number], L100.0100, L500.4050, L501.2300 #### [facility] [address] [place], [address] Platelet mean volume (Bld) [Entitic vol] 10.7 fL Normal 6.2-12.0 [facility] Comment on above: Performed By: #### L [id number], [id number], L100.0100, L500.4050, L501.2300 #### [facility] [address] [place], [address] Platelets (Bld) [#/Vol] 253 10*3/uL Normal 150-450 [facility] Comment on above: Performed By: #### L [id number], [id number], L100.0100, L500.4050, L501.2300 #### [facility] [address] [place], [address] RBC (Bld) [#/Vol] 4.98 10*6/uL Normal 4.2-5.4 [facility] Comment on above: Performed By: #### L [id number], [id number], L100.0100, L500.4050, L501.2300 #### [facility] [facility] [address] [place], [address] RDW SD 46.2 fl High 35.1-43.9 [facility] Comment on above: Performed By: #### L 504.2610, L501.5200, L100.0100, L500.4050, L501.2300 #### [facility] [address] [place], [address] WBC (Bld) [#/Vol] 9.5 10*3/uL Normal 4.4-11.0 [facility] Comment on above: Performed By: #### L 504.2610, L501.5200, L100.0100, L500.4050, L501.2300 #### [facility] [address] [place], [address] Comprehensive Metabolic [facility] 11-24-2024 Albumin [Mass/Vol] 4.1 g/dL Normal 3.4-4.8 [facility] Comment on above: Performed By: #### L 504.2610, L501.5200, L100.0100, L500.4050, L501.2300 #### [facility] [address] [place], [address] Albumin/Globulin [Mass ratio] 1.3 {ratio} Normal 0.9-2.4 [facility] Comment on above: Performed By: #### L 504.2610, L501.5200, L100.0100, L500.4050, L501.2300 #### [facility] [address] [place], [address] ALK PHOS 99 U/L Normal 35-104 [facility] Comment on above: Performed By: #### L 504.2610, L501.5200, L100.0100, L500.4050, L501.2300 #### [facility] [address] [place], [address] ALT [Catalytic activity/Vol] 26 U/L Normal <=34 [facility] Comment on above: Performed By: #### L 504.2610, L501.5200, L100.0100, L500.4050, L501.2300 #### [facility] [address] [place], [address] AST [Catalytic activity/Vol] 28 U/L Normal <=31 [facility] Comment on above: Performed By: #### L 504.2610, L501.5200, L100.0100, L500.4050, L501.2300 #### [facility] [address] [place], [address] Bilirubin [Mass/Vol] 0.34 mg/dL Normal 0.00-1.30 [facility] Comment on above: Performed By: #### L 504.2610, L501.5200, L100.0100, L500.4050, L501.2300 #### [facility] [address] [place], [address] BUN/CRE 15.7 RATIO Normal 10-20 [facility] Comment on above: Performed By: #### L 504.2610, L501.5200, L100.0100, L500.4050, L501.2300 #### [facility] [address] [place], [address] Calcium [Mass/Vol] 9.8 mg/dL Normal 7.6-11.0 [facility] Comment on above: Performed By: #### L 504.2610, L501.5200, L100.0100, L500.4050, L501.2300 #### [facility] [address] [place], [address] Chloride [Moles/Vol] 105 mmol/L Normal 98-108 [facility] Comment on above: Performed By: #### L 504.2610, L501.5200, L100.0100, L500.4050, L501.2300 #### [facility] [address] [place], [address] CO2 [Moles/Vol] 24.8 mmol/L Normal 21.0-32.0 [facility] Comment on above: Performed By: #### L 504.2610, L501.5200, L100.0100, L500.4050, L501.2300 #### [facility] [address] [place], [address] Creatinine [Mass/Vol] 0.95 mg/dL Normal 0.70-1.20 [facility] Comment on above: Performed By: #### L 504.2610, L501.5200, L100.0100, L500.4050, L501.2300 #### [facility] [address] [place], [address] ECRCL 47.20 ml/min Low 50-250 [facility] Comment on above: Performed By: #### L 504.2610, L501.5200, L100.0100, L500.4050, L501.2300 #### [facility] [address] [place], [address] GAP 10 Normal 5-15 [facility] Comment on above: Performed By: #### L 504.2610, L501.5200, L100.0100, L500.4050, L501.2300 #### [facility] [address] [place], [address] GFR/1.73 sq M.predicted among non-blacks MDRD (S/P/Bld) [Vol rate/Area] 61 mL/min/{1.73_m2} Normal >60 [facility] Comment on above: Result Comment: mL/m in/1.73m2 CKD-EPI Creatinine Equation (2020) Performed By: #### L 504.2610, L501.5200, L100.0100, L500.4050, L501.2300 #### [facility] [address] [place], [address] Globulin (S) [Mass/Vol] 3.1 g/dL Normal 2.2-4.2 [facility] Comment on above: Performed By: #### L 504.2610, L501.5200, L100.0100, L500.4050, L501.2300 #### [facility] [address] [place], [address] Glucose [Mass/Vol] 92 mg/dL Normal 70-99 [facility] Comment on above: Performed By: #### L 504.2610, L501.5200, L100.0100, L500.4050, L501.2300 #### [facility] [address] [place], [address] Potassium [Moles/Vol] 4.3 mmol/L Normal 3.3-5.1 [facility] Comment on above: Result Comment: Hemo lysis present, Results??could be affected. ?? Performed By: #### L 504.2610, L501.5200, L100.0100, L500.4050, L501.2300 #### [facility] [address] [place], [address] Sodium [Moles/Vol] 140 mmol/L Normal 133-145 [facility] Comment on above: Performed By: #### L 504.2610, L501.5200, L100.0100, L500.4050, L501.2300 #### [facility] [address] [place], [address] T PROT 7.2 g/dL Normal 5.9-8.4 [facility] Comment on above: Performed By: #### L 504.2610, L501.5200, L100.0100, L500.4050, L501.2300 #### [facility] [address] [place], [address] Urea nitrogen [Mass/Vol] 15 mg/dL Normal 4-19 [facility] Comment on above: Performed By: #### L 504.2610, L501.5200, L100.0100, L500.4050, L501.2300 #### [facility] [address] [place], [address] LDHon 11-24-2024 LDH 210 U/L Normal 84-246 [facility] Comment on above: Order Comment: 1 Result Comment: Hemo lysis present, Results??could be affected. ?? Performed By: #### L 504.2610, L501.5200, L100.0100, L500.4050, L501.2300 #### [facility] [address] [place], [address] Magnesiumon 11-24-2024 Magnesium [Mass/Vol] 2.3 mg/dL High 1.5-2.2 [facility] Comment on above: Performed By: #### L 504.2610, L501.5200, L100.0100, L500.4050, L501.2300 #### [facility] [address] [place], [address] Oncology Visit Reporton 11-15 Oncology Visit Report [facility] [address] [place] [address] OFFICE VISIT Date of Service: 11/24/24 1138 MR#: [id number] Acct: [id number] Name: JYOTSNA PASCUAL Rep #: [id number] : 1945 From: Joseph Ramirez MD Age/Sex: 79/F [place] [facility] Status: Signed HPI Subjective Date of Service 11/24/24 Chief Complaint F/u for L breast cancer. 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 She used to go for annual mammograms but missed 4 years while being preoccupied taking care of her ill father.??? She does not have any first- degree relatives with breast cancer but has 3 cousins with breast cancer.??? She has a twin sister who refuses screening mammography. On August 18, 2017 she underwent a partial left mastectomy with sentinel lymph node biopsy.??? 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 Tumor is ER positive (95%) MI positive (95%) HER-2 not amplified (0 IHC) Treatment: - August 18, 2017 she underwent a partial left mastectomy with sentinel lymph node biopsy. - Adjuvant AC -10/2017 (dose dense) - adjuvant taxol (weekly) 12/01/2017-02/09/2018 (3 cycles) , then declined C4. - Adjuvant radiation: 4256 cGy of 10 MV photons in 16 fractions to the left breast with a 3D conformal technique consisting of RPO and DONNIE candelaria with field in field for improved dose homogeneity.??? A sequential boost consisting of 1000 cGy of mixed 6 and 10 MV photons in 5 fractions was delivered to the lumpectomy PTV evaluated with a 3D conformal technique technique. This brought the total dose delivered to the lumpectomy PTV Eval to 5256 cGy in 21 fractions. Date of First Treatment: 03/29/18 Date of Last Treatment: 04/27/18 -Started Adjuvant hormonal therapy with aromatase inhibitor-Arimidex May 2018. -Started Prolia for osteopenia on 06/28/2018. Changed to Reclast Got Reclast on 09/01/2023. Since then she has had multiple falls, vomiting, general weakness and difficulty walking. She does not want to take it anymore. She stopped Anastrozole in August 2023.. Comes for follow up. [facility] Medical History Orbital floor fracture Nasal bone fracture Personal history of skin cancer Family history of breast cancer Deformity of breast after mastectomy Cancer phobia Late effect of radiation Soft tissue radionecrosis Actinic keratosis Arthritis Allergies Screening for breast cancer Screening for osteoporosis Tearfulness Abdominal pain Back pain Osteoporosis Traumatic brain injury with loss of consciousness Essential tremor Dystonia Subarachnoid bleed (02/23/21) UTI (urinary tract infection) Squamous cell skin cancer Nonrheumatic mitral (valve) prolapse 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, tetanus-diphtheria Laceration of left foot History of asthma Non-rheumatic tricuspid valve insufficiency Essential hypertension Chemotherapy management, encounter for Rectal bleed Colitis GERD (gastroesophageal reflux disease) Hyperlipidemia Regional lymph node metastasis present Cancer of left female breast Asthma Hiatal hernia Regional lymph node metastasis present Cancer of left female breast Murmur, cardiac Surgical History Status post partial mastectomy History of repair of right rotator cuff Status post lateral meniscectomy of right knee History of laparoscopic cholecystectomy History of lumpectomy Family History Father Heart problem Mother Heart problem Grandmother Ovarian cancer Other Anxiety Arthritis Asthma Breast cancer Depression High cholesterol Hormone disorder Osteoporosis Social History Smoking Status: Never smoker alcohol intake: current alcohol intake frequency: holidays/special occasions only substance use type: does not use additional social history: Does Not Take Aspirin Does Not Take Ibuprofen Intake Vital Signs 11/30/23 13:02 06/22/24 11:26 11/24/24 11:40 11/24/24 11:42 Height 5 ft 4 in 5 ft 4 in 5 ft 4 in 5 ft 4 in Weight: 76.204 kg BMI 28.8 BP 119/78 Blood Pressure Location Rt brachial Position Sitting Respiration 18 Pulse 57 L Pulse Source Monitor Temp 98.3 F Temperature Source Temporal Artery Pulse Oximetry (%) 99 Oxygen Delivery Method room air Intake Is patient in pain?: No A (more content not included)... Normal [facility] Phosphoruson 11-24-2024 Phosphate [Mass/Vol] 3.5 mg/dL Normal 2.7-4.5 [facility] Comment on above: Performed By: #### L 504.2610, L501.5200, L100.0100, L500.4050, L501.2300 #### [facility] [address] [facility] [address] [place], [place], [id number] SCRN MAMM (CAD)W/BRIDGETTE BILATo n 08-05-2024 SCRN MAMM (CAD)W/BRIDGETTE BILAT [facility] Services [address] [place], [place] [address] SCRN MAMM (CAD)W/BRIDGETTE BILAT MR#: [id number] Acct: [id number] Name: JYOTSNA PASCUAL Rep #: [id number] : 1945 F 78 From: Esteban wallis MD PCP: Samir Hinds Status: REG [facility] Study: SCRN MAMM (CAD)W/BRIDGETTE BILAT Date of Exam: 07/18 Exam# [id number] Ordering Dr: Joseph Ramirez MD [id number] MAMMOGRAPHY - BILATERAL SCREENING REASON FOR EXAM: Female, 78 years old. Routine annual screening examination. PERTINENT HISTORY: Personal history of breast cancer. Prior right left lumpectomy with radiation and chemotherapy. Grandmother with breast cancer. TECHNIQUE: Digital bilateral breast bridgette (3D mammographic acquisition) in the CC and MLO projections. 2-D mediolateral oblique (MLO) and craniocaudad (CC) views of both breasts were obtained. CAD: Full Field Digital Mammography with Computer Added Detection was performed. COMPARISON: Comparison is made with prior study dated August 04, 2023 and July 30, 2022. FINDINGS: Breast Composition: There are scattered areas of fibroglandular density. There are no dominant masses or suspicious calcifications. Once again, the patient is status post lumpectomy in the deep central lateral aspect of the left breast with resultant postoperative architectural distortion and skin thickening. No other significant abnormalities are identified. There has been no significant change since the prior study. BI/SCRN MAMM (CAD)W/BRIDGETTE BILAT IMPRESSION: Stable bilateral screening mammogram. Yearly follow-up mammogram recommended. (A) ASSESSMENT CATEGORY: BIRADS Category 2: Benign. A letter regarding these results will be sent to the patient by the facility within 30 days. Approximately 10% of breast cancers are not detected by mammography. A normal mammogram should not delay biopsy of a clinically suspicious abnormality. [id number] Electronically Signed: Esteban Alexis MD at 11:24 EST Reading Location ID and State: [address] [place] [address] , Service support , CC: Dr. Joseph Ramirez MD; Samir Hinds Terminal Press Operator: Signed Normal [facility] Cardiology Visit Reporton Cardiology Visit Report [facility] [address] [place] [address] OFFICE VISIT Date of Service: 06/22/24 MR#: [id number] Acct: [id number] Name: JYOTSNA PASCUAL Rep #: [id number] : 1945 Provider: Dr. Kemal العراقي MD Age/Sex: 78/F Location: [facility] Status: Signed HPI HPI History of Present Illness Details: Patient comes in today for cardiovascular monitoring. She is a very pleasant 78-year-old white female who I took care of her back in 2002 at [facility] when he was severely ill with significant coronary artery disease. The patient reports she is done fairly well in her home environment she has a history of mitral valve prolapse hyperlipidemia and hypertension. She also has a history of left breast partial mast ectomy treated by chemo and radiation therapy. The patient also has a history of a closed head injury 3 years ago when she was walking her dog and it pulled her down and she face planted and developed an intracerebral bleed. The patient reports from a cardiovascular standpoint she has been doing very well. She had a remote catheterization in 2007 where her EF was 65% and coronaries were angiographically normal. Patient's last echocardiogram was July 2023 her EF was estimated at 65% with mild tricuspid regurgitation mild 1+ pulmonic insufficiency. Otherwise was unremarkable. The patient reports that she had an episode of chest tightness like a band around her lower thorax that was associated with some arm tightness occurred at rest when she was seated in the car. This lasted about 30 minutes and resolved with 1 old sublingual nitro. It has not recurred and this happened sometime last summer. The patient denies any syncope or near syncope. She denies any PND orthopnea. She does have a history of hyperlipidemia and her blood pressure is well-controlled in the office at 119/74 with a heart rate of 62 today. The patient's chief complaint is her rest tremor which has been progressive started on the left side and now is bilateral. It is impacting her quality of life significantly. She does see a neurologist and there is been some discussion about a potential neurosurgery ablation type procedure. She was requesting my knowledge of this procedure which I do not have any. I did offer her that I would try to help her find a second opinion if she was interested and she is going to think about it. Patient also complains about foggy since her closed head injury. 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 When the patient had a closed head injury she was cared for by Dr. Reyna Cuello at [facility]. 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 Accompanied by: Self Is patient in pain?: No Allergies meperidine (From Demerol) Allergy (Severe, Verified 06/22/24 11:26) Anaphylaxis mannitol (From Reclast) Adverse Reaction (Severe, Verified 06/22/24 11:26) severe vertigo water for injection,sterile (From Reclast) Adverse Reaction (Severe, Verified 06/22/24 11:26) severe vertigo zoledronic acid (From Reclast) Adverse Reaction (Severe, Verified 06/22/24 11:26) severe vertigo Medications ???Medication ???Instructions ???Recorded ???Confirmed ???Type ergocalciferol (vitamin D2) 1,250 50,000 unit PO WE supplement 07/29/17 06/22/24 History mcg (50,000 unit) capsule albuterol sulfate 90 mcg/actuation 2 puff inhalation Q4H PRN PRN Sob 08/06/17 06/22/24 History aerosol inhaler /Or Wheezing multivitamin 1 ea PO DAILY supplement 08/06/17 06/22/24 History loperamide 2 mg capsule 2 mg PO Q4H PRN PRN Diarrhea 10/01/17 06/22/24 Rx acetaminophen 500 mg tablet 500 mg PO Q4H PRN PRN Pain 01/05/18 06/22/24 History tramadol 50 mg tablet 50 mg PO Q6H PRN PRN Pain 01/21/19 06/22/24 History denosumab 60 mg/mL subcutaneous 60 mg subcut [id number] 07/04/19 06/22/24 History syringe (Prolia) propranolol 10 mg tablet 10 mg PO TID dystonia 07/31/21 06/22/24 History carbidopa 25 mg-levodopa 100 mg 1 tab PO TID 01/15/23 06/22/24 History tablet (Sinemet) ondansetron 4 mg disintegrating 4 mg PO Q8H PRN PRN Nausea #10 tabs 01/24/24 11/06/24 Rx tablet Ejection fraction %: 65 Have you fallen in the past year?: [facility] History (more content not included)... Normal [facility] Absolute lymphocyte countOrd ered By: Loren Sepulveda on 09-09-2023 Lymphocytes Auto (Unsp spec) [#/Vol] 2.46 10*3/uL 0.83-4.51 [facility] Absolute lymphocyte countOrd ered By: Joseph Ramirez on 09-09-2023 Lymphocytes Auto (Unsp spec) [#/Vol] 2.33 10*3/uL 0.83-4.51 [facility] Activated partial thrombopla stin time (aPTT) in platelet poor plasma by coagulation aOrdered By: Loren Sepulveda on 09-09-2023 aPTT Coag (PPP) [Time] 28.4 s 24.1-36.2 [facility] Automated lymphocyte count a s percentage of total leukocytesOrdered By: Loren Sepulveda on 09-09-2023 Lymphocytes/100 WBC Auto (Unsp spec) 35.8 % - [facility] Automated lymphocyte count a s percentage of total leukocytesOrdered By: Joseph Ramirez on 09-09-2023 Lymphocytes/100 WBC Auto (Unsp spec) 35.3 % - [facility] Basophil percentageOrdered B y: Loren Sepulveda on 09-09-2023 Basophils/100 WBC (Bld) 0.6 % 0-1 [facility] Bilirubin [Mass/Vol] 0.60 mg/dL 0.20-1.00 [facility] Comment on above: For patients on eltr ombopag therapy, use of Dimension [place] TBIL is not recommended. Chloride [Moles/Vol] 108 mmol/L 98-107 [facility] Eosinophils/100 WBC (Bld) 0.9 % 0-5 [facility] Glucose [Mass/Vol] 109 mg/dL 74-106 [facility] Comment on above: Fasting Glucose resu lt from 100 to 125 mg/dL suggests IMPAIRED HOMEOSTASIS per A.D.A. criteria. Hemoglobin (Bld) [Mass/Vol] 15.1 g/dL 12.0-15.0 [facility] Monocytes/100 WBC (Bld) 7.6 % 0-10 [facility] Neutrophils (Bld) [#/Vol] 3.8 10*3/uL 2.0-7.7 [facility] Neutrophils/100 WBC (Bld) 54.8 % 47-70 [facility] Potassium [Moles/Vol] 3.4 mmol/L 3.5-5.1 [facility] Protein [Mass/Vol] 7.6 g/dL 6.4-8.2 [facility] Sodium [Moles/Vol] 137 mmol/L 136-145 [facility] WBC (Bld) [#/Vol] 6.9 10*3/uL 4.4-11.0 [facility] Basophil percentageOrdered B y: Joseph Ramirez on 09-09-2023 Basophil percentage 1.7 mg/dL 2.5-4.9 [facility] Basophils/100 WBC (Bld) 0.9 % 0-1 [facility] Bilirubin [Mass/Vol] 0.60 mg/dL 0.20-1.00 [facility] Comment on above: For patients on eltr ombopag therapy, use of Dimension [place] TBIL is not recommended. Chloride [Moles/Vol] 108 mmol/L 98-107 [facility] Eosinophils/100 WBC (Bld) 1.1 % 0-5 [facility] Glucose [Mass/Vol] 123 mg/dL 74-106 [facility] Comment on above: Fasting Glucose resu lt from 100 to 125 mg/dL suggests IMPAIRED HOMEOSTASIS per A.D.A. criteria. Hemoglobin (Bld) [Mass/Vol] 15.2 g/dL 12.0-15.0 [facility] Monocytes/100 WBC (Bld) 6.4 % 0-10 [facility] Neutrophils (Bld) [#/Vol] 3.7 10*3/uL 2.0-7.7 [facility] Neutrophils/100 WBC (Bld) 55.7 % 47-70 [facility] Potassium [Moles/Vol] 3.4 mmol/L 3.5-5.1 [facility] Protein [Mass/Vol] 7.8 g/dL 6.4-8.2 [facility] Sodium [Moles/Vol] 137 mmol/L 136-145 [facility] WBC (Bld) [#/Vol] 6.6 10*3/uL 4.4-11.0 [facility] Determination of erythrocyte mean corpuscular volume (MCV)Ordered By: Loren Sepulveda on 09-09-2023 MCV (RBC) [Entitic vol] 90.9 fL 81-99 [facility] Determination of erythrocyte mean corpuscular volume (MCV)Ordered By: Joseph Ramirez on 09-09-2023 MCV (RBC) [Entitic vol] 91.9 fL 81-99 [facility] Direct bilirubinOrdered By: Loren Sepulveda on 09-09-2023 Bilirubin.direct [Mass/Vol] 0.17 mg/dL 0.00-0.30 [facility] Erythrocyte distribution wid th ratioOrdered By: Loren Sepulveda on 09-09-2023 Erythrocyte distribution width (RBC) [Ratio] 13.4 % 11.6-14.6 [facility] Erythrocyte distribution wid th ratioOrdered By: Joseph Ramirez on 09-09-2023 Erythrocyte distribution width (RBC) [Ratio] 13.4 % 11.6-14.6 [facility] Erythrocyte distribution wid th standard deviationOrdered By: Loren Sepulveda on 09-09-2023 Erythrocyte distribution width (RBC) [Entitic vol] 45.1 fL 35.1-43.9 [facility] Erythrocyte distribution wid th standard deviationOrdered By: Joseph Ramirez on 09-09-2023 Erythrocyte distribution width (RBC) [Entitic vol] 45.1 fL 35.1-43.9 [facility] Hematocrit Auto (Bld) [Volum e fraction]Ordered By: Loren Sepulveda on 09-09-2023 Hematocrit (Bld) [Volume fraction] 45.9 % 37-47 [facility] Hematocrit Auto (Bld) [Volum e fraction]Ordered By: Joseph Ramirez on 09-09-2023 Hematocrit (Bld) [Volume fraction] 46.6 % 37-47 [facility] Immature granulocytes/100 WB C Auto (Bld)Ordered By: Loren Sepulveda on 09-09-2023 Immature granulocytes/100 WBC (Bld) 0.300 % 0.0-0.9 [facility] [facility] Comment on above: IG% - Immature Granu locytes (promyelocytes, myelocytes and metamyelocytes) > 1% indicates that a LEFT SHIFT is Present. Immature granulocytes/100 WB C Auto (Bld)Ordered By: Joseph Ramirez on 09-09-2023 Immature granulocytes/100 WBC (Bld) 0.600 % 0.0-0.9 [facility] Comment on above: IG% - Immature Granu locytes (promyelocytes, myelocytes and metamyelocytes) > 1% indicates that a LEFT SHIFT is Present. International normalized rat io (INR) calculationOrdered By: Loren Sepulveda on 09-09-2023 INR Coag (PPP) [Relative time] 1.0 {INR} [facility] Laboratory - Chemistry and C hemistry - challengeOrdered By: Loren Sepulveda on 09-09-2023 ALP [Catalytic activity/Vol] 85 U/L [facility] ALT [Catalytic activity/Vol] 34 U/L [facility] CO2 [Moles/Vol] 26.0 mmol/L 21.0-32.0 [facility] Globulin (S) [Mass/Vol] 4.1 g/dL 2.2-4.2 [facility] Urea nitrogen/Creatinine [Mass ratio] 13.1 mg/mg 06-05 [facility] Laboratory - Chemistry and C hemistry - challengeOrdered By: Joseph Ramirez on 09-09-2023 Albumin/Globulin [Mass ratio] 0.9 {ratio} 0.9-2.4 [facility] ALP [Catalytic activity/Vol] 89 U/L [facility] ALT [Catalytic activity/Vol] 36 U/L [facility] CO2 [Moles/Vol] 27.0 mmol/L 21.0-32.0 [facility] Globulin (S) [Mass/Vol] 4.2 g/dL 2.2-4.2 [facility] Magnesium [Mass/Vol] 2.8 mg/dL 1.6-2.6 [facility] Urea nitrogen/Creatinine [Mass ratio] 12.8 mg/mg 06-05 [facility] Laboratory - CoagulationOrde red By: Loren Sepulveda on 09-09-2023 PT Coag (PPP) [Time] 13.4 s 11.7-14.9 [facility] Laboratory - Hematology and Cell countsOrdered By: Loren Sepulveda on 09-09-2023 MCH (RBC) [Entitic mass] 29.9 pg 27.0-32.0 [facility] MCHC (RBC) [Mass/Vol] 32.9 g/dL 32-36 [facility] Nucleated RBC/100 WBC (Bld) [Ratio] 0 % 0-5 [facility] Platelets (Bld) [#/Vol] 347 10*3/uL 150-450 [facility] Laboratory - Hematology and Cell countsOrdered By: Joseph Ramirez on 09-09-2023 MCH (RBC) [Entitic mass] 30.0 pg 27.0-32.0 [facility] MCHC (RBC) [Mass/Vol] 32.6 g/dL 32-36 [facility] Nucleated RBC/100 WBC (Bld) [Ratio] 0 % 0-5 [facility] Platelets (Bld) [#/Vol] 369 10*3/uL 150-450 [facility] No Panel InformationOrdered By: Loren Sepulveda on 09-09-2023 Estimated Creatinine Clearance Calc 56.38 ml/min [facility] Estimated GFR (MDRD) Amer 94 mL/min >60 [facility] Comment on above: GFR Calc Estimated GFR (MDRD) Non-Af Amer 78 mL/min >60 [facility] Comment on above: Non- GFR Calc No Panel InformationOrdered By: Joseph Ramirez on 09-09-2023 Estimated Creatinine Clearance Calc 53.15 ml/min [facility] Estimated GFR (MDRD) Amer 82 mL/min >60 [facility] Comment on above: GFR Calc Estimated GFR (MDRD) Non-Af Amer 68 mL/min >60 [facility] Comment on above: Non- GFR Calc Platelet mean volume Gold-Ec ker (Bld) [Entitic vol]Ordered By: Loren Sepulveda on 09-09-2023 Platelet mean volume (Bld) [Entitic vol] 9.4 fL 6.2-12.0 [facility] Platelet mean volume Gold-Ec ker (Bld) [Entitic vol]Ordered By: Joseph Ramirez on 09-09-2023 Platelet mean volume (Bld) [Entitic vol] 9.6 fL 6.2-12.0 [facility] RBC Auto (Bld) [#/Vol]Ordere d By: Loren Sepulveda on 09-09-2023 RBC (Bld) [#/Vol] 5.05 10*6/uL 4.2-5.4 [facility] RBC Auto (Bld) [#/Vol]Ordere d By: Joseph Ramirez on 09-09-2023 RBC (Bld) [#/Vol] 5.07 10*6/uL 4.2-5.4 [facility] Serum or plasma calcium chester urement (mass/volume)Ordered By: Loren Sepulveda on 09-09-2023 Calcium [Mass/Vol] 9.4 mg/dL 8.5-10.1 [facility] Serum or plasma calcium chester urement (mass/volume)Ordered By: Joseph Ramirez on 09-09-2023 Calcium [Mass/Vol] 9.3 mg/dL 8.5-10.1 [facility] Serum or plasma creatinine m easurement (mass/volume)Ordered By: Loren Sepulveda on 09-09-2023 Creatinine [Mass/Vol] 0.76 mg/dL 0.55-1.02 [facility] Comment on above: The validity of the calculated GFR & GFRAA in patients over 70 years has not been determined. Clinical correlation is essential. Serum or plasma creatinine m easurement (mass/volume)Ordered By: Joseph Ramirez on 09-09-2023 Creatinine [Mass/Vol] 0.86 mg/dL 0.55-1.02 [facility] Comment on above: The validity of the calculated GFR & GFRAA in patients over 70 years has not been determined. Clinical correlation is essential. Serum or plasma urea nitroge n measurement (mass/volume)Ordered By: Loren Sepulveda on 09-09-2023 Urea nitrogen [Mass/Vol] 10 mg/dL 03-03 [facility] Serum or plasma urea nitroge n measurement (mass/volume)Ordered By: Joseph Ramirez on 09-09-2023 Urea nitrogen [Mass/Vol] 11 mg/dL 03-03 [facility] Thin prep Papanicolaou smear with manual screeningOrdered By: Loren Sepulveda on 09-09-2023 Thin prep Papanicolaou smear with manual screening 3.5 g/dL 3.2-5.0 [facility] Thin prep Papanicolaou smear with manual screening 24 U/L [facility] Thin prep Papanicolaou smear with manual screening 3 12-29 [facility] Thin prep Papanicolaou smear with manual screeningOrdered By: Joseph Ramirez on 09-09-2023 Thin prep Papanicolaou smear with manual screening 3.6 g/dL 3.2-5.0 [facility] Thin prep Papanicolaou smear with manual screening 26 U/L [facility] Thin prep Papanicolaou smear with manual screening 2 12-29 [facility] No Panel InformationOrdered By: Joseph Ramirez on 08-06-2023 Miscellaneous Test See comment [facility] Comment on above: TEST RESULTS LIMITSP THrP (PTH-Related Peptide)PTHrP (PTH- Related Peptide) <2.0 pmol/LThis test was developed and its performance characteristicsdetermined by [employer]. It has not been cleared or approvedby the Food and Drug Administration.Reference Range:All Ages: <2.0The PTHrP assay should not be used to exclude cancer orscreen tumor patients for humoral hypercalcemia ofmalignancy (HHM). The results should always be assessed inconjunction with the patient's medical history, clinicalexamination, and other findings. If test results areclinically discordant, please contact the laboratory. TESTING PERFORMED AT [facility]. ORIGINAL REPORT ON FILE IN LAB CONTAINS ADDITIONAL TEST SITE INFORMATION. Parathyroid Hormone (Intact) 59.4 pg/mL 18.4-80.1 [facility] No Panel InformationOrdered By: Joseph Ramirez on 01-15-2023 Vitamin D 25-Hydroxy 42.6 ng/mL [facility] Comment on above: Vitamin D 25(OH) Sta tus Range Deficiency <20 ng/mL (50nmol/L) Insufficiency 20 - 30 ng/mL (50 - 75 nmol/L) Sufficiency 30 - 100 ng/mL (75 - 250 nmol/L) Toxicity >100 ng/mL (>250 nmol/L) Absolute lymphocyte counton 07-30-2022 Lymphocytes Auto (Unsp spec) [#/Vol] 2.36 10*3/uL 0.83-4.51 [facility] Work Phone: Basophil percentageon 2021 Basophil percentage 3.8 mg/dL 2.5-4.9 [facility] Work Phone: [phone] Basophils/100 WBC (Bld) 0.5 % 0-1 [facility] Work Phone: Bilirubin [Mass/Vol] 0.60 mg/dL 0.20-1.00 [facility] Work Phone: Comment on above: For patients on eltr ombopag therapy, use of Dimension [place] TBIL is not recommended. Chloride [Moles/Vol] 104 mmol/L 98-107 [facility] Work Phone: [phone] Eosinophils/100 WBC (Bld) 1.3 % 0-5 [facility] Work Phone: Glucose [Mass/Vol] 105 mg/dL 74-106 [facility] Work Phone: Comment on above: Fasting Glucose resu lt from 100 to 125 mg/dL suggests IMPAIRED HOMEOSTASIS per A.D.A. criteria. Neutrophils (Bld) [#/Vol] 5.2 10*3/uL 2.0-7.7 [facility] Work Phone: Neutrophils/100 WBC (Bld) 62.8 % 47-70 [facility] Work Phone: Potassium [Moles/Vol] 3.8 mmol/L 3.5-5.1 [facility] Work Phone: Protein [Mass/Vol] 7.6 g/dL 6.4-8.2 [facility] Work Phone: Sodium [Moles/Vol] 140 mmol/L 136-145 [facility] Work Phone: WBC (Bld) [#/Vol] 8.3 10*3/uL 4.4-11.0 [facility] Work Phone: [phone] Blood erythrocytes count (nu mber/volume)on 07-30-2022 RBC (Bld) [#/Vol] 4.98 10*6/uL 4.2-5.4 [facility] Work Phone: Blood hemoglobin measurement (mass/volume)on 07-30-2022 Hemoglobin (Bld) [Mass/Vol] 15.8 g/dL 12.0-15.0 [facility] Work Phone: Blood lymphocytes/100 leukoc yteson 07-30-2022 Lymphocytes/100 WBC (Bld) 28.5 % 19-41 [facility] Work Phone: [phone] Blood monocytes/100 leukocyt eson 07-30-2022 Monocytes/100 WBC (Bld) 6.5 % 0-10 [facility] Work Phone: Blood platelet mean volumeon 07-30-2022 Platelet mean volume (Bld) [Entitic vol] 10.4 fL 6.2-12.0 [facility] Work Phone: Determination of erythrocyte mean corpuscular volume (MCV)on 07-30-2022 MCV (RBC) [Entitic vol] 95.6 fL 81-99 [facility] Work Phone: Hematocrit Auto (Bld) [Volum e fraction]on 07-30-2022 Hematocrit (Bld) [Volume fraction] 47.6 % 37-47 [facility] Work Phone: Laboratory - Chemistry and C hemistry - challengeon 07-30-2022 ALP [Catalytic activity/Vol] 68 U/L 45-117 [facility] Work Phone: ALT [Catalytic activity/Vol] 46 U/L 13-56 [facility] Work Phone: CO2 [Moles/Vol] 30.0 mmol/L 21.0-32.0 [facility] Work Phone: Globulin (S) [Mass/Vol] 3.8 g/dL 2.2-4.2 [facility] Work Phone: Magnesium [Mass/Vol] 2.3 mg/dL 1.6-2.6 [facility] Work Phone: Urea nitrogen/Creatinine [Mass ratio] 18.3 mg/mg 10-20 [facility] Work Phone: Laboratory - Hematology and Cell countson 07-30-2022 Erythrocyte distribution width (RBC) [Entitic vol] 46.3 fL 35.1-43.9 [facility] Work Phone: Erythrocyte distribution width (RBC) [Ratio] 13.1 % 11.6-14.6 [facility] Work Phone: Immature granulocytes/100 WBC (Bld) 0.400 % 0.0-0.9 [facility] Work Phone: Comment on above: IG% - Immature Granu locytes (promyelocytes, myelocytes and metamyelocytes) > 1% indicates that a LEFT SHIFT is Present. MCH (RBC) [Entitic mass] 31.7 pg 27.0-32.0 [facility] Work Phone: Nucleated RBC/100 WBC (Bld) [Ratio] 0 % 0-5 [facility] Work Phone: MCHC Auto (RBC) [Mass/Vol]on 07-30-2022 MCHC (RBC) [Mass/Vol] 33.2 g/dL 32-36 [facility] Work Phone: No Panel Informationon 07-30 Estimated Creatinine Clearance Calc 37.32 ml/min [facility] Work Phone: Estimated GFR (MDRD) Amer 63 mL/min >60 [facility] Work Phone: Comment on above: GFR Calc Estimated GFR (MDRD) Non-Af Amer 52 mL/min >60 [facility] Work Phone: Comment on above: Non- GFR Calc Vitamin D 25-Hydroxy 21.1 ng/mL [facility] Work Phone: Comment on above: Vitamin D 25(OH) Sta tus Range Deficiency <20 ng/mL (50nmol/L) Insufficiency 20 - 30 ng/mL (50 - 75 nmol/L) Sufficiency 30 - 100 ng/mL (75 - 250 nmol/L) Toxicity >100 ng/mL (>250 nmol/L) Platelets bldon 07-30-2022 Platelets (Bld) [#/Vol] 248 10*3/uL 150-450 [facility] Work Phone: Serum or plasma albumin chester urement (mass/volume)on 07-30-2022 Albumin [Mass/Vol] 3.8 g/dL 3.2-5.0 [facility] Work Phone: Serum or plasma albumin/glob ulin mass ratioon 07-30-2022 Albumin/Globulin [Mass ratio] 1.0 {ratio} 0.9-2.4 [facility] Work Phone: Serum or plasma calcium chester urement (mass/volume)on 07-30-2022 Calcium [Mass/Vol] 10.2 mg/dL 8.5-10.1 [facility] Work Phone: Serum or plasma creatinine m easurement (mass/volume)on 07-30-2022 Creatinine [Mass/Vol] 1.09 mg/dL 0.55-1.02 [facility] Work Phone: Comment on above: The validity of the calculated GFR & GFRAA in patients over 70 years has not been determined. Clinical correlation is essential. Serum or plasma urea nitroge n measurement (mass/volume)on 07-30-2022 Urea nitrogen [Mass/Vol] 20 mg/dL 7-18 [facility] Work Phone: Thin prep Papanicolaou smear with manual screeningon 07-30-2022 Thin prep Papanicolaou smear with manual screening 25 U/L 15-37 [facility] Work Phone: Thin prep Papanicolaou smear with manual screening 6 5-15 [facility] Work Phone: Thin prep Papanicolaou smear with manual screeningOrdered By: Joseph Ramirez on 07-30-2022 Thin prep Papanicolaou smear with manual screening 164 U/L 84-246 [facility] Basophil percentageon 2021 Bilirubin [Mass/Vol] 0.40 mg/dL 0.20-1.00 [facility] Work Phone: Comment on above: For patients on eltr ombopag therapy, use of Dimension [place] TBIL is not recommended. Cholesterol [Mass/Vol] 284 mg/dL <200 [facility] Work Phone: Comment on above: <200 mg/dL Desirable 200-240 mg/dL Borderline >240 mg/dL High Risk Protein [Mass/Vol] 6.9 g/dL 6.4-8.2 [facility] Work Phone: Triglyceride [Mass/Vol] 128 mg/dL <199 [facility] Work Phone: Comment on above: The drugs N-Acetylcy steine and Metamizole may falsely depress this assay.Serum Triglycerides Reference Interval Normal <150 mg/dL Borderline high 150 - 199 mg/dL High 200 - 499 mg/dL Very High > or = 500 mg/dL Direct bilirubinon 2 Bilirubin.direct [Mass/Vol] 0.13 mg/dL 0.00-0.30 [facility] Work Phone: Laboratory - Chemistry and C hemistry - challengeon 04-07-2022 ALP [Catalytic activity/Vol] 55 U/L 45-117 [facility] Work Phone: ALT [Catalytic activity/Vol] 37 U/L 13-56 [facility] Work Phone: Globulin (S) [Mass/Vol] 3.5 g/dL 2.2-4.2 [facility] Work Phone: Serum or plasma albumin chester urement (mass/volume)on 04-07-2022 Albumin [Mass/Vol] 3.4 g/dL 3.2-5.0 [facility] Work Phone: Serum or plasma cholesterol in HDL measurement (mass/volume)on 04-07-2022 Cholesterol in HDL [Mass/Vol] 73 mg/dL >40 [facility] Work Phone: Comment on above: The drugs N-Acetylcy steine and Metamizole may falsely depress this assay. Reference Range HDL <40 mg/dL Low HDL Cholesterol HDL >or= 60 mg/dL High HDL Cholesterol Serum or plasma cholesterol in VLDL measurement (mass/volume)on 04-07-2022 Cholesterol in VLDL [Mass/Vol] 26 mg/dL 5-40 [facility] Work Phone: Serum or plasma low density lipoprotein (LDL) cholesterol measurement (mass/volume)on 04-07-2022 Cholesterol in LDL [Mass/Vol] 185 mg/dL 0-130 [facility] Work Phone: Thin prep Papanicolaou smear with manual screeningon 04-07-2022 Thin prep Papanicolaou smear with manual screening 21 U/L 15-37 [facility] Work Phone: Absolute lymphocyte counton 01-29-2022 Lymphocytes Auto (Unsp spec) [#/Vol] 1.93 10*3/uL 0.83-4.51 [facility] Work Phone: Basophil percentageon 2021 Basophils/100 WBC (Bld) 0.6 % 0-1 [facility] Work Phone: Bilirubin [Mass/Vol] 0.50 mg/dL 0.20-1.00 [facility] Work Phone: Comment on above: For patients on eltr ombopag therapy, use of Dimension [place] TBIL is not recommended. Chloride [Moles/Vol] 105 mmol/L 98-107 [facility] Work Phone: [phone] Eosinophils/100 WBC (Bld) 1.9 % 0-5 [facility] Work Phone: Glucose [Mass/Vol] 105 mg/dL 74-106 [facility] Work Phone: Comment on above: Fasting Glucose resu lt from 100 to 125 mg/dL suggests IMPAIRED HOMEOSTASIS per A.D.A. criteria. Neutrophils (Bld) [#/Vol] 3.8 10*3/uL 2.0-7.7 [facility] Work Phone: Neutrophils/100 WBC (Bld) 59.8 % 47-70 [facility] Work Phone: Potassium [Moles/Vol] 3.6 mmol/L 3.5-5.1 [facility] Work Phone: [phone] Protein [Mass/Vol] 7.1 g/dL 6.4-8.2 [facility] Work Phone: [phone] Sodium [Moles/Vol] 139 mmol/L 136-145 [facility] Work Phone: WBC (Bld) [#/Vol] 6.4 10*3/uL 4.4-11.0 [facility] Work Phone: [phone] Blood erythrocytes count (nu mber/volume)on 01-29-2022 RBC (Bld) [#/Vol] 4.62 10*6/uL 4.2-5.4 [facility] Work Phone: Blood hemoglobin measurement (mass/volume)on 01-29-2022 Hemoglobin (Bld) [Mass/Vol] 14.2 g/dL 12.0-15.0 [facility] Work Phone: Blood lymphocytes/100 leukoc yteson 01-29-2022 Lymphocytes/100 WBC (Bld) 30.3 % 19-41 [facility] Work Phone: Blood monocytes/100 leukocyt eson 01-29-2022 Monocytes/100 WBC (Bld) 7.2 % 0-10 [facility] Work Phone: [phone] Blood platelet mean volumeon 01-29-2022 Platelet mean volume (Bld) [Entitic vol] 10.7 fL 6.2-12.0 [facility] Work Phone: Determination of erythrocyte mean corpuscular volume (MCV)on 01-29-2022 MCV (RBC) [Entitic vol] 95.0 fL 81-99 [facility] Work Phone: Hematocrit Auto (Bld) [Volum e fraction]on 01-29-2022 Hematocrit (Bld) [Volume fraction] 43.9 % 37-47 [facility] Work Phone: Laboratory - Chemistry and C hemistry - challengeon 01-29-2022 ALP [Catalytic activity/Vol] 59 U/L 45-117 [facility] Work Phone: ALT [Catalytic activity/Vol] 37 U/L 13-56 [facility] Work Phone: CO2 [Moles/Vol] 29.0 mmol/L 21.0-32.0 [facility] Work Phone: Globulin (S) [Mass/Vol] 3.5 g/dL 2.2-4.2 [facility] Work Phone: Urea nitrogen/Creatinine [Mass ratio] 21.7 mg/mg 10-20 [facility] Work Phone: Laboratory - Hematology and Cell countson 01-29-2022 Erythrocyte distribution width (RBC) [Entitic vol] 47.0 fL 35.1-43.9 [facility] Work Phone: Erythrocyte distribution width (RBC) [Ratio] 13.4 % 11.6-14.6 [facility] Work Phone: Immature granulocytes/100 WBC (Bld) 0.200 % 0.0-0.9 [facility] Work Phone: Comment on above: IG% - Immature Granu locytes (promyelocytes, myelocytes and metamyelocytes) > 1% indicates that a LEFT SHIFT is Present. MCH (RBC) [Entitic mass] 30.7 pg 27.0-32.0 [facility] Work Phone: Nucleated RBC/100 WBC (Bld) [Ratio] 0 % 0-5 [facility] Work Phone: MCHC Auto (RBC) [Mass/Vol]on 01-29-2022 MCHC (RBC) [Mass/Vol] 32.3 g/dL 32-36 [facility] Work Phone: No Panel Informationon 01-29 Estimated Creatinine Clearance Calc 41.94 ml/min [facility] Work Phone: Estimated GFR (MDRD) Amer 72 mL/min >60 [facility] Work Phone: Comment on above: GFR Calc Estimated GFR (MDRD) Non-Af Amer 59 mL/min >60 [facility] Work Phone: Comment on above: Non- GFR Calc Vitamin D 25-Hydroxy 26.8 ng/mL [facility] Work Phone: Comment on above: Vitamin D 25(OH) Sta tus Range Deficiency <20 ng/mL (50nmol/L) Insufficiency 20 - 30 ng/mL (50 - 75 nmol/L) Sufficiency 30 - 100 ng/mL (75 - 250 nmol/L) Toxicity >100 ng/mL (>250 nmol/L) Platelets bldon 01-29-2022 Platelets (Bld) [#/Vol] 210 10*3/uL 150-450 [facility] Work Phone: Serum or plasma albumin chester urement (mass/volume)on 01-29-2022 Albumin [Mass/Vol] 3.6 g/dL 3.2-5.0 [facility] Work Phone: Serum or plasma albumin/glob ulin mass ratioon 01-29-2022 Albumin/Globulin [Mass ratio] 1.0 {ratio} 0.9-2.4 [facility] Work Phone: Serum or plasma calcium chester urement (mass/volume)on 01-29-2022 Calcium [Mass/Vol] 9.6 mg/dL 8.5-10.1 [facility] Work Phone: Serum or plasma creatinine m easurement (mass/volume)on 01-29-2022 Creatinine [Mass/Vol] 0.97 mg/dL 0.55-1.02 [facility] Work Phone: Comment on above: The validity of the calculated GFR & GFRAA in patients over 70 years has not been determined. Clinical correlation is essential. Serum or plasma urea nitroge n measurement (mass/volume)on 01-29-2022 Urea nitrogen [Mass/Vol] 21 mg/dL 7-18 [facility] Work Phone: Thin prep Papanicolaou smear with manual screeningon 01-29-2022 Thin prep Papanicolaou smear with manual screening 26 U/L 15-37 [facility] Work Phone: Thin prep Papanicolaou smear with manual screening 5 5-15 [facility] Work Phone: Thin prep Papanicolaou smear with manual screeningon 07-31-2021 Thin prep Papanicolaou smear with manual screening 144 U/L 84-246 [facility] Work Phone: CNOVon 03-13-2021 CNOV Office Visit (MAURY ) SAMPLE,JYOTSNA Barrow ([id number]) 1945 F Date Time Provider Department 03/13/21 9:00 AM KARENA DWYER During your visit today, we recorded the following information about you: Temperature Pulse Blood pressure Weight 97.2 degrees 61/minute 113/88 72.6 kg Height 1.626 m Karena Dwyer MD 03/13/2021 8:49 AM Signed NEUROSURGERY FOLLOW UP OFFICE NOTE Karena Dwyer MD Date of visit: March 13, 2021 Patient Name: Ms.Carol Danial Pascual Date of : 1945 Current Age: [age] year old Sex: female MRN/E# [id number] Last Office Visit: Visit date not found Chief Complaint: Patient presents with: Established Patient SUBJECTIVE: Jyotsna Pascual is a 75 year old female with a past medical history of breast CA s/p chemo/radiation/lumpectomy. She denies smoking. She presented to [facility] ED 02/23/2021 as a trauma transfer for [...] Hearing normal. Left Ear: Hearing normal. Eyes: Extrao (more content not included)... Normal [facility] ALLIED HEALTHon 02-25-2021 ALLIED HEALTH HNO ID: [id number] Author: Eleonora Page Service: Radiology Author Type: [employer] Type: Allied Health Filed: 02/25/2021 7:35 AM Note Text: Radiology Service Progress Note PATIENT NAME: Jyotsna Pascual DATE OF SERVICE: February 25, 2021 TIME: 7:35 AM PATIENT IDENTITY VERIFICATION COMPLETED USING TWO (2) IDENTIFIERS: Name and Date of confirmed by patient verbally and Name and Date of confirmed by identification band. FALL SCREENING: Has the patient had 2 falls in the last year or 1 fall with injury or currently using an Ambulatory Assistive Device (Walker, Cane, Wheelchair, Crutches, etc.)? Inpatient: Screened on floor PATIENT GENDER DATA: Female. status: : No status: NO. PATIENT RELEVANT IMPLANT DATA REVIEWED: Not Applicable RADIOLOGY DEPARTMENT: CT; Exam(s) Completed: Brain PERIPHERAL IV DATA: Not applicable SIGNED BY: Eleonora Page February 25, 2021 7:35 AM Normal [facility] Basic metabolic 2000 panelon 02-25-2021 Anion gap [Moles/Vol] 10 mmol/L Normal 9-18 [facility] Comment on above: Order Comment: Speci men Type: BLOOD SPECIMEN Performed By: #### 2 4321-2 ####[facility] LABORATORYCLIA [id number] [place] [address] Calcium [Mass/Vol] 8.9 mg/dL Normal 8.5-10.2 [facility] Comment on above: Order Comment: Speci men Type: BLOOD SPECIMEN Performed By: #### 2 4321-2 ####[facility] LABORATORYCLIA [id number] [place] [address] Chloride [Moles/Vol] 107 mmol/L High 97-105 [facility] Comment on above: Order Comment: Speci men Type: BLOOD SPECIMEN Performed By: #### 2 4321-2 ####[facility]ORATORYCLIA [id number] [place] [address] CO2 [Moles/Vol] 23 mmol/L Normal 22-30 [facility] Comment on above: Order Comment: Speci men Type: BLOOD SPECIMEN Performed By: #### 2 4321-2 ####[facility]ORATORYCLIA [id number] [place] [address] Creatinine [Mass/Vol] 0.87 mg/dL Normal 0.58-0.96 [facility] Comment on above: Order Comment: Speci men Type: BLOOD SPECIMEN Performed By: #### 2 4321-2 ####[facility]ORATORYCLIA [id number] [place] [address] GFR/1.73 sq M.predicted MDRD (S/P/Bld) [Vol rate/Area] mL/min/{1.73_m2} Normal [facility] Comment on above: Order Comment: Speci men Type: BLOOD SPECIMEN Result Comment: >60 eGFR (Estimated GFR) Units of measure: mL/min/1.73 meters squared eGFR is derived from the reexpressed MDRD Study equation using the following parameters: serum creatinine, age, gender and race. The creatinine assay has been calibrated to be traceable to IDMS. An eGFR <60 mL/min/1.73m2 for >3 months is consistent with chronic kidney disease. Refer to KDOQI guidelines for clinical interpretation. In patients with unstable renal function, e.g. those with acute kidney injury, the eGFR may not accurately reflect actual GFR. Performed By: #### 2 4321-2 ####[facility]ORATORYCLIA [id number] [place] [address] Glucose [Mass/Vol] 107 mg/dL High 74-99 [facility] Comment on above: [facility] BLO[facility] SPECIMEN Result Comment: The [place] Diabetes Association (ADA) provides guidance for cutoff values for fasting glucose and random glucose. The ADA defines fasting as no caloric intake for at least 8 hours. Fasting plasma glucose results between 100 to 125 mg/dL indicate increased risk for diabetes (prediabetes). Fasting plasma glucose results greater than or equal to 126 mg/dL meet the criteria for diagnosis of diabetes. In the absence of unequivocal hyperglycemia, results should be confirmed by repeat testing. In a patient with classic symptoms of hyperglycemia or hyperglycemic crisis, random plasma glucose results greater than or equal to 200 mg/dL meet the criteria for diagnosis of diabetes. Reference: Standards of Medical Care in Diabetes 2016, [place] Diabetes Association. Diabetes Care. 2016.39(Suppl 1). Performed By: #### 2 4321-2 ####[facility]ORATORYCLIA [id number] [place] [address] Potassium [Moles/Vol] 3.9 mmol/L Normal 3.7-5.1 [facility] Comment on above: Order Comment: Speci men Type: BLOOD SPECIMEN Performed By: #### 2 4321-2 ####[facility]ATORYCLIA [id number] [place] [address] Sodium [Moles/Vol] 140 mmol/L Normal 136-144 [facility] Comment on above: Order Comment: Speci men Type: BLOOD SPECIMEN Performed By: #### 2 4321-2 ####[facility]ATORYCLIA [id number] [place] [address] Urea nitrogen [Mass/Vol] 17 mg/dL Normal 7-21 [facility] Comment on above: Order Comment: Speci men Type: BLOOD SPECIMEN Performed By: #### 2 4321-2 ####[facility]ATORYCLIA [id number] [place] [address] CBC panel Auto (Bld)on 02-25 Erythrocyte distribution width (RBC) [Ratio] 13.2 % Normal 11.5-15.0 [facility] Comment on above: Order Comment: Speci men Type: BLOOD SPECIMEN Performed By: #### 5 8410-2 ####[facility]ATORYCLIA [id number] [place] [address] Hematocrit (Bld) [Volume fraction] 43.4 % Normal 36.0-46.0 [facility] Comment on above: Order Comment: Speci men Type: BLOOD SPECIMEN Performed By: #### 5 8410-2 ####[facility]ATORYCLIA [id number] [place] [address] Hemoglobin (Bld) [Mass/Vol] 13.7 g/dL Normal 11.5-15.5 [facility] Comment on above: Order Comment: Speci men Type: BLOOD SPECIMEN Performed By: #### 5 8410-2 ####[facility]ATORYCLIA [id number] [place] [address] MCH (RBC) [Entitic mass] 30.9 pg Normal 26.0-34.0 [facility] Comment on above: Order Comment: Speci men Type: BLOOD SPECIMEN Performed By: #### 5 8410-2 ####[facility]ATORYCLIA [id number] [place] [address] MCHC (RBC) [Mass/Vol] 31.6 g/dL Normal 30.5-36.0 [facility] Comment on above: Order Comment: Speci men Type: BLOOD SPECIMEN Performed By: #### 5 8410-2 ####[facility]ATORYCLIA [id number] [place] [address] MCV (RBC) [Entitic vol] 97.7 fL Normal 80.0-100.0 [facility] Comment on above: Order Comment: Speci men Type: BLOOD SPECIMEN Performed By: #### 5 8410-2 ####[facility]ATORYCLIA [id number] [place] [address] Nucleated RBC (Bld) [#/Vol] 10*3/uL Normal <0.01 [facility] Comment on above: Order Comment: Speci men Type: BLOOD SPECIMEN Performed By: #### 5 8410-2 ####[facility]ATORYCLIA [id number] [place] [address] Platelet mean volume (Bld) [Entitic vol] 10.5 fL Normal 9.0-12.7 [facility] Comment on above: Order Comment: Speci men Type: BLOOD SPECIMEN Performed By: #### 5 8410-2 ####[facility]ATORYCLIA [id number] [place] [address] Platelets (Bld) [#/Vol] 200 10*3/uL Normal 150-400 [facility] Comment on above: Order Comment: Speci men Type: BLOOD SPECIMEN Performed By: #### 5 8410-2 ####[facility]ATORYCLIA [id number] [place] [address] RBC (Bld) [#/Vol] 4.44 10*6/uL Normal 3.90-5.20 [facility] Comment on above: Order Comment: Speci men Type: BLOOD SPECIMEN Performed By: #### 5 8410-2 ####[facility]ATORYCLIA [id number] [place] [address] WBC (Bld) [#/Vol] 7.02 10*3/uL Normal 3.70-11.00 [facility] Comment on above: Order Comment: Speci men Type: BLOOD SPECIMEN Performed By: #### 5 8410-2 ####[facility]ORATORYCLIA [id number] [place] [address] CNDSon 02-25-2021 CNDS HNO ID: [id number] Author: Sandra Broderick MD Service: General Surgery Author Type: Physician Type: Discharge Summary Filed: 02/25/2021 10:33 PM Note Text: DISCHARGE SUMMARY PATIENT NAME: Jyotsna Barrow Sample Code Status: Not on file Highest Readmission Risk Score: 12 The 30 day readmissions risk score is derived from an internally validated risk model which evaluates patient level characteristics, utilization history, medication orders and lab results up until the day of discharge. Patients with a score of 40 or above are considered highest risk for readmission. Specific patient level drivers will be listed at the bottom of the summary. Admission Information Admission Information ADMIT DATE: 02/23/2021 DISCHARGE DATE: 02/25/2021 MY DOCTORS AND MEDICAL TEAM: My Main Hospital Doctor: Sandra Broderick MD Primary Care Provider: Samir Hinds MD My Medical Team Members: Treatment Team: Attending Provider: Sandra Broderick MD Consulting: Karena Dwyer I, MD MY CONDITION AT DISCHARGE: Stable REASON I WAS IN THE HOSPITAL: You fell while walking the dog SUMMARY OF WHAT HAPPENED WHILE I WAS IN THE HOSPITAL: You were admitted at [facility] on 02/23/2021 following a fall. As part of your trauma evaluation you received CT scans of your head, neck, and face as well as x-rays of your chest and pelvis. These images revealed a small subarachnoid hemorrhage (brain bleed), nasal bone fracture, and possible right orbital floor fracture. During your hospitalization you were seen by specialists in neurosurgery who recommended no intervention for your brain injury. You have a Traumatic Brain Injury (TBI) and this will take time to recover from. You can assist in your recovery by getting plenty of rest, decreasing screen time and brain stimulation (phone, TV, reading, etc), and minimizing stress. You may do light physical activity but if you develop a headache, feel lightheaded or nauseated, take a break. You should not take any over the counter blood thinning medications such as ibuprofen, motrin, naproxen, aleve, or aspirin until cleared by neurosurgery. Your facial fractures will heal on their own without intervention. You were evaluated by physical and occupational therapy who recommended you could return home safely. You will need to make follow up appointments with your primary care provider this week for suture removal and with neurosurgery in 4 weeks. OTHER PROBLEMS/DIAGNOSIS: Active Problems: Subarachnoid hemorrhage (HCC) TBI (traumatic brain injury) (HCC) Scalp laceration Resolved Problems: Fall OPERATIONS PERFORMED WHILE IN THE HOSPITAL: None IMPORTANT TEST/PROCEDURES: No procedures performed TEST RESULTS NOT AVAILABLE AT THIS TIME: No pending results Discharge Disposition Discharge Disposition: Home With Self Care Activity When You Leave the Hospital Limited to: Light activity such as walking May bathe and shower Diet Instructions Avoid Alcohol Resume your pre-hospital diet For Pain When You Leave the Hospital Use acetaminophen (Tylenol) as recommended on the bottle Wound/Surgical Site Care Leave open to air Some bleeding from the wound/surgical site can be expected. If excessive, see a doctor at once Wash your hands frequently, especially before touching your incision, after using restroom and before eating Call Your Doctor If You have a severe headache You have lightheadedness, fainting, or confusion You have pain and swelling in your legs, especially if it is only on one side and not the other You have persistent nausea/vomiting over 24 hours You have redness, swelling, pus or drainage from the wound Your temperature is greater than 101F Follow Up Appointments Follow-Up Appointment When: In 4 weeks Patient/Parents to call for appointment?: Yes Karena Dwyer I, MD [phone] [place] [address] PCP Requested Referral Follow-Up Appointment For suture removal With: Your primary care provider When: In 5 days Patient/Parents to call for appointment?: Yes Additional Provider to Provider Information: Active Problems: Subarachnoid hemorrhage (HCC) TBI (traumatic brain injury) (HCC) Scalp laceration Resolved Problems: Fall Treatment Team: Attending Provider: Sandra Broderick MD Consulting: Karena Dwyer I, MD Transitions of Care Critical Issues: SPECIALIST FOLLOW-UP: Neurosurgery, PCP LABS AND PROCEDURES PENDING AT DISCHARGE: No pending results. FOLLOW-UP APPOINTMENTS ALREADY SCHEDULED WITH A [facility] PROVIDER: No future appointments. ALLERGIES Allergen Reactions Demerol [Meperidine] Anaphylaxis DISCHARGE MEDICATION: There are no discharge medications for this patient. See daily progress note for physical examination findings. The patient's risk for 30-day readmission is determined using the following contributing f (more content not included)... Normal [facility] CT BRAIN WO IVCONon 02-26-[address] BRAIN WO IVCON * * *Final Report* * * DATE OF EXAM: Feb 25 2021 7:34AM [facility] 0504 - CT BRAIN WO IVCON / PROCEDURE REASON: Intracranial hemorrhage * * * * Physician Interpretation * * * * EXAMINATION: CT BRAIN WO IVCON CLINICAL HISTORY: Posttraumatic subarachnoid hemorrhage TECHNIQUE: Serial axial images without IV contrast were obtained from the vertex to the foramen magnum. MQ: [id number]_3 CT Radiation dose: Integrated Dose-Length Product (DLP) for this visit = 746 mGy*cm CT Dose Reduction Employed: [employer] COMPARISON: 02/24/[address] RESULT: [employer] (topogram) images: None Post-operative change: None. Acute change: No evidence of an acute infarct or other acute parenchymal process. Hemorrhage: Interval decrease in the small volume of subarachnoid hemorrhage within the left superior frontal sulci, axial image 24 and coronal image 21. No evidence of acute interval rebleeding. Mass Lesion / Mass Effect: There is no evidence of an intracranial mass or extraaxial fluid collection. No significant mass effect. Chronic change: None apparent. Parenchyma: There is no significant volume loss. Ventricles: The ventricles are within normal limits of size and configuration for age. Paranasal sinuses and skull base: Interval decrease in right frontal/supraorbital soft tissue swelling. Paranasal sinuses are clear without hemorrhagic fluid levels. Central skull base appears intact as well as the calvarium. IMPRESSION: 1.Interval decrease in the small volume of subarachnoid hemorrhage within the left superior frontal sulci, axial image 24 and coronal image 21. No evidence of acute interval rebleeding. Terminal Press Operator: LEI Transcribe Date/Time: Feb 25 2021 7:41A Dictated by : OLVIN GONZALES MD This examination was interpreted and the report reviewed and electronically signed by: OLVIN GONZALES MD on Feb 25 2021 7:54AM EST [id number] Normal [facility] THERAPY NTon 02-25-2021 THERAPY NT HNO ID: [id number] Author: Yun Pollack OTR/L Service: Occupational Therapy Author Type: Occupational Therapist Type: Therapy (PT/OT/Speech/Resp) Filed: 02/25/2021 9:38 AM Note Text: Occupational Therapy Evaluation SERVICE DATE: 02/25/2021 SERVICE TIME: 829 to 844 ROOM: [place] [address] Recommended Discharge Disposition: Home Recommended Discharge Disposition Comments: anticipate pt near her baseline and able to discharge home when medically cleared Anticipated Discharge Needs: Physical Assist at Home;Supervision at Home Physical Assist at Home for: Cleaning;Laundry;Meals;Safe ty;Shopping;Transportation Supervision at Home due to: (recent hospitalization) OT 6 Clicks Score: 20 Precautions/Activity Restrictions: Fall Risk Current Hospital Course: +SAH, nonsurgical management Reason for Hospital Admission: GLF while walking a dog Relevant Past Medical History: cancer Response to Therapy Interventions: Good participation in activities Continue skilled needs due to: Functional impairment Occupational Therapy Problem List: Impaired Self Care;Functional Mobility Impairment;Balance Impaired Cognition/Communication Deficits Responsiveness: Alert, Awake Follows Commands: 3-step Commands Cognitive Clinical Tests and Screens: Mini Cog Clock Draw Test: 2-Normal Word Recall: 3-recalled words Mini Cog Score: 5 Treatment Interventions: Self Care / Home Management;Education;Functi onal Mobility Training;Balance Training Home Environment Patient Lives With: Spouse Assistance Available: 24 Hour Entry To Home: Stairs Number Of Stairs Into Home: 3 Number Of Stairs To Bed/Bath: flight Tub/Shower Type: tub Laundry: spouse could do Equipment Owned: Wheeled Walker Prior Functional Level: Within Functional Limits Prior Functional Level Comments: Independent, does not use AD Patient Report: pt agreeable to OT CURRENT FUNCTIONAL STATUS: Most recent performance Current Activities of Daily Living Assist Level Additional Information Feeding Set Up Grooming Stand By Assistance Bathing Upper Body Contact Guard Assistance Bathing Lower Body Contact Guard Assistance Dressing Upper Body Contact Guard Assistance Dressing Lower Body Contact Guard Assistance Toileting Contact Guard Assistance Functional Mobility Assist Level Additional Information Rolling Supine to Sit Stand By Assistance Sit to Supine Scooting Sit to Stand Contact Guard Assistance Stand to Sit Contact Guard Assistance Bed to Chair Toilet/Commode Shower Functional Mobility Contact Guard Assistance Educated on the role of OT in the acute care setting. Instructed patient from supine to sit edge of bed and provided cues for proper hand placement to improve bed mobility. Instructed patient from sit to stand. Provided education on safe navigation and fall prevention for functional mobility within hallway. Provided cues and physical assist for safe hand placement for stand to sit in chair. Blank candelaria indicate activity not attempted Range of Motion: WFL Strength: WFL Balance: Dynamic Sitting;Dynamic Standing Dynamic Sitting Balance: Good Patient accepts moderate challenge, able to maintain balance while picking up object off floor Dynamic Standing Balance: Fair Patient accepts minimal challenge, able to maintain balance while turning head/trunk Learning/Educational Needs: Discharge Plan;Plan of Care;Functional Activities/Mobility;Self Care;Safety Goals for Plan of Care: Patient /Caregiver Goals: Go Home;Care For Self Grooming with: Independent Upper Body Bathing with: Independent Upper Body Dressing with: Independent Lower Body Bathing with: Independent Lower Body Dressing with: Independent Toilet Hygiene with: Independent Chair Transfer with: Independent Toilet Transfer with: Independent Additional Goal 1: pt will score 26 or higher on MoCA Rehab Potential: Good Patient will be discontinued from Occupational Therapy when no further skilled needs are identified in this setting. PLAN: OT Frequency: 1 time per week Plan of Care developed with: Patient TREATMENT INTERVENTIONS: Therapy Diagnosis: Reduced mobility-other;Decreased activities of daily living (ADL) Interventions Provided: Evaluation $ Evaluation-Moderate (97775) Billed Units: 1 unit Training AND education provided in: Bed mobility, Benefits of in-hospital mobility, Discharge planning, Expected functional level, Functional mobility involving ADLs, Role of Occupational Therapy, Transfer - Sit to stand, Standing balance to improve independence with ADLs/self-care, Transfer - Bed to chair, Cognitive skills, Disease specific education, IADLs / Home management The following therapeutic skills were used: Cuing verbal, Movement facilitation Total Treatment Time (minutes): 15 Please see discipline specific clinical documentation flowsheet for complete details for this therapy evaluation/treatment. SIGNA (more content not included)... Normal [facility] ALLIED HEALTHon 02-24-2021 [facility] HNO ID: [id number] Author: RT Jacki(R) Service: Radiology Author Type: Foam Rubber Mixer Type: Allied Health Filed: 02/24/2021 8:00 AM Note Text: Radiology Service Progress Note PATIENT NAME: Jyotsna Pascual DATE OF SERVICE: February 24, 2021 TIME: 7:59 AM PATIENT IDENTITY VERIFICATION COMPLETED USING TWO (2) IDENTIFIERS: Name and Date of confirmed by patient verbally and Name and Date of confirmed by identification band. FALL SCREENING: Has the patient had 2 falls in the last year or 1 fall with injury or currently using an Ambulatory Assistive Device (Walker, Cane, Wheelchair, Crutches, etc.)? Inpatient: Screened on floor PATIENT GENDER DATA: Female. status: : No status: NO. PATIENT RELEVANT IMPLANT DATA REVIEWED: Not Applicable RADIOLOGY DEPARTMENT: CT; Exam(s) Completed: Brain PERIPHERAL IV DATA: Not applicable SIGNED BY: RT Jacki(R) February 24, 2021 7:59 AM Normal [facility] Basic metabolic 2000 panelon 02-24-2021 Anion gap [Moles/Vol] 10 mmol/L Normal 9-18 [facility] Comment on above: Order Comment: Speci men Type: BLOOD SPECIMEN Performed By: #### 2 4321-2 ####[facility]ORATORYCLIA [id number] [place] [address] Calcium [Mass/Vol] 9.0 mg/dL Normal 8.5-10.2 [facility] Comment on above: Order Comment: Speci men Type: BLOOD SPECIMEN Performed By: #### 2 4321-2 ####[facility]ATORYCLIA [id number] [place] [address] Chloride [Moles/Vol] 105 mmol/L Normal 97-105 [facility] Comment on above: Order Comment: Speci men Type: BLOOD SPECIMEN Performed By: #### 2 4321-2 ####[facility]ATORYCLIA [id number] [place] [address] CO2 [Moles/Vol] 26 mmol/L Normal 22-30 [facility] Comment on above: Order Comment: Speci men Type: BLOOD SPECIMEN Performed By: #### 2 4321-2 ####[facility]ATORYCLIA [id number] [place] [address] Creatinine [Mass/Vol] 0.90 mg/dL Normal 0.58-0.96 [facility] Comment on above: Order Comment: Speci men Type: BLOOD SPECIMEN Performed By: #### 2 4321-2 ####[facility]ATORYCLIA [id number] [place] [address] GFR/1.73 sq M.predicted MDRD (S/P/Bld) [Vol rate/Area] mL/min/{1.73_m2} Normal [facility] Comment on above: Order Comment: Speci men Type: BLOOD SPECIMEN Result Comment: >60 eGFR (Estimated GFR) Units of measure: mL/min/1.73 meters squared eGFR is derived from the reexpressed MDRD Study equation using the following parameters: serum creatinine, age, gender and race. The creatinine assay has been calibrated to be traceable to IDMS. An eGFR <60 mL/min/1.73m2 for >3 months is consistent with chronic kidney disease. Refer to KDOQI guidelines for clinical interpretation. In patients with unstable renal function, e.g. those with acute kidney injury, the eGFR may not accurately reflect actual GFR. Performed By: #### 2 4321-2 ####[facility]ATORYCLIA [id number] [place] [address] Glucose [Mass/Vol] 109 mg/dL High 74-99 [facility] Comment on above: Order Comment: Speci men Type: BLOOD SPECIMEN Result Comment: The [place] Diabetes Association (ADA) provides guidance for cutoff values for fasting glucose and random glucose. The ADA defines fasting as no caloric intake for at least 8 hours. Fasting plasma glucose results between 100 to 125 mg/dL indicate increased risk for diabetes (prediabetes). Fasting plasma glucose results greater than or equal to 126 mg/dL meet the criteria for diagnosis of diabetes. In the absence of unequivocal hyperglycemia, results should be confirmed by repeat testing. In a patient with classic symptoms of hyperglycemia or hyperglycemic crisis, random plasma glucose results greater than or equal to 200 mg/dL meet the criteria for diagnosis of diabetes. Reference: Standards of Medical Care in Diabetes 2016, [place] Diabetes Association. Diabetes Care. 2016.39(Suppl 1). Performed By: #### 2 4321-2 ####[facility]ATORYCLIA [id number] [place] [address] Potassium [Moles/Vol] 4.0 mmol/L Normal 3.7-5.1 [facility] Comment on above: Order Comment: Speci men Type: BLOOD SPECIMEN Performed By: #### 2 4321-2 ####[facility]ATORYCLIA [id number] [place] [address] Sodium [Moles/Vol] 141 mmol/L Normal 136-144 [facility] Comment on above: Order Comment: Speci men Type: BLOOD SPECIMEN Performed By: #### 2 4321-2 ####[facility]ORYCLIA [id number] [place] [address] Urea nitrogen [Mass/Vol] 15 mg/dL Normal 7-21 [facility] Comment on above: Order Comment: Speci men Type: BLOOD SPECIMEN Performed By: #### 2 4321-2 ####[facility]ORYCLIA [id number] [place] [address] CBC panel Auto (Bld)on 02-24 Erythrocyte distribution width (RBC) [Ratio] 13.3 % Normal 11.5-15.0 [facility] Comment on above: Order Comment: Speci men Type: BLOOD SPECIMEN Performed By: #### 5 8410-2 ####[facility]ATORYCLIA [id number] [place] [address] Hematocrit (Bld) [Volume fraction] 44.2 % Normal 36.0-46.0 [facility] Comment on above: Order Comment: Speci men Type: BLOOD SPECIMEN Performed By: #### 5 8410-2 ####[facility]ATORYCLIA [id number] [place] [address] Hemoglobin (Bld) [Mass/Vol] 14.0 g/dL Normal 11.5-15.5 [facility] Comment on above: Order Comment: Speci men Type: BLOOD SPECIMEN Performed By: #### 5 8410-2 ####[facility] LABORATORYCLIA [id number] [place] [address] MCH (RBC) [Entitic mass] 30.4 pg Normal 26.0-34.0 [facility] Comment on above: Order Comment: Speci men Type: BLOOD SPECIMEN Performed By: #### 5 8410-2 ####[facility] LABORATORYCLIA [id number] [place] [address] MCHC (RBC) [Mass/Vol] 31.7 g/dL Normal 30.5-36.0 [facility] Comment on above: Order Comment: Speci men Type: BLOOD SPECIMEN Performed By: #### 5 8410-2 ####[facility]ORATORYCLIA [id number] [place] [address] MCV (RBC) [Entitic vol] 95.9 fL Normal 80.0-100.0 [facility] Comment on above: Order Comment: Speci men Type: BLOOD SPECIMEN Performed By: #### 5 8410-2 ####[facility]ORATORYCLIA [id number] [place] [address] Nucleated RBC (Bld) [#/Vol] 10*3/uL Normal <0.01 [facility] Comment on above: Order Comment: Speci men Type: BLOOD SPECIMEN Performed By: #### 5 8410-2 ####[facility]ATORYCLIA [id number] [place] [address] Platelet mean volume (Bld) [Entitic vol] 10.5 fL Normal 9.0-12.7 [facility] Comment on above: Order Comment: Speci men Type: BLOOD SPECIMEN Performed By: #### 5 8410-2 ####[facility]ORATORYCLIA [id number] [place] [address] Platelets (Bld) [#/Vol] 225 10*3/uL Normal 150-400 [facility] Comment on above: Order Comment: Speci men Type: BLOOD SPECIMEN Performed By: #### 5 8410-2 ####[facility]ATORYCLIA [id number] [place] [address] RBC (Bld) [#/Vol] 4.61 10*6/uL Normal 3.90-5.20 [facility] Comment on above: Order Comment: Speci men Type: BLOOD SPECIMEN Performed By: #### 5 8410-2 ####[facility]ATORYCLIA [id number] [place] [address] WBC (Bld) [#/Vol] 11.95 10*3/uL High 3.70-11.00 [facility] Comment on above: Order Comment: Speci men Type: BLOOD SPECIMEN Performed By: #### 5 8410-2 ####[facility]ORATORYCLIA [id number] [place] [address] CONSULTon 02-24-2021 CONSULT HNO ID: [id number] Author: Karena Dwyer I, MD Service: Neurosurgery Author Type: Physician Type: Consults Filed: 02/24/2021 2:09 PM Note Text: NEUROSURGERY SERVICE INITIAL CONSULT NOTE SERVICE DATE: 02/24/2021 SERVICE TIME: 0900 REASON FOR CONSULT: cLOSED HEAD INJURY REQUESTING PHYSICIAN: TRAUMA PRIMARY CARE PHYSICIAN: Samir Hinds MD Subjective 75 year old female h/o breast cancer s/p chemo/radiation, lumpectomy presents to the ED as a level 3 trauma activation after transfer from outside ED with a small subarachnoid hemorrhage that she sustained following a ground level fall earlier today. Patient was walking her DAUGHTER'S dog when she lost control of him and fell to the pavement landing on her face. She notes that she has been feeling unsteady for some time secondary to her chemotherapy treatment. Likely brief LOC as the first thing she remembers is waking up in the ambulance. She was initially taken to outside ED where CT head and neck were obtained and were significant for a small subarachnoid hemorrhage. . In the ED, patient c/o 7/10 headache. She has a small laceration above her R eyebory that was closed prior to arrival. She has a moderate amount of R sided periorbital edema. This morning she reports feeling sore all over but generally well. Mild headache only. FUNCTIONAL STATUS: Independent PAST MEDICAL HISTORY Diagnosis Date - Breast cancer (HCC) - Cancer (HCC) PAST SURGICAL HISTORY Procedure Laterality Date - BREAST LUMPECTOMY HX Left - CHOLECYSTECTOMY HX - TONSILLECTOMY HX No family history on file. Social History Tobacco Use - Smoking status: Never Smoker - Smokeless tobacco: Never Used Vaping Use - Vaping Use: Never used Substance Use Topics - Alcohol use: Not Currently - Drug use: Never No medications prior to admission. Current Facility-Administered Medications Medication Dose Route Frequency [...] mg ORAL q 6 H PRN - levETIRAcetam 1,000 mg tab(s) (KEPPRA) 1,000 mg ORAL BID Allergies As of Date: 02/23/2021 Allergen Noted Reaction DEMEROL [MEPERIDINE] 02/23/2021 Anaphylaxis Fully Assessed 02/23/2021 COMPLETE REVIEW OF SYSTEMS: PAIN ASSESSMENT: CURRENTLY HAVING PAIN; LOCATION/DISTRIBUTION: Mild headache GENERAL: No weight loss, malaise or fevers RESPIRATORY: Negative for cough, hemoptysis, wheezing, COPD, dyspnea or shortness of breath CARDIOVASCULAR: Negative for chest pain, leg swelling, hypertension, CHF or palpitations GI: No nausea, vomiting, or diarrhea : No history of dysuria, frequency or incontinence MUSCULOSKELETAL: Negative for joint pain or swelling, back pain or muscle pain SKIN: Negative for lesions, rash, and itching NEURO: No history of headaches, syncope, paralysis, seizures or tremors Objective PHYSICAL EXAM: Physical Exam Performed: GENERAL: Alert, no distress, cooperative EYES: PERRLA, EOMI EARS: External ears normal, canals clear LUNGS: Lungs clear to auscultation, Good diaphragmatic excursion CARDIAC: Normal S1 and S2; no rubs, murmurs, or gallops EXTREMITIES: Extremities normal, no deformities, edema, clubbing or skin discoloration. Good capillary refill., No ulcers NEURO: Gait normal. Reflexes normal and symmetric. Sensation grossly intact, Cranial nerves II-XII intact BP 102/60 Pulse 69 Temp (Src) 98.2 (Temporal) Resp 20 Ht 5' 4 (1.63m) Wt 154 lb 8.7 oz (70.1kg) SpO2 95% BMI 26.51 kg/(m2). O2 Therapy: Room Air She hs periorbital ecchymosis on the right with a slight amount on the left. Laceration over the right eye has been sutured and is covered. Dressing is dry. DATA: Diagnostic tests reviewed for today's visit: Most recent imaging I reviewed CT head undertaken this morning which reveals trace amounts of subarachnoid hemorrhage left frontal region only. Questionable orbital floor fracture. Comminuted nasal bone fractures noted by radiology. Impression/Recommendations Active Problems: Subarachnoid hemorrhage (HCC) POA: Yes Assessment AND Plan: Patient has a mild traumatic brain injury with minimal subarachnoid hemorrhage. She does not need Keppra for this. Would encourage mobilization. Patient can DC home once 24-hour scan is stable from my perspective. She can follow-up in the office with me in 4 weeks time no further imaging needed. SIGNATURE: Karena Dwyer MD PATIENT NAME: Jyotsna Barrow Sample DATE: February 24, 2021 TIME: 2:04 PM PAGER: Normal [facility] CT BRAIN WO IVCONon 02-25-[address] BRAIN WO IVCON * * *Final Report* * * DATE OF EXAM: Feb 24 2021 7:58AM [facility] 0504 - CT BRAIN WO IVCON / PROCEDURE REASON: Intracranial hemorrhage * * * * Physician Interpretation * * * * EXAMINATION: CT BRAIN WO IVCON CLINICAL HISTORY: Follow-up intracranial hemorrhage TECHNIQUE: Serial axial images without IV contrast were obtained from the vertex to the foramen magnum. MQ: CTBWO_3 CT Radiation dose: Integrated Dose-Length Product (DLP) for this visit = 755 mGy*cm CT Dose Reduction Employed: Iterative recon COMPARISON: CT head 02/23/2021 RESULT: Club Licensee (topogram) images: No significant findings. Post-operative change: None. Acute change: Left frontal subarachnoid hemorrhage slightly more prominent. Hemorrhage: See above. Mass Lesion / Mass Effect: No significant mass effect. Chronic change: Right basal ganglia calcification. Parenchyma: Mild cerebral volume loss. Ventricles: The ventricles are within normal limits of size and configuration for age. Paranasal sinuses and skull base: Trace layering fluid or mucosal thickening in both maxillary sinuses. 8 mm left posterior scalp nodule series 2, image 23, possible complex sebaceous cyst or epidermal inclusion cyst. IMPRESSION: Slightly more prominent left frontal subarachnoid hemorrhage. Terminal Press Operator: PSCB Transcribe Date/Time: Feb 24 2021 8:12A Dictated by : KEN WELLS MD This examination was interpreted and the report reviewed and electronically signed by: KEN WELLS MD on Feb 24 2021 8:17AM EST [id number] Normal [facility] ED NOTEon 02-24-2021 ED NOTE HNO ID: [id number] Author: Alix Quintana RN Service: Emergency Medicine Author Type: Registered Nurse Type: ED Notes Filed: 02/24/2021 12:06 AM Note Text: Report called to CONCHA Tatum on [address]. Bed is ready. Normal [facility] THERAPY NTon 02-24-2021 THERAPY NT HNO ID: [id number] Author: Jolly Taylor CCC/FLORAL MANAGER Service: Speech/Swallow Author Type: Speech Language Pathologist Type: Therapy (PT/OT/Speech/Resp) Filed: 02/24/2021 4:36 PM Note Text: Speech Therapy Speech Evaluation SERVICE DATE: 02/24/2021 SERVICE TIME: 1600 to 1625 ROOM: [place] [address] IMPRESSION: Functional communication without limitations in: Speech, Language, Cognition Recommended Discharge Disposition: No further skilled speech therapy services anticipated Current Hospital Course: 02/24 CT of brain with slightly more prominent left frontal subarachnoid hemorrhage. Reason for Hospital Admission: GLF while walking a dog Traumatic Injuries: 1. Acute L anterioer/mid frontal SAH without mass effect or shift 2. Acute comminuted nasal bone fx with mildly displaced nasal septal fracture 3. Questionable minimal nondisplaced fx of the R oribal floor Rehabilitation Precautions: Cognitive Linguistics Deficits Reason for Speech Therapy Consult: head injury; cognitive evaluation Relevant Past Medical History: breast cancer Response to Therapy Interventions: Good Participation in activities Patient Report: I feel pretty normal with my thinking. I am just tired. Current Status Oral Hygiene: Clear, moist oral cavity Dentition: Retains Natural Dentition Current Feeding Method: Oral Current Diet Textures: Regular Consistency, Thin Liquids IDDSI Level 0 Current Level Of Communication: Verbal Current Management Of Secretions: Able to self-manage Oral Motor Exam: Within Functional Limits Cognition Cognitive Status: Within Functional Limits For Current Session The Cognitive Log (Cog-Log) is designed to be a quick quantitative measure of cognition status for use at the bedside with rehabilitation inpatients. It is intended for individuals who have achieved consistent accurate orientation, such as measured by the Orientation Log (O-Log). The Cog-Log can be used to document cognitive progress on a daily basis. All items are scored from 0 to 3 for a total possible score of 30. 3 = correct spontaneous response 2 = correct upon logical cueing (e.g., That was yesterday, so today must be...) 1 = correct upon multiple choice or phonemic cueing 0 = incorrect despite cueing, inappropriate response, or unable to respond Stimulus Response/Score Date 10/17 Time 10/17 Name of Hospital 10/17 Repeat Address 10/17 20-1 10/17 Months Reversed 10/17 30 Seconds 10/17 [id number] 09/19 Go/No-Go 10/17 Address Recall 08/19 Total Speech/Voice/Language Speech Production: Within Functional Limits Expressive and Receptive Language: Auditory Comprehension Deficits: 1-Step Commands - (%): 100 2-Step Commands - (%): 100 Verbal Expression Deficits: Automatic Speech ? (%): 100 Confrontational Naming ? (%): 100 Conversational Speech ? (%): 100 Expressing Basic Needs/Wants ? (%): 100 Expressing Complex Information ? (%): 100 Reading Comprehension Deficits: Sentence (%): 100 Functional Communication Measure (FCM) Current FCM Level: Spoken Language Comprehension Level;Spoken Language Expression;Problem Solving FCM Spoken Language Comprehension Level: 7 FCM Spoken Language Expression Level: 7 FCM Problem Solving Level: 7 Patient will be discontinued from speech therapy when no further skilled needs are identified in this setting. PLAN: ST Frequency: Discontinue therapy services Plan of Care Developed with: Patient Results and Recommendations Discussed With: Patient TREATMENT INTERVENTIONS: Therapy Diagnosis: No Skilled Need Interventions Provided: Speech Language Eval (33751) $ Speech Language Eval (82953) Billed Units: 1 unit Total Treatment Time (minutes): 25 Home Environment Patient Lives With: Spouse Prior Swallowing Function/Diet Textures: Regular Consistency;Thin Liquids IDDSI Level 0 Please see discipline specific clinical documentation flowsheet for complete details for this therapy evaluation/treatment. SIGNATURE: Jolly Taylor CCC/FLORAL MANAGER PATIENT NAME: Jyotsna Barrow Sample DATE: February 24, 2021 TIME: 4:33 PM Normal [facility] THERAPY NT HNO ID: [id number] Author: Ken Kim, PT Service: Physical Therapy Author Type: Physical Therapist Type: Therapy (PT/OT/Speech/Resp) Filed: 02/24/2021 3:18 PM Note Text: Physical Therapy Evaluation SERVICE DATE: 02/24/2021 SERVICE TIME: 1350 to 1406 ROOM: [id number] Recommended Discharge Disposition: Home Recommended Discharge Disposition Comments: has supportive spouse at home Anticipated Discharge Needs: Physical Assist at Home;Supervision at Home Physical Assist at Home for: Cleaning;Laundry;Meals;Safe ty;Shopping;Transportation Supervision at Home due to: (recent hospitalization) PT 6 Clicks Score: 20 Precautions/Activity Restrictions: Fall Risk Current Hospital Course: +SAH, nonsurgical management Reason for Hospital Admission: GLF while walking a dog Relevant Past Medical History: cancer Response to Therapy Interventions: Good participation in activities Continue skilled needs due to: Functional mobility/skill impairments, Safety concerns Physical Therapy Problem List: Education Deficit;Safety Deficits;Decreased Strength;Functional Mobility Impairment;Balance Impaired Treatment Interventions: Education;Functional Mobility Training;Balance Training;Neuromuscular Re-education Home Environment Patient Lives With: Spouse Assistance Available: 24 Hour Entry To Home: Stairs Number Of Stairs Into Home: 3 Number Of Stairs To Bed/Bath: flight Tub/Shower Type: tub Laundry: spouse could do Equipment Owned: Wheeled Walker Prior Functional Level: Within Functional Limits Prior Functional Level Comments: Independent, does not use AD Patient Report: Agreeable to PT CURRENT FUNCTIONAL STATUS: Most recent performance Current Functional Mobility Assist Level Additional Information Rolling Supine to Sit Supervision Sit to Supine Supervision Scooting Sit to Stand Contact Guard Assistance Stand to Sit Contact Guard Assistance Bed to Chair Toilet/Commode Gait Contact Guard Assistance Gait Device: Hand Held Assist Gait Distance (feet): 100 patient did complain of dizziness upon initial stand, felt more comfortable with handheld assist - no loss of balance noted. Patient demo slow, cautious gait Stairs Curb Step Car Transfer Blank candelaria indicate activity not attempted General Deviations/Observations: Jessenia decreased;Step length decreased Range of Motion: WFL Strength: WFL Balance: Static Standing;Dynamic Standing Static Standing Balance: Fair Patient able to maintain balance with handhold support, may require occasional minimal assistance Dynamic Standing Balance: Fair Patient accepts minimal challenge, able to maintain balance while turning head/trunk -HLM: 7: Walk 25 feet or more Learning/Educational Needs: Functional Activities/Mobility;Plan of Care;Precautions;Safety Goals for Plan of Care: Patient /Caregiver Goals: Go Home Transfer supine to/from sit with: Independent Transfer sit to/from stand with: Independent Ambulate with: Independent Distance: 250 Device: No Device Ambulate up and down steps with: Independent Number of steps: 8 Device: Rail Rehab Potential: Good Patient will be discontinued from Physical Therapy when no further skilled needs are identified in this setting. PLAN: PT Frequency: 3 times per week (2-3) Plan of Care developed with: Patient TREATMENT INTERVENTIONS: Therapy Diagnosis: Reduced mobility-other;Unsteadiness on feet Interventions Provided: Evaluation $ Evaluation-Moderate (76859) Billed Units: 1 unit Training AND education provided in: Anatomy and impact on deficits, Benefits of in-hospital mobility, Discharge planning, Role of Physical Therapy The following therapeutic skills were used: Activity dosing, Cues for sequencing/proper technique for activity, Cuing tactile, Cuing verbal, Physical assist, Movement facilitation Total Treatment Time (minutes): 16 Please see discipline specific clinical documentation flowsheet for complete details for this therapy evaluation/treatment. SIGNATURE: Ken Kim PT PATIENT NAME: Jyotsna Barrow Sample DATE: February 24, 2021 TIME: 3:18 PM Normal [facility] VITAMIN D 25 HYDROXYon 02-24 25-hydroxyvitamin D3 [Mass/Vol] 24.6 ng/mL Low 30.0-100.0 [facility] Comment on above: Order Comment: Speci men Type: BLOOD SPECIMEN Result Comment: Clas sification of 25 [place] Vitamin D status: Deficiency: < 20 ng/ml. Insufficientcy: 20-30 ng/ml. Sufficiency: 30-100 ng/ml. Performed By: #### V ITD ####[facility] LABORATORYCLIA [id number] [place], [place] [id number] [place], [place] [address]on 02-23-2021 [facility] HNO ID: [id number] Author: ZULEIMA Moon Service: Radiology Author Type: Clinical Foam Rubber Mixer Type: Allied Health Filed: 02/23/2021 8:51 PM Note Text: Radiology Service Progress Note PATIENT NAME: Jyotsna Pascual DATE OF SERVICE: February 23, 2021 TIME: 8:51 PM PATIENT IDENTITY VERIFICATION COMPLETED USING TWO (2) IDENTIFIERS: Name and Date of confirmed by patient verbally and Name and Date of confirmed by identification band. FALL SCREENING: Has the patient had 2 falls in the last year or 1 fall with injury or currently using an Ambulatory Assistive Device (Walker, Cane, Wheelchair, Crutches, etc.)? Emergency Room Patient: Screened in ED PATIENT GENDER DATA: Female. status: : No status: NO. PATIENT RELEVANT IMPLANT DATA REVIEWED: Not Applicable RADIOLOGY DEPARTMENT: CT; Exam(s) Completed: Brain , Face/Mandible and Spine PERIPHERAL IV DATA: Not applicable SIGNED BY: ZULEIMA Moon February 23, 2021 8:51 PM Normal [facility] HNO ID: [id number] Author: RT Migue(Genaro) Service: Radiology Author Type: Foam Rubber Mixer Type: Allied Health Filed: 02/23/2021 8:07 PM Note Text: Radiology Service Progress Note PATIENT NAME: Jyotsna Pascual DATE OF SERVICE: February 23, 2021 TIME: 8:07 PM PATIENT IDENTITY VERIFICATION COMPLETED USING TWO (2) IDENTIFIERS: Name and Date of confirmed by patient verbally and Name and Date of confirmed by identification band. FALL SCREENING: Has the patient had 2 falls in the last year or 1 fall with injury or currently using an Ambulatory Assistive Device (Walker, Cane, Wheelchair, Crutches, etc.)? Emergency Room Patient: Screened in ED PATIENT GENDER DATA: Female. status: : No status: NO. PATIENT RELEVANT IMPLANT DATA REVIEWED: Not Applicable RADIOLOGY DEPARTMENT: General X-ray: Exam(s) Completed: Chest X-Ray Pelvis X-Ray: Pelvis General AP PERIPHERAL IV DATA: Not applicable SIGNED BY: RT Migue(R) February 23, 2021 8:07 PM Normal [facility] CBC panel Auto (Bld)on 02-23 Erythrocyte distribution width (RBC) [Ratio] 13.1 % Normal 11.5-15.0 [facility] Comment on above: Order Comment: Speci men Type: BLOOD SPECIMEN Performed By: #### 5 8410-2 ####[facility] LABORATORYCLIA [id number] [place] [address] Hematocrit (Bld) [Volume fraction] 46.8 % High 36.0-46.0 [facility] Comment on above: Order Comment: Speci men Type: BLOOD SPECIMEN Performed By: #### 5 8410-2 ####[facility]ATORYCLIA [id number] [place] [address] Hemoglobin (Bld) [Mass/Vol] 15.3 g/dL Normal 11.5-15.5 [facility] Comment on above: Order Comment: Speci men Type: BLOOD SPECIMEN Performed By: #### 5 8410-2 ####[facility]ATORYCLIA [id number] [place] [address] MCH (RBC) [Entitic mass] 31.0 pg Normal 26.0-34.0 [facility] Comment on above: Order Comment: Speci men Type: BLOOD SPECIMEN Performed By: #### 5 8410-2 ####[facility]ATORYCLIA [id number] [place] [address] MCHC (RBC) [Mass/Vol] 32.7 g/dL Normal 30.5-36.0 [facility] Comment on above: Order Comment: Speci men Type: BLOOD SPECIMEN Performed By: #### 5 8410-2 ####[facility]ATORYCLIA [id number] [place] [address] MCV (RBC) [Entitic vol] 94.9 fL Normal 80.0-100.0 [facility] Comment on above: Order Comment: Speci men Type: BLOOD SPECIMEN Performed By: #### 5 8410-2 ####[facility]ATORYCLIA [id number] [place] [address] Nucleated RBC (Bld) [#/Vol] 10*3/uL Normal <0.01 [facility] Comment on above: Order Comment: Speci men Type: BLOOD SPECIMEN Performed By: #### 5 8410-2 ####[facility]ORYCLIA [id number] [place] [address] Platelet mean volume (Bld) [Entitic vol] 10.8 fL Normal 9.0-12.7 [facility] Comment on above: Order Comment: Speci men Type: BLOOD SPECIMEN Performed By: #### 5 8410-2 ####[facility]ATORYCLIA [id number] [place] [address] Platelets (Bld) [#/Vol] 265 10*3/uL Normal 150-400 [facility] Comment on above: Order Comment: Speci men Type: BLOOD SPECIMEN Performed By: #### 5 8410-2 ####[facility]ATORYCLIA [id number] [place] [address] RBC (Bld) [#/Vol] 4.93 10*6/uL Normal 3.90-5.20 [facility] Comment on above: Order Comment: Speci men Type: BLOOD SPECIMEN Performed By: #### 5 8410-2 ####[facility]ATORYCLIA [id number] [place] [address] WBC (Bld) [#/Vol] 12.34 10*3/uL High 3.70-11.00 [facility] Comment on above: Order Comment: Speci men Type: BLOOD SPECIMEN Performed By: #### 5 8410-2 ####[facility]ATORYCLIA [id number] [place] [address] CT BRAIN WO IVCONon 02-24-[address] BRAIN WO IVCON * * *Final Report* * * DATE OF EXAM: Feb 23 2021 8:58PM [facility] 0504 - CT BRAIN WO IVCON / PROCEDURE REASON: SAH suspected, initial exam * * * * Physician Interpretation * * * * EXAMINATION: CT FACIAL BONE/ANÍBAL WO IVCON, CT BRAIN WO IVCON, CT CERVICAL SPINE WO IVCON CLINICAL HISTORY: TECHNIQUE: Serial axial unenhanced images were obtained from the vertex to the foramen magnum. Spiral, high resolution axial unenhanced images were obtained from the skull base to the cervicothoracic junction with sagittal and coronal planar reconstructions. Spiral high resolution axial unenhanced images were also obtained through the facial bones with sagittal and coronal planar reconstructions. MQ: [id number]_3 Dose-Length Product (DLP): 1631 mGy*cm. CT Dose Reduction Employed: Automated exposure control(AEC) and iterative recon COMPARISON: None. RESULT: BRAIN: Acute change: No evidence of an acute contusion or other acute parenchymal process. Hemorrhage: Faint acute left anterior/mid frontal subarachnoid hemorrhage without mass effect or midline shift. Mass lesion / Mass effect: No mass effect or midline shift. Chronic change: None apparent. Parenchyma: There is moderate generalized volume loss with a somewhat frontal predilection.. The brain parenchyma is otherwise within normal limits for age. Ventricles: Ventricular enlargement concordant with the degree of parenchymal volume loss. No evidence of hydrocephalus. Paranasal sinuses and skull base: The visualized paranasal sinuses are grossly clear. The skull base and visualized extracranial soft tissues are grossly normal. CERVICAL: Counting reference: Craniocervical junction. Anatomic Variants: None. Alignment: Alignment is anatomic. Craniocervical junction: Craniocervical junction is normal. Osseous structures/fracture: No evidence of a lytic or blastic process in the visualized spine. No evidence of acute or chronic fracture. Cervical soft tissues: The paraspinal soft tissues planes are maintained. Degenerative changes: Multilevel age-related degenerative changes. FACIAL BONES: Soft Tissues: Right periorbital and maxillary soft tissue swelling. Facial bones: Comminuted nasal bone fracture. Mildly displaced nasal septal fracture. Faint lucency through the right infraorbital foramen with smooth edge appearance and no displacement. This is questionable for nondisplaced fracture and could also represent neurovascular channel Faint lucency of the right frontal bone (series 5, image 21). This does not extend to the inner table and is also likely a neurovascular channel. Orbits: No evidence of an acute fracture. The globes are intact. The soft tissue planes of the orbits are maintained. Paranasal Sinuses: Minimal mucosal thickening of the paranasal sinuses without outflow track obstruction or air-fluid level. Foreign Bodies: No evidence of radioopaque foreign bodies. Other: No evidence of a remote fracture. No lytic or blastic process seen in the facial bones. Bilateral TMJ degenerative change. IMPRESSION: * Faint acute left anterior/mid frontal subarachnoid hemorrhage without mass effect or midline shift. * No acute fracture or evidence of traumatic listhesis within the cervical spine. * Acute comminuted nasal bone fracture with mildly displaced nasal septal fracture. Questionable minimal nondisplaced fracture of the right orbital floor. Otherwise, no acute facial bone fractures. Right periorbital soft tissue swelling. * Findings discussed with Dr. Peguero at 9:42 PM. Terminal Press Operator: PSCB Transcribe Date/Time: Feb 23 2021 9:22P Dictated by : EDUARD DICKEY MD This examination was interpreted and the report reviewed and electronically signed by: EDUARD DICKEY MD on Feb 23 2021 9:44PM EST [id number] [facility] CT CERVICAL SPINE WO IVCONon 02-23-2021 CT CERVICAL SPINE WO IVCON * * *Final Report* * * DATE OF EXAM: Feb 23 2021 8:58PM [facility] 0505 - CT CERVICAL SPINE WO IVCON / PROCEDURE REASON: C-spine fx, traumatic * * * * Physician Interpretation * * * * EXAMINATION: CT FACIAL BONE/ANÍBAL WO IVCON, CT BRAIN WO IVCON, CT CERVICAL SPINE WO IVCON CLINICAL HISTORY: TECHNIQUE: Serial axial unenhanced images were obtained from the vertex to the foramen magnum. Spiral, high resolution axial unenhanced images were obtained from the skull base to the cervicothoracic junction with sagittal and coronal planar reconstructions. Spiral high resolution axial unenhanced images were also obtained through the facial bones with sagittal and coronal planar reconstructions. MQ: CTBCSFBWO_3 Dose-Length Product (DLP): 1631 mGy*cm. CT Dose Reduction Employed: Automated exposure control(AEC) and iterative recon COMPARISON: None. RESULT: BRAIN: Acute change: No evidence of an acute contusion or other acute parenchymal process. Hemorrhage: Faint acute left anterior/mid frontal subarachnoid hemorrhage without mass effect or midline shift. Mass lesion / Mass effect: No mass effect or midline shift. Chronic change: None apparent. Parenchyma: There is moderate generalized volume loss with a somewhat frontal predilection.. The brain parenchyma is otherwise within normal limits for age. Ventricles: Ventricular enlargement concordant with the degree of parenchymal volume loss. No evidence of hydrocephalus. Paranasal sinuses and skull base: The visualized paranasal sinuses are grossly clear. The skull base and visualized extracranial soft tissues are grossly normal. CERVICAL: Counting reference: Craniocervical junction. Anatomic Variants: None. Alignment: Alignment is anatomic. Craniocervical junction: Craniocervical junction is normal. Osseous structures/fracture: No evidence of a lytic or blastic process in the visualized spine. No evidence of acute or chronic fracture. Cervical soft tissues: The paraspinal soft tissues planes are maintained. Degenerative changes: Multilevel age-related degenerative changes. FACIAL BONES: Soft Tissues: Right periorbital and maxillary soft tissue swelling. Facial bones: Comminuted nasal bone fracture. Mildly displaced nasal septal fracture. Faint lucency through the right infraorbital foramen with smooth edge appearance and no displacement. This is questionable for nondisplaced fracture and could also represent neurovascular channel Faint lucency of the right frontal bone (series 5, image 21). This does not extend to the inner table and is also likely a neurovascular channel. Orbits: No evidence of an acute fracture. The globes are intact. The soft tissue planes of the orbits are maintained. Paranasal Sinuses: Minimal mucosal thickening of the paranasal sinuses without outflow track obstruction or air-fluid level. Foreign Bodies: No evidence of radioopaque foreign bodies. Other: No evidence of a remote fracture. No lytic or blastic process seen in the facial bones. Bilateral TMJ degenerative change. IMPRESSION: * Faint acute left anterior/mid frontal subarachnoid hemorrhage without mass effect or midline shift. * No acute fracture or evidence of traumatic listhesis within the cervical spine. * Acute comminuted nasal bone fracture with mildly displaced nasal septal fracture. Questionable minimal nondisplaced fracture of the right orbital floor. Otherwise, no acute facial bone fractures. Right periorbital soft tissue swelling. * Findings discussed with Dr. Peguero at 9:42 PM. Terminal Press Operator: PSCErika Transcribe Date/Time: Feb 23 2021 9:22P Dictated by : EDUARD DICKEY MD This examination was interpreted and the report reviewed and electronically signed by: EDUARD DICKEY MD on Feb 23 2021 9:44PM EST [id number] Normal [facility] CT FACIAL BONE/ANÍBAL WO IVCON on 02-23-2021 CT FACIAL BONE/ANÍBAL WO IVCON * * *Final Report* * * DATE OF EXAM: Feb 23 2021 8:58PM [facility] 0507 - CT FACIAL BONE/ANÍBAL WO IVCON / PROCEDURE REASON: Hematoma, face * * * * Physician Interpretation * * * * EXAMINATION: CT FACIAL BONE/ANÍBAL WO IVCON, CT BRAIN WO IVCON, CT CERVICAL SPINE WO IVCON CLINICAL HISTORY: TECHNIQUE: Serial axial unenhanced images were obtained from the vertex to the foramen magnum. Spiral, high resolution axial unenhanced images were obtained from the skull base to the cervicothoracic junction with sagittal and coronal planar reconstructions. Spiral high resolution axial unenhanced images were also obtained through the facial bones with sagittal and coronal planar reconstructions. MQ: CTBCSFBWO_3 Dose-Length Product (DLP): 1631 mGy*cm. CT Dose Reduction Employed: Automated exposure control(AEC) and iterative recon COMPARISON: None. RESULT: BRAIN: Acute change: No evidence of an acute contusion or other acute parenchymal process. Hemorrhage: Faint acute left anterior/mid frontal subarachnoid hemorrhage without mass effect or midline shift. Mass lesion / Mass effect: No mass effect or midline shift. Chronic change: None apparent. Parenchyma: There is moderate generalized volume loss with a somewhat frontal predilection.. The brain parenchyma is otherwise within normal limits for age. Ventricles: Ventricular enlargement concordant with the degree of parenchymal volume loss. No evidence of hydrocephalus. Paranasal sinuses and skull base: The visualized paranasal sinuses are grossly clear. The skull base and visualized extracranial soft tissues are grossly normal. CERVICAL: Counting reference: Craniocervical junction. Anatomic Variants: None. Alignment: Alignment is anatomic. Craniocervical junction: Craniocervical junction is normal. Osseous structures/fracture: No evidence of a lytic or blastic process in the visualized spine. No evidence of acute or chronic fracture. Cervical soft tissues: The paraspinal soft tissues planes are maintained. Degenerative changes: Multilevel age-related degenerative changes. FACIAL BONES: Soft Tissues: Right periorbital and maxillary soft tissue swelling. Facial bones: Comminuted nasal bone fracture. Mildly displaced nasal septal fracture. Faint lucency through the right infraorbital foramen with smooth edge appearance and no displacement. This is questionable for nondisplaced fracture and could also represent neurovascular channel Faint lucency of the right frontal bone (series 5, image 21). This does not extend to the inner table and is also likely a neurovascular channel. Orbits: No evidence of an acute fracture. The globes are intact. The soft tissue planes of the orbits are maintained. Paranasal Sinuses: Minimal mucosal thickening of the paranasal sinuses without outflow track obstruction or air-fluid level. Foreign Bodies: No evidence of radioopaque foreign bodies. Other: No evidence of a remote fracture. No lytic or blastic process seen in the facial bones. Bilateral TMJ degenerative change. IMPRESSION: * Faint acute left anterior/mid frontal subarachnoid hemorrhage without mass effect or midline shift. * No acute fracture or evidence of traumatic listhesis within the cervical spine. * Acute comminuted nasal bone fracture with mildly displaced nasal septal fracture. Questionable minimal nondisplaced fracture of the right orbital floor. Otherwise, no acute facial bone fractures. Right periorbital soft tissue swelling. * Findings discussed with Dr. Peguero at 9:42 PM. Terminal Press Operator: [facility] Transcribe Date/Time: Feb 23 2021 9:22P Dictated by : EDUARD DICKEY MD This examination was interpreted and the report reviewed and electronically signed by: EDUARD DICKEY MD on Feb 23 2021 9:44PM EST [id number] Normal [facility] Comprehensive metabolic 2000 panelon 02-23-2021 Albumin [Mass/Vol] 4.4 g/dL Normal 3.9-4.9 [facility] Comment on above: Order Comment: Speci men Type: BLOOD SPECIMEN Performed By: #### 2 4323-8, 3040-3 ####[facility]ORYCLIA [id number] [place] [address] ALP [Catalytic activity/Vol] 82 U/L Normal 34-123 [facility] Comment on above: Order Comment: Speci men Type: BLOOD SPECIMEN Performed By: #### 2 4323-8, 3040-3 ####[facility]ORYCLIA [id number] [place] [address] ALT With P-5'-P [Catalytic activity/Vol] 30 U/L Normal 7-38 [facility] Comment on above: Order Comment: Speci men Type: BLOOD SPECIMEN Performed By: #### 2 4323-8, 0-3 ####[facility]ORYCLIA [id number] [place] [address] Anion gap [Moles/Vol] 12 mmol/L Normal 9-18 [facility] Comment on above: Order Comment: Speci men Type: BLOOD SPECIMEN Performed By: #### 2 4323-8, 0-3 ####[facility] [id number] [place] [address] AST With P-5'-P [Catalytic activity/Vol] 28 U/L Normal 13-35 [facility] Comment on above: Order Comment: Speci men Type: BLOOD SPECIMEN Performed By: #### 2 4323-8, 0-3 ####[facility] [id number] [place] [address] Bilirubin [Mass/Vol] 0.4 mg/dL Normal 0.2-1.3 [facility] Comment on above: Order Comment: Speci men Type: BLOOD SPECIMEN Performed By: #### 2 4323-8, 0-3 ####[facility] [id number] [place] [address] Calcium [Mass/Vol] 9.5 mg/dL Normal 8.5-10.2 [facility] Comment on above: Order Comment: Speci men Type: BLOOD SPECIMEN Performed By: #### 2 4323-8, 0-3 ####[facility]ORY[facility] [id number] [place] [address] Chloride [Moles/Vol] 107 mmol/L High 97-105 [facility] Comment on above: Order Comment: Speci men Type: BLOOD SPECIMEN Performed By: #### 2 4323-8, 0-3 ####[facility] [id number] [place] [address] CO2 [Moles/Vol] 24 mmol/L Normal 22-30 [facility] Comment on above: Order Comment: Speci men Type: BLOOD SPECIMEN Performed By: #### 2 4323-8, 0-3 ####[facility]ORYCLIA [id number] [place] [address] Creatinine [Mass/Vol] 0.82 mg/dL Normal 0.58-0.96 [facility] Comment on above: Order Comment: Speci men Type: BLOOD SPECIMEN Performed By: #### 2 4323-8, 0-3 ####[facility]ATORYCLIA [id number] [place] [address] GFR/1.73 sq M.predicted MDRD (S/P/Bld) [Vol rate/Area] mL/min/{1.73_m2} Normal [facility] Comment on above: Order Comment: Speci men Type: BLOOD SPECIMEN Result Comment: >60 eGFR (Estimated GFR) Units of measure: mL/min/1.73 meters squared eGFR is derived from the reexpressed MDRD Study equation using the following parameters: serum creatinine, age, gender and race. The creatinine assay has been calibrated to be traceable to IDMS. An eGFR <60 mL/min/1.73m2 for >3 months is consistent with chronic kidney disease. Refer to KDOQI guidelines for clinical interpretation. In patients with unstable renal function, e.g. those with acute kidney injury, the eGFR may not accurately reflect actual GFR. Performed By: #### 2 4323-8, 3 ####[facility]ATORYCLIA [id number] [place] [address] Glucose [Mass/Vol] 107 mg/dL High 74-99 [facility] Comment on above: Order Comment: Speci [facility] Type: BLOOD SPECIMEN Result Comment: The [place] Diabetes Association (ADA) provides guidance for cutoff values for fasting glucose and random glucose. The ADA defines fasting as no caloric intake for at least 8 hours. Fasting plasma glucose results between 100 to 125 mg/dL indicate increased risk for diabetes (prediabetes). Fasting plasma glucose results greater than or equal to 126 mg/dL meet the criteria for diagnosis of diabetes. In the absence of unequivocal hyperglycemia, results should be confirmed by repeat testing. In a patient with classic symptoms of hyperglycemia or hyperglycemic crisis, random plasma glucose results greater than or equal to 200 mg/dL meet the criteria for diagnosis of diabetes. Reference: Standards of Medical Care in Diabetes 2016, [place] Diabetes Association. Diabetes Care. 2016.39(Suppl 1). Performed By: #### 2 4323-8, 3040-3 ####[facility]ATORYCLIA [id number] [place] [address] Potassium [Moles/Vol] 3.9 mmol/L Normal 3.7-5.1 [facility] Comment on above: Order Comment: Speci men Type: BLOOD SPECIMEN Performed By: #### 2 4323-8, 3040-3 ####[facility]ATORYCLIA [id number] [place] [address] Protein [Mass/Vol] 6.9 g/dL Normal 6.3-8.0 [facility] Comment on above: Order Comment: Speci men Type: BLOOD SPECIMEN Performed By: #### 2 4323-8, 3040-3 ####[facility]ORYCLIA [id number] [place] [address] Sodium [Moles/Vol] 143 mmol/L Normal 136-144 [facility] Comment on above: Order Comment: Speci men Type: BLOOD SPECIMEN Performed By: #### 2 4323-8, 3040-3 ####[facility]ATORYCLIA [id number] [place] [address] Urea nitrogen [Mass/Vol] 13 mg/dL Normal 7-21 [facility] Comment on above: Order Comment: Speci men Type: BLOOD SPECIMEN Performed By: #### 2 4323-8, 3040-3 ####[facility]ORYCLIA [id number] [place] [address] ED NOTEon 02-23-2021 ED NOTE HNO ID: [id number] Author: Alix Quintana RN Service: Emergency Medicine Author Type: Registered Nurse Type: ED Notes Filed: 02/23/2021 8:50 PM Note Text: Pt in CT at this time [facility] ED NOTE HNO ID: [id number] Author: Alix Quintana RN Service: Emergency Medicine Author Type: Registered Nurse Type: ED Notes Filed: 02/23/2021 7:44 PM Note Text: Radiology notified patient ready for imaging. [facility] ED NOTE HNO ID: [id number] Author: Horace Davila RN Service: Emergency Medicine Author Type: Registered Nurse Type: ED Notes Filed: 02/23/2021 7:11 PM Note Text: Report given to Alix KERN [facility] ED NOTE HNO ID: [id number] Author: Horace Davila RN Service: Emergency Medicine Author Type: Registered Nurse Type: ED Notes Filed: 02/23/2021 6:35 PM Note Text: Pt presents with c/o headache, laceration to her right eyebrow, facial bruising. Pt was walking her dog when the dog pulled her forward causing her to fall striking her head on the concrete. Positive loc. Pt was treated at [facility] dx with SAH. Pt was sent here for trauma consult. Pt has tremors which affects her walking. Pt was made a fall risk. [facility] ED NOTE HNO ID: [id number] Author: Tisha Layton RN Service: ? Author Type: Registered Nurse Type: ED Notes Filed: 02/23/2021 6:18 PM Note Text: Bed: 09ED Expected date: Expected time: Means of arrival: Comments: [place]: fall, SAH, T3 [facility] ED PROV NOTEon 02-23-2021 ED PROV NOTE HNO ID: [id number] Author: Sylvester Castillo MD Service: Emergency Medicine Author Type: Physician Type: ED Provider Notes Filed: 02/24/2021 4:42 PM Note Text: Attending Note I evaluated the patient and personally participated in the [place] components. I agree with the resident's findings and plan as documented and have discussed the case and management of the patient's care with the resident. PE: Patient is nontoxic-appearing in bed. She appears in no acute distress. She does have sutured laceration to the head. Bruising as well. Pupils equal round reactive to light. She is awake and alert. Speech is normal. Sensation intact to light touch in all extremities. Good motor strength in all extremities. Heart is regular rate. Lungs are clear. Patient is a transfer from [facility] for trauma consult. Earlier today she had a fall from standing while walking her dogs. She did hit her head. CT of the brain at outside facility shows small subarachnoid hemorrhage. She is complaining of a headache. CT C-spine was negative. I did not see any reports further imaging. Vital signs here are unremarkable. BP 147/87. At this time we have ordered labs and a chest x-ray. We have consulted trauma. Signature: Sylvester Castillo MD Date: 02/23/2021 Time: 6:30 PM Sylvester Castillo MD 02/24/21 1642 [facility] ED PROV NOTE HNO ID: [id number] Author: Sylvester Castillo MD Service: Emergency Medicine Author Type: Physician Type: ED Provider Notes Filed: 02/24/2021 4:42 PM Note Text: ED Provider Note Patient Name: Jyotsna Pascual SERVICE DATE: 02/23/21 History No chief complaint on file. 75-year-old female presents from [facility] with concerns for subarachnoid hemorrhage after mechanical fall. Patient had CT imaging done there which showed signs of a subarachnoid hemorrhage. Patient at this time only complaining of significant headache. Patient states she is not on blood thinners. Denies any focal deficits, numbness or tingling. Has bruising around the right eye as well and has a repaired laceration of the right forehead. No current lightheadedness or dizziness. No chest pain or shortness of breath. No abdominal pain. States that this all happened when her dog excellently pulled her over. No nausea or vomiting no visual changes. No past medical history on file. No past surgical history on file. No family history on file. Social History Tobacco Use - Smoking status: Not on file Substance and Sexual Activity - Alcohol use: Not on file - Drug use: Not on file - Sexual activity: Not on file ALLERGIES Not on File Review of Systems Constitutional: Positive for activity change and fatigue. Negative for appetite change, chills, diaphoresis and fever. HENT: Negative for facial swelling, tinnitus and voice change. Eyes: Negative for photophobia, redness and visual disturbance. Respiratory: Negative for cough, chest tightness, shortness of breath, wheezing and stridor. Cardiovascular: Negative for chest pain, palpitations and leg swelling. Gastrointestinal: Negative for abdominal pain, blood in stool, diarrhea, nausea and vomiting. Genitourinary: Negative for dysuria, flank pain, frequency and hematuria. Musculoskeletal: Negative for arthralgias, back pain and neck pain. Neurological: Positive for headaches. Negative for dizziness, seizures, syncope, facial asymmetry, weakness, light-headedness and numbness. Physical Exam There were no vitals taken for this visit. Physical Exam Vitals and nursing note reviewed. Constitutional: General: She is not in acute distress. Appearance: Normal appearance. She is well-developed. She is not ill-appearing or toxic-appearing. HENT: Right Ear: Tympanic membrane and external ear normal. Left Ear: Tympanic membrane and external ear normal. Mouth/Throat: Mouth: Mucous membranes are moist. Pharynx: Oropharynx is clear. Eyes: General: Right eye: No discharge. Left eye: No discharge. Extraocular Movements: Extraocular movements intact. Conjunctiva/sclera: Conjunctivae normal. Pupils: Pupils are equal, round, and reactive to light. Cardiovascular: Rate and Rhythm: Normal rate and regular rhythm. Pulses: Normal pulses. Pulmonary: Effort: Pulmonary effort is normal. No tachypnea, accessory muscle usage or respiratory distress. Breath sounds: Normal breath sounds. No stridor. No decreased breath sounds, wheezing, rhonchi or rales. Abdominal: General: Bowel sounds are normal. There is no distension. Palpations: Abdomen is soft. Tenderness: There is no abdominal tenderness. There is no guarding or rebound. Musculoskeletal: Cervical back: Normal range of motion. Right lower leg: No edema. Left lower leg: No edema. Skin: Capillary Refill: Capillary refill takes less than 2 seconds. Comments: Bruising around the right eye, repaired laceration of the right forehead. Neurological: General: No focal deficit present. Mental Status: She is alert and oriented to person, place, and time. Mental status is at baseline. She is not disoriented. Cranial Nerves: No cranial nerve deficit. Sensory: No sensory deficit. Motor: No weakness. Gait: Gait normal. Diagnostic Testing ED Labs Ordered and Reviewed - No data to display Procedures ED Course / Clinical Impression Clinical Impressions as of Feb 24 943 Subarachnoid bleed (HCC) Fall, initial encounter Closed fracture of nasal bone, initial encounter MDM / Disposition / Plan Jyotsna Pascual is a 75 year old female who presented to the ED with chief complaint of fall from outside facility with possible subarachnoid hemorrhage on CT imaging from outside facility. Initial VS unremarkable. Patient well appearing. Please see HPI and PE for pertinent information. Presenting from outside facility with concerns for possible subarachnoid hemorrhage. She is neuro intact. Not on blood thinners. We ordered trauma labs after evaluate the patient. We consulted our trauma surgery team. Patient did not have any discs with her so they could not review the actual images. We repeated the CT head/C-spine, CT face, chest x-ray, pelvis x-ray. Provide patient pain medication. Labs showed no acute abnormalities. CT is pertinent for faint acute left anter (more content not included)... Normal [facility] Ethanol SerPl-mCncon 021 Ethanol [Mass/Vol] mg/dL Normal <11 [facility] Comment on above: Order Comment: Speci men Type: BLOOD SPECIMEN Performed By: #### 5 643-2 ####[facility]ORYCLIA [id number] [place] [address] HISTORY PHYSICALon HISTORY PHYSICAL HNO ID: [id number] Author: Sandra Broderick MD Service: General Surgery Author Type: Physician Type: HANDP Filed: 02/24/2021 11:24 PM Note Text: TRAUMA SURGERY HANDP [facility] ARRIVAL DATE: 02/23/2021 ARRIVAL TIME: 7:05 PM CATEGORY: Level 3 INJURY DATE: 02/23/2021 INJURY TIME: earlier this afternoon Subjective 75 year old female h/o breast cancer s/p chemo/radiation, lumpectomy presents to the ED as a level 3 trauma activation after transfer from outside ED with a small subarachnoid hemorrhage that she sustained following a ground level fall earlier today. Patient was walking her dog when she lost control of him and fell to the pavement landing on her face. Likely brief LOC as the first thing she remembers is waking up in the ambulance. She was initially taken to outside ED where CT head and neck were obtained and were significant for a small subarachnoid hemorrhage. However, we have no access to the images. Subsequently, the decision was made to transfer her here for further workup and evaluation . In the ED, patient c/o 7 headache. She has a small laceration above her R eyebory that was closed prior to arrival. She has a moderate amount of R sided periorbital edema. No other complaints at this time. HPI/CHIEF COMPLAINT: mechanical ground level fall BRIEF DESCRIPTION OF INJURIES: subarachnoid hemorrhage LAST FLUIDS/MEAL: earlier today CODE STATUS: Not discussed ALLERGIES Allergen Reactions - Demerol [Meperidine] Anaphylaxis (Not in a hospital admission) DATE OF LAST TETANUS: unknown There is no immunization history on file for this patient. PAST MEDICAL HISTORY Diagnosis Date - Breast cancer (HCC) - Cancer (HCC) PAST SURGICAL HISTORY Procedure Laterality Date - BREAST LUMPECTOMY HX Left - CHOLECYSTECTOMY HX - TONSILLECTOMY HX Social History Tobacco Use - Smoking status: Never Smoker - Smokeless tobacco: Never Used Vaping Use - Vaping Use: Never used Substance Use Topics - Alcohol use: Not Currently - Drug use: Never No family history on file. ROS: Is the patient having any pain? Yes, face and head Constitutional: Negative Eye/Ear/Nose: Negative Respiratory: Negative Cardiovascular: Negative GI/Liver/Biliary: Negative Genitourinary: Negative Psychiatric: Negative Neurologic: Headache Musculoskeletal: Negative Integument: Negative Endocrine: Negative Heme/Lymph: Negative Objective PRIMARY SURVEY AIRWAY: Patent BREATHING: Breath sounds equal CIRCULATION: PT/DP 2+, Radials 2+, Femoral 2+ DISABILITY: Eye: 4=Spontaneous Verbal: 5=Oriented and Converses Motor: 6=Obeys Commands Total GCS: 15=4 Resp Rate: 10 to 29=4 Syst BP: > than 89=4 REVISED TRAUMA SCORE: 12 EXPOSE / ENVIRONMENT: Warm Blankets PROCEDURES: n/a SECONDARY SURVEY VITALS: 02/23/21 1819 BP: 147/87 Pulse: 80 Resp: 20 Temp: 36.7 ?C (98 ?F) TempSrc: Oral SpO2: 97% Weight: 70.8 kg (156 lb) Height: 162.6 cm (5' 4) NEURO: Alert AND Oriented x 3, GCS 15, Cranial Nerves II-XII Intact, Moves All Extremities, Strength Symmetrical, No Sensory Deficits. HEENT: Head: No lacerations or abrasions, no bony step-offs, midface stable to palpation. Eyes: Moderate R sided periorbital edema. 3 cm transverse laceration above the R eyebrow that was previously closed with 7 interrupted sutures, well-approximated. PERRL, conjunctiva/corneas without lesions, EOMI. Ears: Canals without blood or CSF drainage, TMs clear, external ears without lacerations. Nose: Septum midline, no crepitus with motion. Throat: Oral mucosa without lacerations, teeth in place, tongue without lacerations. NECK: No midline pain with palpation, no lacerations/wounds, trachea midline. RESPIRATORY: No abrasions or contusions, no crepitus, chest wall without ttp, equal excursion. CARDIOVASCULAR: RRR, S1S2 with no R/M/G, carotid pulse present bilaterally, brachial pulse present bilaterally, radial pulse present bilaterally, femoral pulse present bilaterally, DP present bilaterally, PT present bilaterally ABDOMEN: Soft, non-distended, non-tender, no scars or lacerations, no rebound or guarding. No masses or organomegaly. PELVIC/PERINEAL: Pelvis stable to palpation, no blood noted at urethra meatus, gluteal contraction intact. BACK/SPINE: Thoracolumbar spinal column non-tender, no step-off or deformity noted, no external injury noted. EXTREMITIES: Arm/shoulder normal bilaterally, forearm/elbow normal bilaterally, hand/wrist normal bilaterally, thigh/hip normal bilaterally, leg/knee normal bilaterally, foot/ankle normal bilaterally. RADIOLOGICAL/OTHER TEST DATA: XR CHEST 1V FRONTAL (Results Pending) CT BRAIN WO IVCON (Results Pending) CT CERVICAL SPINE WO IVCON (Results Pending) XR PELVIS 1V AP (Results Pending) CT FACIAL BONE/ANÍBAL WO IVCON (Results Pending) Labs: Recent Labs 02/23/21 1845 WBC 12.34* HB 15.3 HCT 46.8* PLT 265 Assessment/ (more content not included)... Normal [facility] Lipase SerPl-cCncon 02-24-20 Lipase [Catalytic activity/Vol] 18 U/L Normal 16-61 [facility] Comment on above: Order Comment: Speci men Type: BLOOD SPECIMEN Performed By: #### 2 4323-8, 3040-3 ####[facility]ORYCLIA [id number] [place] [address] PT panel Coag (PPP)on 2020 INR Coag (PPP) [Relative time] 1.0 {INR} Normal 0.9-1.3 [facility] Comment on above: Order Comment: Speci men Type: BLOOD SPECIMEN Result Comment: Trini min K Antagonist (VKA) Therapeutic Range: INR 2 to 3 (Target INR of 2.5) Note: For patients treated with VKA drugs, such as warfarin, the [place] [employer] 2012 Guideline recommends a therapeutic INR range of 2 to 3 (target INR of 2.5). This recommendation includes high-risk patients with antiphospholipid syndrome with previous arterial or venous thromboembolism, current-generation mechanical or bioprosthetic aortic heart valve replacement. Note: Patients with mechanical aortic valve replacement and additional risk factors for thromboembolic events (atrial fibrillation, previous thromboembolism, LV dysfunction, hypercoagulable conditions) or an older generation mechanical AVR (i.e., ball in-Cage) or any mechanical MVR should have a INR therapeutic range of 2.5 to 3.5 (target INR of 3). Wilfred GH, et al. Chest 2012, 141:7S-47S Hali RA, et al. [facility] 2017, 70: 252-289 Performed By: #### 3 4528-0, 00751-3 ####[facility]ORATORYCLIA [id number] [place] [address] PT Coag (PPP) [Time] 9.9 s Normal 9.7-13.0 [facility] Comment on above: Order Comment: Speci men Type: BLOOD SPECIMEN Performed By: #### 3 4528-0, 00373-8 ####[facility]ATORYCLIA [id number] [place] [address] SARS-CoV-2 RNA Resp Ql CHAVO+p robeon 02-23-2021 SARS-CoV-2 (COVID-19) RNA CHAVO+probe Ql (Resp) COVID 19 RESULT: SARS-CoV-2 (Agent of COVID-19) Not Detected by PCR. This test has been authorized by FDA under an Emergency Use Authorization (EUA) [facility] Comment on above: Performed By: #### 9 4500-6 ####[facility] LABORATORYCLIA [id number] [place] [address] TYPE AND SCREENon 02-23-2021 ABO A [facility] Comment on above: Order Comment: Speci men Type: BLOOD SPECIMEN Performed By: #### T SCR #### [facility] CLIA [id number] 1 [place] [address] HISTORICAL AB SCR STATUS Negative Normal [facility] Comment on above: Order Comment: Speci men Type: BLOOD SPECIMEN Performed By: #### T SCR #### [facility] CLIA [id number] 1 [place] [address] Rh Nom (Bld) Positive Normal [facility] Comment on above: Order Comment: Speci men Type: BLOOD SPECIMEN Performed By: #### T SCR #### [facility] CLIA [id number] 1 [place] [id number] TYPE AND SCREEN EXPIRATION 02/26/2021 23:59 Normal [facility] Comment on above: Order Comment: Speci men Type: BLOOD SPECIMEN Performed By: #### T SCR #### [facility] CLIA [id number] 1 [place] [address] XR CHEST 1V FRONTALon 2020 XR CHEST 1V FRONTAL * * *Final Report* * * * * * SEE BOTTOM OF REPORT FOR ADDENDED TEXT * * * DATE OF EXAM: Feb 23 2021 8:06PM [id number] [id number] - XR CHEST 1V FRONTAL / PROCEDURE REASON: Chest pain or SOB, pleurisy or effusion suspected * * * * Physician Interpretation * * * * * * * * * * * * ORIGINAL REPORT * * * * * * * * EXAMINATION: CHEST RADIOGRAPH (SINGLE VIEW AP OR PA) CLINICAL HISTORY: Chest pain or SOB, pleurisy or effusion suspected MQ: XC1_5 Comparison: None available. RESULT: Lines, tubes, and devices: None. Lungs and pleura: No consolidation. No lung mass. No pleural effusion. No evidence of pneumothorax. Cardiomediastinal silhouette: The cardiac silhouette is within normal limits. Aorta is tortuous. The hilar structures appear normal. Other: Visualized portions of the bony thorax appear intact. Multiple surgical clips are seen in the soft tissues overlying the left lower chest. IMPRESSION: No acute radiographic abnormality. * * * * * * * * ADDENDUM #1 * * * * * * * * Clinical history: Patient reports fall. Chest pain. Terminal Press Operator: LEI Transcribe Date/Time: Mar 17 2021 6:42P Dictated by : LORETTA TAYLOR MD This examination was interpreted and the report reviewed and electronically signed by: LORETTA TAYLOR MD on Feb 23 2021 8:30PM EST This document has been addended by: LORETTA TAYLOR MD on Mar 17 2021 6:43PM EST [id number] Normal [facility] XR PELVIS 1V APon 02-23-2021 XR PELVIS 1V AP * * *Final Report* * * DATE OF EXAM: Feb 23 2021 8:06PM [id number] [id number] - XR PELVIS 1V AP / PROCEDURE REASON: Hip trauma, fx suspected, initial exam * * * * Physician Interpretation * * * * EXAMINATION: PELVIS X-RAY SERIES HISTORY: Hip trauma, fx suspected, initial exam COMPARISON: None available. TECHNIQUE: AP pelvis RESULT: Hip joint spaces are preserved and symmetric. This pubis and sacroiliac joints are anatomically aligned. Degenerative changes are seen in the visualized lower lumbar spine. No fracture or dislocation. IMPRESSION: No acute findings. Terminal Press Operator: PSCB Transcribe Date/Time: Feb 23 2021 8:25P Dictated by : LORETTA TAYLOR MD This examination was interpreted and the report reviewed and electronically signed by: LORETTA TAYLOR MD on Feb 23 2021 8:28PM EST [id number] Normal [facility] aPTT PPPon 02-23-2021 aPTT Coag (PPP) [Time] 25.6 s Normal 23.0-32.4 [facility] Comment on above: Order Comment: Speci men Type: BLOOD SPECIMEN Performed By: #### 3 4528-0, 96081-9 ####[facility] LABORATORYCLIA [id number] [place] [address] Basophil percentageon 2020 Basophil percentage 3.8 mg/dL 2.5-4.9 [facility] - Chemistry and C hemistry - challengeon 01-29-2021 Magnesium [Mass/Vol] 2.3 mg/dL 1.6-2.6 [facility]: Erythrocyte distribution wid th standard deviationon 12-27-2018 Erythrocyte distribution width (RBC) [Entitic vol] 45.9 fL 35.1-43.9 [facility] Laboratory - Hematology and Cell countson 12-27-2018 Erythrocyte distribution width (RBC) [Ratio] 13.6 % 11.6-14.6 [facility] Total cell counton 9 Cells counted Molgen (Bld/Tiss) [#] Not Reportable [facility] Hypochromatic red blood cell detectionon 12-01-2017 Hypochromia Ql (Bld) RARE [facility] Laboratory - Hematology and Cell countson 12-01-2017 Anisocytosis Ql (Bld) 1+ [facility] Review by pathologiston 10-16 Pathologist review Red (Unsp spec) [Interp] Reviewed [facility] Comment on above: Previous reported re sult: Lizy sherwood Edited by: DELFIN on 11/11/17:1208Normocytic anemia.Clinical correlation suggested.Alexandre Castillo D.O. 11/11/17 AMENDED REPORT 11/11/17 1208 PATH REV previously reported as: Lizy sherwood Blood platelet adequacy dete ction by light microscopyon 10-27-2017 Platelets LM Ql (Bld) SLT DEC ADEQ [facility] Eosinophils/100 WBC Auto (Bl d)on 10-27-2017 Eosinophils/100 WBC (Bld) 2 % 0-5 [facility] Laboratory - Hematology and Cell countson 10-27-2017 Lymphocytes/100 WBC (Bld) 20 % 19-41 [facility] Metamyelocytes/100 WBC (Bld) 1 % 0-1 [facility] Monocytes/100 WBC (Bld) 3 % 0-10 [facility] Neutrophils/100 WBC (Bld) 73 % 47-70 [facility] No Panel Informationon 10-27 Promyelocytes % 1 0-0 [facility] RBC morphologyon 10-27-2017 RBC morphology finding Nom (Bld) NORM C+C NORMAL NORM C&C [facility] Hematologyon 02-21-1999 Lymphocytes (Bld) [#/Vol] COLON, RANDOM BIOPSIES - BENIGN COLONIC MUCOSA WITH MUCOSAL LYMPHOID AGGREGATE. SEE COMMENT. COMMENT - There is no evidence of active colitis or neoplasm. Historical information is not provided and clinical correlation is, therefore, recommended. [facility] Otheron 02-21-1999 CONVERTED ELECTRONIC SIGNATURE FABRIZIO VALVERDE M.D., PATHOLOGIST (Electronic signature on file) Final Signed Out: 02/21/1999 13:13 [facility] CONVERTED ORDERING PROVIDER Ordering Provider: SAMIR HINDS [facility] Vital Signs Date Time Vital Sign Value Performing Clinician Rupeshi emilia 03-13-2025 09:19-0400 Body height 162.6 cm Fawn Hyman MD Work Phone: [facility] 03-13-2025 09:19-0400 Body mass index (BMI) [Ratio] 28.65 kg/m2 Fawn Hyman MD Work Phone: [facility] 03-13-2025 09:19-0400 Body temperature 97.81 [degF] Fawn Hyman MD Work Phone: [facility] 03-13-2025 09:19-0400 Body weight 75.7 kg Fawn Hyman MD Work Phone: [facility] 09-09-2023 21:36-0500 Diastolic blood pressure 76 mm[Hg] Dr. Samir Hinds Work Phone: [facility] 09-09-2023 21:36-0500 Heart rate 85 /min Dr. Samir Hinds Work Phone: [facility] 09-09-2023 21:36-0500 Respiratory rate 20 /min Dr. Samir Hinds Work Phone: [facility] 09-09-2023 21:36-0500 SaO2% (BldA) [Mass fraction] 95 % Dr. Samir Hinds Work Phone: [facility] 09-09-2023 21:36-0500 Systolic blood pressure 126 mm[Hg] Dr. Samir Hinds Work Phone: [facility] 09-09-2023 17:35-0500 Body mass index (BMI) [Ratio] 27.2 kg/m2 Dr. Samir Hinds Work Phone: [facility] 09-09-2023 17:35-0500 Body weight [address] Samir Hinds Work Phone: [facility] 09-09-2023 15:29-0500 Body height 162.[address] Samir Hinds Work Phone: [facility] 09-09-2023 15:29-0500 Body temperature 98 [degF] Dr. Samir Hinds Work Phone: [facility] 09-09-2023 14:40-0500 Body mass index (BMI) [Ratio] 28 kg/m2 Dr. Samir Hinds Work Phone: [facility] 09-09-2023 14:40-0500 Body temperature 97.9 [degF] Dr. Samir Hinds Work Phone: [facility] 09-09-2023 14:40-0500 Body weight 74.[address] Samir Hinds Work Phone: [facility] 09-09-2023 14:40-0500 Diastolic blood pressure 85 mm[Hg] Dr. Samir Hinds Work Phone: [facility] 09-09-2023 14:40-0500 Heart rate 96 /min Dr. Samir Hinds Work Phone: [facility] 09-09-2023 14:40-0500 Respiratory rate 18 /min Dr. Samir Hinds Work Phone: [facility] 09-09-2023 14:40-0500 SaO2% (BldA) [Mass fraction] 99 % Dr. Samir Hinds Work Phone: [facility] 09-09-2023 14:40-0500 Systolic blood pressure 121 mm[Hg] Dr. Samir Hinds Work Phone: [facility] 09-01-2023 12:35-0500 Body temperature 97.6 [degF] Dr. Samir Hinds Work Phone: [facility] 09-01-2023 12:35-0500 Diastolic blood pressure 72 mm[Hg] Dr. Samir Hinds Work Phone: [facility] 09-01-2023 12:35-0500 Heart rate 64 /min Dr. Samir Hinds Work Phone: [facility] 09-01-2023 12:35-0500 Respiratory rate 16 /min Dr. Samir Hinds Work Phone: [facility] 09-01-2023 12:35-0500 SaO2% (BldA) [Mass fraction] 99 % Dr. Samir Hinds Work Phone: [facility] 09-01-2023 12:35-0500 Systolic blood pressure 113 mm[Hg] Dr. Samir Hinds Work Phone: [facility] 09-01-2023 12:14-0500 Body mass index (BMI) [Ratio] 28 kg/m2 Dr. Samir Hinds Work Phone: [facility] 09-01-2023 10:51-0500 Body mass index (BMI) [Ratio] 28 kg/m2 Dr. Samir Hinds Work Phone: [facility] 09-01-2023 10:51-0500 Body temperature 98.5 [degF] Dr. Samir Hinds Work Phone: [facility] 09-01-2023 10:51-0500 Body weight 74.[address] Samir Hinds Work Phone: [facility] 09-01-2023 10:51-0500 Diastolic blood pressure 81 mm[Hg] Dr. Samir Hinds Work Phone: [facility] 09-01-2023 10:51-0500 Heart rate 69 /min Dr. Samir Hinds Work Phone: [facility] 09-01-2023 10:51-0500 Respiratory rate 18 /min Dr. Samir Hinds Work Phone: [facility] 09-01-2023 10:51-0500 SaO2% (BldA) [Mass fraction] 96 % Dr. Samir Hinds Work Phone: [facility] 09-01-2023 10:51-0500 Systolic blood pressure 127 mm[Hg] Dr. Samir Hinds Work Phone: [facility] 08-06-2023 11:39-0500 Body mass index (BMI) [Ratio] 28.5 kg/m2 Dr. Samir Hinds Work Phone: [facility] 08-06-2023 11:39-0500 Body temperature 98.1 [degF] Dr. Samir Hinds Work Phone: [facility] 08-06-2023 11:39-0500 Body weight 75.[address] Samir Hinds Work Phone: [facility] 08-06-2023 11:39-0500 Diastolic blood pressure 82 mm[Hg] Dr. Samir Hinds Work Phone: [facility] 08-06-2023 11:39-0500 Heart rate 77 /min Dr. Samir Hinds Work Phone: [facility] 08-06-2023 11:39-0500 Respiratory rate 18 /min Dr. Samir Hinds Work Phone: [facility] 08-06-2023 11:39-0500 SaO2% (BldA) [Mass fraction] 99 % Dr. Samir Hinds Work Phone: [facility] 08-06-2023 11:39-0500 Systolic blood pressure 125 mm[Hg] Dr. Samir Hinds Work Phone: [facility] 06-25-2023 13:05-0500 Body height 162.[address] Samir Hinds Work Phone: [facility] 06-25-2023 13:05-0500 Body mass index (BMI) [Ratio] 28.6 kg/m2 Dr. Samir Hinds Work Phone: [facility] 06-25-2023 13:05-0500 Body weight 75.[address] Samir Hinds Work Phone: [facility] 06-25-2023 13:05-0500 Diastolic blood pressure 85 mm[Hg] Dr. Samir Hinds Work Phone: [facility] 06-25-2023 13:05-0500 Heart rate 67 /min Dr. Samir Hinds Work Phone: [facility] 06-25-2023 13:05-0500 Respiratory rate 18 /min Dr. Samir Hinds Work Phone: [facility] 06-25-2023 13:05-0500 Systolic blood pressure 118 mm[Hg] Dr. Samir Hinds Work Phone: [facility] 03-31-2023 10:27-0400 Body mass index (BMI) [Ratio] 28.7 kg/m2 Dr. Samir Hinds Work Phone: [facility] 03-31-2023 10:27-0400 Body temperature 97.4 [degF] Dr. Samir Hinds Work Phone: [facility] 03-31-2023 10:27-0400 Body weight 75.[address] Samir Hinds Work Phone: [facility] 03-31-2023 10:27-0400 Diastolic blood pressure 78 mm[Hg] Dr. Samir Hinds Work Phone: [facility] 03-31-2023 10:27-0400 Heart rate 55 /min Dr. Samir Hinds Work Phone: [facility] 03-31-2023 10:27-0400 Respiratory rate 16 /min Dr. Samir Hinds Work Phone: [facility] 03-31-2023 10:27-0400 SaO2% (BldA) [Mass fraction] 98 % Dr. Samir Hinds Work Phone: [facility] 03-31-2023 10:27-0400 Systolic blood pressure 139 mm[Hg] Dr. Samir Hinds Work Phone: [facility] 07-30-2022 11:48-0500 Body height 162.[address] Samir Hinds Work Phone: [facility] Work Phone: 07-30-2022 11:48-0500 Body mass index (BMI) [Ratio] 28.5 kg/m2 Dr. Samir Hinds Work Phone: [facility] Work Phone: 07-30-2022 11:48-0500 Body weight 75.[address] Samir Hinds Work Phone: [facility] Work Phone: 07-30-2022 11:15-0500 Body mass index (BMI) [Ratio] 28.7 kg/m2 Dr. Samir Hinds Work Phone: [facility] Work Phone: 07-30-2022 11:15-0500 Body temperature 98.6 [degF] Dr. Samir Hinds Work Phone: [facility] Work Phone: 07-30-2022 11:15-0500 Body weight 75.[address] Samir Hinds Work Phone: [facility] Work Phone: 07-30-2022 11:15-0500 Diastolic blood pressure 82 mm[Hg] Dr. Samir Hinds Work Phone: [facility] Work Phone: 07-30-2022 11:15-0500 Heart rate 72 /min Dr. Samir Hinds Work Phone: [facility] Work Phone: 07-30-2022 11:15-0500 Respiratory rate 16 /min Dr. Samir Hinds Work Phone: [facility] Work Phone: 07-30-2022 11:15-0500 SaO2% (BldA) [Mass fraction] 97 % Dr. Samir Hinds Work Phone: [facility] Work Phone: 07-30-2022 11:15-0500 Systolic blood pressure 132 mm[Hg] Dr. Samir Hinds Work Phone: [facility] Work Phone: 02-26-2022 14:59-0400 Body height 162.[address] Samir Hinds Work Phone: [facility] Work Phone: 02-26-2022 14:59-0400 Body mass index (BMI) [Ratio] 28.1 kg/m2 Dr. Samir iHnds Work Phone: [facility] Work Phone: 02-26-2022 14:59-0400 Body weight 74.[address] Samir Hinds Work Phone: [facility] Work Phone: 02-26-2022 14:59-0400 Diastolic blood pressure 68 mm[Hg] Dr. Samir Hinds Work Phone: [facility] Work Phone: 02-26-2022 14:59-0400 Heart rate 64 /min Dr. Samir Hinds Work Phone: [facility] Work Phone: 02-26-2022 14:59-0400 Respiratory rate 16 /min Dr. Samir Hinds Work Phone: [facility] Work Phone: 02-26-2022 14:59-0400 Systolic blood pressure 126 mm[Hg] Dr. Samir Hinds Work Phone: [facility] Work Phone: 01-29-2022 11:49-0400 Body mass index (BMI) [Ratio] 28.1 kg/m2 Dr. Samir Hinds Work Phone: [facility] Work Phone: 01-29-2022 11:49-0400 Body temperature 98.7 [degF] Dr. Samir Hinds Work Phone: [facility] Work Phone: 01-29-2022 11:49-0400 Body weight 74.[address] Samir Hinds Work Phone: [facility] Work Phone: 01-29-2022 11:49-0400 Diastolic blood pressure 78 mm[Hg] Dr. Samir Hinds Work Phone: [facility] Work Phone: 01-29-2022 11:49-0400 Heart rate 72 /min Dr. Samir Hinds Work Phone: [facility] Work Phone: 01-29-2022 11:49-0400 Respiratory rate 15 /min Dr. Samir Hinds Work Phone: [facility] Work Phone: 01-29-2022 11:49-0400 SaO2% (BldA) [Mass fraction] 97 % Dr. Samir Hinds Work Phone: [facility] Work Phone: 01-29-2022 11:49-0400 Systolic blood pressure 118 mm[Hg] Dr. Samir Hinds Work Phone: [facility] Work Phone: 07-27-2020 10:35-0500 Body temperature 97.4 [degF] Dr. Samir Hinds Work Phone: [facility] Work Phone: 07-27-2020 10:35-0500 Body weight 75.[address] Samir Hinds Work Phone: [facility] Work Phone: 07-27-2020 10:35-0500 Diastolic blood pressure 69 mm[Hg] Dr. Samir Hinds Work Phone: [facility] Work Phone: 07-27-2020 10:35-0500 Heart rate 57 /min Dr. Samir Hinds Work Phone: [facility] Work Phone: 07-27-2020 10:35-0500 Respiratory rate 14 /min Dr. Samir Hinds Work Phone: [facility] Work Phone: 07-27-2020 10:35-0500 SaO2% (BldA) [Mass fraction] 100 % Dr. Samir Hinds Work Phone: [facility] Work Phone: 07-27-2020 10:35-0500 Systolic blood pressure 110 mm[Hg] Dr. Samir Hinds Work Phone: [facility] Work Phone: 01-10-2020 15:46-0400 Body mass index (BMI) [Ratio] 28.6 kg/m2 Dr. Samir Hinds Work Phone: [facility] Work Phone: Encounters Encounter Date Encounter Type Care Provider Facility Start: 03-13-2025 End: 03-13-2025 Office outpatient new 45 minutes Fawn Hyman MD Work Phone: [facility] Comment on above: Cervical vertigo (Pr imary Dx) Start: 03-13-2025 End: 03-13-2025 ambulatory PHYSICIAN [facility] Start: 03-08-2025 End: 03-08-2025 Patient encounter procedure Loretta Trimble MD Work Phone: [facility] Comment on above: Cervical dystonia (P rimary Dx); Vertigo; Tremor Start: 11-24-2024 End: 11-24-2024 ambulatory Samir Hinds Facility:[facility] Start: 11-09-2024 End: 11-09-2024 Patient encounter procedure Loretta Trimble MD Work Phone: [facility] Comment on above: Cervical dystonia (P rimary Dx); Tremor; Vertigo Start: 10-10-2024 End: 10-10-2024 Orders Only Loretta Trimble MD Work Phone: [facility] Comment on above: Tremor Start: 10-05-2024 End: 10-05-2024 Orders Only Loretta Trimble MD Work Phone: [facility] Comment on above: Tremor (Primary Dx) Start: 09-09-2024 End: 12-08-2024 Refill Loretta Trimble MD Work Phone: [facility] Comment on above: Tremor Start: 08-05-2024 End: 08-05-2024 ambulatory Samir Hinds Facility:[facility] Start: 06-22-2024 End: 06-22-2024 ambulatory Samir Hinds [facility] Start: 05-25-2024 End: 05-25-2024 Bamboo flowsheet Loretta Trimble MD Work Phone: [facility] Start: 05-25-2024 End: 05-25-2024 Bamboo flowsheet Loretta Trimble MD Work Phone: [facility] Start: 05-25-2024 End: 05-25-2024 Patient encounter procedure Loretta Trimble MD Work Phone: [facility] Comment on above: Cervical dystonia (P rimary Dx) Start: 05-25-2024 End: 05-25-2024 ambulatory LORETTA TRIMBLE Not Available Start: 02-24-2024 End: 02-24-2024 ambulatory LORETTA TRIMBLE Not Available Start: 11-25-2023 End: 11-25-2023 ambulatory LORETTA TRIMBLE Not Available Start: 09-09-2023 End: 09-09-2023 Emergency department patient visit Dr. Samir Hinds Work Phone: [facility]-Emergency Department Work Phone: Start: 09-09-[address] Tiana Hinds Work Phone: [facility] Start: 09-09-2023 End: 09-09-[address] Samir Hinds Work Phone: [facility] Work Phone: Start: 09-01-2023 End: 09-01-[address] Samir Hinds Work Phone: [facility] Work Phone: Start: 08-18-2023 End: 08-18-[address] [facility] Work Phone: Start: 08-06-2023 End: 08-06-[address] Samir Hinds Work Phone: [facility] Work Phone: Start: 08-04-2023 End: 08-04-[address] Samir Hinds Work Phone: [facility]-Outpatient Bone Densitometry Work Phone: Start: 07-22-2023 Non-patient / Non-visit Dr. Samir Hinds Work Phone: [facility] Start: 07-22-2023 End: 07-22-[address] Samir Hinds Work Phone: [facility] Work Phone: Start: 07-22-2023 End: 07-22-[address] [facility] Start: 06-25-2023 End: 06-25-[address] Samir Hinds Work Phone: [facility] Work Phone: Start: 03-31-2023 End: 03-31-[address] Samir Hinds Work Phone: [facility] Work Phone: Start: 07-30-2022 End: 07-30-[address] Samir Hinds Work Phone: [facility] Work Phone: Start: 07-30-2022 End: 07-30-[address] Samir Hinds Work Phone: [facility]-Outpatient Breast Imaging Start: 07-30-[address] Tiana Hinds Work Phone: [facility] Start: 07-30-2022 End: 07-30-[address] Samir Hinds Work Phone: [facility] Start: 05-06-2022 End: 05-06-2022 ambulatory LOREN JULIAN [facility] Start: 04-09-2022 End: 04-10-2022 ambulatory FARZANEH HERNÁNDEZ [facility] Start: 04-09-2022 End: 04-09-2022 ambulatory LEONEL CHAVEZ [facility] Start: 04-09-2022 End: 04-09-2022 Subsequent hospital visit by physician Farzaneh Hernández MD Work Phone: [facility] Comment on above: History of breast ca ncer; Family history of breast cancer; Family history of prostate cancer; Family history of pancreatic cancer; Family history of ovarian cancer Start: 04-07-2022 End: 04-07-[address] Samir Hinds Work Phone: [facility] Work Phone: Start: 04-07-2022 End: 04-07-[address] Samir Hinds Work Phone: [facility]-Laboratory Start: 02-26-2022 End: 02-26-[address] Samir Hinds Work Phone: [facility] Start: 02-26-[address] Tiana Hinds Work Phone: [facility]-Speech Therapy Start: 01-29-[address] Tiana Hinds Work Phone: [facility] Start: 01-29-2022 End: 01-29-[address] Samir Hinds Work Phone: [facility] Start: 05-09-2019 End: 05-09-2019 Patient encounter procedure SAMIR HINDS [facility] Start: 02-20-1999 End: 02-20-1999 Patient encounter procedure Samir Hinds Work Phone: [facility] Start: 02-20-1999 Results Only Samir green Work Phone: [facility] Procedures Date Procedure Procedure Detail Performing Clinician Start: 09-09-2023 Plain chest X-ray Dr. Nancy Hinds Work Phone: Start: 09-09-2023 CT of head without contrast Dr. Samir Hinds Work Phone: Start: 08-18-2023 Radionuclide whole b elisabet bone study Dr. Samir Hinds Work Phone: Start: 08-04-2023 Dual energy X-ray absorptiometry Dr. Samir Hinds Work Phone: Start: 08-04-2023 Screening mammography Elliott Hinds Work Phone: Start: 07-30-2022 Screening mammography Elliott Hinds Work Phone: Start: 02-23-2021 Antibody screen Comment on above: Order Comment: Speci men Type: BLOOD SPECIMEN Performed By: #### T SCR #### [facility] CLIA [id number] [place] [id number] Start: 02-20-1999 CONVERTED SURGICAL PATHOLOGY Samir Hinds Work Phone: Plan of Treatment Date Care Activity Detail Author Start: 02-09-2029 Tetanus vaccination Tetanus: Every 1 0yrs [facility] Start: 06-28-2025 End: 06-28-2025 Patient encounter procedure 06/28/2025 1:00 PM EST Procedure Visit [facility] [address] [place] [address] [place] [address] [place] [address] [facility] Start: 05-14-2025 COVID-19 Vaccine ( season) COVID-19 Vaccine ( season) [facility] Start: 04-17-2025 Influenza vaccination Influenza Vacc ine (#1) [facility] Start: 05-25-2024 End: 05-25-2024 Patient encounter procedure 05/25/2024 1:00 PM EDT [facility] [address] [place] [address] [place] [address] [place] [address] Arrived [facility] Comment on above: Arrived Start: 04-17-2024 Influenza vaccination Influenza Vacc ine (#1) [facility] Start: 09-09-2023 [facility] Start: 09-09-2023 [facility] Start: 05-06-2022 End: 05-06-2022 Professional / ancillary services management 05/06/2022 Telehealth Ancillary Genetics Loren Julian, [place], [place] [id number] [facility] Start: 04-17-2022 FLU (#1) FLU (#1) [facility] Start: 01-29-2022 Patient referral [facility] Work Phone: Start: 10-28-2021 COVID-19 (4 - Booste r for Moderna series) COVID-19 (4 - Booster for Moderna series) [facility] Start: 04-17-2020 Influenza vaccination INFLUENZA (#1) [facility] Start: 2019 Respiratory Syncytia l Virus 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: Risk, 60-74 Risk, or 75+ (1 - 1-dose 75+ series) Respiratory Syncytial Virus 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: Risk, 60-74 Risk, or 75+ (1 - 1-dose 75+ series) [facility] Start: 03-03-2019 MG Breast - bilatera l Screening [facility] Start: 06-08-2018 MG Breast - bilatera l Diagnostic [facility] Start: 06-08-2018 MG Breast - bilatera l Screening [facility] Start: 04-28-2018 [facility] Start: 04-21-2018 [facility] Start: 03-18-2018 [facility] Start: 03-02-2018 [facility] Start: 02-02-2018 [facility] Start: 12-08-2017 [facility] Start: 11-10-2017 [facility] Start: 09-02-2017 [facility] Start: 2009 ADVANCE DIRECTIVE DISCUSSION ADVANCE DIRECTIVE DISCUSSION [facility] Start: 2009 BONE DENSITY BONE DENSITY [facility] Start: 2009 Fall risk assessment Falls Risk Asse ssment [facility] Start: 2009 PNEUMOVAX AGE 65 AND OVER WITH 5YR LOOKBACK (#1) PNEUMOVAX AGE 65 AND OVER WITH 5YR LOOKBACK (#1) [facility] Start: 1994 Administration of he rpes zoster vaccine Zoster Vaccines (1 of 2) [facility] Start: 1994 SHINGRIX VACCINE (1 of 2) QUARLES GRIX VACCINE (1 of 2) [facility] Start: 1994 Tuberculosis screening COLOREC VICKY CANCER SCREENING,SEE MODIFIER [facility] Start: 1989 DIABET[facility]CREEN [facility] Start: 1989 LIPID SCREEN LIPID SCREEN [facility] Start: 1984 Screening for malign ant neoplasm of breast Mammogram [facility] Start: 1963 Urine microalbumin profile DTAP,TDAP,TD (1 - Tdap) [facility] Start: 1962 HEPATITIS C SCREENING C [facility] Start: 1960 MenB (1 of 2 - MenB 2-Dose Series) MenB (1 of 2 - MenB 2-Dose Series) [facility] Start: 1956 Depression screening using PHQ-9 (Patient Health Questionnaire 9) score Depression Screening/Follow-Up (PHQ-2/9) [facility] Start: 1951 Tetanus Diphtheria a nd Pertussis Vaccines (1 - Tdap) Tetanus Diphtheria and Pertussis Vaccines (1 - Tdap) [facility] Start: 1947 History and physical examination, annual for health maintenance Wellness Visit [facility] Start: 1945 MMR (1 of 1 - Standa rd series) MMR (1 of 1 - Standard series) [facility] Start: 1945 Varicella (1 of 2 - 2-dose childhood series) Varicella (1 of 2 - 2-dose childhood series) [facility] Start: 1944 Screening for osteoporosis Dexa Scan [facility] CBC W Auto Different ial panel - Blood [facility] Work Phone: CBC W Auto Different ial panel - Blood [facility] DXA Bone [Mass/Area] Bone density [facility] Work Phone: DXA Bone [Mass/Area] Bone density [facility] End: 04-09-2022 Genetic Sendout: Multi-Cancer test with RNA testing [facility] Work Phone: Comment on above: 1 Occurrences starti ng 04/09/2022 until 04/09/2022 Lactate dehydrogenas e measurement [facility] Work Phone: Lipid 1996 panel - S tanya or Plasma [facility] Magnesium [Mass/volu me] in Serum or Plasma [facility] Work Phone: Magnesium [Mass/volu me] in Serum or Plasma [facility] Patient Education ED Myalgias ED Vomiting (Adult) ED Weakness (Uncertain Cause) [facility] Work Phone: Patient referral [facility] Work Phone: [facility] Work Phone: [facility] 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s 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 Date 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 Notes Care Provider [facility] 05-31-2024 influenza virus vaccine, unspecified formulation Loretta Trimble MD Work Phone: [facility] 06-08-2023 influenza virus vaccine, unspecified formulation Loretta Trimble MD Work Phone: [facility] 02-09-2019 tetanus toxoid, reduced diphtheria toxoid, and acellular pertussis vaccine, adsorbed Dr. Samir Hinds Work Phone: [facility] 06-07-[address] Samir Hinds Work Phone: [facility] Payers Date Payer Category Payer Medicare PPO [employer] [place] (PPO) [id number] 2021 Medicaid [employer] MEDICARE A [place] [id number] 2018 Medicare [id number] 2017 Private Health Insurance [id number] Self-pay [id number] 1959 Medicare [id number] 1944 Unknown [id number] 1944 Unknown [id number] 479 1944 Unknown [id number]. 479 1944 Unknown [id number]. 479 1944 Unknown [id number] [id number]. 1259 1944 Unknown [id number] [id number]. 1259 1944 Unknown [id number]. 1259 1944 Unknown [id number] [id number]. 903 Medicare [id number] Unknown CHEMO ASSISTANCE [id number] Unknown [id number] Unknown [id number] 462 Unknown [id number] 462 Unknown [id number] 462 Social History Date Type Detail Facility Tobacco smoking stat us NHIS Unknown if ever smoked [facility] Start: 1945 Sex Assigned At Not on file [facility] Start: 02-26-2022 End: 09-09-2023 Tobacco smoking status NHIS Tobacco smoking consumption unknown [facility] Start: 03-30-2022 End: 04-09-2022 Exposure to SARS-CoV-2 (event) Not sure [facility] Start: 01-05-2018 None [facility] Start: 01-21-2019 Spouse/ Significant Other [facility] Start: 07-27-2020 Non-smoker [facility] Start: 1945 Sex Assigned At Female [facility] Start: 03-13-2025 Gender identity Not on file [facility] Start: 03-13-2025 Tobacco smoking status NHIS Never smoked tobacco [facility] Start: 03-13-2025 Tobacco use and exposure Smokeless tobacco non-user [facility] Start: 03-13-2025 Alcoholic beverage intake Lifetime non-drinker (finding) [facility] Start: 03-13-2025 History of Social function [facility] Start: 12-19-2024 Gender identity Identifies as female gender (finding) [facility] Start: 12-19-2024 Sexual orientation Heterosexual (finding) [facility] Medical Equipment Procedure Code Equipment Code Equipment Origin al Text Equipment Identifier Dates SUTURE,LIGA CLIP MED [id number] FDA Start: 08-18-2017 SUTURE,LIGA CLIP MED [id number] FDA Start: 08-18-2017 SUTURE,LIGA CLIP MED [id number] FDA Start: 08-18-2017 SUTURE,LIGA CLIP MED [id number] FDA Start: 08-18-2017 SUTURE,LIGA CLIP SM LT-100 FDA Start: 08-18-2017 SUTURE,LIGA CLIP SM LT-100 FDA Start: 08-18-2017 PORT,6FR POWER PORT FDA Start : 09-15-2017 SUTURE,LIGA CLIP MED LT200 FDA Start: 08-18-2017 SUTURE,LIGA CLIP MED [id number] FDA Start: 08-18-2017 SUTURE,LIGA CLIP MED [id number] FDA Start: 08-18-2017 SUTURE,LIGA CLIP MED [id number] FDA Start: 08-18-2017 SUTURE,LIGA CLIP SM LT-100 FDA Start: 08-18-2017 SUTURE,LIGA CLIP SM LT-100 FDA Start: 08-18-2017 PORT,6FR POWER PORT FDA Start : 09-15-2017 SUTURE,LIGA CLIP MED LT200 FDA Start: 08-18-2017 SUTURE,LIGA CLIP MED LT200 FDA Start: 08-18-2017 SUTURE,LIGA CLIP MED LT200 FDA Start: 08-18-2017 SUTURE,LIGA CLIP MED LT200 FDA Start: 08-18-2017 SUTURE,LIGA CLIP SM LT-100 FDA Start: 08-18-2017 SUTURE,LIGA CLIP SM LT-100 FDA Start: 08-18-2017 PORT,6FR POWER PORT FDA Start : 09-15-2017 SUTURE,LIGA CLIP MED LT200 FDA Start: 08-18-2017 SUTURE,LIGA CLIP MED LT200 FDA Start: 08-18-2017 SUTURE,LIGA CLIP MED LT200 FDA Start: 08-18-2017 SUTURE,LIGA CLIP MED LT200 FDA Start: 08-18-2017 SUTURE,LIGA CLIP SM LT-100 FDA Start: 08-18-2017 SUTURE,LIGA CLIP SM LT-100 FDA Start: 08-18-2017 PORT,6FR POWER PORT FDA Start : 09-15-2017 Mental Status Date Assessment Result Facility 09-09-2023 Cognitive function Level Of Cons ciousness Awake;Alert;Appropriate;Follow s Commands [facility] Work Phone: 09-01-2023 Cognitive function Voice/Name [facility] Work Phone: 07-30-2022 Cognitive function Voice/Name [facility] Work Phone: 07-31-2021 Cognitive function Mood Descript ion Appropriate;Calm;Relaxed [facility] Work Phone: 06-28-2018 Cognitive function Voice/Name [facility] Work Phone: Clinical Notes 02-24-2021 to 03-13-2025 Patient InstructionsGrimes, Fawn Juarez MD - 03/13/2025 9:28 AM Chiara Harrell MA - 03/13/2025 9:23 AM Jef Trimble MD - 03/08/2025 1:30 PM Jef Trimble MD - 11/09/2024 1:00 PM EDT Note Date & Type Note Facility 03-13-2025 Instructions Fawn Hyman MD - 03/13/2025 9:49 AM EDT FALL PREVENTION Your doctor has identified you at increased risk for fall. Falls may result in serious injuries. Many patients with inner ear disease, balance problems, or vision impairment suffer injury from falls. Simple changes and preventative measures in the home may reduce this risk. Some of the more common risks in the home as well as suggested corrections are listed here. Avoid trip hazards: ? Remove loose area rugs and throws ? Have wrinkles or ridges removed from carpeting by re-stretching, or put in new carpets ? Tuck away all electrical and telephone cords, or use cordless devices ? Reduce clutter, dispose of unused items on floors or place belongings in storage and out of traffic areas Avoid wet or slippery surfaces: ? Install grab bars and handrails near the toilet, in showers, and near bathtubs ? Place non-slip pads on the bottom of the shower or bathtub ? Install a handheld shower head and sit on a shower stool while showering ? Sit while applying makeup, brushing teeth, or while shaving Be careful in stairs and hallways: ? Always use handrail, if one is not present have one installed, even for short flights (3-4 stairs). If that is not possible, use the wall as your guide by placing your hand on it ? Make sure any carpeting is securely fixed ? Ensure good lighting both from the area you are exiting and the one that you are entering ? Schuyler stair edges with reflective tape or paint a bright color ? Make sure thresholds are flush with the jose ? Do not place items on stairs, avoid clutter and other loose items in your path Avoid poor lighting situations: ? Place nightlights in traffic areas such as halls and stairs ? Place a lamp at the bedside to turn on if you need to get up at night ? Turn on bathroom lights at night Use a cane, walker, or other support structure if needed Place commonly used items in the kitchen and bath within easy reach Avoid the use of step stools and ladders Be able to call for help if you need it: ? Keep a cordless phone nearby when by yourself ? Let others know when you need assistance ? Consider an emergency response system if you live or are frequently alone or others in the home would be unable to assist you in a fall situation NOTICE: THIS DOCUMENT IS INTENDED SOLELY FOR PATIENT EDUCATIONAL PURPOSES AND IS PROVIDED A COURTESY TO PATIENTS OF DR. FAWN HYMAN MD. IT IS NOT INTENDED A SUBSTITUTE FOR PROFESSIONAL MEDICAL CARE OR ADVICE. THE PATIENT SHOULD SEEK ADVICE FROM THE PHYSICIAN IF THERE ARE ANY QUESTIONS ABOUT THE CONTENTS OR DIRECTIONS PROVIDED IN THIS DOCUMENT documented in this encounter [facility] 03-13-2025 Note [facility] [address] [facility] [place] [address] [address] Dept: [phone] Fawn Hyman MD Jyotsna Sample 79 y.o. female Patient presents with a chief complaint of VERTIGO Temp 97.8 degrees F (36.6 degrees C) (Oral) Ht 5' 4 Wt 75.7 kg (166 lb 14.4 oz) BMI 28.65 kg/m History of Presenting Illness: The patient/caregiver reports a history of complaint with the following features: Onset: started 3 years ago after brain bleed Timing: occurs when first gets out of bed Duration: lasts 5 minutes Quality: spinning sensation Location: feels like inside of head Severity: pain none, makes feel unsteady Risk factors: chemotherapy for breast cancer, chronic neck pain treated with BOTOX Alleviating factors: holding stable object, neck injections help some Aggravating factors: getting into or out of bed, rolling over Associated factors: right tinnitus for many years, no hearing loss Review of systems covering 10 systems is reviewed and pertinent positives and negatives are noted as above. History reviewed. No pertinent past medical history. Current Medications[1] Allergies[2] History reviewed. No pertinent surgical history. Social History [3] History reviewed. No pertinent family history. PHYSICAL EXAM: The patient was examined today 03/13/2025 with findings as follows: CONSTITUTIONAL: General Appearance: well-appearing, nontoxic, alert, no acute distress Communication: understanding at normal conversational tones, normal voicing, speech intelligible HEAD/FACE: Head: atraumatic, normocephalic, no lesions Facial Inspection: no lesions, healthy skin Facial Strength: motor strength normal, symmetric strength, symmetric movement Sinuses: no sinus tenderness Salivary Glands: no enlargements of parotid glands, no tenderness of parotid glands, no masses of parotid glands, clear salivary flow on palpation from Stensen's ducts, no duct stones of Stensen's duct, no enlargement of submandibular glands, no tenderness of submandibular glands, no masses of submandibular glands, clear salivary flow from [place]'s ducts, no stones of [place]'s ducts Temporomandibular Joint: no crepitus with motion, no tenderness on palpation, no trismus, motion symmetric EYES: Pupils: PERRLA, extra-ocular movements intact, no nystagmus, sclera white, no redness of eyes, no watering of eyes EARS: Bilateral External Ears: no pits, no tags Right External Ear: normally formed, no lesions, no mastoid tenderness Left External Ear: normally formed, no lesions, no mastoid tenderness Right External Auditory Canal: normal, healthy skin, no obstructing cerumen, no discharge Left External Auditory Canal: normal, healthy skin, no obstructing cerumen, no discharge Right Tympanic Membrane: normal landmarks, translucent, mobile to pneumatic otoscopy, no perforation Left Tympanic Membrane: normal landmarks, translucent, mobile to pneumatic otoscopy, no perforation Hearing: intact to spoken voice NOSE: Nasal Skin: no lesions, no lacerations, no scars Nasal Dorsum: symmetric with no visible or palpable deformities Nasal Tip: normal symmetric nasal tip, normal nasal valves Nasal Mucosa: normal, pink and moist Septum: not markedly deformed, midline, no exposed vessels, no bleeding, no septal granuloma Turbinates: normal size and conformation Nasopharynx: normal ORAL CAVITY/MOUTH: Lips, teeth, gums: normal lips, normal gums, dentition intact, no dental pain on palpation Oral Mucosa: normal, moist, no lesions Palate: normal hard palate, normal soft palate, symmetric palatal elevation Floor of Mouth: normal floor of mouth Tongue: normal tongue, no lesions, no edema, no masses, normal mucosa, mobile Tonsils: normal tonsils, symmetric, no lesions Posterior pharynx: normal NECK: Neck: no masses, trachea midline, reduced range of motion, no cysts or pits, no tenderness to palpation Thyroid: normal thyroid, no enlargement, no tenderness, no nodules LYMPH NODES: Cervical: no palpable lymph node enlargement RESPIRATORY: Inspection/Auscultation: good air movement, chest expands symmetrically, normal breath sounds, no wheezing, no stridor CARDIOVASCULAR SYSTEM: Auscultation: regular rate and rhythm, carotid pulse normal, no carotid thrills, no carotid bruits Observation/Palpation of Peripheral Vascular System: no varicosities, no cyanosis, no edema ABDOMEN: Inspection and Palpation: abdomen soft, non-tender, non-distended MUSCULOSKELETAL SYSTEM: Musculoskeletal System: extremity range of motion intact, strength symmetric and full upper extremities, strength symmetric and full lower extremities SKIN: General Appearance: no lesions, warm and dry, normal turgor, no bruising NEUROLOGICAL SYSTEM: Orientation: oriented to time, oriented to place, oriented to person Cranial Nerves: Cranial Nerves II-XII intact, normal facial movement, (more content not included)... [facility] 03-13-2025 History of Present illness Narrative [facility] [place] [address] [facility] [place] [address] [facility] [id number] Dept: [phone] Fawn Hyman MD Jyotsna Sample 79 y.o. female Patient presents with a chief complaint of VERTIGO Temp 97.8 F (36.6 C) (Oral) Ht 5' 4 Wt 75.7 kg (166 lb 14.4 oz) BMI 28.65 kg/m History of Presenting Illness: The patient/caregiver reports a history of complaint with the following features: Onset: started 3 years ago after brain bleed Timing: occurs when first gets out of bed Duration: lasts 5 minutes Quality: spinning sensation Location: feels like inside of head Severity: pain none, makes feel unsteady Risk factors: chemotherapy for breast cancer, chronic neck pain treated with BOTOX Alleviating factors: holding stable object, neck injections help some Aggravating factors: getting into or out of bed, rolling over Associated factors: right tinnitus for many years, no hearing loss Review of systems covering 10 systems is reviewed and pertinent positives and negatives are noted as above. History reviewed. No pertinent past medical history. Current Medications[1] Allergies[2] History reviewed. No pertinent surgical history. Social History [3] History reviewed. No pertinent family history. PHYSICAL EXAM: The patient was examined today 03/13/2025 with findings as follows: CONSTITUTIONAL: General Appearance: well-appearing, nontoxic, alert, no acute distress Communication: understanding at normal conversational tones, normal voicing, speech intelligible HEAD/FACE: Head: atraumatic, normocephalic, no lesions Facial Inspection: no lesions, healthy skin Facial Strength: motor strength normal, symmetric strength, symmetric movement Sinuses: no sinus tenderness Salivary Glands: no enlargements of parotid glands, no tenderness of parotid glands, no masses of parotid glands, clear salivary flow on palpation from Stensen's ducts, no duct stones of Stensen's duct, no enlargement of submandibular glands, no tenderness of submandibular glands, no masses of submandibular glands, clear salivary flow from [place]'s ducts, no stones of [place]'s ducts Temporomandibular Joint: no crepitus with motion, no tenderness on palpation, no trismus, motion symmetric EYES: Pupils: PERRLA, extra-ocular movements intact, no nystagmus, sclera white, no redness of eyes, no watering of eyes EARS: Bilateral External Ears: no pits, no tags Right External Ear: normally formed, no lesions, no mastoid tenderness Left External Ear: normally formed, no lesions, no mastoid tenderness Right External Auditory Canal: normal, healthy skin, no obstructing cerumen, no discharge Left External Auditory Canal: normal, healthy skin, no obstructing cerumen, no discharge Right Tympanic Membrane: normal landmarks, translucent, mobile to pneumatic otoscopy, no perforation Left Tympanic Membrane: normal landmarks, translucent, mobile to pneumatic otoscopy, no perforation Hearing: intact to spoken voice NOSE: Nasal Skin: no lesions, no lacerations, no scars Nasal Dorsum: symmetric with no visible or palpable deformities Nasal Tip: normal symmetric nasal tip, normal nasal valves Nasal Mucosa: normal, pink and moist Septum: not markedly deformed, midline, no exposed vessels, no bleeding, no septal granuloma Turbinates: normal size and conformation Nasopharynx: normal ORAL CAVITY/MOUTH: Lips, teeth, gums: normal lips, normal gums, dentition intact, no dental pain on palpation Oral Mucosa: normal, moist, no lesions Palate: normal hard palate, normal soft palate, symmetric palatal elevation Floor of Mouth: normal floor of mouth Tongue: normal tongue, no lesions, no edema, no masses, normal mucosa, mobile Tonsils: normal tonsils, symmetric, no lesions Posterior pharynx: normal NECK: Neck: no masses, trachea midline, reduced range of motion, no cysts or pits, no tenderness to palpation Thyroid: normal thyroid, no enlargement, no tenderness, no nodules LYMPH NODES: Cervical: no palpable lymph node enlargement RESPIRATORY: Inspection/Auscultation: good air movement, chest expands symmetrically, normal breath sounds, no wheezing, no stridor CARDIOVASCULAR SYSTEM: Auscultation: regular rate and rhythm, carotid pulse normal, no carotid thrills, no carotid bruits Observation/Palpation of Peripheral Vascular System: no varicosities, no cyanosis, no edema ABDOMEN: Inspection and Palpation: abdomen soft, non-tender, non-distended MUSCULOSKELETAL SYSTEM: Musculoskeletal System: extremity range of motion intact, strength symmetric and full upper extremities, strength symmetric and full lower extremities SKIN: General Appearance: no lesions, warm and dry, normal turgor, no bruising NEUROLOGICAL SYSTEM: Orientation: oriented to time, oriented to place, oriented to person Cranial Nerves: Cranial Nerves II-XII intact, normal facial movement, normal facial sensation to touch, normal corneal reflex, normal shoulder shrug, normal detection of odorants and normal laryngeal elevation Cerebellar: normal gait, normal finger-nose pointing and negative romberg's sign Vestibulocular: Colin-Hallpike testing negative, vertigo with return to upright position without nystagmus, Fukuda step test normal, no ocular pursuit defects, and no head-shaking test induced nystagmus PSYCHIATRIC: Mood and affect: normal mood, normal affect Assessment and Plan: She presents with vertigo for many years and significant risk factors from prior chemotherapy, intracranial bleed, chronic neck pains, and essential tremor. 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 I have advised the patient and/or caregiver that the symptoms and exam findings are most consistent with vertigo of uncertain cause. We have discussed that the symptoms can arise from abnormalities of the balance organ of the ear, vision impairment, poor coordination of movements by the brain, weakness or reduced sensation of the extremities, or other causes related to metabolic abnormalities or circulatory problems. We have discussed that other evaluation may be needed and that ongoing follow-up is recommended. The patient and/or caregiver is to notify me of any acute change or worsening of symptoms for sooner evaluation. We have discussed that physical therapy for vestibular rehabilitation can sometimes be helpful when no other treatable cause is identified. The patient and/or caregiver is able to state an understanding of these recommendations and is agreeable to the treatment plan. The patient is identified at increased fall risk. Strategies for avoiding fall and injury is discussed and an informational sheet is provided for review. The patient and/or caregiver is able to state an understanding of these recommendations and is agreeable to the treatment plan. I have spent greater than 45 minutes in today's visit today in discussion with the patient and caregiver, review of records, and care coordination. This excludes any procedures separately billed. 1. Cervical vertigo Ambulatory Ref to [place] (PT/OT/ST) Return if symptoms worsen or fail to improve. The patient and/or caregiver is to notify the office if no improvement or worsening of symptoms is noted prior to the scheduled follow-up for sooner evaluation. The patient and/or caregiver is able to state an understanding of these recommendations and is agreeable to the treatment plan. --Fawn Hyman MD on 03/13/2025 at 9:55 AM An electronic signature was used to authenticate this note. [1] Current Outpatient Medications: carbidopa-levodopa (SINEMET) 25-100 mg per tablet, Take 2 (two) tablets by mouth 3 (three) times a day ., Disp: , Rfl: ketoconazole (NIZORAL) 2 % cream, apply to the affected area twice a day, Disp: , Rfl: Klayesta powder, Apply topically 2 (two) times a day as needed ., Disp: , Rfl: propranoloL (INDERAL) 10 MG tablet, Take 3 tablets 3 times daily, Disp: , Rfl: [2] No Known Allergies [3] Social History Socioeconomic History Marital status: Tobacco Use Smoking status: Never Smokeless tobacco: Never Substance and Sexual Activity Alcohol use: Never Drug use: Never Review of Systems Constitutional: Negative. HENT: Positive for tinnitus. Eyes: Positive for itching. Respiratory: Negative. Cardiovascular: Negative. Gastrointestinal: Negative. Endocrine: Negative. Genitourinary: Negative. Musculoskeletal: Positive for neck pain. Skin: Negative. Allergic/Immunologic: Negative. Neurological: Positive for dizziness, light-headedness and headaches. Hematological: Bruises/bleeds easily. Psychiatric/Behavioral: Negative. documented in this encounter [facility] 03-08-2025 History of Present illness Narrative onabotulinumtoxinA (Botox) # 53 (03/08) - also injected twice with Xeomin First injection date by me, March 26, 1995 Cervical dystonia PA: Ede robbins to March 31, 2025 Re: Cervical dystonia Jyotsna Pascual returned to my office today. She had good results after her last botulinum toxin injections. She has just lately noted a return of head shaking and tightness in the right side of her neck. Re: Vertigo (first noted in August 2023) It persists. She is scheduled to see ENT next week. I will e-mail her information about Greenberg-Daroff exercises. 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 Taking: Sinemet 25/100, two t.i.d. Re: Breast cancer - Nothing new Re: Other health matters - Heart: a little valve problem; a lot of women have it EXAM: Continuous clonic head movement, predominantly horizontal. Mild hypophonia. Persistent moderate left upper limb rest tremor, and intermittent tremors in her lower jaw and right hand. IMPRESSION: 1. Cervical dystonia since at least 1994. 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 2. Tremor - tremor since 2007, with a definite rest component first noted in 2014 - her clinical picture is consistent with Parkinson's disease, now with orthostatic lightheadedness. She has repeatedly told me not to tell her if she has Parkinson's disease, because of her father's poor experience with that disorder (with prominent Lewy body dementia). For the time being, she remains content with the diagnosis of tremor. - the only unusual feature is that she has marked alcohol responsiveness. She may also have essential tremor. Indeed, that was my initial impression, due to the finding of an action tremor and for which I prescribed PRN propranolol in 2011. 3. Head trauma - struck right forehead when pulled down walking a dog in February 2021 - she described what sounded like a left subdural hematoma - residual headaches, word-finding difficulty - she asked if her tremor was related to the head trauma, and I reminded her that her tremor began long before 4. Breast cancer - diagnosed late 2016 - treated with lumpectomy, 27 radiation treatments and 16 rounds of chemotherapy. 5. Vertigo PROCEDURES: I reinjected her with a total dose of 200 units of onabotulinumtoxinA (Botox). 100 units were divided into 3 sites and injected into the right splenius capitis. 50 units were divided into 5 sites and injected into the right trapezius. 50 units were injected into 2 sites in the left splenius capitis. She tolerated the injections well. She will return for reassessment when the effects wear off. The patient consented to the procedure. I certify that the patient was the same Jyotsna Pascual whom I have injected 54 times over 30 years. Loretta Trimble M.D. documented in this encounter [facility] 11-09-2024 History of Present illness Narrative onabotulinumtoxinA (Botox) # 52 (11/09) - also injected twice with Xeomin First injection date by me, March 26, 1995 Cervical dystonia PA: Ede robbins to March 31, 2025 Re: Cervical dystonia Jyotsna Pascual returned to my office today for the first time in 5 months. She did well after her last botulinum toxin injections, but has noted severe neck pain for the last 4 weeks. She stated I am definitely ready for reinjection. She commented My neck acting up makes me more unbalanced . We discussed why. Re: Vertigo (first noted in August 2023) c/o I have trouble getting up in the morning. I have to sit on the edge of the bed. 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 Mild hypophonia. Persistent moderate left upper limb rest tremor, and intermittent tremors in her lower jaw and right hand. IMPRESSION: 1. Cervical dystonia since at least 1994. 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 2. Tremor - tremor since 2007, with a definite rest component first noted in 2014 - her clinical picture is consistent with Parkinson's disease, now with orthostatic lightheadedness. She has repeatedly told me not to tell her if she has Parkinson's disease, because of her father's poor experience with that disorder (with prominent Lewy body dementia). For the time being, she remains content with the diagnosis of tremor. - the only unusual feature is that she has marked alcohol responsiveness. She may also have essential tremor. Indeed, that was my initial impression, due to the finding of an action tremor and for which I prescribed PRN propranolol in 2011. 3. Head trauma - struck right forehead when pulled down walking a dog in February 2021 - she described what sounded like a left subdural hematoma - residual headaches, word-finding difficulty - she asked if her tremor was related to the head trauma, and I reminded her that her tremor began long before 4. Breast cancer - diagnosed late 2016 - treated with lumpectomy, 27 radiation treatments and 16 rounds of chemotherapy. 5. Vertigo PROCEDURES: I reinjected her with a total dose of 200 units of onabotulinumtoxinA (Botox). 100 units were divided into 3 sites and injected into the right splenius capitis. 50 units were divided into 5 sites and injected into the right trapezius. 50 units were injected into 2 sites in the left splenius capitis. She tolerated the injections well. She will return for reassessment when the effects wear off. The patient consented to the procedure. I certify that the patient was the same Jyotsna Pascual whom I have injected 53 times over 30 years. Loretta Trimble M.D. documented in this encounter [facility] 05-25-2024 History of Present illness Narrative onabotulinumtoxinA (Botox) # 51 (05/25) - also injected twice with Xeomin First injection date by me, March 26, 1995 Cervical dystonia PA: Ede robbins to 2023 Re: Cervical dystonia Jyotsna Pascual returned to my office today. She said I did well after her last botulinum toxin injections. She added this time I know I'm ready for it. The other day my head was going up and down as well as sideways. She complained ever since the Reclast I have so much pain in my body . EXAM: Continuous clonic head movement, predominantly horizontal. Mild hypophonia. Persistent moderate left upper limb rest tremor, and intermittent tremors in her lower jaw and right hand. IMPRESSION: 1. Cervical dystonia since at least 1994. 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 2. Tremor 3. Head trauma 4. Breast cancer 5. Vertigo PROCEDURES: I reinjected her with a total dose of 200 units of onabotulinumtoxinA (Botox). 100 units were divided into 3 sites and injected into the right splenius capitis. 50 units were divided into 5 sites and injected into the right trapezius. 50 units were injected into 2 sites in the left splenius capitis. She tolerated the injections well. She will return for reassessment when the effects wear off. documented in this encounter [facility] 03-13-2021 Note HNO ID: [id number] Author: Karena Dwyer I, MD Service: ? Author Type: Physician Type: Progress Notes Filed: 03/13/2021 8:49 AM Note Text: NEUROSURGERY FOLLOW UP OFFICE NOTE Karena Dwyer MD Date of visit: March 13, 2021 Patient Name: Ms.Carol Danial Pascual Date of : 1945 Current Age: [age] year old Sex: female MRN/E# [id number] Last Office Visit: Visit date not found Chief Complaint: Patient presents with: Established Patient SUBJECTIVE: Jyotsna Pascual is a 75 year old female with a past medical history of breast CA s/p chemo/radiation/lumpectomy. She denies smoking. She presented to [facility] ED 02/23/2021 as a trauma transfer for [...] is warm. Neuro (more content not included)... [facility] 02-25-2021 Note HNO ID: [id number] Author: Jeanine Monae RN Service: Care Management [...] planning services during this admission, please call [phone]. Jeanine Monae RN February 25, 2021 2:15 PM SIGNATURE: Jeanine Monae RN PATIENT NAME: Jyotsna Barrow Sample DATE: February 25, 2021 TIME: 2:15 PM PAGER/CONTACT #: [phone] [facility] 02-25-2021 Note HNO ID: [id number] Author: SAMARA Hernandez Service: Care Management Author Type: Supervisor [employer] Type: Care Mgt Progress Note Filed: 02/25/2021 2:01 PM Note Text: CARE MANAGEMENT PROGRESS NOTE SERVICE DATE: 02/25/2021 SERVICE TIME: 2:01 PM LOS: 1 day Chart reviewed. Pt had no tox screen completed, Trauma assessment not appropriate at this time. SIGNATURE: SAMARA Hernandez PATIENT NAME: Jyotsna Barrow Sample DATE: February 25, 2021 TIME: 2:01 PM PAGER/CONTACT #: [phone] [facility] 02-25-2021 Note HNO ID: [id number] Author: Andreia Lal APRN.CNP Service: General Surgery Author Type: Nurse Practitioner Type: Progress Notes Filed: 02/25/2021 12:01 PM Note Text: Trauma Surgery Progress Note SERVICE DATE: 02/25/2021 Trauma Service Pager: For questions or concerns Mon-Fri 6a-5p please page [phone]. After 5pm and on Weekends and Holidays, please page [phone] if in ICU or [phone] if on RNF. SUBJECTIVE: NAEON. Patient states feeling well overall today. Denies headache or dizziness. Tolerating diet. Feels ready to go home. OBJECTIVE: Vitals: Temp (24hrs), Av.6 ?C (97.9 ?F), Min:36.3 ?C (97.3 ?F), Max:36.8 ?C (98.2 ?F) BP 130/73 Pulse 65 Temp 36.6 ?C (97.9 ?F) (Oral) Resp 18 Ht 162.6 cm (5' 4) Wt 73.1 kg (161 lb 2.5 oz) SpO2 95% BMI 27.66 kg/m? O2 Therapy: Room Air IANDO: Date 02/24/21699 - 02/25/21 0602/25/21699 - 02/26/21 0659 Shift 0635-3881 1320-4082 1399-0110 24 Hour Total 4679-1212 5684-2446 0094-6367 24 Hour Total INTAKE PO 320 320 [...] intervention 3. Forehead laceration 1. Repaired @ [facility] 2. Sutures to be removed 5-7 days [...] Needs: 1. PCP for suture removal 2. NSGY - Dr. Dwyer in 4 wks Staff Trauma Surgeon: Dr. Broderick SIGNATURE: Andreia Lal APRN.JENA PATIENT NAME: Jyotsna Barrow Sample DATE: February 25, 2021 TIME: 9:37 AM Pager: see below Trauma Service Pager: For questions or concerns Thu-Thu- please page [phone]. After 5pm and on Weekends and Holidays, please page [phone] if in ICU or [phone] if on (more content not included)... [facility] 02-24-2021 Note HNO ID: [id number] Author: Sandra Broderick MD Service: General Surgery Author Type: Physician Type: Progress Notes Filed: 02/24/2021 11:00 AM Note Text: Trauma Surgery Progress Note SERVICE DATE: 02/24/2021 Trauma Service Pager: For questions or concerns - please page [phone]. After 5pm and on Weekends and Holidays, please page [phone] if in ICU or [phone] if on RNF. SUBJECTIVE: NAEO. Patient is [...] (Oral) Resp 20 Ht 162.6 cm (5' 4) Wt 70.1 kg (154 lb 8.7 oz) SpO2 94% BMI 26.53 kg/m? O2 Therapy: Room Air IANDO: Date 02/23/21699 - 02/24/21 0659 02/24/21699 - 02/25/21 0659 Shift 5943-2529 8410-4907 6447-1368 24 Hour Total 7020-0836 9318-1565 0684-6676 24 Hour Total INTAKE IV 150 150 [...] Broderick SIGNATURE: Virgie Flores MD PATIENT NAME: Jyotsna Barrow Sample DATE: February 24, 2021 TIME: 8:51 AM Pager: see below Trauma Service Pager: For questions or concerns Thu-Thu 6a-5p please page [phone]. After 5pm and on Weekends and Holidays, please page [phone] if in ICU or [phone] if on RNF. Attending Note I (more content not included)... 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 History of left breast cancer chronic Osteopenia chronic Leg cramps acute Cancer of left female breast chronic Depression chronic Osteopenia chronic Regional lymph node metastasis present chronic Hyperlipidemia acute Non-rheumatic tricuspid valve insufficiency acute Essential hypertension chron ic Nonrheumatic mitral (valve) prolapse chronic [facility] Work Phone: Evaluation note* Diagnosis Onset Date Resolution Status Cancer of left female breast chronic History of left breast cancer chronic Osteopenia chronic Leg cramps acute Cancer of left female breast chronic Depression chronic Osteopenia chronic Regional lymph node metastasis present chronic [facility] Work Phone: Evaluation note* Diagnosis Onset Date Resolution Status Disproportion between [place] breast and reconstructed breast acute Actinic keratosis chronic 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 Family history of breast cancer chronic Late effect of radiation chr onic Personal history of skin cancer chronic Soft tissue radionecrosis ch ronic Essential hypertension chron ic Hyperlipidemia chronic Nonrheumatic mitral (valve) prolapse chronic Palpitations chronic [facility] [facility] Work Phone: Evaluation note* Diagnosis Onset Date Resolution Status Essential hypertension chron ic Hyperlipidemia chronic Nonrheumatic mitral (valve) prolapse chronic Palpitations chronic Hypercalcemia acute Cancer of left female breast chronic Osteopenia chronic Hypercalcemia acute Cancer of left female breast chronic Osteopenia chronic Multiple falls acute Leg cramps acute Cancer of left female breast chronic Depression chronic Osteopenia chronic Regional lymph node metastasis present chronic [facility] Work Phone: Evaluation note* Diagnosis Cervical dystonia- Primary Spasmodic torticollis [facility] Diagnosis Tremor- Primary Abnormal involuntary movements [facility]* Diagnosis Tremor Abnormal involuntary movements [facility]* Diagnosis Cervical dystonia- Primary Spasmodic torticollis Tremor Abnormal involuntary movements Vertigo Dizziness and giddiness documented [facility]* Diagnosis Tremor Abnormal involuntary movements [facility]* Diagnosis Cervical dystonia- Primary Spasmodic torticollis Vertigo Dizziness and giddiness Tremor Abnormal involuntary movements [facility]* Diagnosis Cervical vertigo- Primary documented in this encounter [facility] for visit Narrative* Injection (Routine) - Authorized Specialty Diagnoses / Procedures Referred By Contac t Referred To Contact Neurology Diagnoses Spasmodic torticollis Procedures MI INJECTION,ONABOTULINUMTOXINA MI CHEMODENERVATION MUSCLE NECK UNILAT [place] [address] [place] [address] Phone: tel: fax: [place] [address] [place] [address] Phone: tel: fax: Referral ID Status Reason Start Date Expiration Date V isits Requested Visits Authorized [id number] Authorized Other 03/31/2024 03/31/2025 5 5 [facility] Summary Purpose Family History No Family History Records Found Relationship Condition Age at Onset Recorded Date/T ilda father Heart problem Unknown mother Heart problem Unknown grandmother Malignant neoplasm of ovary Unknown Relationship Condition Age at Onset Recorded Date/T lida Not Specified Osteoporosis Unknown High blood cholesterol Unknown Anxiety Unknown Arthritis Unknown Depression Unknown Malignant neoplasm of breast Unknown Disorder of endocrine system Unknown Asthma Unknown father Heart problem Unknown mother Heart problem Unknown grandmother Malignant neoplasm of ovary Unknown Advance Directives No Advanced Directives Records Found Advance Directive Response Recorded Date/ Time Advance Directives on File Yes Decem 2020 3:15pm Advance Directives Yes July 3:15pm Living Will Yes July 31, 2 021 3:15pm Power of Budget Counselor Yes July 31, 2021 3:15pm Advance Directive Response Recorded Date/ Time Advance Directives on File Yes Decem 2020 2:15pm Advance Directives Yes July 2:15pm Living Will Yes July 31, 2 021 2:15pm Power of Budget Counselor Yes July 31, 2021 2:15pm Advance Directive Response Recorded Date/ Time Advance Directives Yes July 2:15pm Living Will Yes July 31, 2 021 2:15pm Power of Budget Counselor Yes July 31, 2021 2:15pm Advance Directive Response Recorded Date/ Time Advance Directives on File Yes Decem 2020 2:15pm Name of Medical Power of Budget Counselor September 09, 2023 5:35pm Advance Directives Yes July 2:15pm Living Will Yes September 09 5:35pm Power of Budget Counselor Yes September 09, 2023 5:35pm Reason for Referral Specialty Diagnoses / Procedures Referred By Kaley rodriguez Referred To Contact Lab Diagnoses History of breast cancer Family history of breast cancer Family history of prostate cancer Family history of pancreatic cancer Family history of ovarian cancer Procedures Genetic Sendout: Multi-Cancer test with RNA testing Farzaneh [place]án[place] [address] Referral ID Status Reason Start Date Expiration Date V isits Requested Visits Authorized [id number] Open Specialty Services Required 04/09/2022 04/09/2023 1 1 Chief Complaint and Reason for Visit Chief Complaint 6MO LABS PROLIA (DO NOT MOVE FROM DR. Marquez) OMD/COOPER APHASIA/RX SCANNED INTO CHART 1 y fu INT LABS Reason for Visit Cancer of left femal e breast Expressive aphasia syndrome History of left breast cancer Osteopenia Leg cramps Cancer of left female breast Depression Osteopenia Regional lymph node metastasis present Hyperlipidemia Non-rheumatic tricuspid valve insufficiency Essential hypertension Nonrheumatic mitral (valve) prolapse Chief Complaint INT LABS 6 MO - LABS - PROLIA OMD/COOPER SCREENING Reason for Visit Cancer of left femal e breast History of left breast cancer Osteopenia Leg cramps Cancer of left female breast Depression Osteopenia Regional lymph node metastasis present Chief Complaint 2 M FU 1 Y FU PREV PFM PT MURMUR; HX LT SIDE RADIATION & CHEMO Reason for Visit Disproportion betwee n [place] breast and reconstructed breast Actinic keratosis Cancer of left female breast 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 Family history of breast cancer Late effect of radiation Personal history of skin cancer Soft tissue radionecrosis Essential hypertension Hyperlipidemia Nonrheumatic mitral (valve) prolapse Palpitations Chief Complaint 1 Y FU PREV PFM PT MURMUR; HX LT SIDE RADIATION & CHEMO SCREENING 6MO LABS REVIEW DEXA/MAMMO PROLIA Hypercalcemia 4WKS LABS PROLIA Acute OMD/COOPER weakness Reason for Visit Essential hypertensi on Hyperlipidemia Nonrheumatic mitral (valve) prolapse Palpitations Hypercalcemia Cancer of left female breast Osteopenia Hypercalcemia Cancer of left female breast Osteopenia Multiple falls Leg cramps Cancer of left female breast Depression Osteopenia Regional lymph node metastasis present Additional Source Comments INFORMATION SOURCE (unrecogn ized section and content) DATE CREATED AUTHOR 05/24/2019 [facility] DATE CREATED AUTHOR AUTHOR'S ORGANIZ ATION 03/17/2021 [facility] DATE CREATED AUTHOR AUTHOR'S ORGANIZ ATION 05/18/2022 [facility] DATE CREATED AUTHOR AUTHOR'S ORGANIZ ATION 05/27/2024 [facility] DATE CREATED AUTHOR AUTHOR'S ORGANIZ ATION 12/05/2024 [facility] DATE CREATED AUTHOR AUTHOR'S ORGANIZ ATION 03/13/2025 [facility] Source Comments (unrecognize d section and content) In the event this informatio n is protected by the Federal Confidentiality of Alcohol and Drug Abuse Patient Records regulations: The Federal rules restrict any use of the information to criminally investigate or prosecute any alcohol or drug abuse patient.[facility] Reason for Visit (unrecogniz ed section and content) Specialty Diagnoses / Procedures Referred By Kaley rodriguez Referred To Contact Lab Diagnoses History of breast cancer Family history of breast cancer Family history of prostate cancer Family history of pancreatic cancer Family history of ovarian cancer Procedures Genetic Sendout: Multi-Cancer test with RNA testing Farzaneh [place]án[place] [address] Referral ID Status Reason Start Date Expiration Date V isits Requested Visits Authorized [id number] Open Specialty Services Required 04/09/2022 04/09/2023 1 1 Reason Comments Med Refill Reason Comments [facility] Care Teams (unrecognized sec tion and content) Organic Lab Worker Relationship Specialty Start Date End Date Pcp, [place] [address] PCP - General Pediatrics 04/09/22 Loren Julian [facility] [place], [place] [id number] Genetic Counselor Genetics 04/09/22 Team Status: Active Member Role Status Dates Dr. Samir Hinds MD Family Provider Active Dr. Samir Hinds MD Primary Care Provider Act ysabel Team Status: Inactive Member Role Status Dates Dr. Samir Hinds MD Primary Care Provider, Re ferring Provider Active Dr. Sam Paredes MD Attending Provider Active Team Status: Inactive Member Role Status Dates Dr. Samir Hinds MD Primary Care Provider, Re ferring Provider Active Dr. Bayron Hernandez MD Active Darshan Santiago COSMETICS PRESSER, COSMETICS PRESSER-C Attending Provider Active Team Status: Active Member Role Status Dates Dr. Samir Hinds MD Primary Care Provider Act ysabel Dr. Tiny Bhardwaj MD Attending Provider Active Team Status: Inactive Member Role Status Dates Dr. Samir Hinds MD Primary Care Provider Act ysabel Darshan Santiago COSMETICS PRESSER, COSMETICS PRESSER-C Attending Provider, Referring Pro vider Active Team Status: Inactive Member Role Status Dates Dr. Samir Hinds MD Primary Care Provider, Re ferring Provider Active Dr. Joseph Ramirez MD Attending Provider Active Team Status: Active Member Role Status Dates Dr. aSmir Hinds MD Primary Care Provider, Fa slava Provider Active Dr. Karuna Camarena MD Referring Provider Active Dr. Joseph Ramirez MD Attending Provider Active Team Status: Inactive Member Role Status Dates Dr. Samir Hinds MD Primary Care Provider Act ysabel Chantal Haas COSMETICS PRESSER, COSMETICS PRESSER-C Attending Provider, Referring Provider Active Team Status: Inactive Member Role Status Dates Dr. Samir Hinds MD Primary Care Provider Act ysabel Dr. Joseph Ramirez MD Attending Provider, Referring Pro vider Active Team Status: Inactive Member Role Status Dates Dr. Samir Hinds MD Primary Care Provider Act ysabel Dr. Loren Sepulveda MD Emergency Provider Active Organic Lab Worker Relationship Specialty Start Date End Date Samir Hinds MD [place] [place] [address] PCP - General Gastroenterology 06/24/23 Organic Lab Worker Relationship Specialty Start Date End Date Samir Hinds MD [address] [place] [address] PCP - General Gastroenterology 06/24/23 Organic Lab Worker Relationship Specialty Start Date End Date Samir Hinds MD [address] [place] [address] PCP - General Gastroenterology 06/24/23 Organic Lab Worker Relationship Specialty Start Date End Date Samir Hinds MD [address] [facility] [place] [address] PCP - General Gastroenterology 06/24/23 Organic Lab Worker Relationship Specialty Start Date End Date Samir Hinds MD [address] [facility] [place] [address] PCP - General Gastroenterology 06/24/23 Organic Lab Worker Relationship Specialty Start Date End Date Samir Hinds MD [address] [place] [address] PCP - General Gastroenterology 06/24/23 Organic Lab Worker Relationship Specialty Start Date End Date No, Physician [facility] PCP - General 12/19/24 Goals (unrecognized section and content) Goals may be documented in a n alternate sectionGoals may be documented in an alternate sectionGoals may be documented in an alternate sectionGoals may be documented in an alternate section FOR RECORDS PERTAINING TO PATIENTS WHO ARE [...] BE BASED ON THE PRIMARY CLINICAL RECORDS. [facility] [employer] [facility]. provides no warranty or guarantee of the accuracy or completeness of information in this document.
[2025-08-11 12:37] LABS: Hematocrit 47.3 % (37-47); Hemoglobin 15.8 g/dL (12.0-15.0); Immature Granulocytes Count 0.020 X10^3/uL (0.0-0.0); Mean Corp Hgb Conc 33.4 g/dL (32-36); Mean Corpuscular Volume 94.0 fL (81-99); Mean Platelet Vol. 10.6 fl (6.2-12.0); NRBC Flagged by Analyzer 0 % (0-5); Platelet Count 251 K/mm3 (150-450); RBC Distribution Width CV 14.0 % (11.6-14.6); RBC Distribution Width SD 48.2 fl (35.1-43.9); Red Blood Count 5.03 M/mm3 (4.2-5.4); White Blood Count 7.2 K/mm3 (4.4-11.0)
[2025-08-11 13:13] LABS: AST(SGOT) 35 U/L (<=31); Alanine Aminotransfer ALT/SGPT 35 U/L (<=34); Albumin, Serum 4.2 g/dL (3.4-4.8); Alkaline Phosphatase 95 U/L (35-104); Anion Gap 9 (7-18); BUN 20 mg/dL (4-19); BUN/Creat Ratio 22.2 RATIO (10-20); Calcium,Total 9.7 mg/dL (7.6-11.0); Carbon Dioxide 25.8 mmol/L (20.0-29.0); Chloride 105 mmol/L (96-106); Globulin 3.0 g/dL (2.2-4.2); Glucose 97 mg/dL (70-99); LDH 221 U/L (84-246); Potassium 4.1 mmol/L (3.5-5.1)
[2025-08-12 07:07] LABS: CA 15-3 23.6 U/mL (0.0-25.0); CA 27.29 35.9 U/mL (0.0-38.6)
== END | disposition home or self-care (01) ==
LOC: RAD 12:25
PROVIDERS: PCP Internal Medicine; Referring Provider Internal Medicine Medical Oncology; Visit Provider Internal Medicine Medical Oncology
DX: Z85.3 Personal history of malignant neoplasm of breast (principal)
CPT/HCPCS: 36415; 80053; 83615; 85025; 86300